=== PATIENT | male | born 1950 | race Caucasian/White ===

== ENCOUNTER 2017-02-05 13:22 | Inpatient (IN) | payer MEDICARE, BC ==
[2017-02-05] MEDS ORDERED: Lactated Ringers 1,000 ML IV SCH (14:15)
[2017-02-05] MEDS ORDERED: cefTRIAXone 1 GM Vial IVPUSH SCH (14:15)
[2017-02-05] MEDS ORDERED: Albuterol/Ipratropium 3.0-0.5 MG/3 ML Neb Soln NEB PRN (14:20)
[2017-02-05] MEDS: Sodium Chloride 0.9% 10 ML Syringe FLUSH PRN ×2 (14:45→15:15)
[2017-02-05] MEDS: methylPREDNISolone Sodium Succinate 125 MG/2 ML SDV IVPUSH SCH ×2 (14:52→22:16)
[2017-02-05] MEDS: cefTRIAXone 1 GM in Sodium Chloride 0.9% 50 ML IV SCH (15:12)
[2017-02-05] MEDS: Azithromycin 500 MG in Sodium Chloride 0.9% 250 ML IV SCH (15:45)
[2017-02-05] MEDS: Albuterol/Ipratropium 3.0-0.5 MG/3 ML Neb Soln NEB SCH ×2 (15:55→21:24)
[2017-02-05] MEDS ORDERED: traMADol 50 MG Tab PO PRN (19:09)
[2017-02-05] MEDS ORDERED: Warfarin 5 MG Tab PO SCH (19:15)
--- NOTE | 2017-02-05 19:16 | PCM.HP ---
H&P History of Present Illness - General Date of Service: 02/05/17 Admit Problem/Dx: Admission Diagnosis/Problem Admission Diagnosis/Problem Pneumonia Source of Information: Patient History Limitations: Reports: No limitations - History of Present Illness Initial Comments - Free Text/Narative: This is a 66-year-old male patient that sent over 2 month history of coughing and pneumonia. There is advice and has seen the international editorial producer. Look-alike he had some pulmonary fibrosis. He had a chest x-ray yesterday and saw his primary provider for 5 days ago. Prescribed Levaquin the last 3 days. This was for pneumonia. He states he has sweats after 4 PM at night and from 10 AM to 4 PM he does fine. He has no appetite and feels short of breath. He's been short of breath for a while. He denies nasal congestion, ear pain, wheezing, headaches, abdominal pain, diarrhea, nausea, vomiting. He states his cough is nonproductive. Lower Back Pain Score (Numeric/FACES): 4 - Related Data Allergies/Adverse Reactions: Allergies Allergy/AdvReac Type Severity Reaction Status Date / Time Influenza Virus Vaccines Allergy Chest Verified 12/03/16 10:47 Tightness Home Medications: Home Meds Aspirin [Halfprin] 81 mg PO DAILY 09/08/16 [History] Enalapril Maleate [Vasotec] 20 mg PO DAILY 09/08/16 [History] Hydrochlorothiazide 25 mg PO DAILY 09/08/16 [History] Multivitamin with Minerals [Multivitamins with Minerals] 1 each PO DAILY [History] Omeprazole 20 mg PO DAILY 09/08/16 [History] Pramipexole [Mirapex] 0.25 mg PO DAILY 09/08/16 [History] Warfarin [Coumadin] 2.5 mg PO MOWEFR 09/08/16 [History] Warfarin [Coumadin] 5 mg PO SUTUTHSA 09/08/16 [History] atorvaSTATin [Lipitor] 20 mg PO DAILY 09/08/16 [History] Metoprolol Succinate [Toprol XL] 150 mg PO DAILY 02/05/17 [History] amLODIPine [Norvasc] 5 mg PO DAILY 02/05/17 [History] traMADol [Ultram] 50 mg PO BID PRN 02/05/17 [History] Past Medical History HEENT History: Reports: Hard of hearing, Impaired vision Cardiovascular History: Reports: Hypertension, IN Respiratory History: Reports: PE, Pneumonia, recurrent Gastrointestinal History: Reports: Bowel obstruction Genitourinary History: Reports: Acute renal failure Neurological History: Reports: None Psychiatric History: Reports: None Hematologic History: Reports: None Immunologic History: Reports: None Oncologic (Cancer) History: Reports: None Dermatologic History: Reports: None - Infectious Disease History Infectious Disease History: Reports: Chicken pox, Measles - Past Surgical History Head Surgeries/Procedures: Reports: None HEENT Surgical History: Reports: LASIK, Other (see below) Other HEENT Surgeries/Procedures: rhinoplasty Cardiovascular Surgical History: Reports: Coronary artery stent GI Surgical History: Reports: Cholecystectomy, Colonoscopy Musculoskeletal Surgical History: Reports: Other (see below) Other Musculoskeletal Surgeries/Procedures:: Right ankle broke and repaired and right knee broke and repaired; bilateral wrists broke and repaired Social & Family History - Family History Family Medical History: Noncontributory - Tobacco Use Smoking Status *Q: Former Smoker Used Tobacco, but Quit: Yes Month Tobacco Last Used: 11/1969 Second Hand Smoke Exposure: No - Caffeine Use Caffeine Use: Reports: Soda - Alcohol Use Date of Last Drink: 01/03/16 - Recreational Drug Use Recreational Drug Use: No H&P Review of Systems - Review of Systems: Review Of Systems: See Below General: Reports: night sweats, decreased appetite HEENT: Reports: no symptoms Pulmonary: Reports: Shortness of Breath, Cough. Denies: Wheezing, Pleuritic Chest Pain, Sputum Cardiovascular: Reports: no symptoms Gastrointestinal: Reports: No symptoms Genitourinary: Reports: no symptoms Musculoskeletal: Reports: no symptoms Skin: Reports: no symptoms Psychiatric: Reports: no symptoms Neurological: Reports: No Symptoms Hematologic/Lymphatic: Reports: no symptoms Immunologic: Reports: no symptoms Exam - Exam Exam: See Below - Vital Signs Vital Signs: Last Vital Signs Temp 98.4 F 02/05/17 18:09 Pulse 82 02/05/17 18:09 Resp 16 02/05/17 18:09 BP 115/71 02/05/17 18:09 Pulse Ox 92 L 02/05/17 18:09 Weight: 271 lb - Exam Quality Assessment: supplemental oxygen General: alert, oriented, cooperative HEENT: PERRLA, Conjunctiva clear, Hearing intact, Mucosa moist & pink, Posterior pharynx clear, Pupils reactive Neck: supple, trachea midline Lungs: Clear to auscultation, Normal respiratory effort, Decreased breath sounds. No: Crackles, Rales, Rhonchi, Rub Cardiovascular: regular rate, regular rhythm. No: normal S1, normal S2, systolic murmur, diastolic murmur Abdomen: normal bowel sounds, soft. No: organomegaly, rigidity, rebound, tenderness Back Exam: normal inspection, full range of motion Extremities: normal inspection. No: edema Skin: warm, dry, intact Neurological: normal speech, normal tone Neuro Extensive - Mental Status: alert, oriented x3, normal mood/affect, normal cognition, memory intact Neuro Extensive - Motor, Sensory, Reflexes: normal gait Psychiatric: alert, normal affect, normal mood - Patient Data Lab Results last 24 hrs: Laboratory Results - last 24 hr 02/05/17 02/05/17 02/05/17 Range/Units 14:45 14:45 14:53 WBC (4.5-12.0) X10-3/uL RBC (4.30-5.75) x10(6)uL Hgb (11.5-15.5) g/dL Hct (30.0-51.3) % MCV (80-96) fL MCH (27.7-33.6) pg MCHC (32.2-35.4) g/dL RDW (11.5-15.5) % Plt Count (125-369) X10(3)uL MPV (7.4-10.4) fL Neut % (Auto) (46-82) % Lymph % (Auto) (13-37) % [place] % (Auto) (4-12) % Eos % (Auto) (1.0-5.0) % Baso % (Auto) (0-2) % Neut # (Auto) (1.6-8.3) # Lymph # (Auto) (0.6-5.0) # [place] # (Auto) (0.0-1.3) # Eos # (Auto) (0.0-0.8) # Baso # (Auto) (0.0-0.2) # Sodium 128 L D (135-145) mmol/L Potassium 3.6 (3.5-5.3) mmol/L Chloride 93 L D (100-110) mmol/L Carbon Dioxide 27 (23-29) mmol/L BUN 59 H D (8-23) mg/dL Creatinine 4.2 H* (0.6-1.3) mg/dL Est Cr Clr Drug Dosing 20.40 mL/min Estimated GFR (MDRD) 14 L (>60) BUN/Creatinine Ratio 14.0 (9-20) Glucose 121 H (80-116) mg/dL Calcium 8.2 L (8.6-10.2) mg/dL Total Bilirubin 0.7 (0.1-1.3) mg/dL AST 107 H D (5-27) IU/L ALT 107 H D (14-26) IU/L Alkaline Phosphatase 41 L (56-112) IU/L Troponin I < 0.01 L (0.02-0.06) NG/ML B-Natriuretic Peptide 94 (0-100) pg/mL Total Protein 7.1 (6.0-8.0) g/dL Albumin 3.4 (3.2-4.6) g/dL Globulin 3.7 g/dL Albumin/Globulin Ratio 0.9 04/04/17 Range/Units 14:53 WBC 5.1 (4.5-12.0) X10-3/uL RBC 4.57 (4.30-5.75) x10(6)uL Hgb 13.4 (11.5-15.5) g/dL Hct 40.4 (30.0-51.3) % MCV 88.5 (80-96) fL MCH 29.3 (27.7-33.6) pg MCHC 33.1 (32.2-35.4) g/dL RDW 14.1 (11.5-15.5) % Plt Count 188 (125-369) X10(3)uL MPV 8.0 (7.4-10.4) fL Neut % (Auto) 76.4 (46-82) % Lymph % (Auto) 7.6 L (13-37) % [place] % (Auto) 14.5 H (4-12) % Eos % (Auto) 1 (1.0-5.0) % Baso % (Auto) 0 (0-2) % Neut # (Auto) 3.9 (1.6-8.3) # Lymph # (Auto) 0.4 L (0.6-5.0) # [place] # (Auto) 0.7 (0.0-1.3) # Eos # (Auto) 0.1 (0.0-0.8) # Baso # (Auto) 0.0 (0.0-0.2) # Sodium (135-145) mmol/L Potassium (3.5-5.3) mmol/L Chloride (100-110) mmol/L Carbon Dioxide (23-29) mmol/L BUN (8-23) mg/dL Creatinine (0.6-1.3) mg/dL Est Cr Clr Drug Dosing mL/min Estimated GFR (MDRD) (>60) BUN/Creatinine Ratio (9-20) Glucose (80-116) mg/dL Calcium (8.6-10.2) mg/dL Total Bilirubin (0.1-1.3) mg/dL AST (5-27) IU/L ALT (14-26) IU/L Alkaline Phosphatase (56-112) IU/L Troponin I (0.02-0.06) NG/ML B-Natriuretic Peptide (0-100) pg/mL Total Protein (6.0-8.0) g/dL Albumin (3.2-4.6) g/dL Globulin g/dL Albumin/Globulin Ratio Result Diagrams: 02/05/17 14:53 02/05/17 14:45 *Q Meaningful Use (ADM) - VTE *Q VTE Criteria *Q: - Stroke *Q Stroke Criteria *Q: - AMI *Q AMI Criteria *Q: - Problem List (1) Acute renal failure SNOMED Code(s): 58342498 ICD Code: N17.9 - ACUTE KIDNEY FAILURE, UNSPECIFIED Status: Acute Current Visit: Yes (2) Pneumonia SNOMED Code(s): 521158570 ICD Code: J18.9 - PNEUMONIA, UNSPECIFIED ORGANISM Status: Acute Current Visit: No Problem List Initiated/Reviewed/Updated: Yes Orders Last 24hrs: Active Orders 24 hr Category Date Time Status Patient Status [ADT] Routine ADT 02/05/17 14:09 Active Height and Weight [RC] DAILY Care 02/05/17 14:09 Active Intake and Output [RC] QSHIFT Care 02/05/17 14:10 Active Oxygen Therapy [RC] PRN Care 02/05/17 14:09 Active RT Aerosol Therapy [RC] ASDIRECTED Care 02/05/17 14:10 Active Up With Assistance [RC] ASDIRECTED Care 02/05/17 14:09 Active VTE/DVT Education [RC] Per Unit Routine Care 02/05/17 14:09 Active Vital Signs [RC] Q4H Care 02/05/17 14:09 Active Regular Diet [DIET] Diet 02/05/17 Breakfast Active CULTURE BLOOD [BC] Urgent Lab 02/05/17 14:45 Received CULTURE BLOOD [BC] Urgent Lab 02/05/17 14:45 Received CULTURE SPUTUM + SMEAR [RM] Stat Lab 02/05/17 14:09 Uncollected INR,PT,PROTHROMBIN TIME [COAG] DAILY Lab 02/05/17 19:15 Ordered INR,PT,PROTHROMBIN TIME [COAG] DAILY Lab 02/06/17 19:15 Ordered INR,PT,PROTHROMBIN TIME [COAG] DAILY Lab 02/07/17 19:15 Ordered INR,PT,PROTHROMBIN TIME [COAG] DAILY Lab 02/08/17 19:15 Ordered INR,PT,PROTHROMBIN TIME [COAG] DAILY Lab 02/09/17 19:15 Ordered Albuterol/Ipratropium [DuoNeb 3.0-0.5 MG/3 ML] Med 02/05/17 14:20 Active 3 ml NEB ASDIRECTED PRN Albuterol/Ipratropium [DuoNeb 3.0-0.5 MG/3 ML] Med 02/05/17 16:00 Active 3 ml NEB QIDRT Azithromycin [Zithromax] 500 mg Med 02/05/17 14:30 Active Sodium Chloride 0.9% [Normal Saline] 250 ml IV Q24H Lactated Ringers [Ringers, Lactated] 1,000 ml Med 02/05/17 14:15 Active IV ASDIRECTED Metoprolol Succinate [Toprol XL] Med 02/06/17 09:00 Ordered 150 mg PO DAILY Omeprazole Med 02/06/17 09:00 Ordered 20 mg PO DAILY Pramipexole [Mirapex] Med 02/06/17 09:00 Ordered 0.25 mg PO DAILY Sodium Chloride 0.9% [Saline Flush] Med 02/05/17 14:55 Active 10 ml FLUSH ASDIRECTED PRN Warfarin [Coumadin] Med 02/06/17 19:09 Ordered 2.5 mg PO MOWEFR Warfarin [Coumadin] Med 02/05/17 19:15 Ordered 5 mg PO SUTUTHSA amLODIPine [Norvasc] Med 02/06/17 09:00 Ordered 5 mg PO DAILY atorvaSTATin [Lipitor] Med 02/06/17 09:00 Ordered 20 mg PO DAILY cefTRIAXone [Rocephin] 1 gm Med 02/05/17 14:00 Active Sodium Chloride 0.9% [Normal Saline] 50 ml IV Q24H methylPREDNISolone Sod Succ [Solu-MEDROL] Med 02/05/17 14:00 Active 125 mg IVPUSH Q8H traMADol [Ultram] Med 02/05/17 19:09 Ordered 50 mg PO BID PRN Blood Culture x2 Reflex Set [OM.PC] Urgent Oth 02/05/17 14:09 Ordered Resuscitation Status Routine Resus Stat 02/05/17 14:09 Ordered EKG 12 Lead [EK] Routine Ther 02/05/17 14:09 Ordered EKG 12 Lead [EK] Stat Ther 02/05/17 14:09 Ordered Medication Orders Albuterol/Ipratropium (Duoneb 3.0-0.5 Mg/3 Ml) 3 ml NEB QIDRT [facility] Last Admin: 02/05/17 15:55 Dose: 3 ml Albuterol/Ipratropium (Duoneb 3.0-0.5 Mg/3 Ml) 3 ml NEB ASDIRECTED PRN PRN Reason: SHORTNESS OF BREATH Amlodipine Besylate (Norvasc) 5 mg PO DAILY JULIANNE Atorvastatin Calcium (Lipitor) 20 mg PO DAILY [facility] Lactated Ringer's (Ringers, Lactated) 1,000 mls @ 125 mls/hr IV ASDIRECTED [facility] Last Admin: 02/05/17 16:45 Dose: 125 mls/hr Azithromycin 500 mg/ Sodium (Chloride) 250 mls @ 250 mls/hr IV Q24H [facility] Last Admin: 02/05/17 15:45 Dose: 250 mls/hr Ceftriaxone Sodium 1 gm/ (Sodium Chloride) 50 mls @ 100 mls/hr IV Q24H [facility] Last Admin: 02/05/17 15:12 Dose: 100 mls/hr Methylprednisolone Sodium Succinate (Solu-Medrol) 125 mg IVPUSH Q8H [facility] Last Admin: 02/05/17 14:52 Dose: 125 mg Metoprolol Succinate (Toprol Xl) 150 mg PO DAILY [facility] Omeprazole (Omeprazole) 20 mg PO DAILY [facility] Pramipexole Dihydrochloride (Mirapex) 0.25 mg PO DAILY [facility] Sodium Chloride (Saline Flush) 10 ml FLUSH ASDIRECTED PRN PRN Reason: Keep Vein Open Last Admin: 02/05/17 15:15 Dose: 10 ml Admin: 02/05/17 14:45 Dose: 10 ml Tramadol HCl (Ultram) 50 mg PO BID PRN PRN Reason: Pain Warfarin Sodium (Coumadin) [facility] Assessment/Plan Comment:: 1. Admit to the hospital. 2. Stop Levaquin and push IV fluids. 3. Rocephin and Zithromax. 4. Hold his HANNA inhibitor as this could cause a dry cough. 5. Blood cultures. 6. Up ad michael. 7. Dual nebs when necessary. 8. Repeat labs in the a.m.
[2017-02-05] MEDS ORDERED: Sodium Chloride 0.9% 1,000 ML IV SCH (20:00)
[2017-02-05] MEDS ORDERED: Pramipexole 0.25 MG Tab PO SCH (21:00)
[2017-02-06] MEDS: Sodium Chloride 0.9% 1,000 ML IV SCH ×3 (00:30→19:28)
[2017-02-06] MEDS: methylPREDNISolone Sodium Succinate 125 MG/2 ML SDV IVPUSH SCH ×3 (05:31→21:57)
[2017-02-06] MEDS: Albuterol/Ipratropium 3.0-0.5 MG/3 ML Neb Soln NEB SCH ×4 (07:13→20:22)
[2017-02-06] MEDS: atorvaSTATin 20 MG Tab PO SCH (10:22)
[2017-02-06] MEDS: amLODIPine 5 MG Tab PO SCH (10:23)
[2017-02-06] MEDS: Metoprolol Succinate 50 MG Tab.ER PO SCH (10:23)
[2017-02-06] MEDS: Omeprazole 20 MG Cap.CR PO SCH (10:23)
--- NOTE | 2017-02-06 10:25 | PCM.PN ---
- General Info Date of Service: 02/06/17 Admission Dx/Problem (Free Text): Patient states she's a little shaky today. He says his appetite is better. He denies shortness of breath he has not been up to walk it. He denies coughing, fevers, chills. He is urinating without any difficulty. - Patient Data Vitals - most recent: Last Vital Signs Temp 207.3 F H 02/06/17 08:00 Pulse 90 02/06/17 08:00 Resp 20 02/06/17 08:00 BP 142/86 H 02/06/17 08:00 Pulse Ox 94 L 02/06/17 08:00 Weight - most recent: 278 lb 10.629 oz I&O - last 24 hours: Intake & Output 02/05/17 02/06/17 02/06/17 22:59 06:59 14:59 Intake Total 1430 1520 240 Output Total 200 Balance 1430 1320 240 Lab Results last 24 hrs: Laboratory Results - last 24 hr 02/05/17 02/05/17 02/05/17 Range/Units 14:45 14:45 14:45 WBC (4.5-12.0) X10-3/uL RBC (4.30-5.75) x10(6)uL Hgb (11.5-15.5) g/dL Hct (30.0-51.3) % MCV (80-96) fL MCH (27.7-33.6) pg MCHC (32.2-35.4) g/dL RDW (11.5-15.5) % Plt Count (125-369) X10(3)uL MPV (7.4-10.4) fL Neut % (Auto) (46-82) % Lymph % (Auto) (13-37) % [place] % (Auto) (4-12) % Eos % (Auto) (1.0-5.0) % Baso % (Auto) (0-2) % Neut # (Auto) (1.6-8.3) # Lymph # (Auto) (0.6-5.0) # [place] # (Auto) (0.0-1.3) # Eos # (Auto) (0.0-0.8) # Baso # (Auto) (0.0-0.2) # Add Manual Diff Neutrophils % (Manual) (46-82) % Band Neutrophils % (0-6) % Lymphocytes % (Manual) (13-37) % Monocytes % (Manual) (4-12) % PT 27.3 H (8.7-11.1) INR 2.65 H (0.89-1.13) D-Dimer, Quantitative (100-400) ng/mL Sodium 128 L D (135-145) mmol/L Potassium 3.6 (3.5-5.3) mmol/L Chloride 93 L D (100-110) mmol/L Carbon Dioxide 27 (23-29) mmol/L BUN 59 H D (8-23) mg/dL Creatinine 4.2 H* (0.6-1.3) mg/dL Est Cr Clr Drug Dosing 20.40 mL/min Estimated GFR (MDRD) 14 L (>60) BUN/Creatinine Ratio 14.0 (9-20) Glucose 121 H (80-116) mg/dL Calcium 8.2 L (8.6-10.2) mg/dL Total Bilirubin 0.7 (0.1-1.3) mg/dL AST 107 H D (5-27) IU/L ALT 107 H D (14-26) IU/L Alkaline Phosphatase 41 L (56-112) IU/L Troponin I < 0.01 L (0.02-0.06) NG/ML B-Natriuretic Peptide (0-100) pg/mL Total Protein 7.1 (6.0-8.0) g/dL Albumin 3.4 (3.2-4.6) g/dL Globulin 3.7 g/dL Albumin/Globulin Ratio 0.9 02/05/17 02/05/17 02/05/17 Range/Units 14:53 14:53 14:53 WBC 5.1 (4.5-12.0) X10-3/uL RBC 4.57 (4.30-5.75) x10(6)uL Hgb 13.4 (11.5-15.5) g/dL Hct 40.4 (30.0-51.3) % MCV 88.5 (80-96) fL MCH 29.3 (27.7-33.6) pg MCHC 33.1 (32.2-35.4) g/dL RDW 14.1 (11.5-15.5) % Plt Count 188 (125-369) X10(3)uL MPV 8.0 (7.4-10.4) fL Neut % (Auto) 76.4 (46-82) % Lymph % (Auto) 7.6 L (13-37) % [place] % (Auto) 14.5 H (4-12) % Eos % (Auto) 1 (1.0-5.0) % Baso % (Auto) 0 (0-2) % Neut # (Auto) 3.9 (1.6-8.3) # Lymph # (Auto) 0.4 L (0.6-5.0) # [place] # (Auto) 0.7 (0.0-1.3) # Eos # (Auto) 0.1 (0.0-0.8) # Baso # (Auto) 0.0 (0.0-0.2) # Add Manual Diff Neutrophils % (Manual) (46-82) % Band Neutrophils % (0-6) % Lymphocytes % (Manual) (13-37) % Monocytes % (Manual) (4-12) % PT (8.7-11.1) INR (0.89-1.13) D-Dimer, Quantitative 4370 H (100-400) ng/mL Sodium (135-145) mmol/L Potassium (3.5-5.3) mmol/L Chloride (100-110) mmol/L Carbon Dioxide (23-29) mmol/L BUN (8-23) mg/dL Creatinine (0.6-1.3) mg/dL Est Cr Clr Drug Dosing mL/min Estimated GFR (MDRD) (>60) BUN/Creatinine Ratio (9-20) Glucose (80-116) mg/dL Calcium (8.6-10.2) mg/dL Total Bilirubin (0.1-1.3) mg/dL AST (5-27) IU/L ALT (14-26) IU/L Alkaline Phosphatase (56-112) IU/L Troponin I (0.02-0.06) NG/ML B-Natriuretic Peptide 94 (0-100) pg/mL Total Protein (6.0-8.0) g/dL Albumin (3.2-4.6) g/dL Globulin g/dL Albumin/Globulin Ratio 02/06/17 02/06/17 Range/Units 07:10 07:10 WBC 3.6 L (4.5-12.0) X10-3/uL RBC 4.66 (4.30-5.75) x10(6)uL Hgb 13.6 (11.5-15.5) g/dL Hct 40.5 (30.0-51.3) % MCV 86.9 (80-96) fL MCH 29.2 (27.7-33.6) pg MCHC 33.6 (32.2-35.4) g/dL RDW 13.7 (11.5-15.5) % Plt Count 193 (125-369) X10(3)uL MPV 8.3 (7.4-10.4) fL Neut % (Auto) (46-82) % Lymph % (Auto) (13-37) % [place] % (Auto) (4-12) % Eos % (Auto) (1.0-5.0) % Baso % (Auto) (0-2) % Neut # (Auto) (1.6-8.3) # Lymph # (Auto) (0.6-5.0) # [place] # (Auto) (0.0-1.3) # Eos # (Auto) (0.0-0.8) # Baso # (Auto) (0.0-0.2) # Add Manual Diff Yes Neutrophils % (Manual) 82 (46-82) % Band Neutrophils % 3 (0-6) % Lymphocytes % (Manual) 13 (13-37) % Monocytes % (Manual) 2 L (4-12) % PT (8.7-11.1) INR (0.89-1.13) D-Dimer, Quantitative (100-400) ng/mL Sodium 128 L (135-145) mmol/L Potassium 3.4 L (3.5-5.3) mmol/L Chloride 96 L (100-110) mmol/L Carbon Dioxide 19 L (23-29) mmol/L BUN 63 H (8-23) mg/dL Creatinine 4.0 H* (0.6-1.3) mg/dL Est Cr Clr Drug Dosing 21.42 mL/min Estimated GFR (MDRD) 15 L (>60) BUN/Creatinine Ratio 15.8 (9-20) Glucose 180 H (80-116) mg/dL Calcium 7.5 L (8.6-10.2) mg/dL Total Bilirubin 0.6 (0.1-1.3) mg/dL AST 83 H D (5-27) IU/L ALT 98 H (14-26) IU/L Alkaline Phosphatase 40 L (56-112) IU/L Troponin I (0.02-0.06) NG/ML B-Natriuretic Peptide (0-100) pg/mL Total Protein 6.8 (6.0-8.0) g/dL Albumin 3.2 (3.2-4.6) g/dL Globulin 3.6 g/dL Albumin/Globulin Ratio 0.9 Med Orders - Current: Current Medications Albuterol/Ipratropium (Duoneb 3.0-0.5 Mg/3 Ml) 3 ml NEB QIDRT [facility] Last Admin: 02/06/17 07:13 Dose: 3 ml Albuterol/Ipratropium (Duoneb 3.0-0.5 Mg/3 Ml) 3 ml NEB ASDIRECTED PRN PRN Reason: SHORTNESS OF BREATH Amlodipine Besylate (Norvasc) 5 mg PO DAILY [facility] Atorvastatin Calcium (Lipitor) 20 mg PO DAILY [facility] Azithromycin 500 mg/ Sodium (Chloride) 250 mls @ 250 mls/hr IV Q24H [facility] Last Admin: 02/05/17 15:45 Dose: 250 mls/hr Ceftriaxone Sodium 1 gm/ (Sodium Chloride) 50 mls @ 100 mls/hr IV Q24H [facility] Last Admin: 02/05/17 15:12 Dose: 100 mls/hr Sodium Chloride (Normal Saline) 1,000 mls @ 125 mls/hr IV ASDIRECTED [facility] Last Admin: 02/06/17 09:40 Dose: 125 mls/hr Methylprednisolone Sodium Succinate (Solu-Medrol) 125 mg IVPUSH Q8H [facility] Last Admin: 02/06/17 05:31 Dose: 125 mg Metoprolol Succinate (Toprol Xl) 150 mg PO DAILY [facility] Omeprazole (Omeprazole) 20 mg PO DAILY [facility] Pramipexole Dihydrochloride (Mirapex) 0.25 mg PO BEDTIME [facility] Last Admin: 02/05/17 21:34 Dose: 0.25 mg Sodium Chloride (Saline Flush) 10 ml FLUSH ASDIRECTED PRN PRN Reason: Keep Vein Open Last Admin: 02/05/17 15:15 Dose: 10 ml Tramadol HCl (Ultram) 50 mg PO BID PRN PRN Reason: Pain Warfarin Sodium (Coumadin) 2.5 mg PO MoWeFr@1600 JULIANNE Warfarin Sodium (Coumadin) 5 mg PO SuTuThSa@1600 JULIANNE Last Admin: 02/05/17 19:44 Dose: 5 mg Discontinued Medications Lactated Ringer's (Ringers, Lactated) 1,000 mls @ 125 mls/hr IV ASDIRECTED [facility] Last Admin: 02/05/17 16:45 Dose: 125 mls/hr Sodium Chloride (Normal Saline) 1,000 mls @ 250 mls/hr IV ASDIRECTED [facility] Stop: 02/06/17 04:01 Last Admin: 02/05/17 21:22 Dose: 250 mls/hr - Exam General: alert, oriented, cooperative Lungs: Clear to auscultation, Normal respiratory effort Cardiovascular: Regular Rate, Regular Rhythm, No Murmurs Abdomen: bowel sounds present, soft, no tenderness Extremities: no edema Psy/Mental Status: alert, normal affect, normal mood - Problem List & Annotations (1) Acute renal failure SNOMED Code(s): 03844828 Code(s): N17.9 - ACUTE KIDNEY FAILURE, UNSPECIFIED Status: Acute Current Visit: Yes (2) Pneumonia SNOMED Code(s): 773707374 Code(s): J18.9 - PNEUMONIA, UNSPECIFIED ORGANISM Status: Acute Current Visit: No (3) Hyponatremia SNOMED Code(s): 54582549 Code(s): E87.1 - HYPO-OSMOLALITY AND HYPONATREMIA Status: Acute Current Visit: Yes - Problem List Review Problem List Initiated/Reviewed/Updated: Yes - My Orders Last 24 Hours: My Active Orders 02/05/17 14:55 Sodium Chloride 0.9% [Saline Flush] 10 ml FLUSH ASDIRECTED PRN 02/05/17 19:09 traMADol [Ultram] 50 mg PO BID PRN 02/05/17 19:15 Warfarin [Coumadin] 5 mg PO SuTuThSa@1600 02/05/17 21:00 Pramipexole [Mirapex] 0.25 mg PO BEDTIME 02/06/17 04:00 Sodium Chloride 0.9% [Normal Saline] 1,000 ml IV ASDIRECTED 02/06/17 09:00 Metoprolol Succinate [Toprol XL] 150 mg PO DAILY Omeprazole 20 mg PO DAILY amLODIPine [Norvasc] 5 mg PO DAILY atorvaSTATin [Lipitor] 20 mg PO DAILY 02/06/17 10:20 Renal Comp [US] Routine 02/06/17 16:00 Warfarin [Coumadin] 2.5 mg PO MoWeFr@1600 02/06/17 19:15 INR,PT,PROTHROMBIN TIME [COAG] DAILY 02/07/17 05:11 BASIC METABOLIC PANEL,BMP [CHEM] AM 02/07/17 19:15 INR,PT,PROTHROMBIN TIME [COAG] DAILY 02/08/17 19:15 INR,PT,PROTHROMBIN TIME [COAG] DAILY 02/09/17 19:15 INR,PT,PROTHROMBIN TIME [COAG] DAILY - Plan Plan:: 1. renal ultrasound today. 2. The IV antibiotics. 3. Up ad michael. Encouraged patient to go to walk and sit in the chair and outlined that all day. 4. Continue IV fluids and normal saline 125 mL an hour. 5. Panel 8 at 4 PM today.
--- NOTE | 2017-02-06 13:53 | US ---
INDICATION: Acute renal failure. RENAL ULTRASOUND COMPLETE: Multiple ultrasonic images were obtained 2016. No comparisons were available. The right kidney measured 13.1 x 5.2 x 6.5 cm. The left kidney measured 13.3 x 5.9 x 5.2 cm. There are some irregularities of the renal cortices compatible with mild renal cortical scarring. No evidence of hydronephrosis was seen. No calculi were identified in either kidney. Parapelvic cyst is noted, likely a simple cyst, measuring 2.7 x 2.4 x 3 cm at the right renal pelvis. Along the upper pole cortex medially of the left kidney, there is a small exophytic cyst which measured 2.39 cm maximally and is almost completely rounded. Again, this is compatible with a benign cystic structure. In the right lobe of the liver, there is also noted a simple cystic structure, measuring 3.69 x 2.73 cm longitudinally in the mid portion of the right lobe of the liver. No other mass lesions or free fluid collections were identified. No solid mass lesions were identified. IMPRESSION: 1. Mild renal cortical scarring. No significant overall renal cortical thinning is identified. 2. Cystic changes in the kidneys, as noted above. Report was called to Dr. Youngblood at 1141 hours, 02/06/2017. [facility]
[2017-02-06] MEDS: cefTRIAXone 1 GM in Sodium Chloride 0.9% 50 ML IV SCH (13:59)
[2017-02-06] MEDS: Azithromycin 500 MG in Sodium Chloride 0.9% 250 ML IV SCH (14:45)
[2017-02-06] MEDS ORDERED: Warfarin 2.5 MG Tab PO SCH (16:00)
[2017-02-06] MEDS ORDERED: Pramipexole 0.25 MG Tab PO SCH (18:54)
[2017-02-06] MEDS ORDERED: Potassium Chloride 20 MEQ Tab.ER PO SCH (21:00)
[2017-02-07] MEDS: Sodium Chloride 0.9% 1,000 ML IV SCH (03:26)
[2017-02-07] MEDS: methylPREDNISolone Sodium Succinate 125 MG/2 ML SDV IVPUSH SCH (05:55)
[2017-02-07] MEDS: Albuterol/Ipratropium 3.0-0.5 MG/3 ML Neb Soln NEB SCH (07:07)
[2017-02-07 08:02] VITALS: BP 130/84
--- NOTE | 2017-02-07 08:44 | PCM.PN ---
- General Info Date of Service: 02/07/17 Admission Dx/Problem (Free Text): Patient today feels much better. His appetite and he denies any night sweats last 2 days. No fevers or chills. Says his breathing is better and less cough. No chest pain or leg swelling. - Patient Data Vitals - most recent: Last Vital Signs Temp 207.3 F H 02/07/17 08:00 Pulse 94 02/07/17 08:00 Resp 20 02/07/17 08:00 BP 130/84 02/07/17 08:00 Pulse Ox 94 L 02/07/17 08:00 Weight - most recent: 278 lb 10.629 oz I&O - last 24 hours: Intake & Output 02/06/17 02/07/17 02/07/17 22:59 06:59 14:59 Intake Total 2416 1448 Output Total 850 1450 Balance 1566 -2 Lab Results last 24 hrs: Laboratory Results - last 24 hr 02/06/17 02/07/17 02/07/17 Range/Units 19:20 06:07 06:07 PT 41.9 H* 41.1 H* (8.7-11.1) INR 4.03 H* 3.96 H (0.89-1.13) Sodium 128 L (135-145) mmol/L Potassium 3.4 L (3.5-5.3) mmol/L Chloride 98 L (100-110) mmol/L Carbon Dioxide 18 L (23-29) mmol/L BUN 67 H (8-23) mg/dL Creatinine 3.4 H* (0.6-1.3) mg/dL Est Cr Clr Drug Dosing 25.20 mL/min Estimated GFR (MDRD) 18 L (>60) BUN/Creatinine Ratio 19.7 (9-20) Glucose 179 H (80-116) mg/dL Calcium 7.1 L (8.6-10.2) mg/dL Stevie Results last 24 hrs: Microbiology 02/05/17 14:45 Aerobic Blood Culture - Preliminary Blood - Venous - Lab Draw NO GROWTH AFTER 1 DAY Anaerobic Blood Culture - Preliminary NO GROWTH AFTER 1 DAY 02/05/17 14:45 Aerobic Blood Culture - Preliminary Blood - Venous NO GROWTH AFTER 1 DAY Anaerobic Blood Culture - Preliminary NO GROWTH AFTER 1 DAY Med Orders - Current: Current Medications Albuterol/Ipratropium (Duoneb 3.0-0.5 Mg/3 Ml) 3 ml NEB QIDRT [facility] Last Admin: 02/07/17 07:07 Dose: 3 ml Albuterol/Ipratropium (Duoneb 3.0-0.5 Mg/3 Ml) 3 ml NEB ASDIRECTED PRN PRN Reason: SHORTNESS OF BREATH Amlodipine Besylate (Norvasc) 5 mg PO DAILY [facility] Last Admin: 02/06/17 10:23 Dose: 5 mg Atorvastatin Calcium (Lipitor) 20 mg PO DAILY [facility] Last Admin: 02/06/17 10:22 Dose: 20 mg Azithromycin 500 mg/ Sodium (Chloride) 250 mls @ 250 mls/hr IV Q24H [facility] Last Admin: 02/06/17 14:45 Dose: 250 mls/hr Ceftriaxone Sodium 1 gm/ (Sodium Chloride) 50 mls @ 100 mls/hr IV Q24H [facility] Last Admin: 02/06/17 13:59 Dose: 100 mls/hr Sodium Chloride (Normal Saline) 1,000 mls @ 125 mls/hr IV ASDIRECTED [facility] Last Admin: 02/07/17 03:26 Dose: 125 mls/hr Methylprednisolone Sodium Succinate (Solu-Medrol) 125 mg IVPUSH Q8H [facility] Last Admin: 02/07/17 05:55 Dose: 125 mg Metoprolol Succinate (Toprol Xl) 150 mg PO DAILY [facility] Last Admin: 02/06/17 10:23 Dose: 150 mg Omeprazole (Omeprazole) 20 mg PO DAILY [facility] Last Admin: 02/06/17 10:23 Dose: 20 mg Pramipexole Dihydrochloride (Mirapex) 0.5 mg PO BEDTIME [facility] Sodium Chloride (Saline Flush) 10 ml FLUSH ASDIRECTED PRN PRN Reason: Keep Vein Open Last Admin: 02/05/17 15:15 Dose: 10 ml Tramadol HCl (Ultram) 50 mg PO BID PRN PRN Reason: Pain Warfarin Sodium (Coumadin) 2.5 mg PO MoWeFr@1600 [facility] Last Admin: 02/06/17 16:14 Dose: 2.5 mg Warfarin Sodium (Coumadin) 5 mg PO SuTuThSa@1600 [facility] Last Admin: 02/05/17 19:44 Dose: 5 mg Discontinued Medications Lactated Ringer's (Ringers, Lactated) 1,000 mls @ 125 mls/hr IV ASDIRECTED [facility] Last Admin: 02/05/17 16:45 Dose: 125 mls/hr Sodium Chloride (Normal Saline) 1,000 mls @ 250 mls/hr IV ASDIRECTED [facility] Stop: 02/06/17 04:01 Last Admin: 02/05/17 21:22 Dose: 250 mls/hr Potassium Chloride (Klor-Con M20) 20 meq PO BID [facility] Pramipexole Dihydrochloride (Mirapex) 0.25 mg PO BEDTIME [facility] Last Admin: 02/05/17 21:34 Dose: 0.25 mg Pramipexole Dihydrochloride (Mirapex) 0.5 mg PO BEDTIME [facility] Last Admin: 02/06/17 20:25 Dose: 0.5 mg - Exam General: alert, oriented, cooperative Neck: supple. No: no JVD Lungs: Clear to auscultation, Normal respiratory effort, Decreased breath sounds Cardiovascular: Regular Rate, Regular Rhythm. No: No Murmurs Extremities: no edema - Problem List & Annotations (1) Acute renal failure SNOMED Code(s): 16552915 Code(s): N17.9 - ACUTE KIDNEY FAILURE, UNSPECIFIED Status: Acute Current Visit: Yes (2) Pneumonia SNOMED Code(s): 454619588 Code(s): J18.9 - PNEUMONIA, UNSPECIFIED ORGANISM Status: Acute Current Visit: No Qualifiers: Pneumonia type: due to unspecified organism Laterality: right (3) Hyponatremia SNOMED Code(s): 85392413 Code(s): E87.1 - HYPO-OSMOLALITY AND HYPONATREMIA Status: Acute Current Visit: Yes - Problem List Review Problem List Initiated/Reviewed/Updated: Yes - My Orders Last 24 Hours: My Active Orders 02/06/17 09:00 Metoprolol Succinate [Toprol XL] 150 mg PO DAILY Omeprazole 20 mg PO DAILY amLODIPine [Norvasc] 5 mg PO DAILY atorvaSTATin [Lipitor] 20 mg PO DAILY 02/06/17 16:00 Warfarin [Coumadin] 2.5 mg PO MoWeFr@1600 02/07/17 21:00 Pramipexole [Mirapex] 0.5 mg PO BEDTIME 02/08/17 19:15 INR,PT,PROTHROMBIN TIME [COAG] DAILY 02/09/17 19:15 INR,PT,PROTHROMBIN TIME [COAG] DAILY - Plan Plan:: 1.discharged to home today. 2. A Z-Indra and Augmentin for antibiotics. 3. Followup with Dr. Wallace early next week with panel 8 and INR.
--- NOTE | 2017-02-07 08:58 | PCM.DCSUM1 ---
Discharge Summary - Hospital Course Free Text/Narrative:: Hospital course-patient was admitted and placed on Rocephin and Zithromax IV for his pneumonia. CT scan was reviewed that showed right pneumonia. His Levaquin was stopped bleeding that with some dehydration that caused his renal failure. His creatinine on admission was 4.2. He had taken his Levaquin a day. The next day went to 3.4. Patient was having night sweats from 4 PM to at first in the morning. After 2 days of antibiotics his night sweats stopped. He felt much better. We gave him copious amounts of normal saline and he gained about 9 pounds and did lots urination. He felt much better. Renal ultrasound was done that shows some very minimal renal scarring. No hydronephrosis. Renal failure most likely due to dehydration and/or Levaquin use. Have him followup in the clinic with an INR and a panel 85-7 days. She will be sent home on Augmentin and Zithromax. Brief History: This is a 66-year-old male patient that sent over 2 month history of coughing and pneumonia. There is advice and has seen the washhouse hand. Look-alike he had some pulmonary fibrosis. He had a chest x- ray yesterday and saw his primary provider for 5 days ago. Prescribed Levaquin the last 3 days. This was for pneumonia. He states he has sweats after 4 PM at night and from 10 AM to 4 PM he does fine. He has no appetite and feels short of breath. He's been short of breath for a while. He denies nasal congestion, ear pain, wheezing, headaches, abdominal pain, diarrhea, nausea, vomiting. He states his cough is nonproductive. - Discharge Data Discharge Date: 02/07/17 Discharge Disposition: Home, Self-Care 01 Condition: Good - Discharge Diagnosis/Problem(s) (1) Acute renal failure SNOMED Code(s): 26459344 ICD Code: N17.9 - ACUTE KIDNEY FAILURE, UNSPECIFIED Status: Acute Current Visit: Yes (2) Pneumonia SNOMED Code(s): 804576033 ICD Code: J18.9 - PNEUMONIA, UNSPECIFIED ORGANISM Status: Acute Current Visit: No Qualifiers: Pneumonia type: due to unspecified organism Laterality: right (3) Hyponatremia SNOMED Code(s): 24245221 ICD Code: E87.1 - HYPO-OSMOLALITY AND HYPONATREMIA Status: Acute Current Visit: Yes - Patient Instructions Driving: May Drive Today Showering/Bathing: May Shower Notify Provider of: Fever, Increased Pain, Nausea and/or Vomiting Other/Special Instructions: 1 Hold Coumadin for today. Resume regular dose in am. 2. Recheck 5-[address] Fernandez with INR and bmp before the appt. - Discharge Plan Prescriptions/Med Rec: Amoxicillin/Clavulanate K [Augmentin 500 MG\125 MG] 1 tab PO Q8H #45 tab Azithromycin [Zithromax] 250 mg PO DAILY #5 tablet predniSONE 10 mg PO DAILY #40 tablet Home Medications: Home Meds Aspirin [Halfprin] 81 mg PO DAILY 09/08/16 [History] Enalapril Maleate [Vasotec] 20 mg PO DAILY 09/08/16 [History] Hydrochlorothiazide 25 mg PO DAILY 09/08/16 [History] Multivitamin with Minerals [Multivitamins with Minerals] 1 each PO DAILY [History] Omeprazole 20 mg PO DAILY 09/08/16 [History] Pramipexole [Mirapex] 0.5 mg PO DAILY 09/08/16 [History] Warfarin [Coumadin] 2.5 mg PO MOWEFR 09/08/16 [History] Warfarin [Coumadin] 5 mg PO SUTUTHSA 09/08/16 [History] atorvaSTATin [Lipitor] 20 mg PO DAILY 09/08/16 [History] Metoprolol Succinate [Toprol XL] 150 mg PO DAILY 02/05/17 [History] amLODIPine [Norvasc] 5 mg PO DAILY 02/05/17 [History] traMADol [Ultram] 50 mg PO BID PRN 02/05/17 [History] Amoxicillin/Clavulanate K [Augmentin 500 MG\125 MG] 1 tab PO Q8H #45 tab [Rx] Azithromycin [Zithromax] 250 mg PO DAILY #5 tablet 02/07/17 [Rx] predniSONE 10 mg PO DAILY #40 tablet 02/07/17 [Rx] Patient Handouts: Shortness of Breath, [id number], Venous Thromboembolism - Patient Data Vitals - Most Recent: Last Vital Signs Temp 207.3 F H 02/07/17 08:00 Pulse 84 02/07/17 08:10 Resp 20 02/07/17 08:00 BP 130/84 02/07/17 08:00 Pulse Ox 95 02/07/17 08:10 Weight - Most Recent: 278 lb 10.629 oz I&O - Last 24 hours: Intake & Output 02/06/17 02/07/17 02/07/17 22:59 06:59 14:59 Intake Total 2416 1448 362 Output Total 850 1450 Balance 1566 -2 362 Lab Results - Last 24 hrs: Laboratory Results - last 24 hr 02/06/17 02/07/17 02/07/17 Range/Units 19:20 06:07 06:07 PT 41.9 H* 41.1 H* (8.7-11.1) INR 4.03 H* 3.96 H (0.89-1.13) Sodium 128 L (135-145) mmol/L Potassium 3.4 L (3.5-5.3) mmol/L Chloride 98 L (100-110) mmol/L Carbon Dioxide 18 L (23-29) mmol/L BUN 67 H (8-23) mg/dL Creatinine 3.4 H* (0.6-1.3) mg/dL Est Cr Clr Drug Dosing 25.20 mL/min Estimated GFR (MDRD) 18 L (>60) BUN/Creatinine Ratio 19.7 (9-20) Glucose 179 H (80-116) mg/dL Calcium 7.1 L (8.6-10.2) mg/dL [facility] Results - Last 24 hrs: Microbiology 02/05/17 14:45 Aerobic Blood Culture - Preliminary Blood - Venous - Lab Draw NO GROWTH AFTER 1 DAY Anaerobic Blood Culture - Preliminary NO GROWTH AFTER 1 DAY 02/05/17 14:45 Aerobic Blood Culture - Preliminary Blood - Venous NO GROWTH AFTER 1 DAY Anaerobic Blood Culture - Preliminary NO GROWTH AFTER 1 DAY Med Orders - Current: Current Medications Albuterol/Ipratropium (Duoneb 3.0-0.5 Mg/3 Ml) 3 ml NEB QIDRT [facility] Last Admin: 02/07/17 07:07 Dose: 3 ml Albuterol/Ipratropium (Duoneb 3.0-0.5 Mg/3 Ml) 3 ml NEB ASDIRECTED PRN PRN Reason: SHORTNESS OF BREATH Amlodipine Besylate (Norvasc) 5 mg PO DAILY [facility] Last Admin: 02/06/17 10:23 Dose: 5 mg Atorvastatin Calcium (Lipitor) 20 mg PO DAILY [facility] Last Admin: 02/06/17 10:22 Dose: 20 mg Azithromycin 500 mg/ Sodium (Chloride) 250 mls @ 250 mls/hr IV Q24H [facility] Last Admin: 02/06/17 14:45 Dose: 250 mls/hr Ceftriaxone Sodium 1 gm/ (Sodium Chloride) 50 mls @ 100 mls/hr IV Q24H [facility] Last Admin: 02/06/17 13:59 Dose: 100 mls/hr Sodium Chloride (Normal Saline) 1,000 mls @ 125 mls/hr IV ASDIRECTED [facility] Last Admin: 02/07/17 03:26 Dose: 125 mls/hr Methylprednisolone Sodium Succinate (Solu-Medrol) 125 mg IVPUSH Q8H [facility] Last Admin: 02/07/17 05:55 Dose: 125 mg Metoprolol Succinate (Toprol Xl) 150 mg PO DAILY [facility] Last Admin: 02/06/17 10:23 Dose: 150 mg Omeprazole (Omeprazole) 20 mg PO DAILY [facility] Last Admin: 02/06/17 10:23 Dose: 20 mg Pramipexole Dihydrochloride (Mirapex) 0.5 mg PO BEDTIME [facility] Sodium Chloride (Saline Flush) 10 ml FLUSH ASDIRECTED PRN PRN Reason: Keep Vein Open Last Admin: 02/05/17 15:15 Dose: 10 ml Tramadol HCl (Ultram) 50 mg PO BID PRN PRN Reason: Pain Warfarin Sodium (Coumadin) 2.5 mg PO MoWeFr@1600 [facility] Last Admin: 02/06/17 16:14 Dose: 2.5 mg Warfarin Sodium (Coumadin) 5 mg PO SuTuThSa@1600 [facility] Last Admin: 02/05/17 19:44 Dose: 5 mg Discontinued Medications Lactated Ringer's (Ringers, Lactated) 1,000 mls @ 125 mls/hr IV ASDIRECTED [facility] Last Admin: 02/05/17 16:45 Dose: 125 mls/hr Sodium Chloride (Normal Saline) 1,000 mls @ 250 mls/hr IV ASDIRECTED [facility] Stop: 02/06/17 04:01 Last Admin: 02/05/17 21:22 Dose: 250 mls/hr Potassium Chloride (Klor-Con M20) 20 meq PO BID [facility] Pramipexole Dihydrochloride (Mirapex) 0.25 mg PO BEDTIME [facility] Last Admin: 02/05/17 21:34 Dose: 0.25 mg Pramipexole Dihydrochloride (Mirapex) 0.5 mg PO BEDTIME [facility] Last Admin: 02/06/17 20:25 Dose: 0.5 mg *Q Meaningful Use (DIS) - VTE *Q VTE Criteria *Q: - Stroke *Q Stroke Criteria *Q: - AMI *Q AMI Criteria *Q:
[2017-02-07] MEDS: Metoprolol Succinate 50 MG Tab.ER PO SCH (10:33)
[2017-02-07] MEDS: atorvaSTATin 20 MG Tab PO SCH (10:33)
[2017-02-07] MEDS: Omeprazole 20 MG Cap.CR PO SCH (10:33)
[2017-02-07] MEDS: amLODIPine 5 MG Tab PO SCH (10:33)
[2017-02-07] MEDS ORDERED: Pramipexole 0.5 MG Tab PO SCH (21:00)
== END 2017-02-07 09:25 | disposition home or self-care (01) | DRG 194 ==
LOC: FB.MS 13:38
PROVIDERS: ADMIT Family Medicine; ATTEND Family Medicine
DX: J18.9 Pneumonia, unspecified organism (principal); N17.9 Acute kidney failure, unspecified; E87.1 Hypo-osmolality and hyponatremia; I10 Essential (primary) hypertension; Z86.711 Personal history of pulmonary embolism; Z79.01 Long term (current) use of anticoagulants; Z87.891 Personal history of nicotine dependence; E86.0 Dehydration; Z87.01 Personal history of pneumonia (recurrent); Z79.82 Long term (current) use of aspirin; Z88.7 Allergy status to serum and vaccine; T37.8X5A Adverse effect of other specified systemic anti-infectives and antiparasitics, initial encounter; Y92.009 Unspecified place in unspecified non-institutional (private) residence as the place of occurrence of the external cause
CPT/HCPCS: 36415; 76770; 80048; 80053; 83880; 84484; 85025; 85379; 85610; 87040; 93005; 94640-76; 94664; A9270-GY; J0456; J0696; J2930; J7040; J7050; J7120; J7620

== ENCOUNTER 2018-06-20 16:55 | Emergency (ER) | payer MEDICARE, BC ==
[2018-06-20] MEDS ORDERED: Lidocaine 2% 20 ML MDV INFILT ONE (16:56)
[2018-06-20 17:30] VITALS: BP 153/84
--- NOTE | 2018-06-20 17:45 | EDM.PDOC ---
ED HPI GENERAL MEDICAL PROBLEM - General Chief Complaint: Laceration Stated Complaint: cut to chin Time Seen by Provider: 06/20/18 17:01 Source of Information: Reports: Patient, Family History Limitations: Reports: Physical Impairment - History of Present Illness INITIAL COMMENTS - FREE TEXT/NARRATIVE: 68 y.o.w.m with multiple medical issues including Pulm emboli, on Coumadin, came to the ed 15 arlene after his leg gave out and he fell with his chin a table. He noticed bleed and a LAC. His rushed him to the ed. Pt applied pressure to his wound due to active venous week from his chin wound. Pt is due for an INR test next week. No N/V/D no SOB -pt is using a cpap machine at night- or any other acute medical issues. BP 154/84 Pulse 76 RR 18 Pulse ox 98% on RA temp 98.2 Onset Date: 06/20/18 Onset Time: 16:40 Duration: Minutes:, Getting Worse Location: Reports: Face Quality: Reports: Ache, Dull, Pressure, Stabbing Severity: Moderate Improves with: Reports: Rest Worsens with: Reports: Movement Context: Reports: Trauma (hit chin on a table, his leg gave out) Associated Symptoms: Reports: Other (multiple other medical issues) - Related Data Allergies Allergy/AdvReac Type Severity Reaction Status Date / Time Influenza Virus Vaccines Allergy Chest Verified 06/20/18 17:23 Tightness morphine Allergy Itching Verified 06/20/18 17:23 metal- surgical Allergy Other Uncoded 06/20/18 17:23 Home Meds: Home Meds Aspirin [Halfprin] 81 mg PO DAILY 09/08/16 [History] Enalapril Maleate [Vasotec] 20 mg PO DAILY 09/08/16 [History] Hydrochlorothiazide 25 mg PO DAILY 09/08/16 [History] Multivitamin with Minerals [Multivitamins with Minerals] 1 each PO DAILY [History] Omeprazole 20 mg PO DAILY 09/08/16 [History] Pramipexole [Mirapex] 0.5 mg PO DAILY 09/08/16 [History] Warfarin [Coumadin] 2.5 mg PO MOWEFR 09/08/16 [History] Warfarin [Coumadin] 5 mg PO SUTUTHSA 09/08/16 [History] atorvaSTATin [Lipitor] 20 mg PO DAILY 09/08/16 [History] Metoprolol Succinate [Toprol XL] 150 mg PO DAILY 02/05/17 [History] amLODIPine [Norvasc] 5 mg PO DAILY 02/05/17 [History] traMADol [Ultram] 50 mg PO BID PRN 02/05/17 [History] Past Medical History HEENT History: Reports: Hard of Hearing, Impaired Vision Cardiovascular History: Reports: Hypertension, [place] Respiratory History: Reports: PE, Pneumonia, Recurrent Gastrointestinal History: Reports: Bowel Obstruction Genitourinary History: Reports: Acute Renal Failure Neurological History: Reports: None Psychiatric History: Reports: None Hematologic History: Reports: None Immunologic History: Reports: None Oncologic (Cancer) History: Reports: None Dermatologic History: Reports: None - Infectious Disease History Infectious Disease History: Reports: Chicken Pox, Measles - Past Surgical History HEENT Surgical History: Reports: LASIK, Other (See Below) Cardiovascular Surgical History: Reports: Coronary Artery Stent Musculoskeletal Surgical History: Reports: Other (See Below) Social & Family History - Family History Family Medical History: Noncontributory - Caffeine Use Caffeine Use: Reports: Soda ED ROS GENERAL - Review of Systems Review Of Systems: See Below Constitutional: Reports: No Symptoms HEENT: Reports: Other (Chin Lac) Respiratory: Reports: No Symptoms Cardiovascular: Reports: No Symptoms Endocrine: Reports: No Symptoms GI/Abdominal: Reports: No Symptoms : Reports: No Symptoms Musculoskeletal: Reports: No Symptoms Skin: Reports: No Symptoms Neurological: Reports: No Symptoms Psychiatric: Reports: No Symptoms Hematologic/Lymphatic: Reports: No Symptoms Immunologic: Reports: No Symptoms ED EXAM, SKIN/RASH Exam: See Below Exam Limited By: Physical Impairment General Appearance: Alert, WD/WN, Mild Distress, Obese Eye Exam: Bilateral Eye: Normal Inspection Ears: Normal External Exam Nose: Normal Inspection, Normal Mucosa, No Blood Throat/Mouth: Normal Inspection, Normal Lips, Normal Gums, Normal Oropharynx, Normal Voice, No Airway Compromise Head: Atraumatic, Normocephalic, Other (Chin Laceration) Neck: Normal Inspection, Supple, Non-Tender, Full Range of Motion Respiratory/Chest: No Respiratory Distress, Lungs Clear, Normal Breath Sounds ( poor insp effort), No Accessory Muscle Use, Chest Non-Tender, Other (is on a CPAP machine at night) Cardiovascular: Normal Peripheral Pulses, Regular Rate, Rhythm, No Edema, No Gallop, No JVD GI/Abdominal: Normal Bowel Sounds, Soft, Non-Tender, No Organomegaly, No Abnormal Bruit, No Mass, Pelvis Stable, Distended (not new) (Male) Exam: Deferred Rectal (Males) Exam: Deferred Back Exam: Normal Inspection, Full Range of Motion Extremities: Normal Inspection, Normal Range of Motion, Non-Tender, No Pedal Edema, Normal Capillary Refill Neurological: Alert, Oriented, CN II-XII Intact, Normal Cognition, Normal Gait Psychiatric: Normal Affect, Normal Mood Skin: Warm, Dry, Wound/Incision (2 cm chin LAC) Location, Skin: Face (chin, venous blee, pt is on coumadine) Associated features: Warmth, Tenderness Lymphatic: No Adenopathy ED SKIN PROCEDURES - Laceration/Wound Repair Middle Jaw Lac/Wound length In cm: 2 Appearance: Linear, Stellate, Clean Distal NVT: Neuro & Vascular Intact, No Tendon Injury Anesthetic Type: Local Local Anesthesia - Lidocaine (Xylocaine): 2% Plain Local Anesthetic Volume: 3cc Skin Prep: Providone-Iodine (Betadine) Saline Irrigation (cc's): 5 Exploration/Debridement/Repair: Wound Explored, In a Bloodless Field, Explored to Base Closed with: Sutures Suture Size: 4-0 # of Sutures: 9 Suture Type: Interrupted Drain Placement: No Sterile Dressing Applied: Nurse Tetanus Status Addressed: Yes (2013) Complications: No Course - Vital Signs Text/Narrative:: 68 y.o.w.m with multiple medical issues including Pulm emboli, on Coumadin, came to the ed 15 arlene after his leg gave out and he fell with his chin a table. He noticed bleed and a LAC. His rushed him to the ed. Pt applied pressure to his wound due to active venous week from his chin wound. Pt is due for an INR test next week. No N/V/D no SOB -pt is using a cpap machine at night- or any other acute medical issues. BP 154/84 Pulse 76 RR 18 Pulse ox 98% on RA temp 98.2 PE: Morbid obese w m with a chin LA Labs: Refused Procedure: Please see note above Impresison: Chin LAC, on Coumadine Tx: Wound care Reexam: Improved Plan: D/C with instructions Last Recorded V/S: Last Vital Signs Temp 36.8 C 06/20/18 17:00 Pulse 75 06/20/18 17:00 Resp 16 06/20/18 17:00 BP 153/84 H 06/20/18 17:00 Pulse Ox 98 06/20/18 17:00 Departure - Departure Time of Disposition: 17:46 Disposition: Home, Self-Care 01 Condition: Good Clinical Impression: Laceration of chin without complication Qualifiers: Encounter type: initial encounter Qualified Code(s): S01.81XA - Laceration without foreign body of other part of head, initial encounter - Discharge Information *PRESCRIPTION DRUG MONITORING PROGRAM REVIEWED*: Yes *COPY OF PRESCRIPTION DRUG MONITORING REPORT IN PATIENT IRVING: Yes Instructions: Laceration Care, Adult Referrals: Alejandro Solano MD [Primary Care Provider] - Forms: ED Department Discharge Additional Instructions: Please apply ICE and pressure to wound area for next 24 hours, wound check in 3 days, Suture removal in 14 days, please come back if your symptoms get worse acutely
== END 2018-06-20 18:06 | disposition home or self-care (01) ==
LOC: FB.ED 16:55
DX: S01.81XA Laceration without foreign body of other part of head, initial encounter (principal); Z88.5 Allergy status to narcotic agent; Z88.7 Allergy status to serum and vaccine; Z79.82 Long term (current) use of aspirin; Z79.899 Other long term (current) drug therapy; I10 Essential (primary) hypertension; W01.10XA Fall on same level from slipping, tripping and stumbling with subsequent striking against unspecified object, initial encounter
CPT/HCPCS: 12001; 12011; 12013; 99282; 99283

== ENCOUNTER 2019-01-02 12:41 | Emergency (ER) | payer MEDICARE, BC ==
[2019-01-02] MEDS ORDERED: Ketorolac 30 MG/ML SDV IVPUSH ONE (14:15)
[2019-01-02] MEDS ORDERED: Midazolam 1 MG/ML 2 ML SDV IVPUSH ONE (14:17)
--- NOTE | 2019-01-02 14:56 | EDM.PDOC ---
ED HPI GENERAL MEDICAL PROBLEM - General Chief Complaint: Back Pain or Injury Stated Complaint: LOW BACK AND RT SIDE PAIN Time Seen by Provider: 01/02/19 13:00 Source of Information: Reports: Patient, Family History Limitations: Reports: No Limitations - History of Present Illness INITIAL COMMENTS - FREE TEXT/NARRATIVE: c/o LBP x 1w PCP Dr Youngblood who is out of town, pt saw Dr Fernandez 4d who ordered an open MRI in [place] this AM for LBP as pt has claustrophobia however pt had too much pain to get into car, he was told to come to ED when he called the office after a 30 min discussion, pt opted against having an MRI in [place] next week and preferred to have it done this afternoon here as there was an opening on the schedule anethesia called to start IV and give IV Versed 0.5 mg and Toradol 15 mg 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 to prevent claustrophobia pt declined IV and meds and wanted to try MRI without either, altho knows that there are options did have herniated discs x 2 8y ago with MRI in [place] when he lived in that area, neurosurgeon did not want to do surgery as the disc was "too close to the nerve", not had back surgery did have ORIF for R ankle fx ~5y ago, however the bone did not heal and the hardware was thought to have caused an allergic reaction and was removed on exam today, pt has R iliac tenderness c/w sacroiliatus which appears to be the cause of the pain rather than a herniated disc pt not able to lie supine for me altho thought he could do so in MRI pt had severe pain down RLE at 3 AM, took a tramadol [address] Fernandez had rx'ed, promptly fell asleep for 3-4h, but then too much pain to get in car to go to [place] says his RLE "gave out" 3x 4d ago says the pain started in his L SI joint 1w ago and then moved to the R SI joint no true numbness has a 4' stick of wood that he leans on has seen Rocael in PT for weakness x 4w, was in [facility] x 5d in Oct 2018 for E coli sepsis, has been weak every since on warfarin cannot take NSAIDs has not been taking APAP, which was discussed pharmacist called at [facility], pt has refills on his tramadol, said that she can get pt a pill cutter so that he can take the tramadol 50 mg 1/2 q6h pt also takes Flexeril 1 tab qhs prn LOW BACK PAIN RADIATING TO THE RT LOWER LEG Pain Score (Numeric/FACES): 4 - Related Data Allergies Allergy/AdvReac Type Severity Reaction Status Date / Time Influenza Virus Vaccines Allergy Chest Verified 01/02/19 13:02 Tightness morphine Allergy Itching Verified 01/02/19 13:02 metal- surgical Allergy Other Uncoded 01/02/19 13:02 Home Meds: Home Meds Aspirin [Halfprin] 81 mg PO DAILY 09/08/16 [History] Enalapril Maleate [Vasotec] 20 mg PO DAILY 09/08/16 [History] Multivitamin with Minerals [Multivitamins with Minerals] 1 each PO DAILY [History] Omeprazole 20 mg PO DAILY 09/08/16 [History] Pramipexole [Mirapex] 0.5 mg PO TID 09/08/16 [History] Warfarin [Coumadin] 2.5 mg PO MOFR 09/08/16 [History] Warfarin [Coumadin] 5 mg PO SUTUWETHSA 09/08/16 [History] atorvaSTATin [Lipitor] 20 mg PO DAILY 09/08/16 [History] Metoprolol Succinate [Toprol XL] 100 mg PO BID 02/05/17 [History] amLODIPine [Norvasc] 5 mg PO DAILY 02/05/17 [History] traMADol [Ultram] 50 mg PO BID PRN 02/05/17 [History] Albuterol [Ventolin HFA] 2 puff INH Q6HR PRN 10/15/18 [History] Furosemide [Lasix] 40 mg PO DAILY 10/15/18 [History] Nitroglycerin 0.4 mg SL DAILY PRN 01/02/19 [History] Past Medical History HEENT History: Reports: Hard of Hearing, Impaired Vision Cardiovascular History: Reports: Afib, Hypertension, [place] Respiratory History: Reports: PE, Pneumonia, Recurrent Gastrointestinal History: Reports: Bowel Obstruction Genitourinary History: Reports: Acute Renal Failure Musculoskeletal History: Reports: Back Pain, Chronic Neurological History: Reports: None Psychiatric History: Reports: None Hematologic History: Reports: None Other Hematologic History: BLOOD INFECTION Immunologic History: Reports: None Oncologic (Cancer) History: Reports: None Dermatologic History: Reports: None - Infectious Disease History Infectious Disease History: Reports: Chicken Pox, Measles - Past Surgical History Head Surgeries/Procedures: Reports: None HEENT Surgical History: Reports: LASIK, Other (See Below) Other HEENT Surgeries/Procedures: WEARS GLASSES, RHINOPLASTY Cardiovascular Surgical History: Reports: Coronary Artery Stent GI Surgical History: Reports: Appendectomy, Cholecystectomy Musculoskeletal Surgical History: Reports: Other (See Below) Other Musculoskeletal Surgeries/Procedures:: ANKLE SURGERY Social & Family History - Family History Family Medical History: Noncontributory - Tobacco Use Smoking Status *Q: Never Smoker - Caffeine Use Caffeine Use: Reports: Soda - Recreational Drug Use Recreational Drug Use: No ED ROS GENERAL - Review of Systems Review Of Systems: See Below Constitutional: Reports: No Symptoms HEENT: Reports: No Symptoms Respiratory: Reports: No Symptoms Cardiovascular: Reports: No Symptoms Endocrine: Reports: No Symptoms GI/Abdominal: Reports: No Symptoms : Reports: No Symptoms Musculoskeletal: Reports: Back Pain Skin: Reports: No Symptoms Neurological: Reports: No Symptoms Psychiatric: Reports: No Symptoms Hematologic/Lymphatic: Reports: No Symptoms Immunologic: Reports: No Symptoms ED EXAM,LOWER BACK PAIN/INJURY - Physical Exam Exam: See Below Exam Limited By: No Limitations General Appearance: Alert, WD/WN, No Apparent Distress Nose: Normal Inspection Throat/Mouth: Normal Inspection Head: Atraumatic, Normocephalic Neck: Normal Inspection, Non-Tender Respiratory/Chest: No Respiratory Distress, Lungs Clear Cardiovascular: Regular Rate, Rhythm Back Exam: Other (sitting on edge of bed leaning on his 4' polished stick, did lie on his R side at my request but unable to roll onto his back, did have some mild spasm at that juncture, SLR not done, has 2+ tender at R SI joint and trace tender at l-spine and not localized, NT at iliac crests, mild tender at L SI joint, DTRS 1+ at patella and AChilles b/l, LT in tact, strength 5/5 at knees , ankles and great toe extension) Course - Vital Signs Last Recorded V/S: Last Vital Signs Temp 36.5 C 01/02/19 12:45 Pulse 77 01/02/19 12:45 Resp 17 01/02/19 12:45 BP 116/59 L 01/02/19 12:45 Pulse Ox 96 01/02/19 12:45 - Orders/Labs/Meds Orders: Active Orders 24 hr Category Date Time Status Lumbar Spine Comp wo Cont [MR] Stat Exams 01/02/19 14:14 Ordered Labs: Laboratory Tests 01/02/19 01/02/19 Range/Units 14:35 14:35 PT 33.2 H (8.7-11.1) INR 3.46 H (0.89-1.13) Sodium 143 (135-145) mmol/L Potassium 3.8 (3.5-5.3) mmol/L Chloride 105 (100-110) mmol/L Carbon Dioxide 30 (21-32) mmol/L BUN 26 H (7-18) mg/dL Creatinine 1.5 H (0.70-1.30) mg/dL Est Cr Clr Drug Dosing 54.04 mL/min Estimated GFR (MDRD) 46 L (>60) BUN/Creatinine Ratio 17.3 (9-20) Glucose 108 (80-116) mg/dL Calcium 8.6 (8.6-10.2) mg/dL Meds: Medications Discontinued Medications Generic Name Dose Route Start Last Admin Trade Name Freq PRN Reason Stop Dose Admin Ketorolac Tromethamine 15 mg 01/02/19 14:15 Toradol IVPUSH 01/02/19 14:16 ONETIME ONE Midazolam HCl 0.5 mg 01/02/19 14:17 01/02/19 15:32 Versed 1 Mg/Ml IVPUSH 01/02/19 14:18 Not Given ONETIME ONE - Re-Assessments/Exams Free Text/Narrative Re-Assessment/Exam: 01/02/19 16:57 MRI of l-spine completed without IV or meds, pt slide in feet worse, head protruded as he was tall still with pain did have long discussion on the use of meds will need f/u for MRI report in 3-4d all questions answered there was a delay in d/c after the MRI d/t a code in the trauma bay with another pt Departure - Departure Time of Disposition: 16:54 Disposition: Home, Self-Care 01 Condition: Good Clinical Impression: Pain of right sacroiliac joint, Low back pain - Discharge Information *PRESCRIPTION DRUG MONITORING PROGRAM REVIEWED*: Not Applicable *COPY OF PRESCRIPTION DRUG MONITORING REPORT IN PATIENT IRVING: Not Applicable Instructions: Sacroiliac Joint Dysfunction Referrals: Kevin Youngblood MD [Primary Care Provider] - Forms: ED Department Discharge Additional Instructions: Continue current meds. Decrease the dose of warfarin as per the recommendation of the warfarin clinic. The usual recommendation is to hold the dose of warfarin this evening and then resume at 2.5 mg every Mon, Wed and Fri and to take the 5 mg on the other 4 days. Recheck your INR next week. For pain and inflammation, take acetaminophen 500 mg 2 tabs 4 times a day for 1 week, longer if needed. Use ice for 10 minutes 4 times a day for 2 days, then change to heat. Sleep on a firm mattress. Use a walker or cane, as needed. See your doctor in 3-4 days for the MRI report and additional recommendations. Return to the ED if you are feeling worse. Call your Physician or Return to Emergency Department if: * Your condition worsens in any way. * You develop fever greater than 100.4. * You have vomitting that does not stop with medications. * You have pain that is not controlled with medications. - My Orders Last 24 Hours: My Active Orders 01/02/19 14:14 Lumbar Spine Comp wo Cont [MR] Stat - Assessment/Plan Last 24 Hours: My Active Orders 01/02/19 14:14 Lumbar Spine Comp wo Cont [MR] Stat
[2019-01-02 17:20] VITALS: BP 114/62
== END 2019-01-02 17:02 | disposition home or self-care (01) ==
LOC: FB.ED 12:41
DX: M53.3 Sacrococcygeal disorders, not elsewhere classified (principal); I48.91 Unspecified atrial fibrillation; I10 Essential (primary) hypertension; I25.2 Old myocardial infarction; Z88.7 Allergy status to serum and vaccine; Z88.8 Allergy status to other drugs, medicaments and biological substances; Z79.899 Other long term (current) drug therapy; Z79.82 Long term (current) use of aspirin; Z79.01 Long term (current) use of anticoagulants
CPT/HCPCS: 36415; 72148; 80048; 85610; 99284; 99284-25

== ENCOUNTER 2019-08-20 10:22 | Inpatient (IN) | payer MEDICARE, BC ==
[2019-08-20] MEDS ORDERED: Albuterol/Ipratropium 3.0-0.5 MG/3 ML Neb Soln NEB ONE (10:27)
[2019-08-20] MEDS ORDERED: Furosemide 40 MG/4 ML VIAL IVPUSH ONE (10:28)
--- NOTE | 2019-08-20 10:37 | EDM.PDOC ---
ED HPI GENERAL MEDICAL PROBLEM - General Chief Complaint: Respiratory Problem Stated Complaint: SOB Time Seen by Provider: 08/20/19 10:31 Source of Information: Reports: Patient, Family History Limitations: Reports: No Limitations - History of Present Illness INITIAL COMMENTS - FREE TEXT/NARRATIVE: Patient presents with SOB since this morning and productive cough x 2 days ( bloody) associated with fevers and chills. Similar symptoms in the past with pneumonia and sepsis. Has a h/o CAD and CHF. Denies chest pain. Onset: Today Associated Symptoms: Reports: Shortness of Breath. Denies: Chest Pain - Related Data Allergies Allergy/AdvReac Type Severity Reaction Status Date / Time Influenza Virus Vaccines Allergy Chest Verified 08/20/19 13:17 Tightness levofloxacin [From Levaquin] Allergy Other Verified 08/20/19 13:15 morphine Allergy Itching Verified 08/20/19 13:17 metal- surgical Allergy Other Uncoded 08/20/19 13:15 Home Meds: Home Meds Aspirin [Halfprin] 81 mg PO DAILY 09/08/16 [History] Multivitamin with Minerals [Multivitamins with Minerals] 1 each PO DAILY [History] Omeprazole 20 mg PO DAILY 09/08/16 [History] Pramipexole [Mirapex] 0.5 mg PO TID 09/08/16 [History] Warfarin [Coumadin] 2.5 mg PO SUTUWETHSA 09/08/16 [History] Warfarin [Coumadin] 5 mg PO MOFR 09/08/16 [History] atorvaSTATin [Lipitor] 20 mg PO DAILY 09/08/16 [History] Metoprolol Succinate [Toprol XL] 100 mg PO BID 02/05/17 [History] amLODIPine [Norvasc] 5 mg PO DAILY 02/05/17 [History] traMADol [Ultram] 50 mg PO BID PRN 02/05/17 [History] Albuterol [Ventolin HFA] 2 puff INH Q6HR PRN 10/15/18 [History] Furosemide [Lasix] 40 mg PO DAILY 10/15/18 [History] Nitroglycerin 0.4 mg SL DAILY PRN 01/02/19 [History] Past Medical History HEENT History: Reports: Hard of Hearing, Impaired Vision Cardiovascular History: Reports: Afib, Heart Failure, Hypertension, [place] Respiratory History: Reports: PE, Pneumonia, Recurrent. Denies: Asthma, COPD Gastrointestinal History: Reports: Bowel Obstruction Genitourinary History: Reports: Acute Renal Failure Musculoskeletal History: Reports: Back Pain, Chronic Neurological History: Reports: None Psychiatric History: Reports: None Hematologic History: Reports: None Other Hematologic History: BLOOD INFECTION Immunologic History: Reports: None Oncologic (Cancer) History: Reports: None Dermatologic History: Reports: None - Infectious Disease History Infectious Disease History: Reports: Chicken Pox, Measles - Past Surgical History Head Surgeries/Procedures: Reports: None HEENT Surgical History: Reports: LASIK, Other (See Below) Other HEENT Surgeries/Procedures: WEARS GLASSES, RHINOPLASTY Cardiovascular Surgical History: Reports: Coronary Artery Stent GI Surgical History: Reports: Appendectomy, Cholecystectomy Musculoskeletal Surgical History: Reports: Other (See Below) Other Musculoskeletal Surgeries/Procedures:: ANKLE SURGERY Social & Family History - Family History Family Medical History: Noncontributory - Tobacco Use Smoking Status *Q: Former Smoker Tobacco Use Within Last Twelve Months: No - Caffeine Use Caffeine Use: Reports: Soda ED ROS GENERAL - Review of Systems Review Of Systems: ROS reveals no pertinent complaints other than HPI. ED EXAM, GENERAL - Physical Exam Exam: See Below Exam Limited By: No Limitations General Appearance: Alert, WD/WN, Mild Distress Nose: Normal Inspection Throat/Mouth: No Airway Compromise Head: Atraumatic, Normocephalic Neck: Full Range of Motion Respiratory/Chest: Respiratory Distress (mild), Rhonchi (bilaterally) Cardiovascular: Regular Rate, Rhythm, No Murmur GI/Abdominal: No Distention Extremities: No Pedal Edema Neurological: Alert, Normal Cognition Psychiatric: Normal Affect, Normal Mood Skin Exam: Warm, Dry, Other (Mottled) EKG INTERPRETATION EKG Date: 08/20/19 Time: 10:49 Rhythm: A-Fib Rate (Beats/Min): 94 [place]: Normal P-Wave: Present QRS: Normal ST-T: Depressed (minimal, lateral leads) QT: Normal Comparison: No Change (10/15/18) Course - Vital Signs Last Recorded V/S: Last Vital Signs Temp 37.3 C 08/20/19 13:10 Pulse 89 08/20/19 13:10 Resp 24 H 08/20/19 13:10 BP 133/71 08/20/19 13:10 Pulse Ox 97 08/20/19 13:10 - Orders/Labs/Meds Orders: Active Orders 24 hr Category Date Time Status BIPAP Adult [RT BiPAP/CPAP] [RC] ASDIRECTED Care 08/20/19 10:37 Inactive EKG Documentation Completion [RC] ASDIRECTED Care 08/20/19 10:24 Active RT Aerosol Therapy [RC] ASDIRECTED Care 08/20/19 10:27 Active Ang Chest [CT] Stat Exams 08/20/19 11:20 Taken CXR [Chest 1V Frontal] [CR] Stat Exams 08/20/19 10:24 Taken CULTURE BLOOD [BC] Urgent Lab 08/20/19 10:40 Received CULTURE BLOOD [BC] Urgent Lab 08/20/19 10:45 Received Sodium Chloride 0.9% [Saline Flush] Med 08/20/19 10:27 Active 10 ml FLUSH ASDIRECTED PRN Blood Culture x2 Reflex Set [OM.PC] Urgent Oth 08/20/19 10:28 Ordered Saline Lock Insert [OM.PC] Routine Oth 08/20/19 10:27 Ordered EKG 12 Lead [EK] Stat Ther 08/20/19 10:24 Ordered Medication Orders Sodium Chloride (Saline Flush) 10 ml FLUSH ASDIRECTED PRN PRN Reason: Keep Vein Open Last Admin: 08/20/19 12:38 Dose: 10 ml Admin: 08/20/19 10:41 Dose: 10 ml Labs: Laboratory Tests 08/20/19 08/20/19 08/20/19 Range/Units 10:40 10:40 10:40 WBC 7.8 (4.5-12.0) X10-3/uL RBC 4.83 (4.30-5.75) x10(6)uL Hgb 14.6 (13.5-17.8) g/dL Hct 44.7 (30.0-51.3) % MCV 92.6 (80-96) fL MCH 30.2 (27.7-33.6) pg MCHC 32.7 (32.2-35.4) g/dL RDW 18.1 H (11.5-15.5) % Plt Count 231 (125-369) X10(3)uL MPV 8.2 (7.4-10.4) fL Neut % (Auto) 76.3 (46-82) % Lymph % (Auto) 10.7 L (13-37) % [place] % (Auto) 9.3 (4-12) % Eos % (Auto) 0 L (1.0-5.0) % Baso % (Auto) 4 H (0-2) % Neut # (Auto) 6.0 (1.6-8.3) # Lymph # (Auto) 0.8 (0.6-5.0) # [place] # (Auto) 0.7 (0.0-1.3) # Eos # (Auto) 0.0 (0.0-0.8) # Baso # (Auto) 0.3 H (0.0-0.2) # PT 18.5 H (8.7-11.1) INR 1.92 H (0.89-1.13) D-Dimer, Quantitative 0.78 H (0.0-0.59) mg/LFEU POC VBG pH (7.31-7.41) POC VBG pCO2 (41-51) mmHG POC VBG HCO3 (23-28) mmol/L POC VBG Total CO2 (24-29) mmol/L POC VBG Base Excess (-2-3) mmol/L Sodium 146 H (135-145) mmol/L Potassium 4.0 (3.5-5.3) mmol/L Chloride 106 (100-110) mmol/L Carbon Dioxide 29 (21-32) mmol/L BUN 21 H (7-18) mg/dL Creatinine 1.4 H (0.70-1.30) mg/dL Est Cr Clr Drug Dosing TNP Estimated GFR (MDRD) 50 L (>60) BUN/Creatinine Ratio 15.0 (9-20) Glucose 123 H (80-116) mg/dL Lactic Acid (0.4-2.2) mmol/L Calcium 8.6 (8.6-10.2) mg/dL Total Bilirubin 0.9 (0.1-1.3) mg/dL AST 22 D (5-25) IU/L ALT 32 D (12-36) U/L Alkaline Phosphatase 78 (56-112) IU/L Troponin I (<0.017-0.056) ng/mL NT-Pro-B Natriuret Pep (<=125) pg/mL Total Protein 7.4 (6.0-8.0) g/dL Albumin 3.8 (3.2-4.6) g/dL Globulin 3.6 g/dL Albumin/Globulin Ratio 1.1 Urine Color (YELLOW) Urine Appearance (CLEAR) Urine pH (5.0-6.5) Ur Specific [place] (1.010-1.025) Urine Protein (NEGATIVE) mg/dL Urine Glucose (UA) (NORMAL) mg/dL Urine Ketones (NEGATIVE) mg/dL Urine Occult Blood (NEGATIVE) Urine Nitrite (NEGATIVE) Urine Bilirubin (NEGATIVE) Urine Urobilinogen (NEGATIVE) mg/dL Ur Leukocyte Esterase (NEGATIVE) Urine RBC (0-5) Urine WBC (0-5) Ur Squamous Epith Cells (NS,R,O) Urine Bacteria (NS) 08/20/19 08/20/19 08/20/19 Range/Units 10:40 10:40 10:52 WBC (4.5-12.0) X10-3/uL RBC (4.30-5.75) x10(6)uL Hgb (13.5-17.8) g/dL Hct (30.0-51.3) % MCV (80-96) fL MCH (27.7-33.6) pg MCHC (32.2-35.4) g/dL RDW (11.5-15.5) % Plt Count (125-369) X10(3)uL MPV (7.4-10.4) fL Neut % (Auto) (46-82) % Lymph % (Auto) (13-37) % [place] % (Auto) (4-12) % Eos % (Auto) (1.0-5.0) % Baso % (Auto) (0-2) % Neut # (Auto) (1.6-8.3) # Lymph # (Auto) (0.6-5.0) # [place] # (Auto) (0.0-1.3) # Eos # (Auto) (0.0-0.8) # Baso # (Auto) (0.0-0.2) # PT (8.7-11.1) INR (0.89-1.13) D-Dimer, Quantitative (0.0-0.59) mg/LFEU POC VBG pH (7.31-7.41) POC VBG pCO2 (41-51) mmHG POC VBG HCO3 (23-28) mmol/L POC VBG Total CO2 (24-29) mmol/L POC VBG Base Excess (-2-3) mmol/L Sodium (135-145) mmol/L Potassium (3.5-5.3) mmol/L Chloride (100-110) mmol/L Carbon Dioxide (21-32) mmol/L BUN (7-18) mg/dL Creatinine (0.70-1.30) mg/dL Est Cr Clr Drug Dosing Estimated GFR (MDRD) (>60) BUN/Creatinine Ratio (9-20) Glucose (80-116) mg/dL Lactic Acid 1.6 (0.4-2.2) mmol/L Calcium (8.6-10.2) mg/dL Total Bilirubin (0.1-1.3) mg/dL AST (5-25) IU/L ALT (12-36) U/L Alkaline Phosphatase (56-112) IU/L Troponin I 0.040 (<0.017-0.056) ng/mL NT-Pro-B Natriuret Pep 1978 H* (<=125) pg/mL Total Protein (6.0-8.0) g/dL Albumin (3.2-4.6) g/dL Globulin g/dL Albumin/Globulin Ratio Urine Color Yellow (YELLOW) Urine Appearance Clear (CLEAR) Urine pH 7.0 H (5.0-6.5) Ur Specific [place] 1.010 (1.010-1.025) Urine Protein 30 H (NEGATIVE) mg/dL Urine Glucose (UA) Normal (NORMAL) mg/dL Urine Ketones Negative (NEGATIVE) mg/dL Urine Occult Blood Negative (NEGATIVE) Urine Nitrite Negative (NEGATIVE) Urine Bilirubin Negative (NEGATIVE) Urine Urobilinogen Normal (NEGATIVE) mg/dL Ur Leukocyte Esterase Negative (NEGATIVE) Urine RBC 0-5 (0-5) Urine WBC 0-5 (0-5) Ur Squamous Epith Cells Occasional (NS,R,O) Urine Bacteria Rare H (NS) 08/20/19 Range/Units 10:52 WBC (4.5-12.0) X10-3/uL RBC (4.30-5.75) x10(6)uL Hgb (13.5-17.8) g/dL Hct (30.0-51.3) % MCV (80-96) fL MCH (27.7-33.6) pg MCHC (32.2-35.4) g/dL RDW (11.5-15.5) % Plt Count (125-369) X10(3)uL MPV (7.4-10.4) fL Neut % (Auto) (46-82) % Lymph % (Auto) (13-37) % [place] % (Auto) (4-12) % Eos % (Auto) (1.0-5.0) % Baso % (Auto) (0-2) % Neut # (Auto) (1.6-8.3) # Lymph # (Auto) (0.6-5.0) # [place] # (Auto) (0.0-1.3) # Eos # (Auto) (0.0-0.8) # Baso # (Auto) (0.0-0.2) # PT (8.7-11.1) INR (0.89-1.13) D-Dimer, Quantitative (0.0-0.59) mg/LFEU POC VBG pH 7.36 (7.31-7.41) POC VBG pCO2 49.1 (41-51) mmHG POC VBG HCO3 27.7 (23-28) mmol/L POC VBG Total CO2 29 (24-29) mmol/L POC VBG Base Excess 2 (-2-3) mmol/L Sodium (135-145) mmol/L Potassium (3.5-5.3) mmol/L Chloride (100-110) mmol/L Carbon Dioxide (21-32) mmol/L BUN (7-18) mg/dL Creatinine (0.70-1.30) mg/dL Est Cr Clr Drug Dosing Estimated GFR (MDRD) (>60) BUN/Creatinine Ratio (9-20) Glucose (80-116) mg/dL Lactic Acid (0.4-2.2) mmol/L Calcium (8.6-10.2) mg/dL Total Bilirubin (0.1-1.3) mg/dL AST (5-25) IU/L ALT (12-36) U/L Alkaline Phosphatase (56-112) IU/L Troponin I (<0.017-0.056) ng/mL NT-Pro-B Natriuret Pep (<=125) pg/mL Total Protein (6.0-8.0) g/dL Albumin (3.2-4.6) g/dL Globulin g/dL Albumin/Globulin Ratio Urine Color (YELLOW) Urine Appearance (CLEAR) Urine pH (5.0-6.5) Ur Specific [place] (1.010-1.025) Urine Protein (NEGATIVE) mg/dL Urine Glucose (UA) (NORMAL) mg/dL Urine Ketones (NEGATIVE) mg/dL Urine Occult Blood (NEGATIVE) Urine Nitrite (NEGATIVE) Urine Bilirubin (NEGATIVE) Urine Urobilinogen (NEGATIVE) mg/dL Ur Leukocyte Esterase (NEGATIVE) Urine RBC (0-5) Urine WBC (0-5) Ur Squamous Epith Cells (NS,R,O) Urine Bacteria (NS) Meds: Medications Generic Name Dose Route Start Last Admin Trade Name Freq PRN Reason Stop Dose Admin Sodium Chloride 10 ml 08/20/19 10:27 08/20/19 12:38 Saline Flush FLUSH 10 ml ASDIRECTED PRN Administration Keep Vein Open Discontinued Medications Generic Name Dose Route Start Last Admin Trade Name Freq PRN Reason Stop Dose Admin Albuterol/Ipratropium 3 ml 08/20/19 10:27 08/20/19 10:27 Duoneb 3.0-0.5 Mg/3 Ml NEB 08/20/19 10:28 3 ml ONETIME ONE Administration Azithromycin 500 mg 08/20/19 12:23 08/20/19 12:28 Zithromax PO 08/20/19 12:24 500 mg ONETIME ONE Administration Ceftriaxone Sodium 2 gm 08/20/19 12:23 08/20/19 12:30 Rocephin IVPUSH 08/20/19 12:24 2 gm ONETIME ONE Administration Furosemide 40 mg 08/20/19 10:28 08/20/19 10:37 Lasix IVPUSH 08/20/19 10:29 40 mg NOW ONE Administration Levofloxacin/Dextrose 750 mg/ 150 mls @ 100 mls/hr 08/20/19 11:59 08/20/19 12 :39 Premix IV 08/20/19 13:28 Not Given ONETIME ONE Iopamidol 100 ml 08/20/19 11:33 Isovue-370 (76%) IV 08/20/19 11:34 ONETIME ONE - Radiology Interpretation Free Text/Narrative:: CXR: No evidence of acute cardiopulmonary disease. CTA Chest: No pulmonary embolism. Bilateral ground-glass opacities concerning for infection. Findings most prominent in the right lower lobe. - Re-Assessments/Exams Free Text/Narrative Re-Assessment/Exam: 08/20/19 11:35 Symptoms improved after Duoneb and Lasix. No respiratory distress. Sa02 93% on 2L 02 NC. 08/20/19 13:05 Dr. Michelle accepts patient for admission to [facility] Departure - Departure Time of Disposition: 13:04 Disposition: Admitted As Inpatient 65 Condition: Fair Clinical Impression: Hypoxemia Pneumonia Qualifiers: Pneumonia type: due to unspecified organism Laterality: bilateral Lung location : lower lobe of lung Qualified Code(s): J18.1 - Lobar pneumonia, unspecified organism - Discharge Information *PRESCRIPTION DRUG MONITORING PROGRAM REVIEWED*: No *COPY OF PRESCRIPTION DRUG MONITORING REPORT IN PATIENT IRVING: Not Applicable - My Orders Last 24 Hours: My Active Orders 08/20/19 10:24 EKG Documentation Completion [RC] ASDIRECTED CXR [Chest 1V Frontal] [CR] Stat EKG 12 Lead [EK] Stat 08/20/19 10:27 RT Aerosol Therapy [RC] ASDIRECTED Sodium Chloride 0.9% [Saline Flush] 10 ml FLUSH ASDIRECTED PRN Saline Lock Insert [OM.PC] Routine 08/20/19 10:28 Blood Culture x2 Reflex Set [OM.PC] Urgent 08/20/19 10:37 BIPAP Adult [RT BiPAP/CPAP] [RC] ASDIRECTED 08/20/19 10:40 CULTURE BLOOD [BC] Urgent 08/20/19 10:45 CULTURE BLOOD [BC] Urgent 08/20/19 11:20 Ang Chest [CT] Stat - Assessment/Plan Last 24 Hours: My Active Orders 08/20/19 10:24 EKG Documentation Completion [RC] ASDIRECTED CXR [Chest 1V Frontal] [CR] Stat EKG 12 Lead [EK] Stat 08/20/19 10:27 RT Aerosol Therapy [RC] ASDIRECTED Sodium Chloride 0.9% [Saline Flush] 10 ml FLUSH ASDIRECTED PRN Saline Lock Insert [OM.PC] Routine 08/20/19 10:28 Blood Culture x2 Reflex Set [OM.PC] Urgent 08/20/19 10:37 BIPAP Adult [RT BiPAP/CPAP] [RC] ASDIRECTED 08/20/19 10:40 CULTURE BLOOD [BC] Urgent 08/20/19 10:45 CULTURE BLOOD [BC] Urgent 08/20/19 11:20 Ang Chest [CT] Stat
[2019-08-20] MEDS: Sodium Chloride 0.9% 10 ML Syringe FLUSH PRN ×2 (10:41→12:38)
[2019-08-20] MEDS ORDERED: Iopamidol 755 Mg/ML 100 ML Bottle IV ONE (11:33)
[2019-08-20] MEDS ORDERED: Levofloxacin/Dextrose 5%-Water 750 MG in Premix Bag 1 BAG IV ONE (11:59)
[2019-08-20] MEDS ORDERED: cefTRIAXone 2 GM Vial IVPUSH ONE (12:23)
[2019-08-20] MEDS ORDERED: Azithromycin 500 MG Tab PO ONE (12:23)
[2019-08-20] MEDS ORDERED: FLU Vacc QS2019-20(6MOS+)/PF 60 MCG/0.5 ML SYRINGE IM ONE (13:39)
[2019-08-20] MEDS ORDERED: Docusate Sodium 100 MG Cap PO PRN (13:39)
[2019-08-20] MEDS ORDERED: Bisacodyl 5 MG Tab PO PRN (13:39)
[2019-08-20] MEDS ORDERED: Ondansetron 4 MG Tab.DIS PO PRN (13:39)
[2019-08-20] MEDS ORDERED: traMADol 50 MG Tab PO PRN (15:01)
[2019-08-20] MEDS ORDERED: Nitroglycerin 0.4 MG Tab.SL SL PRN (15:01)
[2019-08-20] MEDS ORDERED: Albuterol 8 GM Inhaler INH PRN (15:01)
--- NOTE | 2019-08-20 15:21 | PCM.HP.2 ---
H&P History of Present Illness - General Date of Service: 08/20/19 Admit Problem/Dx: Admission Diagnosis/Problem Admission Diagnosis/Problem Pneumonia Source of Information: Patient, Provider (ER) History Limitations: Reports: No Limitations - History of Present Illness Initial Comments - Free Text/Narative: Patient is a 69 yr old male with 2 day history of cough with blood-tinged sputum , shortness of breath started today. History of pneumonia with sepsis which he feels the same this time. History of CAD, DVT on coumadin, back pain. Left Lower Back Pain Score (Numeric/FACES): 4 - Related Data Allergies/Adverse Reactions: Allergies Allergy/AdvReac Type Severity Reaction Status Date / Time Influenza Virus Vaccines Allergy Chest Verified 08/20/19 13:17 Tightness levofloxacin [From Levaquin] Allergy Other Verified 08/20/19 13:15 morphine Allergy Itching Verified 08/20/19 13:17 metal- surgical Allergy Other Uncoded 08/20/19 13:15 Home Medications: Home Meds Aspirin [Halfprin] 81 mg PO DAILY 09/08/16 [History] Multivitamin with Minerals [Multivitamins with Minerals] 1 each PO DAILY [History] Omeprazole 20 mg PO DAILY 09/08/16 [History] Pramipexole [Mirapex] 0.75 mg PO BEDTIME 09/08/16 [History] Warfarin [Coumadin] 2.5 mg PO SUTUWETHSA 09/08/16 [History] Warfarin [Coumadin] 5 mg PO MOFR 09/08/16 [History] atorvaSTATin [Lipitor] 20 mg PO DAILY 09/08/16 [History] amLODIPine [Norvasc] 5 mg PO DAILY 02/05/17 [History] traMADol [Ultram] 50 mg PO BID PRN 02/05/17 [History] Albuterol [Ventolin HFA] 2 puff INH Q6HR PRN 10/15/18 [History] Furosemide [Lasix] 40 mg PO DAILY 10/15/18 [History] Nitroglycerin 0.4 mg SL DAILY PRN 01/02/19 [History] Metoprolol Tartrate 100 mg PO BID 08/20/19 [History] Past Medical History HEENT History: Reports: Hard of Hearing, Impaired Vision Other HEENT History: Wears glasses. Cardiovascular History: Reports: Afib, Heart Failure, Hypertension, UT Other Cardiovascular History: States past hospitalization with sepsis. Respiratory History: Reports: PE, Pneumonia, Recurrent Other Respiratory History: Unable to take Flu Shot due to allergy. Wears CPAP. Gastrointestinal History: Reports: Bowel Obstruction Genitourinary History: Reports: Acute Renal Failure Musculoskeletal History: Reports: Back Pain, Chronic Other Musculoskeletal History: Past elbow and wrist fractures. Experiences frequent falls due to leg weakness. 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 Psychiatric History: Reports: None Hematologic History: Reports: None Other Hematologic History: BLOOD INFECTION Immunologic History: Reports: None Oncologic (Cancer) History: Reports: None Dermatologic History: Reports: None - Infectious Disease History Infectious Disease History: Reports: Chicken Pox, Measles - Past Surgical History Head Surgeries/Procedures: Reports: None HEENT Surgical History: Reports: LASIK, Other (See Below) Other HEENT Surgeries/Procedures: WEARS GLASSES, RHINOPLASTY, "Left ear is 50/50 " Cardiovascular Surgical History: Reports: Cardiac Ablation, Coronary Artery Stent Other Cardiovascular Surgeries/Procedures: Ablation and cardioversion converted but has failed, back in A Fib with no further attempts to convert. GI Surgical History: Reports: Other (See Below) Other GI Surgeries/Procedures: laparoscopic jennifer Musculoskeletal Surgical History: Reports: Other (See Below) Other Musculoskeletal Surgeries/Procedures:: ANKLE SURGERY, casted for bilateral fx wrists at one time, broken left knee cap due to fall. Social & Family History - Family History Family Medical History: Noncontributory - Tobacco Use Smoking Status *Q: Former Smoker Used Tobacco, but Quit: Yes Month/Year Tobacco Last Used: years thierry Second [employer] Smoke Exposure: No - Caffeine Use Caffeine Use: Reports: Soda Other Caffeine Use: likes his "Coke' - Recreational Drug Use Recreational Drug Use: No H&P Review of Systems - Review of Systems: Review Of Systems: See Below General: Reports: Fever, Chills, Weakness HEENT: Reports: No Symptoms Pulmonary: Reports: Shortness of Breath, Wheezing, Cough, Sputum (blood tinged) Cardiovascular: Reports: No Symptoms Gastrointestinal: Reports: No Symptoms Genitourinary: Reports: No Symptoms Musculoskeletal: Reports: Back Pain (chronic) Skin: Reports: No Symptoms Psychiatric: Reports: No Symptoms Neurological: Reports: No Symptoms Hematologic/Lymphatic: Reports: Easy Bleeding, Easy Bruising Exam - Exam Exam: See Below - Vital Signs Vital Signs: Last Vital Signs Temp 98.2 F 08/20/19 13:44 Pulse 88 08/20/19 13:44 Resp 22 H 08/20/19 13:44 BP 138/81 08/20/19 13:44 Pulse Ox 93 L 08/20/19 13:44 Weight: 276 lb 1.6 oz - Exam Quality Assessment: Supplemental Oxygen General: Alert, Oriented, Cooperative. No: Mild Distress HEENT: PERRLA, Hearing Intact, Mucosa Moist & [place], Nares Patent, Normal Nasal Septum, Posterior Pharynx Clear, Conjunctiva Clear, EOMI, EACs Clear, TMs Clear Neck: Supple, Trachea Midline, 2 Lungs: Normal Respiratory Effort, Decreased Breath Sounds, Rhonchi (RLL). No: Wheezing Cardiovascular: Regular Rate, Regular Rhythm GI/Abdominal Exam: Normal Bowel Sounds, Soft, Non-Tender, No Distention (Male) Exam: Deferred Rectal (Males) Exam: Deferred Back Exam: Normal Inspection Extremities: Pedal Edema (trace, stasis dermatitis) Peripheral Pulses: 2+: Radial (L), Radial (R), Posterior Tibial (L), Posterior Tibial (R), Dorsalis Pedis (L), Dorsalis Pedis (R) Skin: Warm, Dry, Intact Psychiatric: Alert, Normal Affect, Normal Mood - Patient Data Lab Results Last 24 hrs: Laboratory Results - last 24 hr 08/20/19 08/20/19 08/20/19 Range/Units 10:40 10:40 10:40 WBC 7.8 (4.5-12.0) X10-3/uL RBC 4.83 (4.30-5.75) x10(6)uL Hgb 14.6 (13.5-17.8) g/dL Hct 44.7 (30.0-51.3) % MCV 92.6 (80-96) fL MCH 30.2 (27.7-33.6) pg MCHC 32.7 (32.2-35.4) g/dL RDW 18.1 H (11.5-15.5) % Plt Count 231 (125-369) X10(3)uL MPV 8.2 (7.4-10.4) fL Neut % (Auto) 76.3 (46-82) % Lymph % (Auto) 10.7 L (13-37) % [place] % (Auto) 9.3 (4-12) % Eos % (Auto) 0 L (1.0-5.0) % Baso % (Auto) 4 H (0-2) % Neut # (Auto) 6.0 (1.6-8.3) # Lymph # (Auto) 0.8 (0.6-5.0) # Marshall # (Auto) 0.7 (0.0-1.3) # Eos # (Auto) 0.0 (0.0-0.8) # Baso # (Auto) 0.3 H (0.0-0.2) # PT 18.5 H (8.7-11.1) INR 1.92 H (0.89-1.13) D-Dimer, Quantitative 0.78 H (0.0-0.59) mg/LFEU POC VBG pH (7.31-7.41) POC VBG pCO2 (41-51) mmHG POC VBG HCO3 (23-28) mmol/L POC VBG Total CO2 (24-29) mmol/L POC VBG Base Excess (-2-3) mmol/L Sodium 146 H (135-145) mmol/L Potassium 4.0 (3.5-5.3) mmol/L Chloride 106 (100-110) mmol/L Carbon Dioxide 29 (21-32) mmol/L BUN 21 H (7-18) mg/dL Creatinine 1.4 H (0.70-1.30) mg/dL Est Cr Clr Drug Dosing TNP Estimated GFR (MDRD) 50 L (>60) BUN/Creatinine Ratio 15.0 (9-20) Glucose 123 H (80-116) mg/dL Lactic Acid (0.4-2.2) mmol/L Calcium 8.6 (8.6-10.2) mg/dL Total Bilirubin 0.9 (0.1-1.3) mg/dL AST 22 D (5-25) IU/L ALT 32 D (12-36) U/L Alkaline Phosphatase 78 (56-112) IU/L Troponin I (<0.017-0.056) ng/mL NT-Pro-B Natriuret Pep (<=125) pg/mL Total Protein 7.4 (6.0-8.0) g/dL Albumin 3.8 (3.2-4.6) g/dL Globulin 3.6 g/dL Albumin/Globulin Ratio 1.1 Urine Color (YELLOW) Urine Appearance (CLEAR) Urine pH (5.0-6.5) Ur Specific [place] (1.010-1.025) Urine Protein (NEGATIVE) mg/dL Urine Glucose (UA) (NORMAL) mg/dL Urine Ketones (NEGATIVE) mg/dL Urine Occult Blood (NEGATIVE) Urine Nitrite (NEGATIVE) Urine Bilirubin (NEGATIVE) Urine Urobilinogen (NEGATIVE) mg/dL Ur Leukocyte Esterase (NEGATIVE) Urine RBC (0-5) Urine WBC (0-5) Ur Squamous Epith Cells (NS,R,O) Urine Bacteria (NS) 08/20/19 08/20/19 08/20/19 Range/Units 10:40 10:40 10:52 WBC (4.5-12.0) X10-3/uL RBC (4.30-5.75) x10(6)uL Hgb (13.5-17.8) g/dL Hct (30.0-51.3) % MCV (80-96) fL MCH (27.7-33.6) pg MCHC (32.2-35.4) g/dL RDW (11.5-15.5) % Plt Count (125-369) X10(3)uL MPV (7.4-10.4) fL Neut % (Auto) (46-82) % Lymph % (Auto) (13-37) % Marshall % (Auto) (4-12) % Eos % (Auto) (1.0-5.0) % Baso % (Auto) (0-2) % Neut # (Auto) (1.6-8.3) # Lymph # (Auto) (0.6-5.0) # Marshall # (Auto) (0.0-1.3) # Eos # (Auto) (0.0-0.8) # Baso # (Auto) (0.0-0.2) # PT (8.7-11.1) INR (0.89-1.13) D-Dimer, Quantitative (0.0-0.59) mg/LFEU POC VBG pH (7.31-7.41) POC VBG pCO2 (41-51) mmHG POC VBG HCO3 (23-28) mmol/L POC VBG Total CO2 (24-29) mmol/L POC VBG Base Excess (-2-3) mmol/L Sodium (135-145) mmol/L Potassium (3.5-5.3) mmol/L Chloride (100-110) mmol/L Carbon Dioxide (21-32) mmol/L BUN (7-18) mg/dL Creatinine (0.70-1.30) mg/dL Est Cr Clr Drug Dosing Estimated GFR (MDRD) (>60) BUN/Creatinine Ratio (9-20) Glucose (80-116) mg/dL Lactic Acid 1.6 (0.4-2.2) mmol/L Calcium (8.6-10.2) mg/dL Total Bilirubin (0.1-1.3) mg/dL AST (5-25) IU/L ALT (12-36) U/L Alkaline Phosphatase (56-112) IU/L Troponin I 0.040 (<0.017-0.056) ng/mL NT-Pro-B Natriuret Pep 1978 H* (<=125) pg/mL Total Protein (6.0-8.0) g/dL Albumin (3.2-4.6) g/dL Globulin g/dL Albumin/Globulin Ratio Urine Color Yellow (YELLOW) Urine Appearance Clear (CLEAR) Urine pH 7.0 H (5.0-6.5) Ur Specific [place] 1.010 (1.010-1.025) Urine Protein 30 H (NEGATIVE) mg/dL Urine Glucose (UA) Normal (NORMAL) mg/dL Urine Ketones Negative (NEGATIVE) mg/dL Urine Occult Blood Negative (NEGATIVE) Urine Nitrite Negative (NEGATIVE) Urine Bilirubin Negative (NEGATIVE) Urine Urobilinogen Normal (NEGATIVE) mg/dL Ur Leukocyte Esterase Negative (NEGATIVE) Urine RBC 0-5 (0-5) Urine WBC 0-5 (0-5) Ur Squamous Epith Cells Occasional (NS,R,O) Urine Bacteria Rare H (NS) 08/20/ Range/Units 10:52 WBC (4.5-12.0) X10-3/uL RBC (4.30-5.75) x10(6)uL Hgb (13.5-17.8) g/dL Hct (30.0-51.3) % MCV (80-96) fL MCH (27.7-33.6) pg MCHC (32.2-35.4) g/dL RDW (11.5-15.5) % Plt Count (125-369) X10(3)uL MPV (7.4-10.4) fL Neut % (Auto) (46-82) % Lymph % (Auto) (13-37) % [place] % (Auto) (4-12) % Eos % (Auto) (1.0-5.0) % Baso % (Auto) (0-2) % Neut # (Auto) (1.6-8.3) # Lymph # (Auto) (0.6-5.0) # Marshall # (Auto) (0.0-1.3) # Eos # (Auto) (0.0-0.8) # Baso # (Auto) (0.0-0.2) # PT (8.7-11.1) INR (0.89-1.13) D-Dimer, Quantitative (0.0-0.59) mg/LFEU POC VBG pH 7.36 (7.31-7.41) POC VBG pCO2 49.1 (41-51) mmHG POC VBG HCO3 27.7 (23-28) mmol/L POC VBG Total CO2 29 (24-29) mmol/L POC VBG Base Excess 2 (-2-3) mmol/L Sodium (135-145) mmol/L Potassium (3.5-5.3) mmol/L Chloride (100-110) mmol/L Carbon Dioxide (21-32) mmol/L BUN (7-18) mg/dL Creatinine (0.70-1.30) mg/dL Est Cr Clr Drug Dosing Estimated GFR (MDRD) (>60) BUN/Creatinine Ratio (9-20) Glucose (80-116) mg/dL Lactic Acid (0.4-2.2) mmol/L Calcium (8.6-10.2) mg/dL Total Bilirubin (0.1-1.3) mg/dL AST (5-25) IU/L ALT (12-36) U/L Alkaline Phosphatase (56-112) IU/L Troponin I (<0.017-0.056) ng/mL NT-Pro-B Natriuret Pep (<=125) pg/mL Total Protein (6.0-8.0) g/dL Albumin (3.2-4.6) g/dL Globulin g/dL Albumin/Globulin Ratio Urine Color (YELLOW) Urine Appearance (CLEAR) Urine pH (5.0-6.5) Ur Specific [place] (1.010-1.025) Urine Protein (NEGATIVE) mg/dL Urine Glucose (UA) (NORMAL) mg/dL Urine Ketones (NEGATIVE) mg/dL Urine Occult Blood (NEGATIVE) Urine Nitrite (NEGATIVE) Urine Bilirubin (NEGATIVE) Urine Urobilinogen (NEGATIVE) mg/dL Ur Leukocyte Esterase (NEGATIVE) Urine RBC (0-5) Urine WBC (0-5) Ur Squamous Epith Cells (NS,R,O) Urine Bacteria (NS) Result Diagrams: 08/20/19 10:40 08/20/19 10:40 Stevie Results Last 24 hrs: Microbiology 08/20/19 10:45 Influenza Type A Antigen Screen - Final Nasopharyngeal Swab NEGATIVE INFLUENZA A VIRUS AG REFERENCE RANGE: NEGATIVE Influenza Type B Antigen Screen - Final NEGATIVE INFLUENZA B VIRUS AG REFERENCE RANGE: NEGATIVE Imaging Impressions Last 24 hrs: CT chest: Ground-glass opacities bilateral, most prominent in right lower lobe. - Problem List (1) History of DVT (deep vein thrombosis) SNOMED Code(s): 831166196 ICD Code: Z86.718 - PERSONAL HISTORY OF OTHER VENOUS THROMBOSIS AND EMBOLISM Status: Acute Current Visit: Yes (2) Pneumonia SNOMED Code(s): 539782358 ICD Code: J18.9 - PNEUMONIA, UNSPECIFIED ORGANISM Status: Acute Current Visit: Yes Qualifiers: Pneumonia type: due to unspecified organism Laterality: bilateral Lung location: lower lobe of lung Qualified Code(s): J18.1 - Lobar pneumonia, unspecified organism (3) Low back pain SNOMED Code(s): 298886356 ICD Code: M54.5 - LOW BACK PAIN Status: Acute Current Visit: No (4) Coronary arteriosclerosis SNOMED Code(s): 10606693 ICD Code: I25.10 - ATHSCL HEART DISEASE OF [place] CORONARY ARTERY W/O ANG PCTRS Status: Acute Current Visit: Yes (5) History of UT (myocardial infarction) SNOMED Code(s): 985765221 ICD Code: I25.2 - OLD MYOCARDIAL INFARCTION Status: Acute Current Visit: Yes (6) History of cardiac arrest SNOMED Code(s): 539294054 ICD Code: Z86.74 - PERSONAL HISTORY OF SUDDEN CARDIAC ARREST Status: Acute Current Visit: Yes Problem List Initiated/Reviewed/Updated: Yes Orders Last 24hrs: Active Orders 24 hr Category Date Time Status Admission Status [Patient Status] [ADT] Routine ADT 08/20/19 13:01 Active BIPAP Adult [RT BiPAP/CPAP] [RC] ASDIRECTED Care 08/20/19 10:37 Inactive Communication, Vaccine [RC] PER UNIT ROUTINE Care 08/20/19 13:41 Active EKG Documentation Completion [RC] ASDIRECTED Care 08/20/19 10:24 Active Oxygen Therapy [RC] PRN Care 08/20/19 13:40 Active Pneumonia Education [RC] DAILY Care 08/20/19 13:37 Active RT Aerosol Therapy [RC] ASDIRECTED Care 08/20/19 10:27 Active RT Incentive Spirometry [RC] Q1HWA Care 08/20/19 13:37 Active Up With Assistance [RC] 06,14,22 Care 08/20/19 13:39 Active VTE/DVT Education [RC] Per Unit Routine Care 08/20/19 13:40 Active Vaccines to be Administered [RC] PER UNIT ROUTINE Care 08/20/19 13:41 Inactive Vital Signs [RC] Q4H Care 08/20/19 13:40 Active Regular Diet [DIET] Diet 08/20/19 Dinner Active Ang Chest [CT] Stat Exams 08/20/19 11:20 Taken CXR [Chest 1V Frontal] [CR] Stat Exams 08/20/19 10:24 Taken BASIC METABOLIC PANEL,BMP [CHEM] Routine Lab 08/21/19 06:00 Ordered CBC WITH AUTO DIFF [HEME] Routine Lab 08/21/19 06:00 Ordered CULTURE BLOOD [BC] Urgent Lab 08/20/19 10:40 Received CULTURE BLOOD [BC] Urgent Lab 08/20/19 10:45 Received Acetaminophen [Tylenol] Med 08/20/19 13:39 Active 650 mg PO Q4H PRN Albuterol [Ventolin HFA] Med 08/20/19 15:01 Ordered 2 puff INH Q6HR PRN Aspirin [Halfprin] Med 08/21/19 09:00 Ordered 81 mg PO DAILY Bisacodyl [Dulcolax] Med 08/20/19 13:39 Active 5 mg PO DAILY PRN Docusate Sodium [Colace] Med 08/20/19 13:39 Active 100 mg PO BID PRN Furosemide [Lasix] Med 08/21/19 09:00 Ordered 40 mg PO DAILY Metoprolol Tartrate [Lopressor] Med 08/20/19 21:00 Ordered 100 mg PO BID Multivitamin with Minerals [Multivitamins with Minerals Med 08/21/19 09:00 Ordered ] 1 each PO DAILY Nitroglycerin [Nitrostat] Med 08/20/19 15:01 Ordered 0.4 mg SL DAILY PRN Omeprazole [Omeprazole] Med 08/21/19 09:00 Ordered 20 mg PO DAILY Ondansetron [Zofran ODT] Med 08/20/19 13:39 Ordered 4 mg PO Q4H PRN Pramipexole [Mirapex] Med 08/20/19 21:00 Ordered 0.75 mg PO BEDTIME Sodium Chloride 0.9% [Saline Flush] Med 08/20/19 10:27 Active 10 ml FLUSH ASDIRECTED PRN Warfarin [Coumadin] Med 08/20/19 15:15 Ordered 2.5 mg PO SUTUWETHSA Warfarin [Coumadin] Med 08/21/19 15:01 Ordered 5 mg PO MOFR amLODIPine [Norvasc] Med 08/21/19 09:00 Ordered 5 mg PO DAILY atorvaSTATin [Lipitor] Med 08/21/19 09:00 Ordered 20 mg PO DAILY traMADol [Ultram] Med 08/20/19 15:01 Ordered 50 mg PO BID PRN Blood Culture x2 Reflex Set [OM.PC] Urgent Oth 08/20/19 10:28 Ordered Saline Lock Insert [OM.PC] Routine Oth 08/20/19 10:27 Ordered Resuscitation Status Routine Resus Stat 08/20/19 13:39 Ordered EKG 12 Lead [EK] Stat Ther 08/20/19 10:24 Ordered Medication Orders Acetaminophen (Tylenol) 650 mg PO Q4H PRN PRN Reason: Pain (Mild 1-3)/fever Albuterol (Ventolin Hfa) gm INH Q6HR PRN PRN Reason: Dyspnea Amlodipine Besylate (Norvasc) 5 mg PO DAILY [facility] Aspirin (Halfprin) 81 mg PO DAILY [facility] Atorvastatin Calcium (Lipitor) 20 mg PO DAILY [facility] Bisacodyl (Dulcolax) 5 mg PO DAILY PRN PRN Reason: Constipation Docusate Sodium (Colace) 100 mg PO BID PRN PRN Reason: Constipation Furosemide (Lasix) 40 mg PO DAILY [facility] Metoprolol Tartrate (Lopressor) 100 mg PO BID [facility] Nitroglycerin (Nitrostat) 0.4 mg SL DAILY PRN PRN Reason: Chest Pain Non-Formulary Medication (Multivitamin With Minerals [Multivitamins With Minerals]) 1 each PO DAILY [facility] Non-Formulary Medication (Omeprazole [Omeprazole]) 20 mg PO DAILY [facility] Ondansetron HCl (Zofran Odt) 4 mg PO Q4H PRN PRN Reason: nausea, able to take PO Pramipexole Dihydrochloride (Mirapex) 0.75 mg PO BEDTIME [facility] Sodium Chloride (Saline Flush) 10 ml FLUSH ASDIRECTED PRN PRN Reason: Keep Vein Open Last Admin: 08/20/19 12:38 Dose: 10 ml Admin: 08/20/19 10:41 Dose: 10 ml Tramadol HCl (Ultram) 50 mg PO BID PRN PRN Reason: Pain Warfarin Sodium (Coumadin) 5 mg PO MOFR JULIANNE Warfarin Sodium (Coumadin) 2.5 mg PO SUTUWETHSA [facility] Assessment/Plan Comment:: 1. Admit for Rocephin 2 G IV q24h, Doxycycline 100 mg po bid(due to allergy to Levofloxacin and Azithromycin interacts with his Metoprolol), oxygen, neb treatments. 2. INR daily, Coumadin per pharmacy. 3. Diet: heart healthy. 4. DVT prophylaxis: on coumadin, TEDs on BLE. 5. DNR/DNI. 6. Anticipate discharge to home. - Mortality Measure Prognosis:: Good
[2019-08-20] MEDS ORDERED: Warfarin Sliding Scale PO SCH (16:00)
[2019-08-20] MEDS ORDERED: Warfarin 2.5 MG Tab PO SCH (16:00)
[2019-08-20] MEDS: Acetaminophen 325 MG Tab PO PRN (16:52)
[2019-08-20] MEDS: Metoprolol Tartrate 100 MG Tab PO SCH (21:06)
[2019-08-20] MEDS: Pramipexole 0.25 MG Tab PO SCH (21:07)
[2019-08-21] MEDS: Acetaminophen 325 MG Tab PO PRN ×2 (05:44→23:20)
[2019-08-21] MEDS: Pantoprazole 40 MG Tab.CR PO SCH (05:45)
[2019-08-21] MEDS: Aspirin 81 MG Tab.EC PO SCH (09:50)
[2019-08-21] MEDS: atorvaSTATin 20 MG Tab PO SCH (09:50)
[2019-08-21] MEDS: amLODIPine 5 MG Tab PO SCH (09:50)
[2019-08-21] MEDS: Furosemide 40 MG Tab PO SCH (09:50)
[2019-08-21] MEDS: Metoprolol Tartrate 100 MG Tab PO SCH ×2 (09:51→20:29)
[2019-08-21] MEDS: Doxycycline 100 MG Tab PO SCH ×2 (09:55→20:30)
--- NOTE | 2019-08-21 11:18 | PN ---
DATE SEEN: 08/21/2019 REASON FOR VISIT: Alejandro Pierre is a 69-year-old male, admitted with pneumonia. CT radiographs revealed a right lower lobe pneumonia. He had a good night. Sats have been good. Medications on board, Rocephin and azithromycin. Cough has been less problematic. LABORATORY STUDIES: On admission, white count 7800, repeat 7500, hemoglobin 14.6 and 12.8. Platelets unremarkable. INR 1.85. Electrolytes satisfactory. GFR 50 and [address] and x-ray noted. OBJECTIVE: VITAL SIGNS: 36.8, 73 is the pulse, 136/84, 22 is the respiration, 95 on 2 L. GENERAL: Appears comfortable. Speech is fluent. Mouth and oropharynx clear. NECK: Benign. Thyroid is small. No JVD. CHEST: Clear in all lung miranda. No adventitious sounds. HEART: No ectopy or murmur. ABDOMEN: Benign. ASSESSMENT: Right lower lobe pneumonia. PLAN: Medications, care and treatment with repeat x-ray, PA and lateral, complementary care and well being. Short-term stay expected. /[id number] ELSIE/MAURI
[2019-08-21] MEDS: cefTRIAXone 2 GM Vial IVPUSH SCH (12:25)
[2019-08-21] MEDS: Sodium Chloride 0.9% 10 ML Syringe FLUSH PRN ×2 (12:33→20:28)
[2019-08-21] MEDS ORDERED: Warfarin 5 MG Tab PO SCH (16:00)
[2019-08-21] MEDS: Pramipexole 0.25 MG Tab PO SCH (20:30)
[2019-08-22] MEDS: Pantoprazole 40 MG Tab.CR PO SCH (05:10)
[2019-08-22] MEDS: Acetaminophen 325 MG Tab PO PRN (08:51)
[2019-08-22] MEDS: Aspirin 81 MG Tab.EC PO SCH (08:53)
[2019-08-22] MEDS: Furosemide 40 MG Tab PO SCH (08:53)
[2019-08-22] MEDS: atorvaSTATin 20 MG Tab PO SCH (08:55)
[2019-08-22] MEDS: amLODIPine 5 MG Tab PO SCH (08:55)
[2019-08-22] MEDS: Metoprolol Tartrate 100 MG Tab PO SCH (08:55)
[2019-08-22 08:56] VITALS: BP 144/92; PULSE 90
[2019-08-22] MEDS: Doxycycline 100 MG Tab PO SCH (08:56)
[2019-08-22] MEDS ORDERED: Levofloxacin 500 MG Tab PO SCH (11:45)
[2019-08-22] MEDS: cefTRIAXone 2 GM Vial IVPUSH SCH (12:40)
[2019-08-22] MEDS: Sodium Chloride 0.9% 10 ML Syringe FLUSH PRN (12:44)
--- NOTE | 2019-08-22 13:19 | DISCH ---
DISCHARGE DATE: 08/22/2019 DIAGNOSES: Left lower lobe pneumonia with hemoptysis. HISTORY OF PRESENT ILLNESS: Alejandro Pierre is a 69-year-old male from [place] who was seen at [facility] by Dr. Schuster who was admitted to the hospital initially by Marialuisa Michelle MD. Presents with a complicated cough, blood-tinged sputum, mild shortness of breath, and history of respiratory issues in the past. CT revealed a left lower lobe pneumonia. Examination was consistent with pneumonia. LABORATORY STUDIES: Microbiology: Nasal swab, negative influenza A and negative influenza B. Blood culture 72 hours, negative. PHYSICAL EXAMINATION: VITAL SIGNS: At time of discharge vital signs are 142/92, 99 is the mean blood pressure, 135/81; 20 is the respirations; and 93% on room air. GENERAL: Appears comfortable. Funduscopic benign. Bright TMs. Clear nasal discharge. Mouth and oropharynx are clear. Poor dentition. Missing teeth. NECK: Benign. Thyroid small. CHEST: Decreased breath sounds in left lower lobe distribution but clear throughout all lung miranda. HEART: Distant heart sounds. Occasional ectopy. ABDOMEN: Rotund. No hepatosplenomegaly. EXTREMITIES: No lower extremity edema. ASSESSMENT: Left lower lobe pneumonia. PLAN: Appears well, saturations are good. Comfort level, discharge home, 7 days of Levaquin 500 mg one daily. Followup appointment with Dr. Youngblood in 4 weeks duration. /[id number] /MAURI
[2019-08-22] MEDS ORDERED: Warfarin 5 MG Tab PO ONE (16:00)
[2019-08-23] MEDS ORDERED: Warfarin 2.5 MG Tab PO SCH (16:00)
== END 2019-08-22 13:20 | disposition home or self-care (01) | DRG 194 ==
LOC: FB.ED 10:22 → FB.MS 13:01
PROVIDERS: ADMIT Family Medicine; ATTEND Family Medicine
DX: J18.1 Lobar pneumonia, unspecified organism (principal); R09.02 Hypoxemia; R06.02 Shortness of breath; J18.9 Pneumonia, unspecified organism; I10 Essential (primary) hypertension; R04.2 Hemoptysis; Z66 Do not resuscitate; Z79.01 Long term (current) use of anticoagulants; H54.7 Unspecified visual loss; I48.91 Unspecified atrial fibrillation; I11.0 Hypertensive heart disease with heart failure; I50.9 Heart failure, unspecified; G89.29 Other chronic pain; M54.5 Low back pain; I25.10 Atherosclerotic heart disease of native coronary artery without angina pectoris; J44.9 Chronic obstructive pulmonary disease, unspecified; I25.2 Old myocardial infarction; Z86.74 Personal history of sudden cardiac arrest; Z88.7 Allergy status to serum and vaccine; Z88.5 Allergy status to narcotic agent; Z88.1 Allergy status to other antibiotic agents; Z91.048 Other nonmedicinal substance allergy status; Z79.82 Long term (current) use of aspirin; Z79.899 Other long term (current) drug therapy; Z87.01 Personal history of pneumonia (recurrent); Z99.81 Dependence on supplemental oxygen; Z95.5 Presence of coronary angioplasty implant and graft; Z90.49 Acquired absence of other specified parts of digestive tract; Z86.718 Personal history of other venous thrombosis and embolism; Z87.891 Personal history of nicotine dependence
CPT/HCPCS: 36415; 71045; 71275; 80053; 81001; 82803; 83605; 83880; 84484; 85025; 85379; 85610; 87040 ×2; 87804 ×2; 93005; 94640; 96374; 96375; 99285; A9270; J0696; J1940; 71046; 80048; 94150; 94760; J7620-GY; Q9967

== ENCOUNTER 2020-02-13 09:06 | Emergency (ER) | payer MEDICARE, BC, OTHER ==
--- NOTE | 2020-02-13 09:41 | EDM.PDOC ---
ED HPI GENERAL MEDICAL PROBLEM - General Chief Complaint: Respiratory Problem Stated Complaint: SOB Time Seen by Provider: 02/13/20 09:38 Source of Information: Reports: Patient History Limitations: Reports: No Limitations - History of Present Illness INITIAL COMMENTS - FREE TEXT/NARRATIVE: Alejandro complains of shortness of breath on exertion,which improved when he goes outside to the air.. This started 2 days ago,associated with wheezing. He has a h/o asthma,and has tried Albuterol nebs with no improvement. He has no chest pain. No cough or fever.No contact with a patient with COVID-19.He castro s ah /o both PE's and Pneumonia. - Related Data Allergies Allergy/AdvReac Type Severity Reaction Status Date / Time Influenza Virus Vaccines Allergy Chest Verified 02/13/20 09:13 Tightness levofloxacin [From Levaquin] Allergy Other Verified 02/13/20 09:13 morphine Allergy Itching Verified 02/13/20 09:13 metal- surgical Allergy Other Uncoded 02/13/20 09:13 Home Meds: Home Meds Aspirin [Halfprin] 81 mg PO DAILY 09/08/16 [History] Multivitamin with Minerals [Multivitamins with Minerals] 1 each PO DAILY [History] Omeprazole 20 mg PO DAILY 09/08/16 [History] Pramipexole [Mirapex] 0.75 mg PO BEDTIME 09/08/16 [History] Warfarin [Coumadin] 2.5 mg PO SUTUTHSA 09/08/16 [History] Warfarin [Coumadin] 5 mg PO MOWEFR 09/08/16 [History] atorvaSTATin [Lipitor] 20 mg PO DAILY 09/08/16 [History] traMADol [Ultram] 50 mg PO BID PRN 02/05/17 [History] Albuterol [Ventolin HFA] 2 puff INH Q6HR PRN 10/15/18 [History] Furosemide [Lasix] 40 mg PO DAILY 10/15/18 [History] Nitroglycerin 0.4 mg SL DAILY PRN 01/02/19 [History] Metoprolol Tartrate 100 mg PO BID 08/20/19 [History] Acetaminophen [Tylenol] 650 mg PO Q4H PRN tablet 08/22/19 [Rx] Enalapril [Vasotec] 20 mg PO DAILY 02/13/20 [History] Past Medical History HEENT History: Reports: Hard of Hearing, Impaired Vision Other HEENT History: Wears glasses. Cardiovascular History: Reports: Afib, Blood Clots/VTE/DVT, Heart Failure, Hypertension, [place], Stents Other Cardiovascular History: States past hospitalization with sepsis. Respiratory History: Reports: PE, Pneumonia, Recurrent, Sleep Apnea Other Respiratory History: Unable to take Flu Shot due to allergy. Wears CPAP. Gastrointestinal History: Reports: None Genitourinary History: Reports: Acute Renal Failure Musculoskeletal History: Reports: Arthritis, Back Pain, Chronic, Fracture Other Musculoskeletal History: Hx bilat wrist fractures, R ankle, L kneecap Experiences frequent falls due to leg weakness. 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 Psychiatric History: Reports: None Endocrine/Metabolic History: Reports: Obesity/BMI 30+, Other (See Below) Other Endocrine/Metabolic History: borderline DM Hematologic History: Reports: None Other Hematologic History: BLOOD INFECTION Immunologic History: Reports: None Oncologic (Cancer) History: Reports: None Dermatologic History: Reports: None - Infectious Disease History Infectious Disease History: Reports: Chicken Pox, Measles - Past Surgical History Head Surgeries/Procedures: Reports: None HEENT Surgical History: Reports: LASIK, Naso-Sinus Surgery, Other (See Below) Other HEENT Surgeries/Procedures: WEARS GLASSES, RHINOPLASTY, "Left ear is 50/50 " Cardiovascular Surgical History: Reports: Cardiac Ablation, Coronary Artery Stent Other Cardiovascular Surgeries/Procedures: Ablation and cardioversion converted but has failed, back in A Fib with no further attempts to convert. GI Surgical History: Reports: Cholecystectomy, Colonoscopy, Other (See Below) Other GI Surgeries/Procedures: laparoscopic jennifer Musculoskeletal Surgical History: Reports: Other (See Below) Other Musculoskeletal Surgeries/Procedures:: R ANKLE SURGERY, Social & Family History - Family History Family Medical History: Noncontributory - Tobacco Use Smoking Status *Q: Former Smoker Years of Tobacco use: 5 Used Tobacco, but Quit: Yes Month/Year Tobacco Last Used: nov - Caffeine Use Caffeine Use: Reports: Soda Other Caffeine Use: likes his "Coke' - Recreational Drug Use Recreational Drug Use: No ED ROS GENERAL - Review of Systems Review Of Systems: Comprehensive ROS is negative, except as noted in HPI. ED EXAM, GENERAL - Physical Exam Exam: See Below Exam Limited By: No Limitations General Appearance: Alert, WD/WN, No Apparent Distress Ears: Normal External Exam Ear Exam: Bilateral Ear: Auricle Normal, Canal Normal, TM normal Nose: Normal Inspection Throat/Mouth: Normal Inspection Head: Atraumatic Neck: Normal Inspection Respiratory/Chest: No Respiratory Distress, Lungs Clear, Decreased Breath Sounds , Wheezing Cardiovascular: Normal Peripheral Pulses GI/Abdominal: Normal Bowel Sounds (Male) Exam: No Hernia EKG INTERPRETATION EKG Date: 02/13/20 Rhythm: A-Fib Course - Vital Signs Last Recorded V/S: Last Vital Signs Temp 97.6 F 02/13/20 09:06 Pulse 88 02/13/20 09:06 Resp 22 H 02/13/20 09:06 BP 178/97 H 02/13/20 09:06 Pulse Ox 97 02/13/20 09:06 - Orders/Labs/Meds Orders: Active Orders 24 hr Category Date Time Status EKG Documentation Completion [RC] ASDIRECTED Care 02/13/20 09:37 Active CXR [Chest 2V] [CR] Stat Exams 02/13/20 09:36 Taken EKG 12 Lead [EK] Routine Ther 02/13/20 09:36 Ordered Labs: Laboratory Tests 02/13/20 02/13/20 02/13/20 Range/Units 09:50 09:50 09:50 WBC 3.4 L (4.5-12.0) X10-3/uL RBC 3.94 L (4.30-5.75) x10(6)uL Hgb 13.5 (13.5-17.8) g/dL Hct 39.6 (30.0-51.3) % MCV 100.6 H (80-96) fL MCH 34.2 H (27.7-33.6) pg MCHC 34.0 (32.2-35.4) g/dL RDW 16.1 H (11.5-15.5) % Plt Count 161 (125-369) X10(3)uL MPV 8.1 (7.4-10.4) fL Neut % (Auto) 59.8 (46-82) % Lymph % (Auto) 19.5 (13-37) % [facility] % (Auto) 19.7 H (4-12) % Eos % (Auto) 0 L (1.0-5.0) % Baso % (Auto) 1 (0-2) % Neut # (Auto) 2.0 (1.6-8.3) # Lymph # (Auto) 0.7 (0.6-5.0) # [facility] # (Auto) 0.7 (0.0-1.3) # Eos # (Auto) 0.0 (0.0-0.8) # Baso # (Auto) 0.0 (0.0-0.2) # Sodium 145 (135-145) mmol/L Potassium 4.2 D (3.5-5.3) mmol/L Chloride 107 (100-110) mmol/L Carbon Dioxide 31 (21-32) mmol/L BUN 18 (7-18) mg/dL Creatinine 1.4 H (0.70-1.30) mg/dL Est Cr Clr Drug Dosing 58.68 mL/min Estimated GFR (MDRD) 50 L (>60) BUN/Creatinine Ratio 12.9 (9-20) Glucose 99 (80-116) mg/dL Calcium 8.5 L (8.6-10.2) mg/dL Total Bilirubin 1.1 (0.1-1.3) mg/dL AST 25 D (5-25) IU/L ALT 36 D (12-36) U/L Alkaline Phosphatase 64 (56-112) IU/L Troponin I 15.5 (4.0-60.3) pg/mL NT-Pro-B Natriuret Pep 2752 H* (<=125) pg/mL Total Protein 7.0 (6.0-8.0) g/dL Albumin 3.6 (3.2-4.6) g/dL Globulin 3.4 g/dL Albumin/Globulin Ratio 1.1 Departure - Departure Time of Disposition: 10:54 Disposition: Still A Patient 30 Condition: Good Clinical Impression: Acute asthma - Discharge Information Forms: ED Department Discharge Sepsis Event Note - Evaluation Sepsis Screening Result: No Definite Risk - Focused Exam Vital Signs: Vital Signs Temp Pulse Resp BP Pulse Ox 02/13/20 09:06 97.6 F 88 22 H 178/97 H 97 Date Exam was Performed: 02/13/20 Time Exam was Performed: 10:54 - Problem List & Annotations (1) COPD (chronic obstructive pulmonary disease) SNOMED Code(s): 27023043 Code(s): J44.9 - CHRONIC OBSTRUCTIVE PULMONARY DISEASE, UNSPECIFIED Status : Acute Current Visit: Yes Qualifiers: Emphysema type: unspecified - Problem List Review Problem List Initiated/Reviewed/Updated: Yes - My Orders Last 24 Hours: My Active Orders 02/13/20 09:36 CXR [Chest 2V] [CR] Stat EKG 12 Lead [EK] Routine 02/13/20 09:37 EKG Documentation Completion [RC] ASDIRECTED - Assessment/Plan Last 24 Hours: My Active Orders 02/13/20 09:36 CXR [Chest 2V] [CR] Stat EKG 12 Lead [EK] Routine 02/13/20 09:37 EKG Documentation Completion [RC] ASDIRECTED Plan: I reviewed labs,trop,EKG and CXR.Non acute.His vital signs are stable.DC home on Zpak and Prednisone.See PEE on Saturday
[2020-02-13 11:49] VITALS: BP 149/80; PULSE 63
--- NOTE | 2020-02-15 09:57 | CR ---
INDICATION: Short of breath. CHEST TWO VIEWS: PA and lateral views of the chest 02/13/20 were compared with 08/21/19 and 08/20/19. The heart remains normal in size transversely, no specific chamber enlargement was identified. The aorta is slightly tortuous with minimal calcification in the arch. Minimal degenerative changes are noted in the mid to lower thoracic spine. Blunting of the posterior sulcus on the right is again noted with a linear density in that area raising question of some linear atelectasis or possibly some minimal patchy pneumonia and pleuritis. This should be correlated clinically. No gross consolidating pneumonia or significant size effusion was identified. However, there is bronchial wall cuffing of [id number] degree at the lung bases, which may represent fibrosis and/or active peribronchial disease, and should be correlated clinically. IMPRESSION: 1. Bronchial wall cuffing at the lung bases - correlate clinically as to the possibility of possible active peribronchial disease versus fibrosis. 2. Difficult to exclude a minimal area of patchy pneumonia and pleuritis at the right lower lobe posteriorly - may be fibrosis. 3. ASD aorta. MTDD
== END 2020-02-13 11:28 | disposition home or self-care (01) ==
LOC: FB.ED 09:06
DX: J45.901 Unspecified asthma with (acute) exacerbation (principal); I48.91 Unspecified atrial fibrillation; I11.0 Hypertensive heart disease with heart failure; I50.9 Heart failure, unspecified; I25.2 Old myocardial infarction; E66.9 Obesity, unspecified; Z68.33 Body mass index [BMI] 33.0-33.9, adult; M19.90 Unspecified osteoarthritis, unspecified site; Z79.82 Long term (current) use of aspirin; Z88.1 Allergy status to other antibiotic agents; Z88.5 Allergy status to narcotic agent; Z91.09 Other allergy status, other than to drugs and biological substances; Z79.01 Long term (current) use of anticoagulants; Z79.899 Other long term (current) drug therapy
CPT/HCPCS: 36415; 71046; 80053; 83880; 84484; 85025; 93005; 99283; 99285-25

== ENCOUNTER 2020-07-27 10:55 | Emergency (ER) | payer MEDICARE, BC ==
[2020-07-27] MEDS ORDERED: Sodium Chloride 0.9% 10 ML Syringe FLUSH PRN (11:10)
[2020-07-27] MEDS ORDERED: Aspirin 81 MG Tab.Chew PO STA (11:11)
[2020-07-27] MEDS: Nitroglycerin 0.4 MG Tab.SL SL PRN ×2 (11:18→11:44)
[2020-07-27 12:30] VITALS: BP 140/81; PULSE 66
--- NOTE | 2020-07-27 12:43 | EDM.PDOC ---
ED HPI GENERAL MEDICAL PROBLEM - General Chief Complaint: Chest Pain Stated Complaint: CHEST DISCOMFORT Time Seen by Provider: 07/27/20 11:15 Source of Information: Reports: Patient History Limitations: Reports: No Limitations - History of Present Illness INITIAL COMMENTS - FREE TEXT/NARRATIVE: Patient presented to the ED because of chest pain for 1 month, intermittent, 5/10, lasting for 5 minute. There is associated dyspnea, denies any nausea or vomiting. He had a h/o AMI with stent placement in 2013. He was seen by his procurement services manager in March 2020 and everything was fine then. 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 - Related Data Allergies Allergy/AdvReac Type Severity Reaction Status Date / Time Influenza Virus Vaccines Allergy Chest Verified 07/27/20 11:49 Tightness levofloxacin [From Levaquin] Allergy Other Verified 07/27/20 11:49 morphine Allergy Itching Verified 07/27/20 11:49 metal- surgical Allergy Other Uncoded 07/27/20 11:49 Home Meds: Home Meds Aspirin [Halfprin] 81 mg PO DAILY 09/08/16 [History] Multivitamin with Minerals [Multivitamins with Minerals] 1 each PO DAILY 09/08/16 [History] Omeprazole 20 mg PO DAILY 09/08/16 [History] Pramipexole [Mirapex] 0.75 mg PO BEDTIME 09/08/16 [History] Warfarin [Coumadin] 2.5 mg PO SUTUTHSA 09/08/16 [History] Warfarin [Coumadin] 5 mg PO MOWEFR 09/08/16 [History] atorvaSTATin [Lipitor] 20 mg PO DAILY 09/08/16 [History] traMADol [Ultram] 50 mg PO BID PRN 02/05/17 [History] Albuterol [Ventolin HFA] 2 puff INH Q6HR PRN 10/15/18 [History] Furosemide [Lasix] 40 mg PO DAILY 10/15/18 [History] Nitroglycerin 0.4 mg SL DAILY PRN 01/02/19 [History] Metoprolol Tartrate 100 mg PO BID 08/20/19 [History] Acetaminophen [Tylenol] 650 mg PO Q4H PRN tablet 08/22/19 [Rx] Enalapril [Vasotec] 20 mg PO DAILY 02/13/20 [History] Past Medical History HEENT History: Reports: Hard of Hearing, Impaired Vision Other HEENT History: Wears glasses. Cardiovascular History: Reports: Afib, Blood Clots/VTE/DVT, Heart Failure, Hyper tension, [place], Stents Other Cardiovascular History: States past hospitalization with sepsis. Respiratory History: Reports: PE, Pneumonia, Recurrent, Sleep Apnea Other Respiratory History: Unable to take Flu Shot due to allergy. Wears CPAP. Gastrointestinal History: Reports: None Genitourinary History: Reports: Acute Renal Failure Musculoskeletal History: Reports: Arthritis, Back Pain, Chronic, Fracture Other Musculoskeletal History: Hx bilat wrist fractures, R ankle, L kneecap Experiences frequent falls due to leg weakness. 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 Psychiatric History: Reports: None Endocrine/Metabolic History: Reports: Obesity/BMI 30+, Other (See Below) Other Endocrine/Metabolic History: borderline DM Hematologic History: Reports: None Other Hematologic History: BLOOD INFECTION Immunologic History: Reports: None Oncologic (Cancer) History: Reports: None Dermatologic History: Reports: None - Infectious Disease History Infectious Disease History: Reports: Chicken Pox, Measles - Past Surgical History Head Surgeries/Procedures: Reports: None HEENT Surgical History: Reports: LASIK, Naso-Sinus Surgery, Other (See Below) Other HEENT Surgeries/Procedures: WEARS GLASSES, RHINOPLASTY, "Left ear is 50/50" Cardiovascular Surgical History: Reports: Cardiac Ablation, Coronary Artery Stent Other Cardiovascular Surgeries/Procedures: Ablation and cardioversion converted but has failed, back in A Fib with no further attempts to convert. GI Surgical History: Reports: Cholecystectomy, Colonoscopy, Other (See Below) Other GI Surgeries/Procedures: laparoscopic jennifer Musculoskeletal Surgical History: Reports: Other (See Below) Other Musculoskeletal Surgeries/Procedures:: R ANKLE SURGERY, Social & Family History - Family History Family Medical History: Noncontributory - Caffeine Use Caffeine Use: Reports: Soda Other Caffeine Use: likes his "Coke' - Recreational Drug Use Recreational Drug Use: No ED ROS GENERAL - Review of Systems Review Of Systems: See Below Constitutional: Reports: No Symptoms HEENT: Reports: No Symptoms Respiratory: Reports: No Symptoms Cardiovascular: Reports: Chest Pain Endocrine: Reports: No Symptoms GI/Abdominal: Reports: No Symptoms : Reports: No Symptoms Musculoskeletal: Reports: No Symptoms Skin: Reports: No Symptoms Neurological: Reports: No Symptoms Psychiatric: Reports: No Symptoms Hematologic/Lymphatic: Reports: No Symptoms ED EXAM, GENERAL - Physical Exam Exam: See Below Exam Limited By: No Limitations General Appearance: Alert, No Apparent Distress Ears: Normal External Exam, Normal Canal, Hearing Grossly Normal Nose: Normal Inspection, Normal Mucosa, No Blood Throat/Mouth: Normal Inspection, Normal Lips, Normal Teeth, Normal Gums Head: Atraumatic, Normocephalic Neck: Normal Inspection, Supple, Non-Tender, Full Range of Motion Respiratory/Chest: No Respiratory Distress, Lungs Clear, Normal Breath Sounds Cardiovascular: Normal Peripheral Pulses, Regular Rate, Rhythm, No Edema, No Gallop, No JVD, No Murmur, No Rub GI/Abdominal: Normal Bowel Sounds, Soft, Non-Tender, No Organomegaly, No Distention, No Abnormal Bruit Back Exam: Normal Inspection, Full Range of Motion Extremities: Normal Inspection, Normal Range of Motion, Non-Tender Neurological: Alert, Oriented, CN II-XII Intact, Normal Cognition, Normal Gait, Normal Reflexes, No Motor/Sensory Deficits Psychiatric: Normal Affect Skin Exam: Warm Course - Vital Signs Text/Narrative:: Labs/EKG/CXR was discussed with patient ASA 324 mg po x1 NTG 0.4 mg SL x3 doses and he was chest pain free since then. Second troponin-neg Case was discussed with Dr Wade who want to seee patient in a week to have a petscan Last Recorded V/S: Last Vital Signs Temp 36.6 C 07/27/20 11:10 Pulse 66 07/27/20 11:10 Resp 15 07/27/20 11:10 BP 125/87 07/27/20 11:44 Pulse Ox 98 07/27/20 11:10 - Orders/Labs/Meds Orders: Active Orders 24 hr Category Date Time Status EKG Documentation Completion [RC] ASDIRECTED Care 07/27/20 11:11 Active Nitroglycerin [Nitrostat] Med 07/27/20 11:11 Active 0.4 mg SL Q5M PRN Sodium Chloride 0.9% [Saline Flush] Med 07/27/20 11:10 Active 10 ml FLUSH ASDIRECTED PRN Saline Lock Insert [OM.PC] Routine Oth 07/27/20 11:10 Ordered EKG 12 Lead [EK] Routine Ther 07/27/20 11:10 Ordered Medication Orders Nitroglycerin (Nitrostat) 0.4 mg SL Q5M PRN PRN Reason: Chest Pain Last Admin: 07/27/20 11:44 Dose: 0.4 mg Documented by: Admin: 07/27/20 11:18 Dose: 0.4 mg Documented by: ISRAEL Sodium Chloride (Saline Flush) 10 ml FLUSH ASDIRECTED PRN PRN Reason: Keep Vein Open Last Admin: 07/27/20 11:44 Dose: 10 ml Documented by: TITUS Labs: Laboratory Tests 07/27/20 07/27/20 07/27/20 Range/Units 11:17 11:17 11:17 WBC 3.0 L (4.5-12.0) X10-3/uL RBC 3.39 L (4.30-5.75) x10(6)uL Hgb 11.5 L (13.5-17.8) g/dL Hct 35.2 (30.0-51.3) % MCV 103.7 H (80-96) fL MCH 33.9 H (27.7-33.6) pg MCHC 32.7 (32.2-35.4) g/dL RDW 16.5 H (11.5-15.5) % Plt Count 138 (125-369) X10(3)uL MPV 8.0 (7.4-10.4) fL Neut % (Auto) 54.7 (46-82) % Lymph % (Auto) 23.5 (13-37) % [place] % (Auto) 21.1 H (4-12) % Eos % (Auto) 0 L (1.0-5.0) % Baso % (Auto) 0 (0-2) % Neut # (Auto) 1.7 (1.6-8.3) # Lymph # (Auto) 0.7 (0.6-5.0) # [place] # (Auto) 0.6 (0.0-1.3) # Eos # (Auto) 0.0 (0.0-0.8) # Baso # (Auto) 0.0 (0.0-0.2) # PT 22.2 H (9.0-11.1) sec INR 2.17 H (1.00-1.24) APTT 32.8 (24.4-33.2) SECONDS D-Dimer, Quantitative (0.0-0.59) mg/LFEU Sodium 144 (135-145) mmol/L Potassium 3.7 (3.5-5.3) mmol/L Chloride 104 (100-110) mmol/L Carbon Dioxide 30 (21-32) mmol/L BUN 26 H (7-18) mg/dL Creatinine 1.2 (0.70-1.30) mg/dL Est Cr Clr Drug Dosing TNP Estimated GFR (MDRD) 60 (>60) BUN/Creatinine Ratio 21.7 H (9-20) Glucose 104 (80-116) mg/dL Calcium 8.8 (8.6-10.2) mg/dL Total Bilirubin 1.6 H (0.1-1.3) mg/dL AST 25 (5-25) IU/L ALT 30 D (12-36) U/L Alkaline Phosphatase 61 (56-112) IU/L Troponin I (4.0-60.3) pg/mL NT-Pro-B Natriuret Pep (<=125) pg/mL Total Protein 7.3 (6.0-8.0) g/dL Albumin 4.0 (3.2-4.6) g/dL Globulin 3.3 g/dL Albumin/Globulin Ratio 1.2 07/27/20 07/27/20 07/27/20 Range/Units 11:17 11:17 13:00 WBC (4.5-12.0) X10-3/uL RBC (4.30-5.75) x10(6)uL Hgb (13.5-17.8) g/dL Hct (30.0-51.3) % MCV (80-96) fL MCH (27.7-33.6) pg MCHC (32.2-35.4) g/dL RDW (11.5-15.5) % Plt Count (125-369) X10(3)uL MPV (7.4-10.4) fL Neut % (Auto) (46-82) % Lymph % (Auto) (13-37) % [place] % (Auto) (4-12) % Eos % (Auto) (1.0-5.0) % Baso % (Auto) (0-2) % Neut # (Auto) (1.6-8.3) # Lymph # (Auto) (0.6-5.0) # [place] # (Auto) (0.0-1.3) # Eos # (Auto) (0.0-0.8) # Baso # (Auto) (0.0-0.2) # PT (9.0-11.1) sec INR (1.00-1.24) APTT (24.4-33.2) SECONDS D-Dimer, Quantitative 0.71 H (0.0-0.59) mg/LFEU Sodium (135-145) mmol/L Potassium (3.5-5.3) mmol/L Chloride (100-110) mmol/L Carbon Dioxide (21-32) mmol/L BUN (7-18) mg/dL Creatinine (0.70-1.30) mg/dL Est Cr Clr Drug Dosing Estimated GFR (MDRD) (>60) BUN/Creatinine Ratio (9-20) Glucose (80-116) mg/dL Calcium (8.6-10.2) mg/dL Total Bilirubin (0.1-1.3) mg/dL AST (5-25) IU/L ALT (12-36) U/L Alkaline Phosphatase (56-112) IU/L Troponin I 14.8 12.0 (4.0-60.3) pg/mL NT-Pro-B Natriuret Pep 2282 H* (<=125) pg/mL Total Protein (6.0-8.0) g/dL Albumin (3.2-4.6) g/dL Globulin g/dL Albumin/Globulin Ratio Meds: Medications Generic Name Dose Route Start Last Admin Trade Name Freq PRN Reason Stop Dose Admin Nitroglycerin 0.4 mg 07/27/20 11:11 07/27/20 11:44 Nitrostat SL 0.4 mg Q5M PRN Administration Chest Pain Sodium Chloride 10 ml 07/27/20 11:10 07/27/20 11:44 Saline Flush FLUSH 10 ml ASDIRECTED PRN Administration Keep Vein Open Discontinued Medications Generic Name Dose Route Start Last Admin Trade Name Freq PRN Reason Stop Dose Admin Aspirin 324 mg 07/27/20 11:11 07/27/20 11:19 Aspirin PO 07/27/20 11:12 243 mg NOW STA Administration Departure - Departure Time of Disposition: 14:00 Disposition: Home, Self-Care 01 Condition: Good Clinical Impression: Chest pain, Elevated brain natriuretic peptide (BNP) level Instructions: Angina, [id number] Referrals: PCP,None [Ordering Only Provider] - Forms: ED Department Discharge Care Plan Goals: Please read discharge instructions on chest pain Use your sublingual nitro when you have chest pain, 3 minutes apart up to [address] Michel or his fellow procurement services manager want to see you in a week so you can have a PETSCAN. Call today to schedule that appointment. Take all your meds as directed Sepsis Event Note (ED) - Evaluation Sepsis Screening Result: No Definite Risk - Focused Exam Vital Signs: Vital Signs Temp Pulse Resp BP BP Pulse Ox 07/27/20 11:44 125/87 07/27/20 11:18 145/80 H 07/27/20 11:10 36.6 C 66 15 140/81 98 - My Orders Last 24 Hours: My Active Orders 07/27/20 11:10 Sodium Chloride 0.9% [Saline Flush] 10 ml FLUSH ASDIRECTED PRN Saline Lock Insert [OM.PC] Routine EKG 12 Lead [EK] Routine 07/27/20 11:11 EKG Documentation Completion [RC] ASDIRECTED Nitroglycerin [Nitrostat] 0.4 mg SL Q5M PRN - Assessment/Plan Last 24 Hours: My Active Orders 07/27/20 11:10 Sodium Chloride 0.9% [Saline Flush] 10 ml FLUSH ASDIRECTED PRN Saline Lock Insert [OM.PC] Routine EKG 12 Lead [EK] Routine 07/27/20 11:11 EKG Documentation Completion [RC] ASDIRECTED Nitroglycerin [Nitrostat] 0.4 mg SL Q5M PRN
--- NOTE | 2020-07-27 14:48 | CR ---
INDICATION: Chest pain. CHEST, ONE VIEW: An AP upright portable view of the chest was obtained 07/27/20 and compared with 02/13/20 and 08/21/19. The heart remains normal in size and shape. Overlying EKG leads are noted. The aorta is somewhat tortuous. Pulmonary markings are similar to the previous examination overall without a definite active infiltrate or effusion identified. Evidence of exogenous obesity is noted. IMPRESSION: No acute process. MTDD
== END 2020-07-27 13:00 | disposition home or self-care (01) ==
LOC: FB.ED 10:55
DX: R07.9 Chest pain, unspecified (principal); R79.89 Other specified abnormal findings of blood chemistry; I11.0 Hypertensive heart disease with heart failure; I50.9 Heart failure, unspecified; I25.2 Old myocardial infarction; I48.91 Unspecified atrial fibrillation; E66.9 Obesity, unspecified; Z88.7 Allergy status to serum and vaccine; Z88.1 Allergy status to other antibiotic agents; Z88.5 Allergy status to narcotic agent; Z91.09 Other allergy status, other than to drugs and biological substances; Z79.82 Long term (current) use of aspirin; Z79.899 Other long term (current) drug therapy; Z95.5 Presence of coronary angioplasty implant and graft; Z90.49 Acquired absence of other specified parts of digestive tract; Z68.33 Body mass index [BMI] 33.0-33.9, adult
CPT/HCPCS: 36415; 71045; 80053; 83880; 84484; 85025; 85379; 85610; 85730; 93005; 99285; A9270

== ENCOUNTER 2020-08-31 08:19 | Day surgery (SDC) | payer MEDICARE, BC ==
[2020-08-31] MEDS ORDERED: fentaNYL 100 MCG/2 ML SDV IV ONE (08:20)
[2020-08-31] MEDS ORDERED: Midazolam 1 MG/ML 2 ML SDV IV ONE (08:20)
[2020-08-31] MEDS ORDERED: Propofol 200 MG/20 ML SDV IV ONE (08:20)
[2020-08-31] MEDS ORDERED: Sodium Chloride 0.9% 10 ML Syringe FLUSH PRN (08:30)
[2020-08-31] MEDS: Lactated Ringers 1,000 ML IV SCH ×2 (09:20→11:42)
--- NOTE | 2020-08-31 11:36 | PCM.OPNOTE ---
- General Post-Op/Procedure Note Date of Surgery/Procedure: 08/31/20 Operative Procedure(s): c scope with biopsy Findings: transverse colon polyp Pre Op Diagnosis: Fe def anemia Post-Op Diagnosis: transverse colon polyp Anesthesia Technique: MAC Primary Surgeon: Riaz Miguel Anesthesia Provider: Alejandro Banegas Pathology: transverse colon polyp Complications: None Condition: Good Free Text/Narrative:: see dictation
[2020-08-31 13:00] VITALS: BP 105/62; PULSE 65
--- NOTE | 2020-09-01 11:30 | OR ---
DATE OF OPERATION: 08/31/2020 SURGEON: Riaz Miguel MD PROCEDURE PERFORMED: Colonoscopy with cold forceps biopsy. PREOPERATIVE DIAGNOSIS: History of iron-deficiency anemia. POSTOPERATIVE DIAGNOSIS: Transverse colon polyp. INDICATIONS FOR PROCEDURE: This is a 70-year-old white male who is referred and insist for a colonoscopy. He has a history of anemia in the past, completely asymptomatic. He was offered and accepted C-scope. DESCRIPTION OF PROCEDURE: After an excellent IV sedation was administered, digital rectal exam was performed. No marked abnormality was noted. Flexible colonoscope was inserted and advanced to the cecum. The prep was adequate. There were some areas of liquid stool that were easily aspirated allowing an excellent exam of the colon. The following findings were noted: Ascending colon, unremarkable. Transverse colon, a small flat polypoid lesion, biopsied and obliterated with cold biopsy forceps. This was not amenable to either loop or hot loop snare biopsy. Descending colon, unremarkable. Sigmoid, unremarkable. Rectum and anus, unremarkable. Results will be sent to the patient via letter. He was taken to recovery in good condition. /[id number] /MAYL
== END 2020-08-31 12:37 | disposition home or self-care (01) ==
LOC: FB.SDS 08:19
PROVIDERS: ATTEND Surgery
DX: D12.3 Benign neoplasm of transverse colon (principal); D50.9 Iron deficiency anemia, unspecified; I25.10 Atherosclerotic heart disease of native coronary artery without angina pectoris; I48.0 Paroxysmal atrial fibrillation; G47.33 Obstructive sleep apnea (adult) (pediatric); I11.0 Hypertensive heart disease with heart failure; G89.29 Other chronic pain; I50.33 Acute on chronic diastolic (congestive) heart failure; E66.9 Obesity, unspecified; Z98.890 Other specified postprocedural states; Z90.49 Acquired absence of other specified parts of digestive tract; Z68.34 Body mass index [BMI] 34.0-34.9, adult; Z79.899 Other long term (current) drug therapy; Z79.01 Long term (current) use of anticoagulants; Z88.8 Allergy status to other drugs, medicaments and biological substances; Z88.5 Allergy status to narcotic agent; Z88.7 Allergy status to serum and vaccine
CPT/HCPCS: 00812; 45380; 88305; J2250; J2704; J3010; J7120

== ENCOUNTER 2020-10-05 07:32 | Day surgery (SDC) | payer MEDICARE, BC ==
[~2020-10-05 07:32] MED LIST: Lactated Ringers 1,000 ML IV SCH; Sodium Chloride 0.9% 10 ML Syringe FLUSH PRN
--- NOTE | 2020-10-05 09:51 | PCM.OPNOTE ---
- General Post-Op/Procedure Note Date of Surgery/Procedure: 10/05/20 Operative Procedure(s): egd with biopsy Findings: gastritis fundic gland hyperplasia esophagitis Pre Op Diagnosis: hx of anemia Post-Op Diagnosis: gastritis. fundic gland hyperplasia. esophagitis Anesthesia Technique: [facility] [place] Primary Surgeon: Riaz Miguel Anesthesia Provider: Alejandro Banegas Pathology: stomach and distal esophagus Complications: None Condition: Good Free Text/Narrative:: see dictation [id number]
[2020-10-05 10:35] VITALS: BP 133/68; PULSE 73
--- NOTE | 2020-10-05 18:31 | OR ---
DATE OF OPERATION: 10/05/2020 SURGEON: Riaz Miguel MD PROCEDURE PERFORMED: Esophagogastroduodenoscopy with cold forceps biopsy. PREOPERATIVE DIAGNOSIS: Personal history of anemia. POSTOPERATIVE DIAGNOSIS: Gastritis, fundic gland hyperplasia, and esophagitis. INDICATIONS FOR PROCEDURE: This is a 70-year-old white male who recently was diagnosed with anemia and required a transfusion. He had a colonoscopy earlier this month, which demonstrated a colon polyp and no other overt causes of bleeding were identified. He was offered and accepted an EGD to see if there was an upper gastrointestinal tract etiology and the cause of his anemia. DESCRIPTION OF PROCEDURE: After an excellent IV sedation was administered, bite block was inserted. Flexible endoscope was passed without difficulty down the patient's esophagus into the stomach. Stomach was insufflated. Scope passed through the pylorus, second portion of duodenum and slowly withdrawn. The following findings were noted: Duodenum was essentially unremarkable. Stomach demonstrated some diffuse gastritis with focal areas of punctate hemorrhage. Circumferential biopsies were taken, and along the body and in the fundus, there was what appeared to be fundic gland hyperplasia. Draw In Hand biopsies were taken of several polyps to confirm the diagnosis. GE junction measured at 40 cm. There was some mild erythema just proximal to this and biopsies were taken. The remainder of the esophageal exam was unremarkable. Stomach was deflated. The scope was removed. Patient tolerated the procedure well, was taken to recovery room in good condition. /[id number] /MODL
== END 2020-10-05 10:34 | disposition home or self-care (01) ==
LOC: FB.SDS 07:32
PROVIDERS: ATTEND Surgery
DX: K31.7 Polyp of stomach and duodenum (principal); K29.50 Unspecified chronic gastritis without bleeding; K31.89 Other diseases of stomach and duodenum; K20.90 Esophagitis, unspecified without bleeding; D50.0 Iron deficiency anemia secondary to blood loss (chronic); I25.10 Atherosclerotic heart disease of native coronary artery without angina pectoris; I11.0 Hypertensive heart disease with heart failure; G47.33 Obstructive sleep apnea (adult) (pediatric); I48.0 Paroxysmal atrial fibrillation; G89.29 Other chronic pain; I50.33 Acute on chronic diastolic (congestive) heart failure; J44.9 Chronic obstructive pulmonary disease, unspecified; E66.9 Obesity, unspecified; Z98.890 Other specified postprocedural states; Z90.49 Acquired absence of other specified parts of digestive tract; Z68.35 Body mass index [BMI] 35.0-35.9, adult; Z79.899 Other long term (current) drug therapy; Z88.5 Allergy status to narcotic agent; Z88.8 Allergy status to other drugs, medicaments and biological substances; Z87.891 Personal history of nicotine dependence
CPT/HCPCS: 00731; 36415; 43239; 85610; 88305; 88313; 88342; 93005; J7120

== ENCOUNTER 2021-03-06 08:56 | Day surgery (SDC) | payer MEDICARE, BC ==
[2021-03-06] MEDS ORDERED: Lidocaine 1% PF 2 ML SDV INJECT ONE (08:57)
[2021-03-06] MEDS ORDERED: Propofol 200 MG/20 ML SDV IV ONE (08:57)
[2021-03-06] MEDS ORDERED: Lactated Ringers 1,000 ML IV ONE (08:57)
[2021-03-06] MEDS ORDERED: Sodium Chloride 0.9% 10 ML Syringe FLUSH PRN (09:00)
[2021-03-06] MEDS ORDERED: Lactated Ringers 1,000 ML IV SCH (09:00)
--- NOTE | 2021-03-06 11:09 | PCM.PN ---
- General Info Date of Service: 03/06/21 - Review of Systems Systems Review Comment:: 70 y/o male with history of transverse colon polyp recently removed which had high grade dysplasia here for follow up colonoscopy. He is medically stable to proceed. His recent H and P is reviewed and no significant changes are noted. I have discussed the proposed colonoscopy with the patient. He understands indications and risks and he agrees to proceed. - Patient Data Vitals - Most Recent: Last Vital Signs Temp 97.4 F 03/06/21 09:15 Pulse 104 H 03/06/21 09:15 Resp 18 03/06/21 09:15 BP 142/72 H 03/06/21 09:15 Pulse Ox 95 03/06/21 09:15 Weight - Most Recent: 260 lb Med Orders - Current: Current Medications Lactated Ringer's (Ringers, Lactated) 1,000 mls @ 125 mls/hr IV ASDIRECTED JULIANNE Last Admin: 03/06/21 09:35 Dose: 125 mls/hr Documented by: Sodium Chloride (Sodium Chloride 0.9% 10 Ml Syringe) 10 ml FLUSH ASDIRECTED PRN PRN Reason: Keep Vein Open Sepsis Event Note - Focused Exam Vital Signs: Vital Signs Temp Pulse Resp BP Pulse Ox 03/06/21 09:15 97.4 F 104 H 18 142/72 H 95 - Problem List Review Problem List Initiated/Reviewed/Updated: Yes - My Orders Last 24 Hours: My Active Orders 03/06/21 Breakfast Nothing Per Oral Diet [DIET] 03/06/21 09:00 Patient Status [ADT] Routine Patient to Empty Bladder [RC] ASDIRECTED Verify Patient Consent Obtain [RC] ASDIRECTED Lactated Ringers [Ringers, Lactated] 1,000 ml IV ASDIRECTED Sodium Chloride 0.9% [Saline Flush] 10 ml FLUSH ASDIRECTED PRN Peripheral IV Insertion Adult [OM.PC] Routine - Assessment Assessment:: History of High Grade Dysplasia in colon polyp - Plan Plan:: Colonoscopy
--- NOTE | 2021-03-06 12:14 | PCM.OPNOTE ---
- General Post-Op/Procedure Note Date of Surgery/Procedure: 03/06/21 Operative Procedure(s): Colonoscopy with Biopsy Findings: Polyps with sessile bases in the cecum and transverse colon Pre Op Diagnosis: History of dysplastic polyp Post-Op Diagnosis: Colon Polyps Anesthesia Technique: MAC Primary Surgeon: Kermit Deal Pathology: Biopsies of colon polyps EBL in mLs: 2 Complications: None Condition: Good
--- NOTE | 2021-03-06 14:06 | OR ---
DATE OF OPERATION: 03/06/2021 SURGEON: Kermit Deal MD PREOPERATIVE DIAGNOSIS: History of dysplastic colon polyp. POSTOPERATIVE DIAGNOSIS: Colon polyps. OPERATION PERFORMED: Colonoscopy with biopsy. INDICATIONS FOR SURGERY: This 70-year-old male has a history of having had a colonoscopy 6 months ago, at which time, his report indicates that a transverse colon polyp was identified and was felt to have been removed. The biopsy results returned showing high-grade dysplasia within that polyp. No mention of any other polyps or abnormalities was noted on the previous colonoscopy report. He was referred for followup colonoscopy for this polyp. FINDINGS: On today's exam, a sessile polyp was noted in the transverse colon. This is sessile in configuration. The polyp is somewhat soft. It is estimated at 1 to 1.5 cm in size. A second polyp is identified during today's exam. This is a 1.5 cm raised polyp in the cecum. It has a somewhat diffuse base, although the polyp itself is semipedunculated. Polyp is irregular in shape and located between the ileocecal valve and the appendiceal orifice. Both of those structures appear normal, but this polyp is located between those 2 structures. The remainder of the colon appears unremarkable. PROCEDURE IN DETAIL: The patient was taken to the operating room. He was given intravenous sedation, and with him in the left lateral decubitus position, digital rectal exam was performed showing no rectal masses. The Olympus colonoscope was inserted into the rectum. Retroflexed examination of the rectal canal was performed. The scope was then carefully advanced under direct visualization through the entire length of the colon until the cecum was reached. Cecal acquisition was confirmed by noting normal internal cecal anatomy including the appendiceal orifice and the ileocecal valve. Located between these 2 structures was a semipedunculated polyp, although it did seem to have a rather broad base. Because of this, it was felt that this may need advanced polypectomy technique in order to safely remove from the cecum and so the polyp is not removed but is sampled with multiple bites using a cold biopsy forceps. The scope was then slowly withdrawn, sequentially re-examining the colonic segments. In the transverse colon, the other above-described polyp is identified. It is unclear whether this is the polyp that had been identified at the time of his recent previous colonoscopy, but this polyp also had a broad base and felt that especially in light of the possibility that it may contain high-grade dysplasia, it will likely need advanced polypectomy technique for complete removal. Therefore, multiple bites of this polyp were taken for a biopsy using cold biopsy forceps. Also, a tattoo is placed in the colonic mucosa near this polyp for future identification. Examination is then completed with no other abnormalities being seen. The scope was removed and the patient was taken from the operating room in satisfactory condition. ESTIMATED BLOOD LOSS: 3 mL. COMPLICATIONS: None. PROGNOSIS: Good. /[id number] MANOLO/MAURI
[2021-03-06 15:44] VITALS: BP 143/85; PULSE 65
== END 2021-03-06 13:15 | disposition home or self-care (01) ==
LOC: FB.SDS 08:56
PROVIDERS: ATTEND Surgery
DX: D12.0 Benign neoplasm of cecum (principal); D12.3 Benign neoplasm of transverse colon; J44.9 Chronic obstructive pulmonary disease, unspecified; Z88.1 Allergy status to other antibiotic agents; Z88.5 Allergy status to narcotic agent; I10 Essential (primary) hypertension; E66.9 Obesity, unspecified; Z79.82 Long term (current) use of aspirin; Z79.899 Other long term (current) drug therapy; Z86.010 Personal history of colon polyps; Z88.7 Allergy status to serum and vaccine; Z68.34 Body mass index [BMI] 34.0-34.9, adult
CPT/HCPCS: 00811; 45380; 45381; 88305; 93005; J2704; J7120

== ENCOUNTER 2021-03-27 15:40 | Observation (INO) | payer MEDICARE, BC ==
--- NOTE | 2021-03-27 15:53 | EDM.PDOC ---
ED HPI GENERAL MEDICAL PROBLEM - General Stated Complaint: SOB Time Seen by Provider: 03/27/21 15:50 Source of Information: Reports: Patient History Limitations: Reports: No Limitations - History of Present Illness INITIAL COMMENTS - FREE TEXT/NARRATIVE: 70-year-old male who reports that he always has some shortness of breath with activity that is related to his congestive heart failure and also to his myelodysplastic syndrome but over the past 3-4 days he has been more short of breath with any activity in that he can't even walk for even short distances without any murmur short of breath and he feels more stubbly and discoordinated with walking. He also reports that he has lower back pain which is chronic and he would rates that pain as a 4/10. It is worse with movement and it usually is relieved when he takes tramadol. He was actually seen in the clinic by Dr. Fernandez and sent to the emergency department for further evaluation. According to the he has been looking much more pale over the past week as well. He has had no chest pain. There is been no nausea or vomiting. He has had no blood in his stool. No dark stools. He reports that he has been eating and drinking normally. He also reports that he feels very fatigued and sleeps quite a bit more than he normally would. He states that he had symptoms very similar to this before with a low hemoglobin and he required transfusion at that time. He was sent over here by his primary provider because of that concern. No fevers or chills. No dysuria or hematuria. He does feel very short of breath but he really has had no cough or sore throat. He does have chronic nasal congestion but he states that this is present 24/7 all the time. There are no other associated signs or symptoms. There are no other modifying factors. Onset: Other (Worse over the past 3-4 days.) Duration: Getting Worse Location: Reports: Back (Chronic back pain unchanged.), Other (No chest pain.) Quality: Reports: Ache Severity: Moderate Improves with: Reports: Medication (Tramadol) Worsens with: Reports: Other (Activity), Movement Context: Reports: Other (As above) Associated Symptoms: Reports: No Other Symptoms (Except as above) Treatments COMMERCIAL STRIPPER: Reports: Other (see below) (Nothing.) - Related Data Allergies Allergy/AdvReac Type Severity Reaction Status Date / Time Influenza Virus Vaccines Allergy Anaphylactic Verified 03/06/21 09:41 Shock levofloxacin [From Levaquin] Allergy Anaphylactic Verified 03/06/21 09:41 Shock morphine AdvReac Other Verified 03/06/21 09:41 metal- surgical Allergy Other Uncoded 03/06/21 09:41 Home Meds: Home Meds Aspirin [Halfprin] 81 mg PO DAILY 09/08/16 [History] Multivitamin with Minerals [Multivitamins with Minerals] 1 each PO DAILY 09/08/16 [History] Pramipexole [Mirapex] 0.75 mg PO BEDTIME 09/08/16 [History] Warfarin [Coumadin] 2.5 mg PO ASDIRECTED 09/08/16 [History] atorvaSTATin [Lipitor] 40 mg PO DAILY 09/08/16 [History] traMADol [Ultram] 50 mg PO Q6HR PRN 02/05/17 [History] Albuterol [Ventolin HFA] 2 puff INH Q6HR PRN 10/15/18 [History] Furosemide [Lasix] 40 mg PO DAILY 10/15/18 [History] Nitroglycerin 0.4 mg SL DAILY PRN 01/02/19 [History] Metoprolol Tartrate 150 mg PO BID 08/20/19 [History] Enalapril [Vasotec] 20 mg PO DAILY 02/13/20 [History] Isosorbide Mononitrate [Imdur] 30 mg PO DAILY 08/30/20 [History] Famotidine 20 mg PO BID 10/04/20 [History] Ferrous Sulfate 325 mg PO DAILY 10/04/20 [History] Sucralfate [Carafate] 1 gm PO WITHMEALSANDBED 03/02/21 [History] Past Medical History HEENT History: Reports: Hard of Hearing, Impaired Vision Other HEENT History: Wears glasses. Cardiovascular History: Reports: Afib, Blood Clots/VTE/DVT, CAD, Heart Failure, High Cholesterol, Hypertension, IN, Stents Other Cardiovascular History: PAROXYSMAL ATRIAL FIBRILLATION Respiratory History: Reports: PE, Pneumonia, Recurrent, Sleep Apnea Other Respiratory History: Unable to take Flu Shot due to allergy. Wears CPAP. HX OF PULMONARY EMBOLISM Gastrointestinal History: Reports: Colon Polyp, Hiatal Hernia Genitourinary History: Reports: Acute Renal Failure Musculoskeletal History: Reports: Arthritis, Back Pain, Chronic, Fracture Other Musculoskeletal History: Hx bilat wrist fractures, R ankle, L kneecap Experiences frequent falls due to leg weakness. 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 PLMD. RESTLESS LEGS SYNDROME. Endocrine/Metabolic History: Reports: Obesity/BMI 30+, Other (See Below) Other Endocrine/Metabolic History: borderline DM Hematologic History: Reports: None Other Hematologic History: BLOOD INFECTION Immunologic History: Reports: None Oncologic (Cancer) History: Reports: None Dermatologic History: Reports: None - Infectious Disease History Infectious Disease History: Reports: Chicken Pox, Measles - Past Surgical History Head Surgeries/Procedures: Reports: None HEENT Surgical History: Reports: LASIK, Naso-Sinus Surgery, Other (See Below) Other HEENT Surgeries/Procedures: RHINOPLASTY, BILATERAL EYE SURGERY Cardiovascular Surgical History: Reports: Cardiac Ablation, Coronary Artery Stent Other Cardiovascular Surgeries/Procedures: CARDIAC CATHETERIZATION, CORONARY ANGIOPLASTY GI Surgical History: Reports: Cholecystectomy, Colonoscopy, Other (See Below) Other GI Surgeries/Procedures: laparoscopic jennifer Musculoskeletal Surgical History: Reports: Other (See Below) Other Musculoskeletal Surgeries/Procedures:: R ANKLE SURGERY. Social & Family History - Tobacco Use Tobacco Use Status *Q: Former Tobacco User - Caffeine Use Caffeine Use: Reports: Soda Other Caffeine Use: likes his "Coke' - Alcohol Use Alcohol Use History: No - Living Situation & Occupation Living situation: Reports: Occupation: Retired ED ROS GENERAL - Review of Systems Review Of Systems: See Below Constitutional: Reports: Malaise, Fatigue HEENT: Reports: Other (Chronic nasal congestion.) Respiratory: Reports: Shortness of Breath Cardiovascular: Reports: Dyspnea on Exertion Endocrine: Reports: Fatigue GI/Abdominal: Reports: No Symptoms : Reports: No Symptoms Musculoskeletal: Reports: No Symptoms Skin: Reports: No Symptoms Neurological: Reports: No Symptoms Psychiatric: Reports: No Symptoms Hematologic/Lymphatic: Reports: Anemia Immunologic: Reports: No Symptoms ED EXAM, GENERAL - Physical Exam Exam: See Below Exam Limited By: No Limitations General Appearance: Alert, Mild Distress, Obese Eye Exam: Bilateral Eye: EOMI, Normal Inspection (Sclera are anicteric) Ears: Normal External Exam, Hearing Grossly Normal Ear Exam: Bilateral Ear: Auricle Normal Nose: Normal Inspection, Normal Mucosa, No Blood Throat/Mouth: Normal Inspection, Normal Lips, Normal Oropharynx, Normal Voice, No Airway Compromise Head: Atraumatic, Normocephalic Neck: Normal Inspection, Supple, Non-Tender, Full Range of Motion Respiratory/Chest: No Respiratory Distress, Lungs Clear, Normal Breath Sounds, No Accessory Muscle Use, Chest Non-Tender Cardiovascular: Normal Peripheral Pulses, Regular Rate, Rhythm, No Murmur Peripheral Pulses: 2+: Radial (L), Radial (R) GI/Abdominal: Normal Bowel Sounds, Soft, Non-Tender, No Mass Back Exam: Normal Inspection Extremities: Normal Inspection, Normal Range of Motion, Non-Tender, No Pedal Edema, Normal Capillary Refill Psychiatric: Normal Affect Skin Exam: Warm, Dry, Intact, No Rash, Pallor #1 Interpretation EKG Date: 03/27/21 Time: 16:24 Rhythm: A-Fib Rate (Beats/Min): 72 Sandoval: LAD-Left Sandoval Deviation (Slight left axis) P-Wave: Absent QRS: Normal ST-T: Normal QT: Prolonged (Prolonged QTc.) Comparison: No Change (No change from an EKG that was performed on 03/06/2021.) Course - Vital Signs Last Recorded V/S: Last Vital Signs Temp 36.5 C 03/27/21 15:40 Pulse 72 03/27/21 15:40 Resp 20 03/27/21 15:40 BP 130/65 03/27/21 15:40 Pulse Ox 98 03/27/21 15:40 - Orders/Labs/Meds Orders: Active Orders 24 hr Category Date Time Status Admission Status [Patient Status] [ADT] Routine ADT 03/27/21 17:48 Active Cardiac Monitoring [RC] .As Directed Care 03/27/21 17:48 Active EKG Documentation Completion [RC] ASDIRECTED Care 03/27/21 16:04 Active Height and Weight [RC] DAILY Care 03/27/21 17:55 Active Intake and Output [RC] QSHIFT Care 03/27/21 17:58 Active Oxygen Therapy [RC] PRN Care 03/27/21 17:56 Active Up With Assistance [RC] ASDIRECTED Care 03/27/21 17:55 Active VTE/DVT Education [RC] Per Unit Routine Care 03/27/21 17:56 Active Vital Signs [RC] Q4H Care 03/27/21 17:56 Active 2 Gram Sodium Diet [DIET] Diet 03/27/21 Dinner Ordered BASIC METABOLIC PANEL,BMP [CHEM] Timed Lab 03/28/21 06:00 Ordered CBC WITH AUTO DIFF [HEME] Timed Lab 03/28/21 06:00 Ordered PATIENT RETYPE [BBK] Stat Lab 03/27/21 16:15 Results PERIPH BLOOD SMEAR PATHOLOGIST [HEME] Stat Lab 03/27/21 17:48 Ordered RED BLOOD CELLS LP [BBK] Stat Lab 03/27/21 16:15 Results TYPE AND SCREEN [BBK] Stat Lab 03/27/21 16:15 Results Acetaminophen [TylenoL] Med 03/27/21 17:55 Ordered 650 mg PO Q4H PRN Furosemide [Lasix] Med 03/27/21 23:00 Once 40 mg IVPUSH ONETIME ONE Ondansetron [Zofran] Med 03/27/21 17:55 Ordered 4 mg IV Q6H PRN Pramipexole [Mirapex] Med 03/27/21 21:00 Ordered 0.75 mg PO BEDTIME Sodium Chloride 0.9% [Normal Saline] 250 ml Med 03/27/21 18:15 Ordered IV ASDIRECTED Sodium Chloride 0.9% [Saline Flush] Med 03/27/21 16:03 Active 10 ml FLUSH ASDIRECTED PRN Warfarin [Coumadin] Med 03/27/21 22:30 Once 5 mg PO ONETIME ONE traMADol [Ultram] Med 03/27/21 18:06 Ordered 50 mg PO Q6H PRN Peripheral IV Insertion Adult [OM.PC] Routine Oth 03/27/21 16:03 Ordered Transfuse Red Blood Cells [COMM] Routine Oth 03/27/21 18:02 Ordered Resuscitation Status Routine Resus Stat 03/27/21 17:55 Ordered EKG 12 Lead [EK] Routine Ther 03/27/21 16:03 Ordered Medication Orders Acetaminophen (Acetaminophen 325 Mg Tab) 650 mg PO Q4H PRN PRN Reason: Pain (Mild 1-3)/fever Furosemide (Furosemide 40 Mg/4 Ml Vial) 40 mg IVPUSH ONETIME ONE Stop: 03/27/21 23:01 Sodium Chloride (Normal Saline) 250 mls @ 50 mls/hr IV ASDIRECTED JULIANNE Ondansetron HCl (Ondansetron 4 Mg/2 Ml Sdv) 4 mg IV Q6H PRN PRN Reason: Nausea/Vomiting Pramipexole Dihydrochloride (Pramipexole 0.25 Mg Tab) 0.75 mg PO BEDTIME JULIANNE Sodium Chloride (Sodium Chloride 0.9% 10 Ml Syringe) 10 ml FLUSH ASDIRECTED PRN PRN Reason: Keep Vein Open Tramadol HCl (Tramadol 50 Mg Tab) 50 mg PO Q6H PRN PRN Reason: Moderate pain Warfarin Sodium (Warfarin 5 Mg Tab) 5 mg PO ONETIME ONE Stop: 03/27/21 22:31 Labs: Laboratory Tests 03/27/21 03/27/21 03/27/21 Range/Units 16:10 16:15 16:15 WBC 2.2 L (3.2-10.1) x10-3/uL RBC 2.54 L (3.90-5.90) x10(6)uL Hgb 8.1 L (12.9-17.7) g/dL Hct 26.2 L (38.3-50.1) % MCV 103.4 H (80.8-98.7) fL MCH 32.1 (27.0-33.3) pg MCHC 31.0 (28.7-35.3) g/dL RDW 20.3 H (12.4-15.0) % Plt Count 75 L (117-477) x10(3)uL MPV 10.5 (6.7-11.0) fL Neut % (Auto) 54.7 (40.3-71.8) % Lymph % (Auto) 26.6 (15.8-45.3) % Castro % (Auto) 17.4 H (5.5-15.2) % Eos % (Auto) 0.8 (0.1-6.8) % Baso % (Auto) 0.5 (0.3-3.8) % Neut # (Auto) 1.2 L (1.7-6.9) x10-3/uL Lymph # (Auto) 0.6 (0.5-4.5) x10-3/uL Castro # (Auto) 0.4 (0.0-1.2) x10-3/uL Eos # (Auto) 0.0 (0.0-0.6) x10-3/uL Baso # (Auto) 0.0 (0.0-0.3) x10-3/uL Sodium 144 (135-145) mmol/L Potassium 3.6 (3.5-5.3) mmol/L Chloride 106 (100-110) mmol/L Carbon Dioxide 28 (21-32) mmol/L BUN 30 H (7-18) mg/dL Creatinine 1.4 H (0.70-1.30) mg/dL Est Cr Clr Drug Dosing 57.84 mL/min Estimated GFR (MDRD) 50 L (>60) BUN/Creatinine Ratio 21.4 H (9-20) Glucose 134 H (80-116) mg/dL Calcium 7.4 L (8.6-10.2) mg/dL Magnesium 1.7 L (1.8-2.5) mg/dL Total Bilirubin 2.3 H (0.1-1.3) mg/dL AST 28 H D (5-25) IU/L ALT 28 (12-36) U/L Alkaline Phosphatase 68 (56-112) IU/L Troponin I (4.0-60.3) pg/mL NT-Pro-B Natriuret Pep (<=125) pg/mL Total Protein 6.5 (6.0-8.0) g/dL Albumin 3.2 (3.2-4.6) g/dL Globulin 3.3 g/dL Albumin/Globulin Ratio 1.0 Urine Color Yellow (YELLOW) Urine Appearance Clear (CLEAR) Urine pH 7.0 H (5.0-6.5) Ur Specific [place] 1.010 (1.010-1.025) Urine Protein Negative (NEGATIVE) mg/dL Urine Glucose (UA) Normal (NORMAL) mg/dL Urine Ketones Negative (NEGATIVE) mg/dL Urine Occult Blood Negative (NEGATIVE) Urine Nitrite Negative (NEGATIVE) Urine Bilirubin Negative (NEGATIVE) Urine Urobilinogen Normal (NEGATIVE) mg/dL Ur Leukocyte Esterase Negative (NEGATIVE) Urine RBC Not seen (0-5) Urine WBC 0-5 (0-5) Ur Squamous Epith Cells Few H (NS,R,O) Urine Bacteria Few H (NS) Blood Type Gel Antibody Screen Crossmatch 03/27/21 03/27/21 Range/Units 16:15 16:15 WBC (3.2-10.1) x10-3/uL RBC (3.90-5.90) x10(6)uL Hgb (12.9-17.7) g/dL Hct (38.3-50.1) % MCV (80.8-98.7) fL MCH (27.0-33.3) pg MCHC (28.7-35.3) g/dL RDW (12.4-15.0) % Plt Count (117-477) x10(3)uL MPV (6.7-11.0) fL Neut % (Auto) (40.3-71.8) % Lymph % (Auto) (15.8-45.3) % Castro % (Auto) (5.5-15.2) % Eos % (Auto) (0.1-6.8) % Baso % (Auto) (0.3-3.8) % Neut # (Auto) (1.7-6.9) x10-3/uL Lymph # (Auto) (0.5-4.5) x10-3/uL Castro # (Auto) (0.0-1.2) x10-3/uL Eos # (Auto) (0.0-0.6) x10-3/uL Baso # (Auto) (0.0-0.3) x10-3/uL Sodium (135-145) mmol/L Potassium (3.5-5.3) mmol/L Chloride (100-110) mmol/L Carbon Dioxide (21-32) mmol/L BUN (7-18) mg/dL Creatinine (0.70-1.30) mg/dL Est Cr Clr Drug Dosing mL/min Estimated GFR (MDRD) (>60) BUN/Creatinine Ratio (9-20) Glucose (80-116) mg/dL Calcium (8.6-10.2) mg/dL Magnesium (1.8-2.5) mg/dL Total Bilirubin (0.1-1.3) mg/dL AST (5-25) IU/L ALT (12-36) U/L Alkaline Phosphatase (56-112) IU/L Troponin I 17.6 (4.0-60.3) pg/mL NT-Pro-B Natriuret Pep 3391 H* (<=125) pg/mL Total Protein (6.0-8.0) g/dL Albumin (3.2-4.6) g/dL Globulin g/dL Albumin/Globulin Ratio Urine Color (YELLOW) Urine Appearance (CLEAR) Urine pH (5.0-6.5) Ur Specific [place] (1.010-1.025) Urine Protein (NEGATIVE) mg/dL Urine Glucose (UA) (NORMAL) mg/dL Urine Ketones (NEGATIVE) mg/dL Urine Occult Blood (NEGATIVE) Urine Nitrite (NEGATIVE) Urine Bilirubin (NEGATIVE) Urine Urobilinogen (NEGATIVE) mg/dL Ur Leukocyte Esterase (NEGATIVE) Urine RBC (0-5) Urine WBC (0-5) Ur Squamous Epith Cells (NS,R,O) Urine Bacteria (NS) Blood Type B POSITIVE Gel Antibody Screen Negative Crossmatch See Detail Meds: Medications Generic Name Dose Route Start Last Admin Trade Name Freq PRN Reason Stop Dose Admin Acetaminophen 650 mg 03/27/21 17:55 Acetaminophen 325 Mg Tab PO Q4H PRN Pain (Mild 1-3)/fever Furosemide 40 mg 03/27/21 23:00 Furosemide 40 Mg/4 Ml Vial IVPUSH 03/27/21 23:01 ONETIME ONE Sodium Chloride 250 mls @ 50 mls/hr 03/27/21 18:15 Normal Saline IV ASDIRECTED JULIANNE Ondansetron HCl 4 mg 03/27/21 17:55 Ondansetron 4 Mg/2 Ml Sdv IV Q6H PRN Nausea/Vomiting Pramipexole Dihydrochloride 0.75 mg 03/27/21 21:00 Pramipexole 0.25 Mg Tab PO BEDTIME JULIANNE Sodium Chloride 10 ml 03/27/21 16:03 Sodium Chloride 0.9% 10 Ml Syringe FLUSH ASDIRECTED PRN Keep Vein Open Tramadol HCl 50 mg 03/27/21 18:06 Tramadol 50 Mg Tab PO Q6H PRN Moderate pain Warfarin Sodium 5 mg 03/27/21 22:30 Warfarin 5 Mg Tab PO 03/27/21 22:31 ONETIME ONE - Radiology Interpretation Free Text/Narrative:: Portable chest x-ray shows no acute abnormality. - Re-Assessments/Exams Free Text/Narrative Re-Assessment/Exam: 03/27/21 17:00: Patient remains awake and alert. He is chest pain-free. His O2 saturations are 98 to 100% on room air. His pulse rate is in the 70s. His blood pressures in the 130s systolic. He still gets quite short of breath with any activity. He is mentating normally. His white blood count still count was 2.2K. His hemoglobin was 8.1. His platelet count was 75K. His serum electrolyte profile is essentially unchanged from previous. He is quite symptomatic with his anemia and will need admission for transfusion of packed red blood cells. In addition, secondary to his CHF, he will need IV Lasix. He will need close monitoring during this. I have discussed this with the patient and his and they would be in agreement with admission to the hospital for transfusion. I will discuss this with Dr. Morales and I will plan on admitting the patient if he is agreeable to this as well. 03/27/21 17:30: I discussed the patient's case with Dr. Morales and the potential plan and he would be in agreement with this. He did ask that I send a peripheral smear to lab. The plan will be to transfuse the patient 1 unit of packed red blood cells and give him Lasix following this and then we will reassess his hemoglobin and his status in the morning. If the patient is still symptomatic he may need additional unit transfused tomorrow morning as well. In addition, the peripheral smear will be reviewed and this is to ensure that there is no blast crisis or some other problem going on here. 03/27/21 17:45: I rediscussed this with the patient and his and they are in agreement with this. I also discussed CODE STATUS with the patient and he tells me that he is a FULL CODE. I will place admission orders and care the patient will be to Dr. Morales at 0700 hrs. on 03/28/2021. Departure - Departure Time of Disposition: 17:48 Disposition: Refer to Observation Condition: Fair Clinical Impression: Symptomatic anemia, Respiratory distress CHF (congestive heart failure) Qualifiers: Heart failure type: unspecified Heart failure chronicity: acute on chronic Qualified Code(s): I50.9 - Heart failure, unspecified - Discharge Information Referrals: Kevin Youngblood MD [Primary Care Provider] - Sepsis Event Note (ED) - Focused Exam Vital Signs: Vital Signs Temp Pulse Resp BP Pulse Ox 03/27/21 15:40 36.5 C 72 20 130/65 98 - My Orders Last 24 Hours: My Active Orders 03/27/21 16:03 Sodium Chloride 0.9% [Saline Flush] 10 ml FLUSH ASDIRECTED PRN Peripheral IV Insertion Adult [OM.PC] Routine EKG 12 Lead [EK] Routine 03/27/21 16:04 EKG Documentation Completion [RC] ASDIRECTED 03/27/21 Dinner 2 Gram Sodium Diet [DIET] PATIENT RETYPE [BBK] Stat RED BLOOD CELLS LP [BBK] Stat TYPE AND SCREEN [BBK] Stat 03/27/21 17:48 Admission Status [Patient Status] [ADT] Routine Cardiac Monitoring [RC] .As Directed PERIPH BLOOD SMEAR PATHOLOGIST [HEME] Stat 03/27/21 17:55 Height and Weight [RC] DAILY Up With Assistance [RC] ASDIRECTED Acetaminophen [TylenoL] 650 mg PO Q4H PRN Ondansetron [Zofran] 4 mg IV Q6H PRN Resuscitation Status Routine 03/27/21 17:56 Oxygen Therapy [RC] PRN VTE/DVT Education [RC] Per Unit Routine Vital Signs [RC] Q4H 03/27/21 17:58 Intake and Output [RC] QSHIFT 03/27/21 18:02 Transfuse Red Blood Cells [COMM] Routine 03/27/21 18:06 traMADol [Ultram] 50 mg PO Q6H PRN 03/27/21 18:15 Sodium Chloride 0.9% [Normal Saline] 250 ml IV ASDIRECTED 03/27/21 21:00 Pramipexole [Mirapex] 0.75 mg PO BEDTIME 03/27/21 22:30 Warfarin [Coumadin] 5 mg PO ONETIME ONE 03/27/21 23:00 Furosemide [Lasix] 40 mg IVPUSH ONETIME ONE 03/28/21 06:00 BASIC METABOLIC PANEL,BMP [CHEM] Timed CBC WITH AUTO DIFF [HEME] Timed - Assessment/Plan Last 24 Hours: My Active Orders 03/27/21 16:03 Sodium Chloride 0.9% [Saline Flush] 10 ml FLUSH ASDIRECTED PRN Peripheral IV Insertion Adult [OM.PC] Routine EKG 12 Lead [EK] Routine 03/27/21 16:04 EKG Documentation Completion [RC] ASDIRECTED 03/27/21 Dinner 2 Gram Sodium Diet [DIET] PATIENT RETYPE [BBK] Stat RED BLOOD CELLS LP [BBK] Stat TYPE AND SCREEN [BBK] Stat 03/27/21 17:48 Admission Status [Patient Status] [ADT] Routine Cardiac Monitoring [RC] .As Directed PERIPH BLOOD SMEAR PATHOLOGIST [HEME] Stat 03/27/21 17:55 Height and Weight [RC] DAILY Up With Assistance [RC] ASDIRECTED Acetaminophen [TylenoL] 650 mg PO Q4H PRN Ondansetron [Zofran] 4 mg IV Q6H PRN Resuscitation Status Routine 03/27/21 17:56 Oxygen Therapy [RC] PRN VTE/DVT Education [RC] Per Unit Routine Vital Signs [RC] Q4H 03/27/21 17:58 Intake and Output [RC] QSHIFT 03/27/21 18:02 Transfuse Red Blood Cells [COMM] Routine 03/27/21 18:06 traMADol [Ultram] 50 mg PO Q6H PRN 03/27/21 18:15 Sodium Chloride 0.9% [Normal Saline] 250 ml IV ASDIRECTED 03/27/21 21:00 Pramipexole [Mirapex] 0.75 mg PO BEDTIME 03/27/21 22:30 Warfarin [Coumadin] 5 mg PO ONETIME ONE 03/27/21 23:00 Furosemide [Lasix] 40 mg IVPUSH ONETIME ONE 03/28/21 06:00 BASIC METABOLIC PANEL,BMP [CHEM] Timed CBC WITH AUTO DIFF [HEME] Timed
[2021-03-27] MEDS ORDERED: Sodium Chloride 0.9% 10 ML Syringe FLUSH PRN (16:03)
[2021-03-27] MEDS ORDERED: Acetaminophen 325 MG Tab PO PRN (17:55)
[2021-03-27] MEDS ORDERED: Ondansetron 4 MG/2 ML SDV IV PRN (17:55)
--- NOTE | 2021-03-27 18:01 | CR ---
INDICATION: Shortness of breath. CHEST ONE VIEW: Portable AP upright view of the chest 03/27/21 was compared with 07/27/20 and 02/13/20. The right hemidiaphragm is again noted and my be anatomic. The heart did not appear grossly enlarged. The aorta is calcified minimally in the arch with mild tortuosity. Pulmonary markings are similar to the previous examinations without a definite active infiltrate or effusion, however, markings are somewhat heavy in the mid to lower lung field on the right and at the left lung base, making it difficult to exclude minimal patchy bronchopneumonia. Full inspiration PA and lateral views of the chest may be helpful for further evaluation when clinically possible. MTDD
[2021-03-27] MEDS ORDERED: traMADol 50 MG Tab PO PRN (18:06)
[2021-03-27] MEDS ORDERED: Sodium Chloride 0.9% 250 ML IV SCH (18:15)
[2021-03-27] MEDS ORDERED: Warfarin 5 MG Tab PO ONE (20:30)
[2021-03-27] MEDS ORDERED: Warfarin 2.5 MG Tab PO ONE (20:30)
[2021-03-27] MEDS ORDERED: Pramipexole 0.25 MG Tab PO SCH (21:00)
[2021-03-27] MEDS ORDERED: Pramipexole 0.25 MG Tab PO ONE (21:00)
[2021-03-27] MEDS ORDERED: Furosemide 40 MG/4 ML VIAL IVPUSH ONE (23:00)
[2021-03-28] MEDS ORDERED: Warfarin Sliding Scale PO SCH (09:00)
[2021-03-28] MEDS ORDERED: traMADol 50 MG Tab PO PRN (09:16)
[2021-03-28] MEDS ORDERED: Nitroglycerin 0.4 MG Tab.SL SL PRN (09:16)
[2021-03-28] MEDS ORDERED: Sucralfate 1 GM Tab *PTOM PO PRN (09:16)
[2021-03-28] MEDS ORDERED: Albuterol 8 GM Inhaler INH PRN (09:16)
--- NOTE | 2021-03-28 09:24 | PCM.HP.2 ---
H&P History of Present Illness - General Date of Service: 03/28/21 Admit Problem/Dx: Admission Diagnosis/Problem Admission Diagnosis/Problem Severe anemia Source of Information: Patient, Old Records, Provider History Limitations: Reports: No Limitations - History of Present Illness Initial Comments - Free Text/Narative: 70-year-old gentleman with a past medical history significant for recently diagnosed myelodysplastic disease approximately 6 weeks ago, ASHD/CAD with histo ry of myocardial infarction and PTCI, atrial fibrillation, pulmonary embolism, lung disease treated by loop machine operator, and recent colonoscopy that needs to be repeated to remove a polyp. He came to his primary care physician yesterday because he felt significantly weak and short of breath. He also reported increase in his chronic lower back pain. His stated that she thinks that he looks significantly pale compared to previous. He has had no change in his diet and no dark or bloody stools. Duration in the emergency room showed anemia consistent with myelodysplastic disorder. He was treated with 1 unit of packed red blood cells and admitted for observation. Onset of Symptoms: Reports: Gradual - Related Data Allergies/Adverse Reactions: Allergies Allergy/AdvReac Type Severity Reaction Status Date / Time Influenza Virus Vaccines Allergy Anaphylactic Verified 03/06/21 09:41 Shock levofloxacin [From Levaquin] Allergy Anaphylactic Verified 03/06/21 09:41 Shock morphine AdvReac Other Verified 03/06/21 09:41 metal- surgical Allergy Other Uncoded 03/06/21 09:41 Home Medications: Home Meds Aspirin [Halfprin] 81 mg PO DAILY 09/08/16 [History] Multivitamin with Minerals [Multivitamins with Minerals] 1 each PO DAILY 09/08/16 [History] Pramipexole [Mirapex] 0.75 mg PO BEDTIME 09/08/16 [History] atorvaSTATin [Lipitor] 40 mg PO DAILY 09/08/16 [History] traMADol [Ultram] 50 mg PO Q6H PRN 02/05/17 [History] Albuterol [Ventolin HFA] 2 puff INH Q6H PRN 10/15/18 [History] Furosemide [Lasix] 40 mg PO DAILY 10/15/18 [History] Nitroglycerin 0.4 mg SL Q5M PRN 01/02/19 [History] Enalapril [Vasotec] 20 mg PO DAILY 02/13/20 [History] Isosorbide Mononitrate [Imdur] 30 mg PO DAILY 08/30/20 [History] Famotidine 20 mg PO DAILY 10/04/20 [History] Ferrous Sulfate 325 mg PO DAILY 10/04/20 [History] Sucralfate [Carafate] 1 gm PO WITHMEALSANDBED PRN 03/02/21 [History] Warfarin [Coumadin] 5 mg PO DAILY 03/28/21 [History] Past Medical History HEENT History: Reports: Hard of Hearing, Impaired Vision Other HEENT History: Wears glasses. Cardiovascular History: Reports: Afib, Blood Clots/VTE/DVT, CAD, Heart Failure, High Cholesterol, Hypertension, MA, Stents Other Cardiovascular History: PAROXYSMAL ATRIAL FIBRILLATION Respiratory History: Reports: PE, Pneumonia, Recurrent, Sleep Apnea Other Respiratory History: Unable to take Flu Shot due to allergy. Wears CPAP. HX OF PULMONARY EMBOLISM Gastrointestinal History: Reports: Colon Polyp, Hiatal Hernia Genitourinary History: Reports: Acute Renal Failure Musculoskeletal History: Reports: Arthritis, Back Pain, Chronic, Fracture Other Musculoskeletal History: Hx bilat wrist fractures, R ankle, L kneecap Experiences frequent falls due to leg weakness. 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 PLMD. RESTLESS LEGS SYNDROME. Psychiatric History: Reports: None Endocrine/Metabolic History: Reports: Obesity/BMI 30+, Other (See Below) Other Endocrine/Metabolic History: borderline DM Hematologic History: Reports: None Other Hematologic History: BLOOD INFECTION Immunologic History: Reports: None Oncologic (Cancer) History: Reports: None, Other (See Below) Other Oncologic History: MDS Dermatologic History: Reports: None - Infectious Disease History Infectious Disease History: Reports: Chicken Pox, Measles - Past Surgical History Head Surgeries/Procedures: Reports: None HEENT Surgical History: Reports: LASIK, Naso-Sinus Surgery, Other (See Below) Other HEENT Surgeries/Procedures: RHINOPLASTY, BILATERAL EYE SURGERY Cardiovascular Surgical History: Reports: Cardiac Ablation, Coronary Artery Stent Other Cardiovascular Surgeries/Procedures: CARDIAC CATHETERIZATION, CORONARY ANGIOPLASTY GI Surgical History: Reports: Cholecystectomy, Colonoscopy, Other (See Below) Other GI Surgeries/Procedures: laparoscopic jennifer Musculoskeletal Surgical History: Reports: Other (See Below) Other Musculoskeletal Surgeries/Procedures:: R ANKLE SURGERY. Other Oncologic Surgeries/Procedures: pre cancerious polyps Social & Family History - Family History Family Medical History: No Pertinent Family History - Tobacco Use Tobacco Use Status *Q: Former Tobacco User Used Tobacco, but Quit: Yes Month/Year Tobacco Last Used: 1979 - Caffeine Use Caffeine Use: Reports: Soda Other Caffeine Use: likes his "Coke' - Recreational Drug Use Recreational Drug Use: No - Living Situation & Occupation Living situation: Reports: Occupation: Retired H&P Review of Systems - Review of Systems: Review Of Systems: See Below General: Reports: Malaise, Weakness HEENT: Reports: Post Nasal Drip Pulmonary: Reports: Shortness of Breath, Wheezing Cardiovascular: Reports: No Symptoms Gastrointestinal: Reports: No Symptoms Genitourinary: Reports: No Symptoms Musculoskeletal: Reports: Back Pain Skin: Reports: No Symptoms Psychiatric: Reports: No Symptoms Neurological: Reports: No Symptoms Hematologic/Lymphatic: Reports: Anemia, Other (Myelodysplastic disease) Immunologic: Reports: No Symptoms Exam - Exam Exam: See Below - Vital Signs Vital Signs: Last Vital Signs Temp 36.5 C 03/28/21 04:15 Pulse 74 03/28/21 04:15 Resp 18 03/28/21 04:15 BP 145/80 H 03/28/21 04:15 Pulse Ox 99 03/28/21 04:15 Weight: 118.524 kg - Exam Quality Assessment: Supplemental Oxygen, DVT Prophylaxis, Skin Breakdown General: Alert, Oriented, Cooperative HEENT: EOMI Lungs: Decreased Breath Sounds, Crackles, Rales, Other (Decreased lung sounds bilateral lower lobes and right middle lobe with increased crackles and rales in the right lower and middle lobes) Cardiovascular: Regular Rate, Irregular Rhythm GI/Abdominal Exam: Normal Bowel Sounds, Non-Tender Extremities: Pedal Edema Peripheral Pulses: 2+: Radial (L), Radial (R) Skin: Warm, Dry Neurological: Cranial Nerves Intact Neuro Extensive - Mental Status: Alert, Oriented x3, Normal Mood/Affect Psychiatric: Alert, Normal Affect, Anxious - Patient Data Lab Results Last 24 hrs: Laboratory Results - last 24 hr 03/27/21 03/27/21 03/27/21 Range/Units 16:10 16:15 16:15 WBC 2.2 L (3.2-10.1) x10-3/uL Corrected WBC (4.5-12.0) X10(3) RBC 2.54 L (3.90-5.90) x10(6)uL Hgb 8.1 L (12.9-17.7) g/dL Hct 26.2 L (38.3-50.1) % MCV 103.4 H (80.8-98.7) fL MCH 32.1 (27.0-33.3) pg MCHC 31.0 (28.7-35.3) g/dL RDW 20.3 H (12.4-15.0) % Plt Count 75 L (117-477) x10(3)uL MPV 10.5 (6.7-11.0) fL Neut % (Auto) 54.7 (40.3-71.8) % Lymph % (Auto) 26.6 (15.8-45.3) % [place] % (Auto) 17.4 H (5.5-15.2) % Eos % (Auto) 0.8 (0.1-6.8) % Baso % (Auto) 0.5 (0.3-3.8) % Neut # (Auto) 1.2 L (1.7-6.9) x10-3/uL Lymph # (Auto) 0.6 (0.5-4.5) x10-3/uL [place] # (Auto) 0.4 (0.0-1.2) x10-3/uL Eos # (Auto) 0.0 (0.0-0.6) x10-3/uL Baso # (Auto) 0.0 (0.0-0.3) x10-3/uL Add Manual Diff Neutrophils % (Manual) (46-82) % Lymphocytes % (Manual) (13-37) % Monocytes % (Manual) (4-12) % Nucleated RBCs (0-0) /100WBC Polychromasia Poikilocytosis Anisocytosis Microcytosis Macrocytosis Tear Drop Cells Ovalocytes Acanthocytes (Spur) PT (9.0-11.1) sec INR (1.00-1.24) Sodium 144 (135-145) mmol/L Potassium 3.6 (3.5-5.3) mmol/L Chloride 106 (100-110) mmol/L Carbon Dioxide 28 (21-32) mmol/L BUN 30 H (7-18) mg/dL Creatinine 1.4 H (0.70-1.30) mg/dL Est Cr Clr Drug Dosing 57.84 mL/min Estimated GFR (MDRD) 50 L (>60) BUN/Creatinine Ratio 21.4 H (9-20) Glucose 134 H (80-116) mg/dL Calcium 7.4 L (8.6-10.2) mg/dL Magnesium 1.7 L (1.8-2.5) mg/dL Total Bilirubin 2.3 H (0.1-1.3) mg/dL AST 28 H D (5-25) IU/L ALT 28 (12-36) U/L Alkaline Phosphatase 68 (56-112) IU/L Troponin I (4.0-60.3) pg/mL NT-Pro-B Natriuret Pep (<=125) pg/mL Total Protein 6.5 (6.0-8.0) g/dL Albumin 3.2 (3.2-4.6) g/dL Globulin 3.3 g/dL Albumin/Globulin Ratio 1.0 Urine Color Yellow (YELLOW) Urine Appearance Clear (CLEAR) Urine pH 7.0 H (5.0-6.5) Ur Specific [place] 1.010 (1.010-1.025) Urine Protein Negative (NEGATIVE) mg/dL Urine Glucose (UA) Normal (NORMAL) mg/dL Urine Ketones Negative (NEGATIVE) mg/dL Urine Occult Blood Negative (NEGATIVE) Urine Nitrite Negative (NEGATIVE) Urine Bilirubin Negative (NEGATIVE) Urine Urobilinogen Normal (NEGATIVE) mg/dL Ur Leukocyte Esterase Negative (NEGATIVE) Urine RBC Not seen (0-5) Urine WBC 0-5 (0-5) Ur Squamous Epith Cells Few H (NS,R,O) Urine Bacteria Few H (NS) SARS-CoV-2 RNA (BRIAN) (NEGATIVE) Blood Type Gel Antibody Screen Crossmatch 03/27/21 03/27/21 03/27/21 Range/Units 16:15 16:15 18:30 WBC (3.2-10.1) x10-3/uL Corrected WBC (4.5-12.0) X10(3) RBC (3.90-5.90) x10(6)uL Hgb (12.9-17.7) g/dL Hct (38.3-50.1) % MCV (80.8-98.7) fL MCH (27.0-33.3) pg MCHC (28.7-35.3) g/dL RDW (12.4-15.0) % Plt Count (117-477) x10(3)uL MPV (6.7-11.0) fL Neut % (Auto) (40.3-71.8) % Lymph % (Auto) (15.8-45.3) % [place] % (Auto) (5.5-15.2) % Eos % (Auto) (0.1-6.8) % Baso % (Auto) (0.3-3.8) % Neut # (Auto) (1.7-6.9) x10-3/uL Lymph # (Auto) (0.5-4.5) x10-3/uL [place] # (Auto) (0.0-1.2) x10-3/uL Eos # (Auto) (0.0-0.6) x10-3/uL Baso # (Auto) (0.0-0.3) x10-3/uL Add Manual Diff Neutrophils % (Manual) (46-82) % Lymphocytes % (Manual) (13-37) % Monocytes % (Manual) (4-12) % Nucleated RBCs (0-0) /100WBC Polychromasia Poikilocytosis Anisocytosis Microcytosis Macrocytosis Tear Drop Cells Ovalocytes Acanthocytes (Spur) PT (9.0-11.1) sec INR (1.00-1.24) Sodium (135-145) mmol/L Potassium (3.5-5.3) mmol/L Chloride (100-110) mmol/L Carbon Dioxide (21-32) mmol/L BUN (7-18) mg/dL Creatinine (0.70-1.30) mg/dL Est Cr Clr Drug Dosing mL/min Estimated GFR (MDRD) (>60) BUN/Creatinine Ratio (9-20) Glucose (80-116) mg/dL Calcium (8.6-10.2) mg/dL Magnesium (1.8-2.5) mg/dL Total Bilirubin (0.1-1.3) mg/dL AST (5-25) IU/L ALT (12-36) U/L Alkaline Phosphatase (56-112) IU/L Troponin I 17.6 (4.0-60.3) pg/mL NT-Pro-B Natriuret Pep 3391 H* (<=125) pg/mL Total Protein (6.0-8.0) g/dL Albumin (3.2-4.6) g/dL Globulin g/dL Albumin/Globulin Ratio Urine Color (YELLOW) Urine Appearance (CLEAR) Urine pH (5.0-6.5) Ur Specific [place] (1.010-1.025) Urine Protein (NEGATIVE) mg/dL Urine Glucose (UA) (NORMAL) mg/dL Urine Ketones (NEGATIVE) mg/dL Urine Occult Blood (NEGATIVE) Urine Nitrite (NEGATIVE) Urine Bilirubin (NEGATIVE) Urine Urobilinogen (NEGATIVE) mg/dL Ur Leukocyte Esterase (NEGATIVE) Urine RBC (0-5) Urine WBC (0-5) Ur Squamous Epith Cells (NS,R,O) Urine Bacteria (NS) SARS-CoV-2 RNA (BRIAN) Negative (NEGATIVE) Blood Type B POSITIVE Gel Antibody Screen Negative Crossmatch See Detail 03/27/21 03/28/21 03/28/21 Range/Units 20:00 06:15 06:15 WBC 2.8 L (3.2-10.1) x10-3/uL Corrected WBC 2.8 L (4.5-12.0) X10(3) RBC 2.88 L (3.90-5.90) x10(6)uL Hgb 9.4 L (12.9-17.7) g/dL Hct 28.9 L (38.3-50.1) % MCV 100.3 H (80.8-98.7) fL MCH 32.7 (27.0-33.3) pg MCHC 32.6 (28.7-35.3) g/dL RDW 20.2 H (12.4-15.0) % Plt Count 76 L (117-477) x10(3)uL MPV 10.7 (6.7-11.0) fL Neut % (Auto) (40.3-71.8) % Lymph % (Auto) (15.8-45.3) % [place] % (Auto) (5.5-15.2) % Eos % (Auto) (0.1-6.8) % Baso % (Auto) (0.3-3.8) % Neut # (Auto) (1.7-6.9) x10-3/uL Lymph # (Auto) (0.5-4.5) x10-3/uL [place] # (Auto) (0.0-1.2) x10-3/uL Eos # (Auto) (0.0-0.6) x10-3/uL Baso # (Auto) (0.0-0.3) x10-3/uL Add Manual Diff Yes Neutrophils % (Manual) 46 (46-82) % Lymphocytes % (Manual) 40 H (13-37) % Monocytes % (Manual) 14 H (4-12) % Nucleated RBCs 40 H (0-0) /100WBC Polychromasia Few Poikilocytosis Moderate H Anisocytosis Moderate H Microcytosis Few Macrocytosis Few Tear Drop Cells Few Ovalocytes Moderate H Acanthocytes (Spur) Few PT 23.2 H (9.0-11.1) sec INR 2.27 H (1.00-1.24) Sodium 144 (135-145) mmol/L Potassium 3.4 L (3.5-5.3) mmol/L Chloride 105 (100-110) mmol/L Carbon Dioxide 27 (21-32) mmol/L BUN 29 H (7-18) mg/dL Creatinine 1.2 (0.70-1.30) mg/dL Est Cr Clr Drug Dosing 67.48 mL/min Estimated GFR (MDRD) 60 (>60) BUN/Creatinine Ratio 24.2 H (9-20) Glucose 95 (80-116) mg/dL Calcium 7.5 L (8.6-10.2) mg/dL Magnesium (1.8-2.5) mg/dL Total Bilirubin (0.1-1.3) mg/dL AST (5-25) IU/L ALT (12-36) U/L Alkaline Phosphatase (56-112) IU/L Troponin I (4.0-60.3) pg/mL NT-Pro-B Natriuret Pep (<=125) pg/mL Total Protein (6.0-8.0) g/dL Albumin (3.2-4.6) g/dL Globulin g/dL Albumin/Globulin Ratio Urine Color (YELLOW) Urine Appearance (CLEAR) Urine pH (5.0-6.5) Ur Specific [place] (1.010-1.025) Urine Protein (NEGATIVE) mg/dL Urine Glucose (UA) (NORMAL) mg/dL Urine Ketones (NEGATIVE) mg/dL Urine Occult Blood (NEGATIVE) Urine Nitrite (NEGATIVE) Urine Bilirubin (NEGATIVE) Urine Urobilinogen (NEGATIVE) mg/dL Ur Leukocyte Esterase (NEGATIVE) Urine RBC (0-5) Urine WBC (0-5) Ur Squamous Epith Cells (NS,R,O) Urine Bacteria (NS) SARS-CoV-2 RNA (BRIAN) (NEGATIVE) Blood Type Gel Antibody Screen Crossmatch Result Diagrams: 03/28/21 06:15 03/28/21 06:15 Sepsis Event Note - Evaluation Sepsis Screening Result: No Definite Risk - Focused Exam Vital Signs: Vital Signs Temp Temp Pulse Resp BP BP Pulse Ox 03/28/21 04:15 36.5 C 74 18 145/80 H 99 03/28/21 00:10 36.9 C 72 20 132/75 03/27/21 23:15 36.9 C 73 20 137/66 - Problem List (1) Myelodysplastic disease, not classified SNOMED Code(s): 937533448 ICD Code: C94.6 - MYELODYSPLASTIC DISEASE, NOT CLASSIFIED Status: Acute Current Visit: Yes (2) Pancytopenia SNOMED Code(s): 758861004 ICD Code: D61.818 - OTHER PANCYTOPENIA Status: Acute Current Visit: Yes (3) Colon polyp SNOMED Code(s): 60173389 ICD Code: K63.5 - POLYP OF COLON Status: Acute Current Visit: Yes (4) Acute exacerbation of congestive heart failure SNOMED Code(s): 490488132, 67442630779709 ICD Code: I50.9 - HEART FAILURE, UNSPECIFIED Status: Acute Current Visit: Yes (5) Palliative care encounter SNOMED Code(s): 233660343, 100004997 ICD Code: Z51.5 - ENCOUNTER FOR PALLIATIVE CARE Status: Acute Current Visit: Yes (6) Symptomatic anemia SNOMED Code(s): 198612663 ICD Code: D64.9 - ANEMIA, UNSPECIFIED Status: Acute Current Visit: Yes (7) Elevated brain natriuretic peptide (BNP) level SNOMED Code(s): 138208115, 259798159 ICD Code: R79.89 - OTHER SPECIFIED ABNORMAL FINDINGS OF BLOOD CHEMISTRY Status: Acute Current Visit: No (8) History of DVT (deep vein thrombosis) SNOMED Code(s): 224370789 ICD Code: Z86.718 - PERSONAL HISTORY OF OTHER VENOUS THROMBOSIS AND EMBOLISM Status: Chronic Current Visit: No (9) History of MA (myocardial infarction) SNOMED Code(s): 626944628 ICD Code: I25.2 - OLD MYOCARDIAL INFARCTION Status: Chronic Current Visit: No (10) History of cardiac arrest SNOMED Code(s): 055995233 ICD Code: Z86.74 - PERSONAL HISTORY OF SUDDEN CARDIAC ARREST Status: Chronic Current Visit: No (11) Low back pain SNOMED Code(s): 774167394 ICD Code: M54.5 - LOW BACK PAIN Status: Chronic Current Visit: No (12) Obesity SNOMED Code(s): 603979531, 669420490 ICD Code: E66.9 - OBESITY, UNSPECIFIED Status: Chronic Current Visit: Yes (13) Atrial fibrillation SNOMED Code(s): 27089738 ICD Code: I48.91 - UNSPECIFIED ATRIAL FIBRILLATION Status: Chronic Current Visit: Yes Problem List Initiated/Reviewed/Updated: Yes Orders Last 24hrs: Active Orders 24 hr Category Date Time Status Admission Status [Patient Status] [ADT] Routine ADT 03/27/21 17:48 Active Cardiac Monitoring [RC] 00,08,16 Care 03/27/21 17:48 Active Intake and Output [RC] 06,14,22 Care 03/27/21 17:58 Active Oxygen Therapy [RC] .PRN Care 03/27/21 17:56 Active RT Post Treatment Assessment [RC] Click to Edit Care 03/28/21 09:18 Active Up With Assistance [RC] .PRN Care 03/27/21 17:55 Active Vital Signs [RC] 00,04,08,12,16,20 Care 03/27/21 17:56 Active 2 Gram Sodium Diet [DIET] Diet 03/27/21 Dinner Ordered CXR [Chest 2V] [CR] Routine Exams 03/28/21 07:38 Taken INR,PT,PROTHROMBIN TIME [COAG] Routine Lab 03/28/21 09:18 Ordered PATIENT RETYPE [BBK] Stat Lab 03/27/21 16:15 Results PERIPH BLOOD SMEAR PATHOLOGIST [HEME] Stat Lab 03/27/21 16:15 Received RED BLOOD CELLS LP [BBK] Stat Lab 03/27/21 16:15 Results TYPE AND SCREEN [BBK] Stat Lab 03/27/21 16:15 Results Acetaminophen [TylenoL] Med 03/27/21 17:55 Active 650 mg PO Q4H PRN Albuterol [Ventolin HFA] Med 03/28/21 09:16 Ordered DOSE gm INH Q6H PRN Aspirin [Halfprin] Med 03/28/21 09:30 Ordered 81 mg PO DAILY Famotidine [Pepcid] Med 03/28/21 09:30 Ordered 20 mg PO DAILY Ferrous Sulfate Med 03/28/21 09:30 Ordered 325 mg PO DAILY Fluticasone Propionate [Flonase] Med 03/28/21 09:30 Ordered 2 gm NASBOTH DAILY Furosemide [Lasix] Med 03/28/21 09:30 Ordered 40 mg PO DAILY Isosorbide Mononitrate [Imdur] Med 03/28/21 09:30 Ordered 30 mg PO DAILY Multivitamin with Minerals [Multivitamins with Minerals Med 03/28/21 09:30 Ordered ] 1 each PO DAILY Nitroglycerin [Nitrostat] Med 03/28/21 09:16 Ordered 0.4 mg SL Q5M PRN Ondansetron [Zofran] Med 03/27/21 17:55 Active 4 mg IV Q6H PRN Pramipexole [Mirapex] Med 03/27/21 21:00 Pending 0.75 mg PO BEDTIME Pramipexole [Mirapex] Med 03/28/21 21:00 Ordered 0.75 mg PO BEDTIME Sodium Chloride 0.9% [Normal Saline] 250 ml Med 03/27/21 18:15 Active IV ASDIRECTED Sodium Chloride 0.9% [Saline Flush] Med 03/27/21 16:03 Active 10 ml FLUSH ASDIRECTED PRN Sucralfate [Carafate] Med 03/28/21 09:16 Ordered 1 gm PO WITHMEALSANDBED PRN Warfarin Sliding Scale [Coumadin Sliding Scale] Med 03/28/21 09:00 Pending 1 each PO ASDIRECTED Warfarin [Coumadin] Med 03/28/21 09:30 Ordered 5 mg PO DAILY atorvaSTATin [Lipitor] Med 03/29/21 09:00 Ordered 40 mg PO DAILY traMADol [Ultram] Med 03/27/21 18:06 Active 50 mg PO Q6H PRN traMADol [Ultram] Med 03/28/21 09:16 Ordered 50 mg PO Q6H PRN Peripheral IV Insertion Adult [OM.PC] Routine Oth 03/27/21 16:03 Ordered Transfuse Red Blood Cells [COMM] Routine Oth 03/27/21 18:02 Ordered Resuscitation Status Routine Resus Stat 03/27/21 17:55 Ordered EKG 12 Lead [EK] Routine Ther 03/27/21 16:03 Ordered Medication Orders Acetaminophen (Acetaminophen 325 Mg Tab) 650 mg PO Q4H PRN PRN Reason: Pain (Mild 1-3)/fever Albuterol (Albuterol 8 Gm Inhaler) gm INH Q6H PRN PRN Reason: Dyspnea Aspirin (Aspirin 81 Mg Tab.Ec) 81 mg PO DAILY PENDING SALE TO [facility] Atorvastatin Calcium (Atorvastatin 20 Mg Tab) 40 mg PO DAILY PENDING SALE TO [facility] Famotidine (Famotidine 20 Mg Tab) 20 mg PO DAILY PENDING SALE TO [facility] Ferrous Sulfate (Ferrous Sulfate 325 Mg Tab) 325 mg PO DAILY PENDING SALE TO [facility] Fluticasone Propionate (Fluticasone Propionate Nasal [place] 16 Gm Bottle) 2 gm NASBOTH DAILY PENDING SALE TO [facility] Furosemide (Furosemide 20 Mg Tab) 40 mg PO DAILY PENDING SALE TO [facility] Sodium Chloride (Normal Saline) 250 mls @ 50 mls/hr IV ASDIRECTED JULIANNE Last Admin: 03/27/21 20:15 Dose: 50 mls/hr Documented by: BRENLOR Isosorbide Mononitrate (Isosorbide Mononitrate 30 Mg Tab.Er) 30 mg PO DAILY PENDING SALE TO [facility] Nitroglycerin (Nitroglycerin 0.4 Mg Tab.Sl) 0.4 mg SL Q5M PRN PRN Reason: Chest Pain Non-Formulary Medication (Multivitamin With Minerals [Multivitamins With Minerals]) 1 each PO DAILY PENDING SALE TO [facility] Ondansetron HCl (Ondansetron 4 Mg/2 Ml Sdv) 4 mg IV Q6H PRN PRN Reason: Nausea/Vomiting Pramipexole Dihydrochloride (Pramipexole 0.25 Mg Tab) 0.75 mg PO BEDTIME PENDING SALE TO [facility] Pramipexole Dihydrochloride (Pramipexole 0.25 Mg Tab) 0.75 mg PO BEDTIME PENDING SALE TO [facility] Sodium Chloride (Sodium Chloride 0.9% 10 Ml Syringe) 10 ml FLUSH ASDIRECTED PRN PRN Reason: Keep Vein Open Sucralfate (Sucralfate 1 Gm Tab) 1 gm PO WITHMEALSANDBED PRN PRN Reason: Heartburn Tramadol HCl (Tramadol 50 Mg Tab) 50 mg PO Q6H PRN PRN Reason: Moderate pain Tramadol HCl (Tramadol 50 Mg Tab) 50 mg PO Q6H PRN PRN Reason: PAIN Warfarin Sodium (Warfarin Sliding Scale) 1 each PO ASDIRECTED PENDING SALE TO [facility] Warfarin Sodium (Warfarin 5 Mg Tab) 5 mg PO DAILY PENDING SALE TO [facility] Assessment/Plan Comment:: 1. Patient admitted for observation secondary to symptomatic anemia secondary to recent diagnosis of myelodysplastic disorder suspected pneumonia 2. Patient was given 1 unit of packed red blood cells at admission, continue to trend CBCs. Consultation with oncology suggested no treatment for myelodysplastic disease at this time 3. Restart home medications for chronic conditions as indicated 4. DVT prophylaxis: Coumadin, home medication, pharmacy to dose 5. GI prophylaxis: Home medication, omeprazole
[2021-03-28] MEDS ORDERED: Aspirin 81 MG Tab.EC PO SCH (09:30)
[2021-03-28] MEDS ORDERED: FERROUS GLUCONATE 324 MG PO SCH (09:30)
[2021-03-28] MEDS ORDERED: Isosorbide Mononitrate 30 MG Tab.ER *PTOM PO SCH (09:30)
[2021-03-28] MEDS ORDERED: OMEPRAZOLE 20MG *PTOM PO SCH (09:30)
[2021-03-28] MEDS ORDERED: Fluticasone Propionate Nasal Spray 16 GM Bottle NASBOTH SCH (09:30)
[2021-03-28] MEDS ORDERED: Metoprolol Tartrate 100 MG Tab *PTOM PO SCH (10:00)
--- NOTE | 2021-03-28 10:43 | CR ---
INDICATION: Short of breath for almost two years. History of pneumonia. Has never had COVID-19. CHEST, TWO VIEWS: Two PA views and a lateral view of the chest were obtained 03/28/21 and compared with 03/27/21 and 07/27/20. There is evidence of exogenous obesity. A definite active infiltrate or effusion was not identified. A mild degree of left ventricular enlargement may be present, however, the transverse diameter of the heart appeared to be normal. No gross cardiomegaly therefore. The aorta is calcified minimally in the arch and mildly tortuous. Overlying EKG leads are noted. Bridging hyperostotic changes are mild in the mid thoracic to lower thoracic spine. IMPRESSION: 1. No acute process. 2. 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 3. Exogenous obesity. 4. Mild to moderate degenerative changes mid to lower thoracic spine. MTDD
[2021-03-28 13:00] VITALS: BP 138/72; PULSE 66
[2021-03-28] MEDS ORDERED: Warfarin 5 MG Tab *PTOM PO SCH (16:00)
[2021-03-28] MEDS ORDERED: Pramipexole 0.25 MG Tab PO SCH (21:00)
[2021-03-28] MEDS ORDERED: PRAMIPEXOLE 0.25 MG PO SCH (21:00)
[2021-03-29] MEDS ORDERED: Furosemide 40 MG Tab *PTOM PO SCH (09:00)
[2021-03-29] MEDS ORDERED: atorvaSTATin 40 MG Tab *PTOM PO SCH (09:00)
--- NOTE | 2021-03-29 09:01 | PCM.DCSUM1 ---
Discharge Summary - Hospital Course Free Text/Narrative:: 70-year-old gentleman with recent diagnosis of myelodysplastic disease came to the emergency department after being seen in his primary care physician's office due to significant weakness. He was found to have anemia and was treated with transfusion of 1 unit of packed red blood cells. Patient's presentation and weakness was significantly improved after transfusion. Chest x-ray was equivocal for pneumonia but physical exam and presentation suggested community- acquired pneumonia. Patient elected to be discharged to home with oral antibiotics, Augmentin and azithromycin. Patient was discharged to home with oral antibiotics and encouraged to follow-up with his primary care physician and oncology. HPI Initial Comments: 70-year-old gentleman with a past medical history significant for recently diagnosed myelodysplastic disease approximately 6 weeks ago, ASHD/CAD with history of myocardial infarction and PTCI, atrial fibrillation, pulmonary embolism, lung disease treated by territory sales professional, and recent colonoscopy that ne eds to be repeated to remove a polyp. He came to his primary care physician yesterday because he felt significantly weak and short of breath. He also reported increase in his chronic lower back pain. His stated that she thinks that he looks significantly pale compared to previous. He has had no change in his diet and no dark or bloody stools. Duration in the emergency room showed anemia consistent with myelodysplastic disorder. He was treated with 1 unit of packed red blood cells and admitted for observation. Diagnosis: Stroke: No - Discharge Data Discharge Date: 03/28/21 Discharge Disposition: Home, Self-Care 01 Condition: Fair - Referral to Home Health Primary Care Physician: Kevin Youngblood MD - Discharge Diagnosis/Problem(s) (1) Myelodysplastic disease, not classified SNOMED Code(s): 221624740 ICD Code: C94.6 - MYELODYSPLASTIC DISEASE, NOT CLASSIFIED Status: Acute (2) Pancytopenia SNOMED Code(s): 401698337 ICD Code: D61.818 - OTHER PANCYTOPENIA Status: Acute (3) Colon polyp SNOMED Code(s): 84616006 ICD Code: K63.5 - POLYP OF COLON Status: Acute (4) Acute exacerbation of congestive heart failure SNOMED Code(s): 231713058, 49580857188004 ICD Code: I50.9 - HEART FAILURE, UNSPECIFIED Status: Acute (5) Palliative care encounter SNOMED Code(s): 631578719, 048162414 ICD Code: Z51.5 - ENCOUNTER FOR PALLIATIVE CARE Status: Acute (6) Symptomatic anemia SNOMED Code(s): 037615350 ICD Code: D64.9 - ANEMIA, UNSPECIFIED Status: Acute (7) Elevated brain natriuretic peptide (BNP) level SNOMED Code(s): 902332832, 014367145 ICD Code: R79.89 - OTHER SPECIFIED ABNORMAL FINDINGS OF BLOOD CHEMISTRY Status: Acute (8) History of DVT (deep vein thrombosis) SNOMED Code(s): 530461319 ICD Code: Z86.718 - PERSONAL HISTORY OF OTHER VENOUS THROMBOSIS AND EMBOLISM Status: Chronic (9) History of NV (myocardial infarction) SNOMED Code(s): 612694199 ICD Code: I25.2 - OLD MYOCARDIAL INFARCTION Status: Chronic (10) History of cardiac arrest SNOMED Code(s): 939959884 ICD Code: Z86.74 - PERSONAL HISTORY OF SUDDEN CARDIAC ARREST Status: Chronic (11) Low back pain SNOMED Code(s): 529619760 ICD Code: M54.5 - LOW BACK PAIN Status: Chronic (12) Obesity SNOMED Code(s): 424398564, 732641159 ICD Code: E66.9 - OBESITY, UNSPECIFIED Status: Chronic (13) Atrial fibrillation SNOMED Code(s): 75287409 ICD Code: I48.91 - UNSPECIFIED ATRIAL FIBRILLATION Status: Chronic (14) Community acquired pneumonia SNOMED Code(s): 648645587 ICD Code: J18.9 - PNEUMONIA, UNSPECIFIED ORGANISM Status: Acute - Patient Instructions Diet: Heart Healthy Diet Activity: As Tolerated Showering/Bathing: May Shower - Discharge Plan *PRESCRIPTION DRUG MONITORING PROGRAM REVIEWED*: Not Applicable *COPY OF PRESCRIPTION DRUG MONITORING REPORT IN PATIENT IRVING: Not Applicable Prescriptions/Med Rec: Amoxicillin/Potassium Clav [Augmentin 875-125 Tablet] 1 each PO BID #6 tablet Azithromycin 500 mg PO DAILY #3 tablet Home Medications: Home Meds Aspirin [Halfprin] 81 mg PO DAILY 09/08/16 [History] Multivitamin with Minerals [Multivitamins with Minerals] 1 each PO DAILY 09/08/16 [History] Pramipexole [Mirapex] 0.75 mg PO BEDTIME 09/08/16 [History] atorvaSTATin [Lipitor] 40 mg PO DAILY 09/08/16 [History] traMADol [Ultram] 50 mg PO Q6H PRN 02/05/17 [History] Albuterol [Ventolin HFA] 2 puff INH Q6H PRN 10/15/18 [History] Furosemide [Lasix] 40 mg PO DAILY 10/15/18 [History] Nitroglycerin 0.4 mg SL Q5M PRN 01/02/19 [History] Enalapril [Vasotec] 20 mg PO DAILY 02/13/20 [History] Isosorbide Mononitrate [Imdur] 30 mg PO DAILY 08/30/20 [History] Ferrous Sulfate 325 mg PO DAILY 10/04/20 [History] Sucralfate [Carafate] 1 gm PO WITHMEALSANDBED PRN 03/02/21 [History] Amoxicillin/Potassium Clav [Augmentin 875-125 Tablet] 1 each PO BID #6 tablet 03/28/21 [Rx] Azithromycin 500 mg PO DAILY #3 tablet 03/28/21 [Rx] Metoprolol Tartrate 100 mg PO BID 03/28/21 [History] Omeprazole 20 mg PO DAILY 03/28/21 [History] Warfarin [Coumadin] 5 mg PO DAILY 03/28/21 [History] Patient Handouts: Preventing Iron Deficiency Anemia, Adult, Heart Failure, Diagnosis, [id number] Forms: ED Department Discharge Referrals: Kevin Youngblood MD [Primary Care Provider] - - Discharge Summary/Plan Comment DC Time >30 min.: No - General Info Date of Service: 03/28/21 Admission Dx/Problem (Free Text: Admission Diagnosis/Problem Admission Diagnosis/Problem Severe anemia Functional Status: Reports: Pain Controlled, Tolerating Diet, Ambulating, Urinating - Review of Systems General: Reports: Weakness, Fatigue HEENT: Reports: No Symptoms Pulmonary: Reports: Cough Cardiovascular: Reports: No Symptoms Gastrointestinal: Reports: No Symptoms Genitourinary: Reports: No Symptoms Musculoskeletal: Reports: Back Pain Skin: Reports: No Symptoms Neurological: Reports: No Symptoms Psychiatric: Reports: No Symptoms - Patient Data Vitals - Most Recent: Last Vital Signs Temp 36.5 C 03/28/21 04:15 Pulse 66 03/28/21 12:00 Resp 20 03/28/21 12:00 BP 138/72 03/28/21 12:00 Pulse Ox 97 03/28/21 12:00 Weight - Most Recent: 118.524 kg Lab Results - Last 24 hrs: Laboratory Results - last 24 hr 03/27/21 03/28/21 03/28/21 Range/Units 16:15 06:15 10:20 Corrected WBC 2.8 L (4.5-12.0) X10(3) Neutrophils % (Manual) 46 (46-82) % Lymphocytes % (Manual) 40 H (13-37) % Monocytes % (Manual) 14 H (4-12) % Nucleated RBCs 40 H (0-0) /100WBC Polychromasia Few Poikilocytosis Moderate H Anisocytosis Moderate H Microcytosis Few Macrocytosis Few Tear Drop Cells Few Ovalocytes Moderate H Acanthocytes (Spur) Few Smear Path Review See note PT 20.6 H (9.0-11.1) sec INR 2.00 H (1.00-1.24) [facility] Results - Last 24 hrs: Microbiology 03/28/21 11:00 Stool Occult Blood ([facility]) - Final Stool / Feces Med Orders - Current: Current Medications Discontinued Medications Acetaminophen (Acetaminophen 325 Mg Tab) 650 mg PO Q4H PRN PRN Reason: Pain (Mild 1-3)/fever Albuterol (Albuterol 8 Gm Inhaler) 0 gm INH Q6H PRN PRN Reason: Dyspnea Aspirin (Aspirin 81 Mg Tab.Ec) 81 mg PO DAILY [facility] Last Admin: 03/28/21 10:55 Dose: 81 mg Documented by: Atorvastatin Calcium (Atorvastatin 40 Mg Tab *Ptom) 40 mg PO DAILY [facility] Fluticasone Propionate (Fluticasone Propionate Nasal [place] 16 Gm Bottle) 2 gm NASBOTH DAILY [facility] Furosemide (Furosemide 40 Mg/4 Ml Vial) 40 mg IVPUSH ONETIME ONE Stop: 03/27/21 23:01 Last Admin: 03/27/21 23:20 Dose: 40 mg Documented by: Furosemide (Furosemide 40 Mg Tab *Ptom) 40 mg PO DAILY [facility] Sodium Chloride (Normal Saline) 250 mls @ 50 mls/hr IV ASDIRECTED JULIANNE Last Admin: 03/27/21 20:15 Dose: 50 mls/hr Documented by: Isosorbide Mononitrate (Isosorbide Mononitrate 30 Mg Tab.Er *Ptom) 30 mg PO DAILY [facility] Last Admin: 03/28/21 10:54 Dose: 30 mg Documented by: Metoprolol Tartrate (Metoprolol Tartrate 100 Mg Tab *Ptom) 100 mg PO BID [facility] Last Admin: 03/28/21 10:56 Dose: 100 mg Documented by: Nitroglycerin (Nitroglycerin 0.4 Mg Tab.Sl) 0.4 mg SL Q5M PRN PRN Reason: Chest Pain Omeprazole 20mg * (Ptom) 0 each PO DAILY [facility] Last Admin: 03/28/21 10:55 Dose: 1 each Documented by: Ferrous Gluconate (324mg *Ptom) 0 each PO DAILY [facility] Last Admin: 03/28/21 10:55 Dose: 1 each Documented by: Non-Formulary Medication (Multivitamin With Minerals [Multivitamins With Minerals]) 1 each PO DAILY [facility] Ondansetron HCl (Ondansetron 4 Mg/2 Ml Sdv) 4 mg IV Q6H PRN PRN Reason: Nausea/Vomiting Pramipexole Dihydrochloride (Pramipexole 0.25 Mg Tab *Ptom) 0.75 mg PO BEDTIME [facility] Pramipexole Dihydrochloride (Pramipexole 0.25 Mg Tab) 0.75 mg PO BEDTIME [facility] Pramipexole Dihydrochloride (Pramipexole 0.25 Mg Tab) 0.75 mg PO ONETIME ONE Stop: 03/27/21 21:01 Last Admin: 03/27/21 21:28 Dose: 0.75 mg Documented by: Sodium Chloride (Sodium Chloride 0.9% 10 Ml Syringe) 10 ml FLUSH ASDIRECTED PRN PRN Reason: Keep Vein Open Sucralfate (Sucralfate 1 Gm Tab *Ptom) 1 gm PO WITHMEALSANDBED PRN PRN Reason: Heartburn Tramadol HCl (Tramadol 50 Mg Tab) 50 mg PO Q6H PRN PRN Reason: Moderate pain Tramadol HCl (Tramadol 50 Mg Tab) 50 mg PO Q6H PRN PRN Reason: PAIN Warfarin Sodium (Warfarin 5 Mg Tab) 5 mg PO ONETIME ONE Stop: 03/27/21 20:31 Last Admin: 03/27/21 21:31 Dose: Not Given Documented by: Warfarin Sodium (Warfarin 2.5 Mg Tab) 2.5 mg PO ONETIME ONE Stop: 03/27/21 20:31 Last Admin: 03/27/21 21:28 Dose: 2.5 mg Documented by: Warfarin Sodium (Warfarin Sliding Scale) 1 each PO ASDIRECTED [facility] Warfarin Sodium (Warfarin 5 Mg Tab *Ptom) 5 mg PO DAILY@1600 [facility] Comments:: Patient was sitting on the side of the bed, awake, alert, oriented, interactive, pleasant. He was easily able to stand and stand throughout the examination and interview. He requested to be discharged to home - Exam Quality Assessment: Reports: Supplemental Oxygen, DVT Prophylaxis, Skin Breakdown General: Reports: Alert, Oriented, Cooperative, No Acute Distress HEENT: Reports: EOMI Lungs: Reports: Decreased Breath Sounds, Crackles, Rales, Other (Chronically decreased right lower lobe lung sounds now with crackles and rails specifically in the right lower and middle lobes, mild left lower lobe crackles) GI/Abdominal Exam: Normal Bowel Sounds, Soft, Non-Tender Extremities: Pedal Edema, Other (Bilateral lower extremity trace edema) Skin: Reports: Warm, Dry Neurological: Reports: No New Focal Deficit Psy/Mental Status: Reports: Alert, Normal Affect, Normal Mood
== END 2021-03-28 15:25 | disposition home or self-care (01) ==
LOC: FB.ED 15:40 → UNDOADMOB 18:20 → FB.MS 18:20
PROVIDERS: ADMIT Emergency Medicine; ATTEND Student in an Organized Health Care Education/Training Program
DX: D53.9 Nutritional anemia, unspecified (principal); C94.6 Myelodysplastic disease, not elsewhere classified; I25.2 Old myocardial infarction; D69.6 Thrombocytopenia, unspecified; I25.10 Atherosclerotic heart disease of native coronary artery without angina pectoris; I11.0 Hypertensive heart disease with heart failure; I50.9 Heart failure, unspecified; E78.00 Pure hypercholesterolemia, unspecified; D61.818 Other pancytopenia; Z86.718 Personal history of other venous thrombosis and embolism; Z86.74 Personal history of sudden cardiac arrest; E66.9 Obesity, unspecified; I48.91 Unspecified atrial fibrillation; Z20.822 Contact with and (suspected) exposure to COVID-19; Z88.7 Allergy status to serum and vaccine; Z88.5 Allergy status to narcotic agent; Z88.8 Allergy status to other drugs, medicaments and biological substances; Z79.82 Long term (current) use of aspirin; Z79.899 Other long term (current) drug therapy; Z90.49 Acquired absence of other specified parts of digestive tract; Z98.890 Other specified postprocedural states; Z87.891 Personal history of nicotine dependence
CPT/HCPCS: 36415; 36430; 71045; 71046; 80048; 80053; 81001; 82272; 83735; 83880; 84484; 85025; 85610; 86850; 86900; 86901; 86920; 86922; 88104; 93005; 96374; 99285-25; A9270-GY; G0378; J1940; J7050; P9016; U0002

== ENCOUNTER 2021-04-14 19:30 | Inpatient (IN) | payer MEDICARE, BC ==
[2021-04-14] MEDS ORDERED: Albuterol/Ipratropium 3.0-0.5 MG/3 ML Neb Soln NEB ONE (19:40)
--- NOTE | 2021-04-14 19:47 | EDM.PDOC ---
ED HPI GENERAL MEDICAL PROBLEM - General Time Seen by Provider: 04/14/21 19:42 Source of Information: Reports: Patient, Family History Limitations: Reports: No Limitations - History of Present Illness INITIAL COMMENTS - FREE TEXT/NARRATIVE: pt comes from w c/o cough and SOB started about 2 hrs ago and greadually getting worse, report chills, but no fever, denies chest pain , other resp sx, or any leg swelling or pain, denies any other associated sx. report Hx of CAD, pneumonias, PE and Afib, is on comadin. pt denies any other associated sx or concerns, he is sating 70% on ra on arrival, speaking in short sentences , rest of vitals are stable. - Related Data Allergies Allergy/AdvReac Type Severity Reaction Status Date / Time Influenza Virus Vaccines Allergy Anaphylactic Verified 03/06/21 09:41 Shock levofloxacin [From Levaquin] Allergy Anaphylactic Verified 03/06/21 09:41 Shock morphine AdvReac Other Verified 03/06/21 09:41 metal- surgical Allergy Other Uncoded 03/06/21 09:41 Home Meds: Home Meds Aspirin [Halfprin] 81 mg PO DAILY 09/08/16 [History] Multivitamin with Minerals [Multivitamins with Minerals] 1 each PO DAILY 09/08/16 [History] Pramipexole [Mirapex] 0.75 mg PO BEDTIME 09/08/16 [History] atorvaSTATin [Lipitor] 40 mg PO DAILY 09/08/16 [History] traMADol [Ultram] 50 mg PO Q6H PRN 02/05/17 [History] Albuterol [Ventolin HFA] 2 puff INH Q6H PRN 10/15/18 [History] Furosemide [Lasix] 40 mg PO DAILY 10/15/18 [History] Nitroglycerin 0.4 mg SL Q5M PRN 01/02/19 [History] Enalapril [Vasotec] 20 mg PO DAILY 02/13/20 [History] Isosorbide Mononitrate [Imdur] 30 mg PO DAILY 08/30/20 [History] Ferrous Sulfate 325 mg PO DAILY 10/04/20 [History] Sucralfate [Carafate] 1 gm PO WITHMEALSANDBED PRN 03/02/21 [History] Amoxicillin/Potassium Clav [Augmentin 875-125 Tablet] 1 each PO BID #6 tablet 03/28/21 [Rx] Azithromycin 500 mg PO DAILY #3 tablet 03/28/21 [Rx] Metoprolol Tartrate 100 mg PO BID 03/28/21 [History] Omeprazole 20 mg PO DAILY 03/28/21 [History] Warfarin [Coumadin] 5 mg PO DAILY 03/28/21 [History] Past Medical History HEENT History: Reports: Hard of Hearing, Impaired Vision Other HEENT History: Wears glasses. Cardiovascular History: Reports: Afib, Blood Clots/VTE/DVT, CAD, Heart Failure, High Cholesterol, Hypertension, IN, Stents Other Cardiovascular History: PAROXYSMAL ATRIAL FIBRILLATION Respiratory History: Reports: PE, Pneumonia, Recurrent, Sleep Apnea Other Respiratory History: Unable to take Flu Shot due to allergy. Wears CPAP. HX OF PULMONARY EMBOLISM Gastrointestinal History: Reports: Colon Polyp, Hiatal Hernia Genitourinary History: Reports: Acute Renal Failure Musculoskeletal History: Reports: Arthritis, Back Pain, Chronic, Fracture Other Musculoskeletal History: Hx bilat wrist fractures, R ankle, L kneecap Experiences frequent falls due to leg weakness. 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 PLMD. RESTLESS LEGS SYNDROME. Psychiatric History: Reports: None Endocrine/Metabolic History: Reports: Obesity/BMI 30+, Other (See Below) Other Endocrine/Metabolic History: borderline DM Hematologic History: Reports: None Other Hematologic History: BLOOD INFECTION Immunologic History: Reports: None Oncologic (Cancer) History: Reports: None Other Oncologic History: MDS Dermatologic History: Reports: None - Infectious Disease History Infectious Disease History: Reports: Chicken Pox, Measles - Past Surgical History Head Surgeries/Procedures: Reports: None HEENT Surgical History: Reports: LASIK, Naso-Sinus Surgery, Other (See Below) Other HEENT Surgeries/Procedures: RHINOPLASTY, BILATERAL EYE SURGERY Cardiovascular Surgical History: Reports: Cardiac Ablation, Coronary Artery Stent Other Cardiovascular Surgeries/Procedures: CARDIAC CATHETERIZATION, CORONARY ANGIOPLASTY GI Surgical History: Reports: Cholecystectomy, Colonoscopy, Other (See Below) Other GI Surgeries/Procedures: laparoscopic jennifer Musculoskeletal Surgical History: Reports: Other (See Below) Other Musculoskeletal Surgeries/Procedures:: R ANKLE SURGERY. Other Oncologic Surgeries/Procedures: pre cancerious polyps Social & Family History - Family History Family Medical History: No Pertinent Family History - Caffeine Use Caffeine Use: Reports: Soda Other Caffeine Use: likes his "Coke' - Living Situation & Occupation Living situation: Reports: Occupation: Retired ED ROS GENERAL - Review of Systems Review Of Systems: Comprehensive ROS is negative, except as noted in HPI. Constitutional: Reports: No Symptoms HEENT: Reports: No Symptoms Respiratory: Reports: Shortness of Breath, Cough. Denies: Wheezing, Pleuritic Chest Pain Cardiovascular: Reports: No Symptoms GI/Abdominal: Reports: No Symptoms : Reports: No Symptoms Musculoskeletal: Reports: No Symptoms Skin: Reports: No Symptoms Neurological: Reports: No Symptoms Psychiatric: Reports: No Symptoms ED EXAM, GENERAL - Physical Exam Exam: See Below Exam Limited By: No Limitations General Appearance: Alert, Moderate Distress, Severe Distress Eye Exam: Bilateral Eye: Normal Inspection Ears: Normal External Exam Throat/Mouth: Normal Inspection Head: Atraumatic, Normocephalic Neck: Normal Inspection, Supple, Non-Tender Respiratory/Chest: Respiratory Distress, Decreased Breath Sounds, Crackles Cardiovascular: Normal Peripheral Pulses, No Edema, No Gallop, No JVD, No Murmur, Irregularly Irregular. No: Diastolic Murmur GI/Abdominal: Normal Bowel Sounds, Soft, Non-Tender Extremities: Normal Inspection. No: Pedal Edema Neurological: Alert, Oriented, CN II-XII Intact Skin Exam: Warm Course - Vital Signs Text/Narrative:: labs and imaging results were explained to pt. pt feels comfortable after duo nebs, lasix, satting now at mid 90s on nasal canula and RR is down to low 30s and high 20s mostley, pt is resting comfortable and feel he is back to usual chronic state for breathing . pt has pneumonia and mild CHF , he stopped his lasix 2 days and was given 80 and will continue with usual dose of 40s. pt is stable to be admitted here for pneumonia , will be started on rocephin and zithro, blood cx were taken. - Orders/Labs/Meds Orders: Active Orders 24 hr Category Date Time Status Patient Status [ADT] Routine ADT 04/14/21 21:49 Ordered EKG Documentation Completion [RC] ASDIRECTED Care 04/14/21 19:49 Active Oxygen Therapy [RC] PRN Care 04/14/21 21:49 Ordered RT Aerosol Therapy [RC] ASDIRECTED Care 04/14/21 21:55 Ordered Up With Assistance [RC] ASDIRECTED Care 04/14/21 21:49 Ordered VTE/DVT Education [RC] Per Unit Routine Care 04/14/21 21:49 Ordered Vital Signs [RC] Q4H Care 04/14/21 21:49 Ordered Ang Chest [CT] Stat Exams 04/14/21 Taken Chest 1V Frontal [CR] Stat Exams 04/14/21 19:48 Taken CORONAVIRUS (COVID19) [facility] Stat Lab 04/14/21 19:49 Ordered Albuterol/Ipratropium [DuoNeb 3.0-0.5 MG/3 ML] Med 04/15/21 07:00 Ordered 3 ml NEB QIDRT Azithromycin [Zithromax] 500 mg Med 04/14/21 22:00 Ordered Sodium Chloride 0.9% [Normal Saline (AdvBag)] 250 ml IV Q24H Codeine/guaiFENesin [Robitussin AC] Med 04/14/21 21:54 Ordered 5 ml PO Q6H PRN Furosemide [Lasix] Med 04/15/21 09:00 Ordered 40 mg IVPUSH DAILY Ondansetron [Zofran ODT] Med 04/14/21 21:49 Ordered 4 mg PO Q4H PRN Sodium Chloride 0.9% [Saline Flush] Med 04/14/21 21:49 Ordered 10 ml FLUSH ASDIRECTED PRN cefTRIAXone [Rocephin] 1 gm Med 04/14/21 22:00 Ordered Sodium Chloride 0.9% [Normal Saline] 50 ml IV Q24H Saline Lock Insert [OM.PC] Routine Oth 04/14/21 21:49 Ordered Resuscitation Status Routine Resus Stat 04/14/21 21:49 Ordered EKG 12 Lead [EK] Routine Ther 04/14/21 19:48 Ordered Medication Orders Albuterol/Ipratropium (Albuterol/Ipratropium 3.0-0.5 Mg/3 Ml Neb Soln) 3 ml NEB QIDRT JULIANNE Furosemide (Furosemide 40 Mg/4 Ml Vial) 40 mg IVPUSH DAILY JULIANNE Guaifenesin/Codeine Phosphate (Codeine/Guaifenesin 10-100 Mg/5 Ml Syrup 5 Ml Cup) 5 ml PO Q6H PRN PRN Reason: Cough Azithromycin 500 mg/ Sodium (Chloride) 250 mls @ 250 mls/hr IV Q24H JULIANNE Ceftriaxone Sodium 1 gm/ (Sodium Chloride) 50 mls @ 200 mls/hr IV Q24H JULIANNE Ondansetron HCl (Ondansetron 4 Mg Tab.Dis) 4 mg PO Q4H PRN PRN Reason: nausea, able to take PO Sodium Chloride (Sodium Chloride 0.9% 10 Ml Syringe) 10 ml FLUSH ASDIRECTED PRN PRN Reason: Keep Vein Open Labs: Laboratory Tests 04/14/21 04/14/21 04/14/21 Range/Units 19:40 19:40 19:40 WBC 4.1 (3.2-10.1) x10-3/uL RBC 3.28 L (3.90-5.90) x10(6)uL Hgb 10.2 L (12.9-17.7) g/dL Hct 33.8 L (38.3-50.1) % MCV 103.1 H (80.8-98.7) fL MCH 31.2 (27.0-33.3) pg MCHC 30.3 (28.7-35.3) g/dL RDW 21.2 H (12.4-15.0) % Plt Count 98 L (117-477) x10(3)uL MPV 10.4 (6.7-11.0) fL Neut % (Auto) 43.9 (40.3-71.8) % Lymph % (Auto) 29.9 (15.8-45.3) % [place] % (Auto) 23.4 H (5.5-15.2) % Eos % (Auto) 0.3 (0.1-6.8) % Baso % (Auto) 2.5 (0.3-3.8) % Neut # (Auto) 1.8 (1.7-6.9) x10-3/uL Lymph # (Auto) 1.2 (0.5-4.5) x10-3/uL [place] # (Auto) 1.0 (0.0-1.2) x10-3/uL Eos # (Auto) 0.0 (0.0-0.6) x10-3/uL Baso # (Auto) 0.1 (0.0-0.3) x10-3/uL PT (9.0-11.1) sec INR (1.00-1.24) D-Dimer, Quantitative (0.0-0.59) mg/LFEU Sodium 145 (135-145) mmol/L Potassium 4.2 (3.5-5.3) mmol/L Chloride 106 (100-110) mmol/L Carbon Dioxide 26 (21-32) mmol/L BUN 23 H (7-18) mg/dL Creatinine 1.5 H (0.70-1.30) mg/dL Est Cr Clr Drug Dosing TNP Estimated GFR (MDRD) 46 L (>60) BUN/Creatinine Ratio 15.3 (9-20) Glucose 114 (80-116) mg/dL Calcium 7.9 L (8.6-10.2) mg/dL Total Bilirubin 3.0 H (0.1-1.3) mg/dL AST 27 H (5-25) IU/L ALT 30 (12-36) U/L Alkaline Phosphatase 72 (56-112) IU/L Troponin I 21.9 (4.0-60.3) pg/mL NT-Pro-B Natriuret Pep (<=125) pg/mL Total Protein 7.3 (6.0-8.0) g/dL Albumin 3.7 (3.2-4.6) g/dL Globulin 3.6 g/dL Albumin/Globulin Ratio 1.0 Urine Color (YELLOW) Urine Appearance (CLEAR) Urine pH (5.0-6.5) Ur Specific Wilson (1.010-1.025) Urine Protein (NEGATIVE) mg/dL Urine Glucose (UA) (NORMAL) mg/dL Urine Ketones (NEGATIVE) mg/dL Urine Occult Blood (NEGATIVE) Urine Nitrite (NEGATIVE) Urine Bilirubin (NEGATIVE) Urine Urobilinogen (NEGATIVE) mg/dL Ur Leukocyte Esterase (NEGATIVE) Urine RBC (0-5) Urine WBC (0-5) Ur Squamous Epith Cells (NS,R,O) Urine Bacteria (NS) 04/14/21 04/14/21 04/14/21 Range/Units 19:40 19:40 21:21 WBC (3.2-10.1) x10-3/uL RBC (3.90-5.90) x10(6)uL Hgb (12.9-17.7) g/dL Hct (38.3-50.1) % MCV (80.8-98.7) fL MCH (27.0-33.3) pg MCHC (28.7-35.3) g/dL RDW (12.4-15.0) % Plt Count (117-477) x10(3)uL MPV (6.7-11.0) fL Neut % (Auto) (40.3-71.8) % Lymph % (Auto) (15.8-45.3) % [place] % (Auto) (5.5-15.2) % Eos % (Auto) (0.1-6.8) % Baso % (Auto) (0.3-3.8) % Neut # (Auto) (1.7-6.9) x10-3/uL Lymph # (Auto) (0.5-4.5) x10-3/uL [place] # (Auto) (0.0-1.2) x10-3/uL Eos # (Auto) (0.0-0.6) x10-3/uL Baso # (Auto) (0.0-0.3) x10-3/uL PT 15.1 H (9.0-11.1) sec INR 1.43 H (1.00-1.24) D-Dimer, Quantitative 0.86 H (0.0-0.59) mg/LFEU Sodium (135-145) mmol/L Potassium (3.5-5.3) mmol/L Chloride (100-110) mmol/L Carbon Dioxide (21-32) mmol/L BUN (7-18) mg/dL Creatinine (0.70-1.30) mg/dL Est Cr Clr Drug Dosing Estimated GFR (MDRD) (>60) BUN/Creatinine Ratio (9-20) Glucose (80-116) mg/dL Calcium (8.6-10.2) mg/dL Total Bilirubin (0.1-1.3) mg/dL AST (5-25) IU/L ALT (12-36) U/L Alkaline Phosphatase (56-112) IU/L Troponin I (4.0-60.3) pg/mL NT-Pro-B Natriuret Pep 5429 H* (<=125) pg/mL Total Protein (6.0-8.0) g/dL Albumin (3.2-4.6) g/dL Globulin g/dL Albumin/Globulin Ratio Urine Color Yellow (YELLOW) Urine Appearance Clear (CLEAR) Urine pH 6.0 (5.0-6.5) Ur Specific Wilson 1.005 L (1.010-1.025) Urine Protein Negative (NEGATIVE) mg/dL Urine Glucose (UA) Normal (NORMAL) mg/dL Urine Ketones Negative (NEGATIVE) mg/dL Urine Occult Blood Negative (NEGATIVE) Urine Nitrite Negative (NEGATIVE) Urine Bilirubin Negative (NEGATIVE) Urine Urobilinogen Normal (NEGATIVE) mg/dL Ur Leukocyte Esterase Negative (NEGATIVE) Urine RBC 0-5 (0-5) Urine WBC 0-5 (0-5) Ur Squamous Epith Cells Rare (NS,R,O) Urine Bacteria Few H (NS) Meds: Medications Generic Name Dose Route Start Last Admin Trade Name Freq PRN Reason Stop Dose Admin Albuterol/Ipratropium 3 ml 04/15/21 07:00 Albuterol/Ipratropium 3.0-0.5 Mg/3 Ml Neb Soln NEB QIDRT JULIANNE Furosemide 40 mg 04/15/21 09:00 Furosemide 40 Mg/4 Ml Vial IVPUSH DAILY JULIANNE Guaifenesin/Codeine Phosphate 5 ml 04/14/21 21:54 Codeine/Guaifenesin 10-100 Mg/5 Ml Syrup 5 Ml Cup PO Q6H PRN Cough Azithromycin 500 mg/ Sodium 250 mls @ 250 mls/hr 04/14/21 22:00 Chloride IV Q24H JULIANNE Ceftriaxone Sodium 1 gm/ 50 mls @ 200 mls/hr 04/14/21 22:00 Sodium Chloride IV Q24H JULIANNE Ondansetron HCl 4 mg 04/14/21 21:49 Ondansetron 4 Mg Tab.Dis PO Q4H PRN nausea, able to take PO Sodium Chloride 10 ml 04/14/21 21:49 Sodium Chloride 0.9% 10 Ml Syringe FLUSH ASDIRECTED PRN Keep Vein Open Discontinued Medications Generic Name Dose Route Start Last Admin Trade Name Freq PRN Reason Stop Dose Admin Furosemide 80 mg 04/14/21 20:37 04/14/21 20:45 Furosemide 40 Mg/4 Ml Vial IVPUSH 04/14/21 20:38 80 mg NOW ONE Administration Iopamidol 100 ml 04/14/21 20:21 04/14/21 20:35 Iopamidol 755 Mg/Ml 100 Ml Bottle IV 04/14/21 20:22 90 ml . DIRECTED ONE Administration Lorazepam 1 mg 04/14/21 19:59 04/14/21 20:13 Lorazepam 2 Mg/Ml Sdv IVPUSH 04/14/21 20:00 1 mg ONETIME ONE Administration Departure - Departure Time of Disposition: 22:02 Disposition: Admitted As Inpatient 65 Clinical Impression: Pneumonia Qualifiers: Pneumonia type: due to unspecified organism Laterality: bilateral Lung location: lower lobe of lung Qualified Code(s): J18.1 - Lobar pneumonia, unspecified organism - Discharge Information Referrals: Kevin Youngblood MD [Primary Care Provider] - - My Orders Last 24 Hours: My Active Orders 04/14/21 Ang Chest [CT] Stat 04/14/21 19:48 Chest 1V Frontal [CR] Stat EKG 12 Lead [EK] Routine 04/14/21 19:49 EKG Documentation Completion [RC] ASDIRECTED CORONAVIRUS (COVID19) [facility] Stat 04/14/21 21:49 Patient Status [ADT] Routine Oxygen Therapy [RC] PRN Up With Assistance [RC] ASDIRECTED VTE/DVT Education [RC] Per Unit Routine Vital Signs [RC] Q4H Ondansetron [Zofran ODT] 4 mg PO Q4H PRN Sodium Chloride 0.9% [Saline Flush] 10 ml FLUSH ASDIRECTED PRN Saline Lock Insert [OM.PC] Routine Resuscitation Status Routine 04/14/21 21:54 Codeine/guaiFENesin [Robitussin AC] 5 ml PO Q6H PRN 04/14/21 21:55 RT Aerosol Therapy [RC] ASDIRECTED 04/14/21 22:00 Azithromycin [Zithromax] 500 mg Sodium Chloride 0.9% [Normal Saline (AdvBag)] 250 ml IV Q24H cefTRIAXone [Rocephin] 1 gm Sodium Chloride 0.9% [Normal Saline] 50 ml IV Q24H 04/15/21 07:00 Albuterol/Ipratropium [DuoNeb 3.0-0.5 MG/3 ML] 3 ml NEB QIDRT 04/15/21 09:00 Furosemide [Lasix] 40 mg IVPUSH DAILY - Assessment/Plan Last 24 Hours: My Active Orders 04/14/21 Ang Chest [CT] Stat 04/14/21 19:48 Chest 1V Frontal [CR] Stat EKG 12 Lead [EK] Routine 04/14/21 19:49 EKG Documentation Completion [RC] ASDIRECTED CORONAVIRUS (COVID19) [facility] Stat 04/14/21 21:49 Patient Status [ADT] Routine Oxygen Therapy [RC] PRN Up With Assistance [RC] ASDIRECTED VTE/DVT Education [RC] Per Unit Routine Vital Signs [RC] Q4H Ondansetron [Zofran ODT] 4 mg PO Q4H PRN Sodium Chloride 0.9% [Saline Flush] 10 ml FLUSH ASDIRECTED PRN Saline Lock Insert [OM.PC] Routine Resuscitation Status Routine 04/14/21 21:54 Codeine/guaiFENesin [Robitussin AC] 5 ml PO Q6H PRN 04/14/21 21:55 RT Aerosol Therapy [RC] ASDIRECTED 04/14/21 22:00 Azithromycin [Zithromax] 500 mg Sodium Chloride 0.9% [Normal Saline (AdvBag)] 250 ml IV Q24H cefTRIAXone [Rocephin] 1 gm Sodium Chloride 0.9% [Normal Saline] 50 ml IV Q24H 04/15/21 07:00 Albuterol/Ipratropium [DuoNeb 3.0-0.5 MG/3 ML] 3 ml NEB QIDRT 04/15/21 09:00 Furosemide [Lasix] 40 mg IVPUSH DAILY
[2021-04-14] MEDS ORDERED: LORazepam 2 MG/ML SDV IVPUSH ONE (19:59)
[2021-04-14] MEDS ORDERED: Iopamidol 755 Mg/ML 100 ML Bottle IV ONE (20:21)
[2021-04-14] MEDS ORDERED: Furosemide 40 MG/4 ML VIAL IVPUSH ONE (20:37)
[2021-04-14] MEDS ORDERED: Ondansetron 4 MG Tab.DIS PO PRN (21:49)
[2021-04-14] MEDS ORDERED: Codeine/guaiFENesin 10-100 MG/5 ML Syrup 5 ML Cup PO PRN (21:54)
[2021-04-14] MEDS ORDERED: Sucralfate 1 GM Tab PO PRN (22:03)
[2021-04-14] MEDS ORDERED: Nitroglycerin 0.4 MG Tab.SL SL PRN (22:03)
[2021-04-14] MEDS ORDERED: Albuterol 8 GM Inhaler INH PRN (22:03)
[2021-04-14] MEDS: cefTRIAXone 1 GM in Sodium Chloride 0.9% 50 ML IV SCH (22:44)
[2021-04-14] MEDS: Azithromycin 500 MG in Sodium Chloride 0.9% 250 ML IV SCH (23:34)
[2021-04-14] MEDS: Sodium Chloride 0.9% 10 ML Syringe FLUSH PRN (23:41)
[2021-04-14] MEDS ORDERED: Pramipexole 0.25 MG Tab PO SCH (23:45)
[2021-04-14] MEDS ORDERED: traMADol 50 MG Tab PO PRN (23:59)
[2021-04-15] MEDS ORDERED: LORazepam 2 MG/ML SDV IVPUSH PRN (00:03)
[2021-04-15] MEDS ORDERED: Metoprolol Tartrate 100 MG Tab PO ONE (00:07)
[2021-04-15] MEDS ORDERED: Pramipexole 0.25 MG Tab ONE (00:24)
[2021-04-15] MEDS ORDERED: traMADol 50 MG Tab ONE (00:25)
[2021-04-15] MEDS ORDERED: Metoprolol Tartrate 100 MG Tab ONE (00:27)
[2021-04-15] MEDS: Pramipexole 0.25 MG Tab PO SCH ×2 (00:37→22:47)
[2021-04-15] MEDS: traMADol 50 MG Tab PO PRN ×2 (00:38→22:53)
[2021-04-15] MEDS: Pantoprazole 40 MG Tab.CR PO SCH (06:55)
[2021-04-15] MEDS: Albuterol/Ipratropium 3.0-0.5 MG/3 ML Neb Soln NEB SCH ×4 (06:55→20:48)
[2021-04-15] MEDS ORDERED: Pantoprazole 40 MG Tab.CR PO SCH (07:30)
[2021-04-15] MEDS ORDERED: Furosemide 40 MG/4 ML VIAL IVPUSH SCH (09:00)
[2021-04-15] MEDS ORDERED: Warfarin 5 MG Tab PO SCH (09:00)
[2021-04-15] MEDS ORDERED: Pramipexole 0.25 MG Tab PO SCH ×2 (09:00→21:00)
[2021-04-15] MEDS ORDERED: Aspirin 81 MG Tab.EC PO SCH (09:00)
[2021-04-15] MEDS ORDERED: Enoxaparin 40 MG/0.4 ML Syringe SUBCUT SCH (09:15)
[2021-04-15] MEDS ORDERED: Furosemide 40 MG/4 ML VIAL ONE (09:28)
[2021-04-15] MEDS: Sodium Chloride 0.9% 10 ML Syringe FLUSH PRN (09:29)
[2021-04-15] MEDS: Isosorbide Mononitrate 30 MG Tab.ER PO SCH (10:07)
[2021-04-15] MEDS: atorvaSTATin 20 MG Tab PO SCH (10:08)
[2021-04-15] MEDS: Metoprolol Tartrate 100 MG Tab PO SCH ×2 (10:08→20:47)
[2021-04-15] MEDS: Aspirin 81 MG Tab.Chew PO SCH (10:24)
--- NOTE | 2021-04-15 11:34 | HP ---
ADMISSION DATE: 04/14/2021 History is from the patient and his [facility] record. The patient is deemed to be a good historian. CHIEF COMPLAINT: Pneumonia. HISTORY OF PRESENT ILLNESS: Mr. Pierre is a 70-year-old man from [place], [place] with a history of coronary artery disease status post angioplasty and stents, myelodysplastic syndrome, chronic atrial fibrillation, hypertension, and restless legs syndrome. According to the patient, he has this particular susceptibilities pneumonia. Two days ago, he began to have a slight dry cough. This progressed rapidly to shortness of breath, increasing cough, and last night he developed chills with rigors. He came into the emergency room where he was found to have a right- sided pneumonia and was admitted on IV antibiotics. The patient denies any acute chest pains. He does report shortness of breath and continued dry cough without sputum production. He has not had a high fever. Alejandro also has a history of multiple colon polyps, and on a colonoscopy done March 04 was found to have 2 large sessile polyps of the transverse colon. He was scheduled to have these removed via colonoscopy coming up on 04/18/2021. He also recently had 1 unit blood transfusion because his hemoglobin had dropped into the 8 range along with symptoms. He says the transfusion helped his symptoms. PAST MEDICAL HISTORY: Colon polypectomy. He is also status post AK in 2013 with stents twice in 2013. He has had chronic atrial fibrillation and a failed cardioversion. He is status post cholecystectomy, rhinoplasty, LASIK surgery. He has myelodysplastic syndrome with anemia and thrombocytopenia with pancytopenia. He has had chronic essential hypertension, hyperlipidemia, restless legs syndrome, and he is chronically anticoagulated for his atrial fibrillation. He has chronic back pain with a history of lumbar disk herniations. He has had ORIF of a right ankle fracture with subsequent hardware removal. MEDICATIONS: 1. Mirapex 0.75 mg at bedtime. 2. Omeprazole 20 mg daily. 3. Tramadol 50 mg b.i.d. 4. Furosemide 40 mg daily. 5. Enalapril 20 mg daily. 6. Carafate 1 g q.i.d. 7. Iron sulfate 325 mg daily. 8. Famotidine 20 mg b.i.d. 9. Atorvastatin 40 mg daily. 10.Metoprolol 100 mg 1-1/2 tabs b.i.d. 11.Isosorbide mononitrate 30 mg daily. 12.Nitroglycerin p.r.n. 13.Warfarin per anticoagulation clinic. 14.Albuterol HFA 2 puffs every 4 hours p.r.n. 15.Multiple vitamin 1 daily. 16.Docusate daily. 17.Aspirin 81 mg daily. 18.Falguni-C once daily. ALLERGIES: Flu vaccine caused fever. Levaquin, he reports as renal failure. He had reaction to metal implanted in his right ankle and in a dental plate. Morphine also listed as allergy causing itching. HABITS: Nonsmoker for 40 years. Alcohol rare. Caffeine, 1 serving of Coke per day. FAMILY HISTORY: The patient's father at age 62 of an AK. He had Crohn disease. Mother at age 97, she had colon cancer in her 60s. One sister has dementia, one has hypertension. SOCIAL HISTORY: The patient has been for 20 years to his second , who accompanies him today. He has 2 daughters from a previous marriage and 1 grandchild. 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 He grew up in the [facility]. REVIEW OF SYSTEMS: GENERAL: No seizure, syncope, or recent significant weight change. SKIN: Negative for rash. HEENT: No recent changes in hearing or vision, although his states his hearing has declined. No sore throat or URI. No purulent sputum. No chest pain or palpitations. No abdominal pain, GERD, nausea, tenderness. No diarrhea, constipation, hematochezia, or melena. No hematuria or UTI symptoms. No joint inflammation, swelling, or skin rash. PHYSICAL EXAMINATION: GENERAL: He is alert, comfortable, and a good historian. VITAL SIGNS: Blood pressure 124/78; pulse 97, irregular, atrial fibrillation pattern; temp 98; O2 saturation 94% on 2 L of oxygen. SKIN: Anicteric, warm, dry without rash. HEENT: Show clear TMs. Pupils equal and reactive. Oropharynx is clear. NECK: Supple. Thyroid is normal. LUNGS: Clear in the left base. He has dense rales of the right mid to lower lung field. HEART: Irregular in atrial fib, rate controlled. No murmur heard. ABDOMEN: Normal bowel sounds. Soft and nontender. No masses, no organomegaly. EXTREMITIES: Show excellent pedal pulses. No edema. NEUROLOGIC: Mental status intact. Motor exam appears symmetric. LABORATORY DATA: Admission white count 4,100, hemoglobin 10.2, MCV 103, INR 1.36. Electrolytes normal. BUN 23, creatinine 1.5, calcium 7.9. Bilirubin 3.0, AST 27. BNP 5429. Urinalysis clear. COVID negative. ASSESSMENT: A 70-year-old man with: 1. Right middle lobe pneumonia. 2. History of colon polyps with upcoming colonoscopy and atypical polypectomy scheduled in 3 days. 3. Coronary artery disease with history of myocardial infarction, angioplasty, and stents. 4. Chronic atrial fibrillation, on anticoagulation. 5. Myelodysplastic syndrome with pancytopenia and recent single unit blood transfusion. 6. Chronic essential hypertension. 7. Restless legs syndrome. 8. Chronic low back pain. 9. Remote history of pulmonary embolism post myocardial infarction in 2013. PLAN: 1. Mr. Pierre is started on azithromycin and Rocephin. We will anticipate a good response to this community-acquired pneumonia from these antibiotics. We will also add incentive spirometry at bedside. 2. I have discussed DVT and PE prophylaxis. With his upcoming colonoscopy scheduled, we will keep him off the Coumadin. He states that he has reacted to Lovenox in the past, and in the past before surgeries, his warfarin has been stopped and he has just been placed on aspirin. We will plan to do this at this time as well. 3. We will continue to provide palliative care measures for Mr. Pierre's underlying low back pain and other medical problems. Anticipate a 48- to 72-hour acute hospital stay followed by discharge to home after that. /[id number] ESTRADA/MAURI
[2021-04-15] MEDS: cefTRIAXone 1 GM in Sodium Chloride 0.9% 50 ML IV SCH (22:05)
[2021-04-15] MEDS: Azithromycin 500 MG in Sodium Chloride 0.9% 250 ML IV SCH (22:31)
[2021-04-16] MEDS: Albuterol/Ipratropium 3.0-0.5 MG/3 ML Neb Soln NEB SCH ×4 (06:32→21:06)
[2021-04-16] MEDS: Pantoprazole 40 MG Tab.CR PO SCH (06:32)
[2021-04-16] MEDS: Aspirin 81 MG Tab.Chew PO SCH (08:37)
[2021-04-16] MEDS: atorvaSTATin 20 MG Tab PO SCH (08:38)
[2021-04-16] MEDS: Isosorbide Mononitrate 30 MG Tab.ER PO SCH (08:38)
[2021-04-16] MEDS: Furosemide 40 MG Tab PO SCH (08:38)
[2021-04-16] MEDS: Metoprolol Tartrate 100 MG Tab PO SCH ×2 (08:38→21:08)
[2021-04-16] MEDS ORDERED: Azithromycin 250 MG Tab PO SCH (09:30)
--- NOTE | 2021-04-16 13:01 | PN ---
DATE SEEN: 04/16/2021 HISTORY: Alejandro is a 70-year-old man admitted with pneumonia, who has a history of MDS requiring one transfusion, chronic low back pain from lumbar disk disease, hypertension and ASHD with history of CA and angioplasty and stent placement with underlying atrial fibrillation. Alejandro was admitted yesterday with acute right-sided pneumonia. He has been on Rocephin and azithromycin as well as incentive spirometry treatment. This morning, he feels better. He says he is breathing easier. He has no significant cough. No sputum production. No chest pain but is dyspneic with activity. PHYSICAL EXAMINATION: GENERAL: He is alert, comfortable and a good historian. VITAL SIGNS: Blood pressure 108/72, pulse 81 and regular, respirations normal, temperature 98. Weight 255 pounds, 6 ounces. This is up 5 pounds from admission. SKIN: Clear without rash. MOUTH: Dry. LUNGS: Have slight rhonchi with decreased breath sounds at the right base. Previous rales appear to have diminished. HEART: Irregular, in atrial fib pattern, rate controlled. ABDOMEN: Soft. EXTREMITIES: Show no significant edema at the ankles. LABORATORY DATA: White count 2600, hemoglobin 8.6, 48 segs, 2 bands, and 24 nucleated red cells. ASSESSMENT: 1. Right-sided pneumonia. 2. Atherosclerotic heart disease with history of myocardial infarction, angioplasty, stents, atrial fibrillation, congestive heart failure, and anticoagulation. 3. Myelodysplastic syndrome with pancytopenia. 4. History of colon polyps, scheduled for colonoscopy and polypectomy 2 days from now. PLAN: We will continue his IV antibiotics and his respiratory treatments with incentive spirometry. We will plan for discharge tomorrow. He will need followup with Dr. Clark for his MDS as well. /[id number] RO/MODL
[2021-04-16] MEDS ORDERED: Azithromycin 500 MG Tab PO SCH (15:00)
[2021-04-16] MEDS: Pramipexole 0.25 MG Tab PO SCH (21:06)
[2021-04-16] MEDS ORDERED: cefTRIAXone 1 GM Vial IVPUSH SCH (22:00)
[2021-04-16] MEDS: cefTRIAXone 1 GM in Sodium Chloride 0.9% 50 ML IV SCH ×2 (22:48→23:00)
[2021-04-17] MEDS: Albuterol/Ipratropium 3.0-0.5 MG/3 ML Neb Soln NEB SCH ×4 (06:38→21:29)
[2021-04-17] MEDS: Pantoprazole 40 MG Tab.CR PO SCH (06:38)
[2021-04-17] MEDS: cefTRIAXone 1 GM in Sodium Chloride 0.9% 50 ML IV SCH (08:02)
[2021-04-17] MEDS: Aspirin 81 MG Tab.Chew PO SCH (08:55)
[2021-04-17] MEDS: Potassium Chloride 20 MEQ Tab.ER PO SCH ×2 (08:55→21:31)
[2021-04-17] MEDS: Isosorbide Mononitrate 30 MG Tab.ER PO SCH (08:55)
[2021-04-17] MEDS: Furosemide 40 MG Tab PO SCH (08:56)
[2021-04-17] MEDS: atorvaSTATin 40 MG Tab PO SCH (08:56)
[2021-04-17] MEDS: Metoprolol Tartrate 100 MG Tab PO SCH ×2 (08:57→21:33)
[2021-04-17] MEDS ORDERED: Cefdinir 300 MG Cap PO SCH (09:00)
[2021-04-17] MEDS: Piperacillin/Tazobactam 4.5 GM in Sodium Chloride 0.9% 100 ML IV SCH ×3 (09:05→21:38)
[2021-04-17] MEDS ORDERED: Gentamicin 40 MG/ML 2 ML Vial IV SCH (09:15)
[2021-04-17] MEDS ORDERED: Gentamicin 160 MG in Sodium Chloride 0.9% 100 ML IV SCH (09:30)
--- NOTE | 2021-04-17 10:20 | CR ---
INDICATION: Follow-up pneumonia. CHEST TWO VIEWS: PA and lateral views of the chest were obtained 04/17/21 and compared with 04/14/21 and 03/28/21. The previous examination of 04/14/21 was incorrectly dated for date of exam as 04/17/21. A corrected report should be sent out. The heart remains normal in size and shape. The aorta is minimally tortuous with calcification in the arch. Bony structures appear to be grossly intact as previously. The fairly consolidated infiltrate at the right lung base has markedly decreased in density compatible with resolving pneumonia in that area which appears to be in the middle lobe to a large extent. No other change or new acute process was identified. IMPRESSION: Resolving pneumonia and pleuritis at the right lung base. MTDD
[2021-04-17] MEDS: Gentamicin 160 MG in Sodium Chloride 0.9% 100 ML IV SCH ×2 (10:27→17:32)
--- NOTE | 2021-04-17 11:33 | CR ---
INDICATION: Cough. CHEST ONE VIEW: AP portable upright view of the chest 04/14/21 was compared with 03/28/21 and 03/27/21 and now reveals partially consolidating infiltration at the right lung base presumably in the right lower lobe with pneumonia. A degree of pleuritis may be present however no gross pleural effusion was seen and no other acute process was suggested. The heart did not appear enlarged. The aorta is calcified in the arch area. Overlying EKG leads are noted. IMPRESSION: 1. Partially consolidating pneumonia at the right lung base - lower lung field. 2. ASD. MTDD
[2021-04-17] MEDS: Pramipexole 0.25 MG Tab PO SCH (21:34)
[2021-04-17] MEDS: Sodium Chloride 0.9% 10 ML Syringe FLUSH PRN (21:40)
[2021-04-18] MEDS: Gentamicin 160 MG in Sodium Chloride 0.9% 100 ML IV SCH ×2 (02:06→10:32)
[2021-04-18] MEDS: Sodium Chloride 0.9% 10 ML Syringe FLUSH PRN ×3 (02:50→21:40)
[2021-04-18] MEDS: Piperacillin/Tazobactam 4.5 GM in Sodium Chloride 0.9% 100 ML IV SCH ×4 (02:51→20:44)
[2021-04-18] MEDS: Albuterol/Ipratropium 3.0-0.5 MG/3 ML Neb Soln NEB SCH ×4 (06:27→20:40)
[2021-04-18] MEDS: Pantoprazole 40 MG Tab.CR PO SCH (06:32)
--- NOTE | 2021-04-18 06:43 | PN ---
DATE SEEN: 04/17/2021 HISTORY: Alejandro is a 70-year-old man with myelodysplastic syndrome and recent discovery of sessile atypical colon polyps. He was scheduled for colonoscopy and polypectomy for tomorrow on 04/18/2021. However, he was admitted on 04/14/2021 with right lower lobe pneumonia. Alejandro' white count on admission was 4100 with 43 segs, 29 lymphs, and 23 monos. He was started on IV antibiotics, and this morning his white count was down to 1700 with 54% segs, 2 bands, 28 lymphs, 14 monos, 45 nucleated red cells, and 2 myelocytes. Alejandro has remained afebrile. He feels better. He is coughing minimally, and it is nonproductive. He is up walking, getting stronger. PHYSICAL EXAMINATION: GENERAL: He is alert and comfortable. HEENT: Clear. LUNGS: Have significant improvement in his respiratory sounds without the dense rales as before. He has an occasional rhonchus. No wheezing. HEART: Regular, without murmur or gallop. ABDOMEN: Soft and nontender. EXTREMITIES: Show no edema. DATA: Chest x-ray shows significant improvement in his pneumonia. ASSESSMENT: 1. Pneumonia, resolving. 2. Pancytopenia secondary to myelodysplastic syndrome. 3. Colon polyps. PLAN: His colonoscopy is canceled for now, and we will hope they will reschedule within 2 weeks. We will continue his IV antibiotics with broad-spectrum coverage until he has 1500 functional granulocytes. Plan discharge to home after that. /[id number] RO/MODL
[2021-04-18] MEDS: Furosemide 40 MG Tab PO SCH (08:18)
[2021-04-18] MEDS: Potassium Chloride 20 MEQ Tab.ER PO SCH ×2 (08:18→20:43)
[2021-04-18] MEDS: Aspirin 81 MG Tab.Chew PO SCH (08:19)
[2021-04-18] MEDS: atorvaSTATin 40 MG Tab PO SCH (08:20)
[2021-04-18] MEDS: Isosorbide Mononitrate 30 MG Tab.ER PO SCH (08:20)
[2021-04-18] MEDS: Metoprolol Tartrate 100 MG Tab PO SCH ×2 (08:21→20:43)
[2021-04-18] MEDS ORDERED: Warfarin 5 MG Tab PO SCH (16:00)
[2021-04-18] MEDS: Pramipexole 0.25 MG Tab PO SCH (20:44)
[2021-04-19] MEDS: Piperacillin/Tazobactam 4.5 GM in Sodium Chloride 0.9% 100 ML IV SCH (01:59)
[2021-04-19] MEDS: Sodium Chloride 0.9% 10 ML Syringe FLUSH PRN (02:00)
[2021-04-19] MEDS: Albuterol/Ipratropium 3.0-0.5 MG/3 ML Neb Soln NEB SCH (06:27)
[2021-04-19] MEDS: Pantoprazole 40 MG Tab.CR PO SCH (06:31)
--- NOTE | 2021-04-19 07:10 | PN ---
DATE SEEN: 04/18/2021 HISTORY: Alejandro is a 70-year-old man with a history of myelodysplastic syndrome with the need for 1 blood transfusion in the past. He was admitted through the emergency room for pneumonia. On admission, his white blood count was 4,100 with 43 segs, 29 lymphocytes, 23 monos. His white count dropped to 2.6 and then yesterday down to 1.7 with 54 segs, 2 bands, 28 lymphocytes, and 14 monos. He has been on broad-spectrum antibiotic. He has remained afebrile. His breathing has improved. He has minimal cough and his chest x-ray showed improvement as well. LABORATORY DATA: This morning, white count up slightly to 1900, hemoglobin 8.4, 53 segs, 30 lymphocytes, 15 monos, 2 myelocytes, and 24 nucleated red cells. Renal function is stable. PHYSICAL EXAMINATION: GENERAL: He is comfortable. VITAL SIGNS: Temp 98.1, blood pressure 147/74, pulse 90 and regular, respirations normal, O2 saturation 93% on room air. HEENT: Shows mouth to be dry. LUNGS: Clear, but for very faint rales at the right lateral lower lung field. HEART: Slightly irregular in atrial fib pattern. ABDOMEN: Soft. EXTREMITIES: Show no edema. ASSESSMENT: 1. Right lower lobe pneumonia with granulocytopenia secondary to myelodysplastic syndrome. 2. Chronic atrial fibrillation, on previous anticoagulation. 3. Restless legs syndrome. 4. Hypertension. 5. History of chronic low back pain with lumbar disk herniation. PLAN: We will continue his broad-spectrum antibiotics until tomorrow. I anticipate his functioning granulocytes will continue to improve and he will be stable for discharge. He will have his routine followup with Dr. Clark regarding the MDS, and his previously scheduled colonoscopy for sessile polypectomy is being rescheduled. We will resume his warfarin at his home dose. /[id number] 1513 RO/MODL
[2021-04-19] MEDS: Aspirin 81 MG Tab.Chew PO SCH (08:01)
[2021-04-19] MEDS: atorvaSTATin 40 MG Tab PO SCH (08:01)
[2021-04-19] MEDS: Isosorbide Mononitrate 30 MG Tab.ER PO SCH (08:02)
[2021-04-19] MEDS: Potassium Chloride 20 MEQ Tab.ER PO SCH (08:02)
[2021-04-19 08:03] VITALS: BP 145/83
[2021-04-19] MEDS: Furosemide 40 MG Tab PO SCH (08:03)
[2021-04-19 08:04] VITALS: PULSE 86
[2021-04-19] MEDS: Metoprolol Tartrate 100 MG Tab PO SCH (08:04)
[2021-04-19] MEDS ORDERED: Amoxicillin/Clavulanate K 875-125 MG Tab PO SCH (08:15)
--- NOTE | 2021-04-19 18:14 | DISCH ---
DISCHARGE DATE: 04/19/2021 PRIMARY FINAL DIAGNOSIS: Right lower lobe pneumonia. OTHER DIAGNOSES: 1. Myelodysplastic syndrome with pancytopenia, sessile atypical colon polyps with removal pending. History of recurrent deep venous thromboses with chronic atrial fibrillation, on anticoagulation. 2. Coronary artery disease with history of myocardial infarction and stents in 2013. 3. Chronic low back pain. 4. Hypertension. 5. Hyperlipidemia. 6. Restless legs syndrome. OPERATIONS: None. COMPLICATIONS: The patient developed significant granulocytopenia due to consumption from his pneumonia. He was treated with broad-spectrum antibiotic and his granulocytes slowly came up to around 1500. SUMMARY: Mr. Pierre is a 70-year-old man who was admitted from the emergency room with right lower lobe pneumonia. He had been noticing shortness of breath. He was treated with IV antibiotics and his admission white count was 4,100, this slowly declined to a jeffery of 1,700 with 54% segs and 2 bands. He was switched to piperacillin and gentamicin. His white count slowly rebounded such that it was 2,400 with 51% segs, 2 bands on the day of discharge. He is sent home in good condition to continue Augmentin 875 mg b.i.d. He will resume his warfarin that was being held because of his potential colonoscopy that had to be rescheduled. He is awaiting rescheduling of his colonoscopy and polypectomy. He is placed back on Coumadin at this time and will need to stop again prior to his colonoscopy. MEDICATIONS ON DISCHARGE: 1. Warfarin 5 mg daily. 2. Tramadol 50 mg at bedtime. 3. Multiple vitamin 1 daily. 4. Furosemide 40 mg daily. 5. Iron sulfate 325 mg daily. 6. Aspirin 81 mg daily. 7. Sucralfate 1 g q.i.d. 8. Mirapex 0.75 mg at bedtime. 9. Potassium 20 mEq b.i.d. 10.Omeprazole 20 mg daily. 11.Nitroglycerin p.r.n. 12.Metoprolol 100 mg b.i.d. 13.Isosorbide 30 mg daily. 14.Enalapril 20 mg daily. 15.Atorvastatin 40 mg daily. 16.Augmentin 875 mg b.i.d. x1 week. 17.Albuterol MDI p.r.n. He is asked to see his regular doctor in 1 week and have previously scheduled followup as planned. /[id number] KRISTA
== END 2021-04-19 09:42 | disposition home or self-care (01) | DRG 194 ==
LOC: FB.ED 19:30 → FB.MS 21:57
PROVIDERS: ADMIT Family Medicine; ATTEND Family Medicine
DX: J18.1 Lobar pneumonia, unspecified organism (principal); J18.9 Pneumonia, unspecified organism; D61.818 Other pancytopenia; I48.20 Chronic atrial fibrillation, unspecified; H54.7 Unspecified visual loss; H91.90 Unspecified hearing loss, unspecified ear; I11.0 Hypertensive heart disease with heart failure; I50.9 Heart failure, unspecified; E78.00 Pure hypercholesterolemia, unspecified; I48.0 Paroxysmal atrial fibrillation; D46.9 Myelodysplastic syndrome, unspecified; D12.6 Benign neoplasm of colon, unspecified; Z87.01 Personal history of pneumonia (recurrent); Z86.010 Personal history of colon polyps; G47.30 Sleep apnea, unspecified; K44.9 Diaphragmatic hernia without obstruction or gangrene; M19.90 Unspecified osteoarthritis, unspecified site; I25.10 Atherosclerotic heart disease of native coronary artery without angina pectoris; M54.9 Dorsalgia, unspecified; G89.29 Other chronic pain; Z88.6 Allergy status to analgesic agent; M54.5 Low back pain; I10 Essential (primary) hypertension; Z91.048 Other nonmedicinal substance allergy status; E78.5 Hyperlipidemia, unspecified; G25.81 Restless legs syndrome; D70.9 Neutropenia, unspecified; Z90.49 Acquired absence of other specified parts of digestive tract; Z98.890 Other specified postprocedural states; Z79.82 Long term (current) use of aspirin; Z79.899 Other long term (current) drug therapy; Z88.7 Allergy status to serum and vaccine; Z86.718 Personal history of other venous thrombosis and embolism; Z79.01 Long term (current) use of anticoagulants; I25.2 Old myocardial infarction; Z95.5 Presence of coronary angioplasty implant and graft; Z88.8 Allergy status to other drugs, medicaments and biological substances; Z86.711 Personal history of pulmonary embolism; Z88.1 Allergy status to other antibiotic agents; Z88.5 Allergy status to narcotic agent; Z20.822 Contact with and (suspected) exposure to COVID-19
CPT/HCPCS: 36415; 71045; 71275; 80053; 81001; 83880; 84484; 85025; 85379; 85610; 93005; 94640; 96374; 96375; 99285; J1940; J2060; Q9967; 71046; 80069; 80170; 94760; 99284; A9270-GY; J0456; J0696; J1580; J2543; J7050; J7620-GY; U0002

== ENCOUNTER 2021-07-11 13:31 | Emergency (ER) | payer MEDICARE, BC ==
--- NOTE | 2021-07-11 16:46 | EDM.PDOC ---
ED HPI GENERAL MEDICAL PROBLEM - General Chief Complaint: General Stated Complaint: SOB Time Seen by Provider: 07/11/21 13:40 Source of Information: Reports: Patient History Limitations: Reports: No Limitations - History of Present Illness INITIAL COMMENTS - FREE TEXT/NARRATIVE: Patient presented to the ED because of increasing dyspnea for 1 week. There is no chest pain, edema, fever, chills, cough or cold. He has a history of MDS and is on a regular BT when his HB is less than 8. Generalized Pain Score (Numeric/FACES): 4 - Related Data Allergies Allergy/AdvReac Type Severity Reaction Status Date / Time Influenza Virus Vaccines Allergy Anaphylactic Verified 07/11/21 16:24 Shock levofloxacin [From Levaquin] Allergy Anaphylactic Verified 07/11/21 16:24 Shock morphine AdvReac Other Verified 07/11/21 16:24 metal- surgical Allergy Other Uncoded 07/11/21 16:24 Home Meds: Home Meds Pramipexole [Mirapex] 0.75 mg PO BEDTIME 09/08/16 [History] traMADol [Ultram] 50 mg PO BID PRN 02/05/17 [History] Nitroglycerin 0.4 mg SL Q5M PRN 01/02/19 [History] Enalapril [Vasotec] 20 mg PO DAILY 02/13/20 [History] Isosorbide Mononitrate [Imdur] 30 mg PO DAILY 08/30/20 [History] Ferrous Sulfate 325 mg PO DAILY 10/04/20 [History] Sucralfate [Carafate] 1 gm PO WITHMEALSANDBED 03/02/21 [History] Metoprolol Tartrate 150 mg PO BID 03/28/21 [History] Omeprazole 20 mg PO DAILY 03/28/21 [History] Potassium Chloride [Klor-Con M20] 20 meq PO BID tab.er 04/19/21 [Rx] Albuterol Sulfate [Albuterol Sulfate Hfa] 2 puff INH Q6H PRN 07/11/21 [History] Aspirin [Halfprin] 81 mg PO DAILY 07/11/21 [History] Docusate Sodium [Colace] 100 mg PO MOTH 07/11/21 [History] Famotidine 20 mg PO BID 07/11/21 [History] Furosemide [Lasix] 40 mg PO DAILY 07/11/21 [History] Multivitamin 1 each PO DAILY 07/11/21 [History] Warfarin [Coumadin] 2.5 mg PO MOFR 07/11/21 [History] atorvaSTATin [Lipitor] 40 mg PO DAILY 07/11/21 [History] Past Medical History HEENT History: Reports: Hard of Hearing, Impaired Vision Other HEENT History: Wears glasses. Cardiovascular History: Reports: Afib, Blood Clots/VTE/DVT, CAD, Heart Failure, High Cholesterol, Hypertension, NC, Stents Other Cardiovascular History: PAROXYSMAL ATRIAL FIBRILLATION Respiratory History: Reports: PE, Pneumonia, Recurrent, Sleep Apnea Other Respiratory History: Unable to take Flu Shot due to allergy. Wears CPAP. HX OF PULMONARY EMBOLISM Gastrointestinal History: Reports: Colon Polyp, Hiatal Hernia Genitourinary History: Reports: Acute Renal Failure Musculoskeletal History: Reports: Arthritis, Back Pain, Chronic, Fracture Other Musculoskeletal History: Hx bilat wrist fractures, R ankle, L kneecap Experiences frequent falls due to leg weakness. 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 PLMD. RESTLESS LEGS SYNDROME. Psychiatric History: Reports: None Endocrine/Metabolic History: Reports: Obesity/BMI 30+, Other (See Below) Other Endocrine/Metabolic History: borderline DM Hematologic History: Reports: None Other Hematologic History: BLOOD INFECTION Immunologic History: Reports: None Oncologic (Cancer) History: Reports: None Other Oncologic History: MDS Dermatologic History: Reports: None - Infectious Disease History Infectious Disease History: Reports: Chicken Pox, Measles - Past Surgical History Head Surgeries/Procedures: Reports: None HEENT Surgical History: Reports: LASIK, Naso-Sinus Surgery, Other (See Below) Other HEENT Surgeries/Procedures: RHINOPLASTY, BILATERAL EYE SURGERY Cardiovascular Surgical History: Reports: Cardiac Ablation, Coronary Artery Stent Other Cardiovascular Surgeries/Procedures: CARDIAC CATHETERIZATION, CORONARY ANGIOPLASTY GI Surgical History: Reports: Cholecystectomy, Colonoscopy, Other (See Below) Other GI Surgeries/Procedures: laparoscopic jennifer Musculoskeletal Surgical History: Reports: Other (See Below) Other Musculoskeletal Surgeries/Procedures:: R ANKLE SURGERY. Other Oncologic Surgeries/Procedures: pre cancerious polyps Social & Family History - Family History Family Medical History: No Pertinent Family History - Caffeine Use Caffeine Use: Reports: Soda Other Caffeine Use: Coke - Living Situation & Occupation Living situation: Reports: Occupation: Retired ED ROS GENERAL - Review of Systems Review Of Systems: See Below Constitutional: Reports: Fatigue HEENT: Reports: No Symptoms Respiratory: Reports: Shortness of Breath Cardiovascular: Reports: No Symptoms Endocrine: Reports: No Symptoms GI/Abdominal: Reports: No Symptoms : Reports: No Symptoms Musculoskeletal: Reports: No Symptoms Skin: Reports: No Symptoms Neurological: Reports: No Symptoms Psychiatric: Reports: No Symptoms ED EXAM, GENERAL - Physical Exam Exam: See Below Exam Limited By: No Limitations General Appearance: Alert, No Apparent Distress Eye Exam: Bilateral Eye: Proptosis Ears: Normal External Exam, Normal Canal Nose: Normal Inspection, Normal Mucosa, No Blood Throat/Mouth: Normal Inspection, Normal Lips, Normal Teeth Head: Atraumatic, Normocephalic Neck: Normal Inspection, Supple, Non-Tender, Full Range of Motion Respiratory/Chest: No Respiratory Distress, Lungs Clear, Normal Breath Sounds, No Accessory Muscle Use, Chest Non-Tender Cardiovascular: Normal Peripheral Pulses, Regular Rate, Rhythm, No Edema, No Gallop, No JVD, No Murmur GI/Abdominal: Normal Bowel Sounds, Soft, Non-Tender Back Exam: Normal Inspection, Full Range of Motion Course - Vital Signs Text/Narrative:: Lab result was reviewed and discussed with patient and his spouse Case was discussed with Dr Solano and wants patient to have 2 U PRBC with lasix 20 mg IV before and after transfusion Last Recorded V/S: Last Vital Signs Temp 35.8 C L 07/11/21 13:35 Pulse 70 07/11/21 14:10 Resp 22 H 07/11/21 14:10 BP 112/71 07/11/21 14:10 Pulse Ox 96 07/11/21 14:10 - Orders/Labs/Meds Labs: Laboratory Tests 07/11/21 07/11/21 07/11/21 Range/Units 14:01 14:01 14:01 WBC 12.9 H (3.2-10.1) x10-3/uL Corrected WBC 10.0 (4.5-12.0) X10(3) RBC 2.44 L (3.90-5.90) x10(6)uL Hgb 7.8 L (12.9-17.7) g/dL Hct 24.6 L (38.3-50.1) % MCV 100.8 H (80.8-98.7) fL MCH 31.8 (27.0-33.3) pg MCHC 31.5 (28.7-35.3) g/dL RDW 20.8 H (12.4-15.0) % Plt Count 58 L (117-477) x10(3)uL MPV 9.7 (6.7-11.0) fL Add Manual Diff Yes Neutrophils % (Manual) 67 (46-82) % Lymphocytes % (Manual) 18 (13-37) % Monocytes % (Manual) 9 (4-12) % Metamyelocytes % 3 H (0-0) % Myelocytes % 3 H (0-0) % Nucleated RBCs 25 H (0-0) /100WBC Polychromasia Few Poikilocytosis Moderate H Anisocytosis Moderate H Macrocytosis Moderate H Ovalocytes Moderate H Acanthocytes (Spur) Moderate H Sodium 145 (135-145) mmol/L Potassium 4.1 (3.5-5.3) mmol/L Chloride 110 (100-110) mmol/L Carbon Dioxide 28 (21-32) mmol/L BUN 28 H D (7-18) mg/dL Creatinine 1.5 H (0.70-1.30) mg/dL Est Cr Clr Drug Dosing TNP Estimated GFR (MDRD) 46 L (>60) BUN/Creatinine Ratio 18.7 (9-20) Glucose 148 H (80-116) mg/dL Calcium 8.3 L (8.6-10.2) mg/dL Total Bilirubin 2.4 H (0.1-1.3) mg/dL AST 15 D (5-25) IU/L ALT 27 (12-36) U/L Alkaline Phosphatase 61 (56-112) IU/L NT-Pro-B Natriuret Pep 3658 H* (<=125) pg/mL Total Protein 6.3 (6.0-8.0) g/dL Albumin 3.3 (3.2-4.6) g/dL Globulin 3.0 g/dL Albumin/Globulin Ratio 1.1 Urine Color (YELLOW) Urine Appearance (CLEAR) Urine pH (5.0-6.5) Ur Specific [place] (1.010-1.025) Urine Protein (NEGATIVE) mg/dL Urine Glucose (UA) (NORMAL) mg/dL Urine Ketones (NEGATIVE) mg/dL Urine Occult Blood (NEGATIVE) Urine Nitrite (NEGATIVE) Urine Bilirubin (NEGATIVE) Urine Urobilinogen (NEGATIVE) mg/dL Ur Leukocyte Esterase (NEGATIVE) Urine RBC (0-5) Urine WBC (0-5) Ur Squamous Epith Cells (NS,R,O) Urine Bacteria (NS) 07/11/21 Range/Units 15:00 WBC (3.2-10.1) x10-3/uL Corrected WBC (4.5-12.0) X10(3) RBC (3.90-5.90) x10(6)uL Hgb (12.9-17.7) g/dL Hct (38.3-50.1) % MCV (80.8-98.7) fL MCH (27.0-33.3) pg MCHC (28.7-35.3) g/dL RDW (12.4-15.0) % Plt Count (117-477) x10(3)uL MPV (6.7-11.0) fL Add Manual Diff Neutrophils % (Manual) (46-82) % Lymphocytes % (Manual) (13-37) % Monocytes % (Manual) (4-12) % Metamyelocytes % (0-0) % Myelocytes % (0-0) % Nucleated RBCs (0-0) /100WBC Polychromasia Poikilocytosis Anisocytosis Macrocytosis Ovalocytes Acanthocytes (Spur) Sodium (135-145) mmol/L Potassium (3.5-5.3) mmol/L Chloride (100-110) mmol/L Carbon Dioxide (21-32) mmol/L BUN (7-18) mg/dL Creatinine (0.70-1.30) mg/dL Est Cr Clr Drug Dosing Estimated GFR (MDRD) (>60) BUN/Creatinine Ratio (9-20) Glucose (80-116) mg/dL Calcium (8.6-10.2) mg/dL Total Bilirubin (0.1-1.3) mg/dL AST (5-25) IU/L ALT (12-36) U/L Alkaline Phosphatase (56-112) IU/L NT-Pro-B Natriuret Pep (<=125) pg/mL Total Protein (6.0-8.0) g/dL Albumin (3.2-4.6) g/dL Globulin g/dL Albumin/Globulin Ratio Urine Color Yellow (YELLOW) Urine Appearance Clear (CLEAR) Urine pH 6.0 (5.0-6.5) Ur Specific [place] 1.010 (1.010-1.025) Urine Protein Negative (NEGATIVE) mg/dL Urine Glucose (UA) Normal (NORMAL) mg/dL Urine Ketones Negative (NEGATIVE) mg/dL Urine Occult Blood Negative (NEGATIVE) Urine Nitrite Negative (NEGATIVE) Urine Bilirubin Negative (NEGATIVE) Urine Urobilinogen Normal (NEGATIVE) mg/dL Ur Leukocyte Esterase Negative (NEGATIVE) Urine RBC 0-5 (0-5) Urine WBC 0-5 (0-5) Ur Squamous Epith Cells Few H (NS,R,O) Urine Bacteria Few H (NS) Departure - Departure Time of Disposition: 15:45 Disposition: DC/Tfer to Other 70 Condition: Good Clinical Impression: MDS (myelodysplastic syndrome), Anemia - Discharge Information Referrals: Kevin Youngblood MD [Primary Care Provider] - Forms: ED Department Discharge Sepsis Event Note (ED) - Focused Exam Vital Signs: Vital Signs Temp Pulse Resp BP Pulse Ox 07/11/21 14:10 70 22 H 112/71 96 07/11/21 13:35 35.8 C L 77 24 H 94/57 L 96
[2021-07-11 17:23] VITALS: BP 112/71; PULSE 70
== END 2021-07-11 15:30 | disposition other institution (70) ==
LOC: FB.ED 13:31
DX: D46.9 Myelodysplastic syndrome, unspecified (principal); I13.0 Hypertensive heart and chronic kidney disease with heart failure and stage 1 through stage 4 chronic kidney disease, or unspecified chronic kidney disease; I50.9 Heart failure, unspecified; N17.9 Acute kidney failure, unspecified; E78.00 Pure hypercholesterolemia, unspecified; E66.9 Obesity, unspecified; Z88.7 Allergy status to serum and vaccine; Z88.1 Allergy status to other antibiotic agents; Z88.5 Allergy status to narcotic agent; Z91.048 Other nonmedicinal substance allergy status; Z79.82 Long term (current) use of aspirin; Z68.34 Body mass index [BMI] 34.0-34.9, adult; Z79.899 Other long term (current) drug therapy
CPT/HCPCS: 36415; 36430; 80053; 81001; 83880; 85025; 86850; 86900; 86901; 86920; 86922; 96374; 96376; 99284; J1940; J7050; P9016

== ENCOUNTER 2021-08-12 09:26 | Emergency (ER) | payer MEDICARE, BC ==
[2021-08-12] MEDS ORDERED: Acetaminophen/HYDROcodone 325-5 MG Tab PO ONE ×2 (09:38→10:48)
--- NOTE | 2021-08-12 09:45 | EDM.PDOC ---
ED HPI GENERAL MEDICAL PROBLEM - General Chief Complaint: Lower Extremity Injury/Pain Stated Complaint: HIP PAIN Time Seen by Provider: 08/12/21 09:35 Source of Information: Reports: Patient, Old Records, RN History Limitations: Reports: No Limitations - History of Present Illness INITIAL COMMENTS - FREE TEXT/NARRATIVE: 71 yo male here with R hip pain that radiates toward the knee. He denies any recent injury. He has had some mild pain in this area chronically managed with tramadol, but since yesterday AM his pain is not controlled. He did not reach out to his own doctor yesterday. Has a pHx of disc herniation in his back also. Onset: Gradual Onset Date: 08/11/21 Onset Time: 08:00 Duration: Day(s): (1+) Location: Reports: Radiates to (knee), Other (R hip) Quality: Reports: Ache, Other (at times pulsating) Severity: Moderate Improves with: Reports: Rest (does not go completely away with rest.) Worsens with: Reports: Movement Context: Reports: Other (See HPI) Associated Symptoms: Reports: No Other Symptoms Treatments SPRAY MIXER: Reports: Other (see below) (none) Right Upper Leg Pain Score (Numeric/FACES): 8 - Related Data Allergies Allergy/AdvReac Type Severity Reaction Status Date / Time Influenza Virus Vaccines Allergy Anaphylactic Verified 08/09/21 13:36 Shock levofloxacin [From Levaquin] Allergy Anaphylactic Verified 08/09/21 13:36 Shock morphine AdvReac Other Verified 08/09/21 13:36 metal- surgical Allergy Other Uncoded 08/09/21 13:36 Home Meds: Home Meds Pramipexole [Mirapex] 0.75 mg PO BEDTIME 09/08/16 [History] traMADol [Ultram] 50 mg PO BID PRN 02/05/17 [History] Nitroglycerin 0.4 mg SL Q5M PRN 01/02/19 [History] Enalapril [Vasotec] 20 mg PO DAILY 02/13/20 [History] Isosorbide Mononitrate [Imdur] 30 mg PO DAILY 08/30/20 [History] Ferrous Sulfate 325 mg PO DAILY 10/04/20 [History] Sucralfate [Carafate] 1 gm PO WITHMEALSANDBED PRN 03/02/21 [History] Metoprolol Tartrate 150 mg PO BID 03/28/21 [History] Omeprazole 20 mg PO DAILY PRN 03/28/21 [History] Potassium Chloride [Klor-Con M20] 20 meq PO BID tab.er 04/19/21 [Rx] Albuterol Sulfate [Albuterol Sulfate Hfa] 2 puff INH Q6H PRN 07/11/21 [History] Docusate Sodium [Colace] 100 mg PO MOTH 07/11/21 [History] Famotidine 20 mg PO BID PRN 07/11/21 [History] Furosemide [Lasix] 40 mg PO DAILY 07/11/21 [History] Multivitamin 1 each PO DAILY 07/11/21 [History] Warfarin [Coumadin] 2.5 mg PO MO 07/11/21 [History] atorvaSTATin [Lipitor] 40 mg PO DAILY 07/11/21 [History] Warfarin [Coumadin] 5 mg PO SUTUWETHFRSA 08/09/21 [History] Past Medical History HEENT History: Reports: Hard of Hearing, Impaired Vision Other HEENT History: Wears glasses. Cardiovascular History: Reports: Afib, Blood Clots/VTE/DVT, CAD, Heart Failure, High Cholesterol, Hypertension, CO, Stents Other Cardiovascular History: PAROXYSMAL ATRIAL FIBRILLATION Respiratory History: Reports: PE, Pneumonia, Recurrent, Sleep Apnea Other Respiratory History: Unable to take Flu Shot due to allergy. Wears CPAP. HX OF PULMONARY EMBOLISM Gastrointestinal History: Reports: Colon Polyp, Hiatal Hernia Genitourinary History: Reports: Acute Renal Failure Musculoskeletal History: Reports: Arthritis, Back Pain, Chronic, Fracture Other Musculoskeletal History: Hx bilat wrist fractures, R ankle, L kneecap Experiences frequent falls due to leg weakness. 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 PLMD. RESTLESS LEGS SYNDROME. Psychiatric History: Reports: None Endocrine/Metabolic History: Reports: Obesity/BMI 30+, Other (See Below) Other Endocrine/Metabolic History: borderline DM Hematologic History: Reports: None Other Hematologic History: BLOOD INFECTION Immunologic History: Reports: None Oncologic (Cancer) History: Reports: None Other Oncologic History: MDS Dermatologic History: Reports: None - Infectious Disease History Infectious Disease History: Reports: Chicken Pox, Measles - Past Surgical History Head Surgeries/Procedures: Reports: None HEENT Surgical History: Reports: LASIK, Naso-Sinus Surgery, Other (See Below) Other HEENT Surgeries/Procedures: RHINOPLASTY, BILATERAL EYE SURGERY Cardiovascular Surgical History: Reports: Cardiac Ablation, Coronary Artery Stent Other Cardiovascular Surgeries/Procedures: CARDIAC CATHETERIZATION, CORONARY ANGIOPLASTY GI Surgical History: Reports: Cholecystectomy, Colonoscopy, Other (See Below) Other GI Surgeries/Procedures: laparoscopic jennifer Musculoskeletal Surgical History: Reports: Other (See Below) Other Musculoskeletal Surgeries/Procedures:: R ANKLE SURGERY. Other Oncologic Surgeries/Procedures: pre cancerious polyps Social & Family History - Family History Family Medical History: No Pertinent Family History - Caffeine Use Caffeine Use: Reports: Soda Other Caffeine Use: Coke - Living Situation & Occupation Living situation: Reports: Occupation: Retired Review of Systems - Review of Systems Review Of Systems: See Below Constitutional: Reports: No Symptoms Musculoskeletal: Reports: Joint Pain (R groin/hip), Other (R knee). Denies: Joint Swelling Skin: Reports: No Symptoms Neurological: Reports: No Symptoms ED EXAM, GENERAL - Physical Exam Exam: See Below Exam Limited By: No Limitations General Appearance: Alert, WD/WN, No Apparent Distress, Obese Back Exam: Normal Inspection Extremities: Normal Inspection, Normal Range of Motion, Pedal Edema (trace to both LE's). No: Non-Tender (is tender everywhere that I touch on that extremity. ROM at hip is decreased, but not severely. ) Neurological: Alert, Oriented, CN II-XII Intact, Normal Cognition, No Motor/Sensory Deficits Psychiatric: Normal Affect, Normal Mood Skin Exam: Warm, Dry, Intact, Normal Color Course - Vital Signs Last Recorded V/S: Last Vital Signs Temp 37.0 C 08/12/21 09:26 Pulse 85 08/12/21 09:26 Resp 20 08/12/21 09:26 BP 116/66 08/12/21 09:26 Pulse Ox 94 L 08/12/21 09:26 - Orders/Labs/Meds Orders: Active Orders 24 hr Category Date Time Status Hip Min 2V or 3V Rt [CR] Stat Exams 08/12/21 09:39 Ordered Meds: Medications Discontinued Medications Generic Name Dose Route Start Last Admin Trade Name Freq PRN Reason Stop Dose Admin Hydrocodone Bitart/Acetaminophen 1 tab 08/12/21 09:38 08/12/21 09:57 Acetaminophen/Hydrocodone 325-5 Mg Tab PO 08/12/21 09:39 1 tab ONETIME ONE Administration Hydrocodone Bitart/Acetaminophen 1 tab 08/12/21 10:48 08/12/21 11:06 Acetaminophen/Hydrocodone 325-5 Mg Tab PO 08/12/21 10:49 1 tab ONETIME ONE Administration - Radiology Interpretation Free Text/Narrative:: R hip X-ray-mild degen changes - Re-Assessments/Exams Free Text/Narrative Re-Assessment/Exam: 08/12/21 10:50 Partial relief with [place] 5/325 Free Text/Narrative Re-Assessment/Exam: 08/12/21 11:32 Sleeping after his 2nd [place] Departure - Departure Time of Disposition: 11:35 Disposition: Home, Self-Care 01 Condition: Fair Clinical Impression: Radicular pain of right lower extremity - Discharge Information *PRESCRIPTION DRUG MONITORING PROGRAM REVIEWED*: No *COPY OF PRESCRIPTION DRUG MONITORING REPORT IN PATIENT IRVING: No Instructions: Radicular Pain, Pain Medicine Instructions, [id number] Referrals: Kevin Youngblood MD [Primary Care Provider] - Forms: ED Department Discharge Additional Instructions: Use the hydrocodone/APAP as directed for pain relief. See your provider early next week for a recheck and possibly further testing. No driving when taking the pain pills. Sepsis Event Note (ED) - Focused Exam Vital Signs: Vital Signs Temp Pulse Resp BP Pulse Ox 08/12/21 09:26 37.0 C 85 20 116/66 94 L - My Orders Last 24 Hours: My Active Orders 08/12/21 09:39 Hip Min 2V or 3V Rt [CR] Stat - Assessment/Plan Last 24 Hours: My Active Orders 08/12/21 09:39 Hip Min 2V or 3V Rt [CR] Stat
[2021-08-12 09:48] VITALS: BP 116/66; PULSE 85
--- NOTE | 2021-08-14 10:45 | CR ---
INDICATION: Right hip pain. No injury. RIGHT HIP: Frontal and lateral views of the right hip were obtained 08/12/21 - no comparisons. There is narrowing of the joint space of moderate degree superiorly with moderate hypertrophic degenerative changes compatible with moderate osteoarthritis of the right hip joint. Minimal degenerative changes are also noted at the sacroiliac joint on the right. An acute bone or joint abnormality was not identified. IMPRESSION: Moderate arthritis right hip joint with joint space loss superiorly. MTDD
== END 2021-08-12 12:16 | disposition home or self-care (01) ==
LOC: FB.ED 09:26
DX: M54.10 Radiculopathy, site unspecified (principal); E78.00 Pure hypercholesterolemia, unspecified; I11.0 Hypertensive heart disease with heart failure; I50.9 Heart failure, unspecified; I48.91 Unspecified atrial fibrillation; E66.9 Obesity, unspecified; Z88.7 Allergy status to serum and vaccine; Z88.5 Allergy status to narcotic agent; Z88.1 Allergy status to other antibiotic agents; Z88.0 Allergy status to penicillin; Z79.01 Long term (current) use of anticoagulants; Z79.899 Other long term (current) drug therapy; Z68.33 Body mass index [BMI] 33.0-33.9, adult
CPT/HCPCS: 73502; 99283; A9270

== ENCOUNTER 2021-08-14 11:01 | Inpatient (IN) | payer MEDICARE, BC ==
[2021-08-14] MEDS ORDERED: Acetaminophen/HYDROcodone 325-5 MG Tab PO PRN ×2 (12:03→16:23)
[2021-08-14] MEDS ORDERED: Warfarin Sliding Scale PO SCH (12:45)
[2021-08-14] MEDS ORDERED: Enoxaparin 40 MG/0.4 ML Syringe SUBCUT SCH (14:00)
--- NOTE | 2021-08-14 15:48 | CR ---
INDICATION: Short of breath. CHEST, TWO VIEWS: PA and lateral views of the chest were obtained 08/14/21 and compared with 04/17/21. The upper lung field pulmonary vasculature appears somewhat more prominent than on the previous study, raising the question of pulmonary vascular congestion. The heart, however, did not appear significantly enlarged, raising question other than cardiac cause or possibly acute myocardial event, producing CHF. A definite active infiltrate or effusion was not identified. However, markings are heavy, emphasized by poor inspiration at the lung bases, making it impossible to exclude patchy bronchopneumonia at either lung base. There are some mild degenerative changes in the mid thoracic spine. IMPRESSION: 1. No definite acute process, but difficult to exclude patchy bronchopneumonia at the lung bases. 2. Pulmonary vascular congestion is present, which could be on the basis of an acute myocardial event or noncardiac cause and should be correlated clinically. Fluid overload, renal failure, etc. would be considerations. 3. Mild DJD thoracic spine. 4. 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 MTDD
--- NOTE | 2021-08-14 15:55 | CR ---
INDICATION: Groin pain - predominantly right hip. Shooting pain to groin. PELVIS: Single frontal view of the pelvis was obtained 08/14/21 and compared with 11/10/20 CT abdomen, which includes the pelvis. Osteoarthritis is noted at the hip joints, mild to moderate on the left and moderate to moderately severe on the right with narrowing of the hip joint space superiorly of moderate to moderately severe degree. A definite acute bony or joint abnormality was not identified. IMPRESSION: Osteoarthritis, most notable at the right hip joint. MTDD
[2021-08-14] MEDS ORDERED: Warfarin 2.5 MG Tab *PTOM PO ONE (16:00)
--- NOTE | 2021-08-14 16:01 | CR ---
INDICATION: Back and groin pain. LUMBOSACRAL SPINE: Four images of the lumbosacral spine were obtained in frontal and lateral projections and compared with previous CT scan from 11/10/20. A mild dextroconvex rotoscoliosis of the lumbar spine is noted, appearing slightly more prominent than on the previous CT scan. Hypertrophic degenerative changes are noted, mostly at L4-5 and L5-S1 with disc disease suggested at L4-5 and L5-S1 with grade I anterolisthesis at L4-5. There may be slight loss of disc space compared with the previous examination, especially at L4-5. Disc disease may also be present at L2-3, which appears slightly more narrowed than on the previous study with hypertrophic spurring, also present, off the vertebral bodies anteriorly and laterally on the right at that level. Sacroiliac joints appear to be intact. Calcifications are noted in the area of the aorta. No aneurysm was detected on the previous CT scan - calcifications seen at this time are more prominent than on the previous study, however, and findings should be correlate clinically in that regard. IMPRESSION: Degenerative changes and disc disease, primarily L4-5 through L5- S1, but also at L2-3 - some progressive loss of disc space is suggested compared with 11/10/20. MTDD
[2021-08-14] MEDS ORDERED: Iopamidol 755 MG/ML 150 ML Bottle IV ONE (16:13)
[2021-08-14] MEDS ORDERED: Albuterol 8 GM Inhaler INH PRN (16:23)
[2021-08-14] MEDS ORDERED: traMADol 50 MG Tab PO PRN (16:23)
[2021-08-14] MEDS ORDERED: Nitroglycerin 0.4 MG Tab.SL SL PRN (16:23)
[2021-08-14] MEDS ORDERED: Docusate Sodium 100 MG Cap PO PRN (16:23)
[2021-08-14] MEDS ORDERED: Warfarin 2.5 MG Tab PO SCH (16:30)
[2021-08-14] MEDS ORDERED: Sodium Chloride 0.9% 1,000 ML IV SCH (16:30)
[2021-08-14] MEDS: cefTRIAXone 1 GM Vial IVPUSH SCH (16:59)
[2021-08-14] MEDS ORDERED: Warfarin 5 MG Tab *PTOM PO ONE (17:30)
--- NOTE | 2021-08-14 17:45 | CT ---
INDICATION: Question infection or fracture. CT PELVIS WITH CONTRAST: Spiral 3.75 mm axial sections were obtained through the pelvis with 135 mL [id number] at 2 mL/second with sagittal and coronal reconstructions 08/14/[address] abdomen and pelvis from 11/10/20. TOTAL EXAM DLP: 1430.33 mGy/cm. Osteoarthritis is noted at the hip joints bilaterally, but is significantly more severe on the right with more severe narrowing of the right hip joint space and with a greater amount of hypertrophic change and subchondral cystic change. Degenerative changes and disc disease are also again noted at L5-S1, L3-4 and L4-5. A definite acute fracture or dislocation was not identified. No definite metastatic disease process was seen. No findings to strongly suggest an abscess formation was noted. Prostate is enlarged, measuring 52 x 53 x 47 mm in craniocaudad, transverse and AP diameters with some calcification in the prostate. It impresses upon the floor of the bladder and has a slightly nodular appearance - correlate clinically. The urinary bladder is otherwise unremarkable. Inguinal hernia on the right is slightly more prominent than on the previous examination, but includes only fat. There appears to be a clip in the area of the appendix, suggesting appendectomy. The pattern of gas and feces is nonspecific without evidence of free air or bowel obstruction. Kidneys partly visualized showed evidence of cystic changes, which appeared to be simple cysts. Atherosclerotic changes are noted with arterial calcifications. The sacroiliac joints appear to be fairly intact. IMPRESSION: 1. No evidence of abscess, fracture or dislocation. 2. Osteoarthritis right hip joint, greater than left hip joint. 3. Degenerative changes and disc disease L3 through S1. 4. Multicystic changes in the kidneys. 5. Prostatic enlargement. 6. No evidence of abscess formation. 7. Appendix not definitely visualized. 8. ASD. Report was given in person to Dr. Youngblood soon after it was completed. [facility]
--- NOTE | 2021-08-14 18:48 | PCM.HP.2 ---
H&P History of Present Illness - General Date of Service: 08/14/21 Admit Problem/Dx: Admission Diagnosis/Problem Admission Diagnosis/Problem Weakness Source of Information: Patient, Family History Limitations: Reports: No Limitations - History of Present Illness Initial Comments - Free Text/Narative: This is a 71-year-old male patient came in to see Dr. Fernandez today for pain down his right groin into the thigh and hip. Sometimes into the knee. Says he can barely lift his leg. He's had a couple falls because of the pain and has bruising on his back. He has history of dysplastic syndrome. He is chronically anemic and is currently short of breath. He denies fevers, chills but is in a lot of pain. He's had a history of PE, CHF, MRIs in the past. He denies chest pain at this time. No coughing. - Related Data Allergies/Adverse Reactions: Allergies Allergy/AdvReac Type Severity Reaction Status Date / Time Influenza Virus Vaccines Allergy Anaphylactic Verified 08/14/21 12:27 Shock levofloxacin [From Levaquin] Allergy Anaphylactic Verified 08/14/21 12:27 Shock morphine AdvReac Other Verified 08/14/21 12:27 metal- surgical Allergy Other Uncoded 08/14/21 12:27 Home Medications: Home Meds Pramipexole [Mirapex] 0.75 mg PO BEDTIME 09/08/16 [History] traMADol [Ultram] 50 mg PO BID PRN 02/05/17 [History] Nitroglycerin 0.4 mg SL Q5M PRN 01/02/19 [History] Enalapril [Vasotec] 20 mg PO DAILY 02/13/20 [History] Isosorbide Mononitrate [Imdur] 30 mg PO DAILY 08/30/20 [History] Metoprolol Tartrate 100 mg PO BID 03/28/21 [History] Potassium Chloride [Klor-Con M20] 20 meq PO BID tab.er 04/19/21 [Rx] Albuterol Sulfate [Albuterol Sulfate Hfa] 2 puff INH Q6H PRN 07/11/21 [History] Docusate Sodium [Colace] 100 mg PO DAILY PRN 07/11/21 [History] Famotidine 20 mg PO BID PRN 07/11/21 [History] Furosemide [Lasix] 40 mg PO DAILY 07/11/21 [History] Multivitamin 1 each PO DAILY 07/11/21 [History] Warfarin [Coumadin] 2.5 mg PO MO 07/11/21 [History] atorvaSTATin [Lipitor] 40 mg PO DAILY 07/11/21 [History] Warfarin [Coumadin] 5 mg PO SUTUWETHFRSA 08/09/21 [History] Acetaminophen/HYDROcodone [HYDROcodone-Acetaminophen 5-325 MG *] 1 - 2 tab PO Q6H PRN #14 each 08/12/21 [Rx] Aspirin [Halfprin] 81 mg PO DAILY 08/14/21 [History] Past Medical History HEENT History: Reports: Hard of Hearing, Impaired Vision Other HEENT History: Wears glasses. Cardiovascular History: Reports: Afib, Blood Clots/VTE/DVT, CAD, Heart Failure, High Cholesterol, Hypertension, IA, Stents Other Cardiovascular History: PAROXYSMAL ATRIAL FIBRILLATION Respiratory History: Reports: PE, Pneumonia, Recurrent, Sleep Apnea, SOB Other Respiratory History: Unable to take Flu Shot due to allergy. Wears CPAP. HX OF PULMONARY EMBOLISM Gastrointestinal History: Reports: Colon Polyp, Hiatal Hernia Genitourinary History: Reports: Acute Renal Failure Musculoskeletal History: Reports: Arthritis, Back Pain, Chronic, Fracture Other Musculoskeletal History: Hx bilat wrist fractures, R ankle, L kneecap Experiences frequent falls due to leg weakness. 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 PLMD. RESTLESS LEGS SYNDROME. Psychiatric History: Reports: None Endocrine/Metabolic History: Reports: Obesity/BMI 30+, Other (See Below) Other Endocrine/Metabolic History: borderline DM Hematologic History: Reports: None Other Hematologic History: BLOOD INFECTION Immunologic History: Reports: None Oncologic (Cancer) History: Reports: None Other Oncologic History: MDS Dermatologic History: Reports: None - Infectious Disease History Infectious Disease History: Reports: Chicken Pox, Measles - Past Surgical History Head Surgeries/Procedures: Reports: None HEENT Surgical History: Reports: LASIK, Naso-Sinus Surgery, Other (See Below) Other HEENT Surgeries/Procedures: RHINOPLASTY, BILATERAL EYE SURGERY Cardiovascular Surgical History: Reports: Cardiac Ablation, Coronary Artery Stent Other Cardiovascular Surgeries/Procedures: CARDIAC CATHETERIZATION, CORONARY ANGIOPLASTY GI Surgical History: Reports: Cholecystectomy, Colonoscopy, Other (See Below) Other GI Surgeries/Procedures: laparoscopic jennifer Musculoskeletal Surgical History: Reports: Other (See Below) Other Musculoskeletal Surgeries/Procedures:: R ANKLE SURGERY. Other Oncologic Surgeries/Procedures: pre cancerious polyps Social & Family History - Family History Family Medical History: No Pertinent Family History - Tobacco Use Tobacco Use Status *Q: Never Tobacco User - Caffeine Use Caffeine Use: Reports: Soda Other Caffeine Use: Coke - Recreational Drug Use Recreational Drug Use: No - Living Situation & Occupation Living situation: Reports: Occupation: Retired H&P Review of Systems - Review of Systems: Review Of Systems: See Below General: Reports: No Symptoms HEENT: Reports: No Symptoms Pulmonary: Reports: Shortness of Breath. Denies: Wheezing, Cough, Sputum Cardiovascular: Reports: No Symptoms Gastrointestinal: Reports: No Symptoms Genitourinary: Reports: No Symptoms Musculoskeletal: Reports: Joint Pain, Muscle Pain Skin: Reports: No Symptoms Psychiatric: Reports: No Symptoms Neurological: Reports: No Symptoms Hematologic/Lymphatic: Reports: Anemia, Easy Bleeding Immunologic: Reports: No Symptoms Exam - Exam Exam: See Below - Vital Signs Vital Signs: Last Vital Signs Temp 100.2 F 08/14/21 16:18 Pulse 120 H 08/14/21 16:18 Resp 25 H 08/14/21 16:18 BP 109/56 L 08/14/21 16:18 Pulse Ox 95 08/14/21 16:18 Weight: 263 lb - Exam General: Alert, Oriented, Cooperative, Mild Distress HEENT: Hearing Intact, Posterior Pharynx Clear, TMs Clear Neck: Supple, Trachea Midline Lungs: Clear to Auscultation, Crackles Cardiovascular: Regular Rate, Regular Rhythm, Normal S1, Normal S2. No: Systolic Murmur GI/Abdominal Exam: Normal Bowel Sounds, Soft, No Distention Extremities: No Pedal Edema, Other (Back his bili minimal pain on palpation. Right hip no pain on palpation his decrease internal and external rotations hip and little bit of pain with internal rotation. He has a little pain behind the knee. Normal range of motion of the knee no swelling of the leg.) Neurological: Normal Speech, Normal Tone. No: Normal Gait Neuro Extensive - Mental Status: Alert, Oriented x3, Normal Cognition Psychiatric: Alert, Normal Affect, Normal Mood - Patient Data Lab Results Last 24 hrs: Laboratory Results - last 24 hr 08/14/21 08/14/21 08/14/21 Range/Units 11:45 12:20 12:20 WBC 51.2 H* (3.2-10.1) x10-3/uL Corrected WBC 41.0 H* (4.5-12.0) X10(3) RBC 2.75 L (3.90-5.90) x10(6)uL Hgb 8.2 L (12.9-17.7) g/dL Hct 27.6 L (38.3-50.1) % MCV 100.5 H (80.8-98.7) fL MCH 29.7 (27.0-33.3) pg MCHC 29.6 (28.7-35.3) g/dL RDW 23.7 H (12.4-15.0) % Plt Count 55 L (117-477) x10(3)uL MPV 8.8 (6.7-11.0) fL Add Manual Diff Yes Neutrophils % (Manual) 81 (46-82) % Lymphocytes % (Manual) 5 L (13-37) % Monocytes % (Manual) 8 (4-12) % Eosinophils % (Manual) 1 (0-5) % Metamyelocytes % 2 H (0-0) % Myelocytes % 3 H (0-0) % Nucleated RBCs 23 H (0-0) /100WBC Polychromasia Few Poikilocytosis Moderate H Anisocytosis Moderate H Macrocytosis Moderate H Tear Drop Cells Few Ovalocytes Moderate H Acanthocytes (Spur) Few PT (9.0-11.1) sec INR (1.00-1.24) D-Dimer, Quantitative (0.0-0.59) mg/LFEU Sodium 142 (135-145) mmol/L Potassium 5.0 (3.5-5.3) mmol/L Chloride 107 (100-110) mmol/L Carbon Dioxide 23 (21-32) mmol/L BUN 38 H D (7-18) mg/dL Creatinine 1.5 H (0.70-1.30) mg/dL Est Cr Clr Drug Dosing TNP Estimated GFR (MDRD) 46 L (>60) BUN/Creatinine Ratio 25.3 H (9-20) Glucose 117 H (80-116) mg/dL Lactic Acid (0.4-2.0) mmol/L Calcium 8.5 L (8.6-10.2) mg/dL Total Bilirubin 1.8 H (0.1-1.3) mg/dL AST 48 H D (5-25) IU/L ALT 29 (12-36) U/L Alkaline Phosphatase 68 (56-112) IU/L Troponin I (4.0-60.3) pg/mL NT-Pro-B Natriuret Pep (<=125) pg/mL Total Protein 7.0 (6.0-8.0) g/dL Albumin 3.6 (3.2-4.6) g/dL Globulin 3.4 g/dL Albumin/Globulin Ratio 1.1 Urine Color (YELLOW) Urine Appearance (CLEAR) Urine pH (5.0-6.5) Ur Specific [place] (1.010-1.025) Urine Protein (NEGATIVE) mg/dL Urine Glucose (UA) (NORMAL) mg/dL Urine Ketones (NEGATIVE) mg/dL Urine Occult Blood (NEGATIVE) Urine Nitrite (NEGATIVE) Urine Bilirubin (NEGATIVE) Urine Urobilinogen (NEGATIVE) mg/dL Ur Leukocyte Esterase (NEGATIVE) Urine RBC (0-5) Urine WBC (0-5) Ur Squamous Epith Cells (NS,R,O) Urine Bacteria (NS) SARS-CoV-2 RNA (BRIAN) Negative (NEGATIVE) 08/14/21 08/14/21 08/14/21 Range/Units 12:20 12:20 12:20 WBC (3.2-10.1) x10-3/uL Corrected WBC (4.5-12.0) X10(3) RBC (3.90-5.90) x10(6)uL Hgb (12.9-17.7) g/dL Hct (38.3-50.1) % MCV (80.8-98.7) fL MCH (27.0-33.3) pg MCHC (28.7-35.3) g/dL RDW (12.4-15.0) % Plt Count (117-477) x10(3)uL MPV (6.7-11.0) fL Add Manual Diff Neutrophils % (Manual) (46-82) % Lymphocytes % (Manual) (13-37) % Monocytes % (Manual) (4-12) % Eosinophils % (Manual) (0-5) % Metamyelocytes % (0-0) % Myelocytes % (0-0) % Nucleated RBCs (0-0) /100WBC Polychromasia Poikilocytosis Anisocytosis Macrocytosis Tear Drop Cells Ovalocytes Acanthocytes (Spur) PT 24.1 H (9.0-11.1) sec INR 2.36 H (1.00-1.24) D-Dimer, Quantitative 2.35 H (0.0-0.59) mg/LFEU Sodium (135-145) mmol/L Potassium (3.5-5.3) mmol/L Chloride (100-110) mmol/L Carbon Dioxide (21-32) mmol/L BUN (7-18) mg/dL Creatinine (0.70-1.30) mg/dL Est Cr Clr Drug Dosing Estimated GFR (MDRD) (>60) BUN/Creatinine Ratio (9-20) Glucose (80-116) mg/dL Lactic Acid (0.4-2.0) mmol/L Calcium (8.6-10.2) mg/dL Total Bilirubin (0.1-1.3) mg/dL AST (5-25) IU/L ALT (12-36) U/L Alkaline Phosphatase (56-112) IU/L Troponin I 11.1 (4.0-60.3) pg/mL NT-Pro-B Natriuret Pep 4225 H* (<=125) pg/mL Total Protein (6.0-8.0) g/dL Albumin (3.2-4.6) g/dL Globulin g/dL Albumin/Globulin Ratio Urine Color (YELLOW) Urine Appearance (CLEAR) Urine pH (5.0-6.5) Ur Specific [place] (1.010-1.025) Urine Protein (NEGATIVE) mg/dL Urine Glucose (UA) (NORMAL) mg/dL Urine Ketones (NEGATIVE) mg/dL Urine Occult Blood (NEGATIVE) Urine Nitrite (NEGATIVE) Urine Bilirubin (NEGATIVE) Urine Urobilinogen (NEGATIVE) mg/dL Ur Leukocyte Esterase (NEGATIVE) Urine RBC (0-5) Urine WBC (0-5) Ur Squamous Epith Cells (NS,R,O) Urine Bacteria (NS) SARS-CoV-2 RNA (BRIAN) (NEGATIVE) 08/14/21 08/14/21 Range/Units 12:20 15:07 WBC (3.2-10.1) x10-3/uL Corrected WBC (4.5-12.0) X10(3) RBC (3.90-5.90) x10(6)uL Hgb (12.9-17.7) g/dL Hct (38.3-50.1) % MCV (80.8-98.7) fL MCH (27.0-33.3) pg MCHC (28.7-35.3) g/dL RDW (12.4-15.0) % Plt Count (117-477) x10(3)uL MPV (6.7-11.0) fL Add Manual Diff Neutrophils % (Manual) (46-82) % Lymphocytes % (Manual) (13-37) % Monocytes % (Manual) (4-12) % Eosinophils % (Manual) (0-5) % Metamyelocytes % (0-0) % Myelocytes % (0-0) % Nucleated RBCs (0-0) /100WBC Polychromasia Poikilocytosis Anisocytosis Macrocytosis Tear Drop Cells Ovalocytes Acanthocytes (Spur) PT (9.0-11.1) sec INR (1.00-1.24) D-Dimer, Quantitative (0.0-0.59) mg/LFEU Sodium (135-145) mmol/L Potassium (3.5-5.3) mmol/L Chloride (100-110) mmol/L Carbon Dioxide (21-32) mmol/L BUN (7-18) mg/dL Creatinine (0.70-1.30) mg/dL Est Cr Clr Drug Dosing Estimated GFR (MDRD) (>60) BUN/Creatinine Ratio (9-20) Glucose (80-116) mg/dL Lactic Acid 1.8 (0.4-2.0) mmol/L Calcium (8.6-10.2) mg/dL Total Bilirubin (0.1-1.3) mg/dL AST (5-25) IU/L ALT (12-36) U/L Alkaline Phosphatase (56-112) IU/L Troponin I (4.0-60.3) pg/mL NT-Pro-B Natriuret Pep (<=125) pg/mL Total Protein (6.0-8.0) g/dL Albumin (3.2-4.6) g/dL Globulin g/dL Albumin/Globulin Ratio Urine Color Yellow (YELLOW) Urine Appearance Clear (CLEAR) Urine pH 5.0 (5.0-6.5) Ur Specific [place] 1.025 (1.010-1.025) Urine Protein Negative (NEGATIVE) mg/dL Urine Glucose (UA) Normal (NORMAL) mg/dL Urine Ketones Negative (NEGATIVE) mg/dL Urine Occult Blood Moderate H (NEGATIVE) Urine Nitrite Negative (NEGATIVE) Urine Bilirubin Negative (NEGATIVE) Urine Urobilinogen Normal (NEGATIVE) mg/dL Ur Leukocyte Esterase Negative (NEGATIVE) Urine RBC 0-5 (0-5) Urine WBC 0-5 (0-5) Ur Squamous Epith Cells Occasional (NS,R,O) Urine Bacteria Few H (NS) SARS-CoV-2 RNA (BRIAN) (NEGATIVE) Result Diagrams: 08/14/21 12:20 08/14/21 12:20 Sepsis Event Note - Evaluation Sepsis Screening Result: Sepsis Risk - Focused Exam Vital Signs: Vital Signs Temp Pulse Resp BP Pulse Ox Pulse Ox 08/14/21 16:18 100.2 F 120 H 25 H 109/56 L 95 08/14/21 12:04 90 L 08/14/21 11:25 97.6 F 90 20 134/62 92 L - Problem List (1) Pain, joint, hip, right SNOMED Code(s): 91143014 ICD Code: M25.551 - PAIN IN RIGHT HIP Status: Acute Current Visit: Yes (2) Knee pain, right SNOMED Code(s): 2782906675 ICD Code: M25.561 - PAIN IN RIGHT KNEE Status: Acute Current Visit: Yes (3) Palliative care status SNOMED Code(s): 339843455 ICD Code: Z51.5 - ENCOUNTER FOR PALLIATIVE CARE Status: Acute Current Visit: Yes (4) Leukocytosis SNOMED Code(s): 057181507, 123997686 ICD Code: D72.829 - ELEVATED WHITE BLOOD CELL COUNT, UNSPECIFIED Status: Acute Current Visit: Yes (5) Acute exacerbation of congestive heart failure SNOMED Code(s): 158087020, 58936084945774 ICD Code: I50.9 - HEART FAILURE, UNSPECIFIED Status: Acute Current Visit: No (6) MDS (myelodysplastic syndrome) SNOMED Code(s): 430325792 ICD Code: D46.9 - MYELODYSPLASTIC SYNDROME, UNSPECIFIED Status: Acute Current Visit: No (7) Atrial fibrillation SNOMED Code(s): 82447212 ICD Code: I48.91 - UNSPECIFIED ATRIAL FIBRILLATION Status: Chronic Current Visit: No (8) History of DVT (deep vein thrombosis) SNOMED Code(s): 095506463 ICD Code: Z86.718 - PERSONAL HISTORY OF OTHER VENOUS THROMBOSIS AND EMBOLISM Status: Chronic Current Visit: No (9) History of cardiac arrest SNOMED Code(s): 500010160 ICD Code: Z86.74 - PERSONAL HISTORY OF SUDDEN CARDIAC ARREST Status: Chronic Current Visit: No (10) Low back pain SNOMED Code(s): 232556496 ICD Code: M54.5 - LOW BACK PAIN * DO NOT USE * Status: Chronic Current Visit: No (11) Obesity SNOMED Code(s): 542106568, 460421607 ICD Code: E66.9 - OBESITY, UNSPECIFIED Status: Chronic Current Visit: No Problem List Initiated/Reviewed/Updated: Yes Orders Last 24hrs: Active Orders 24 hr Category Date Time Status Admission Status [Patient Status] [ADT] Routine ADT 08/14/21 11:25 Active Patient Status [ADT] Routine ADT 08/14/21 12:04 Active May Shower [RC] ASDIRECTED Care 08/14/21 12:03 Active Oxygen Therapy [RC] PRN Care 08/14/21 12:04 Active RT Post Treatment Assessment [RC] Click to Edit Care 08/14/21 16:24 Active Up With Assistance [RC] ASDIRECTED Care 08/14/21 12:03 Active VTE/DVT Education [RC] Per Unit Routine Care 08/14/21 12:04 Active Vital Signs [RC] Q4H Care 08/14/21 12:04 Active OT Evaluation and Treatment [CONS] Routine Cons 08/14/21 12:03 Active PT Evaluation and Treatment [CONS] Routine Cons 08/14/21 12:03 Active Regular Diet [DIET] Diet 08/14/21 Lunch Active C Reactive Protein [C-REACTIVE PROTEIN] [CHEM] Routine Lab 08/14/21 18:14 Ordered CULTURE BLOOD [BC] Routine Lab 08/14/21 14:05 Received CULTURE BLOOD [BC] Routine Lab 08/14/21 14:15 Received Acetaminophen/HYDROcodone [[place] 325-5 MG] Med 08/14/21 16:23 Active 1 tab PO Q6H PRN Albuterol [Ventolin HFA] Med 08/14/21 16:23 Active 0 gm INH Q6H PRN Aspirin [Halfprin] Med 08/15/21 09:00 Active 81 mg PO DAILY Docusate Sodium [Colace] Med 08/14/21 16:23 Active 100 mg PO DAILY PRN Enalapril [Vasotec] Med 08/15/21 09:00 Active 20 mg PO DAILY Furosemide [Lasix] Med 08/15/21 09:00 Active 40 mg PO DAILY Isosorbide Mononitrate [Imdur] Med 08/15/21 09:00 Active 30 mg PO DAILY Metoprolol Tartrate [Lopressor] Med 08/14/21 21:00 Active 100 mg PO BID Multivitamin [Multivitamin] Med 08/15/21 09:00 Active 1 each PO DAILY Nitroglycerin [Nitrostat] Med 08/14/21 16:23 Active 0.4 mg SL Q5M PRN Potassium Chloride [Klor-Con M20] Med 08/14/21 21:00 Active 20 meq PO BID Pramipexole [Mirapex] Med 08/14/21 21:00 Active 0.75 mg PO BEDTIME Sodium Chloride 0.9% [Normal Saline] 1,000 ml Med 08/14/21 16:30 Active IV ASDIRECTED Sodium Chloride 0.9% [Saline Flush] Med 08/14/21 12:03 Active 10 ml FLUSH ASDIRECTED PRN Warfarin Sliding Scale [Coumadin Sliding Scale] Med 08/14/21 12:45 Pending 1 each PO ASDIRECTED Warfarin [Coumadin] Med 08/15/21 16:00 Active 5 mg PO [id number]@1600 atorvaSTATin [Lipitor] Med 08/15/21 09:00 Active 40 mg PO DAILY cefTRIAXone [Rocephin] Med 08/14/21 16:00 Active 1 gm IVPUSH Q24H traMADol [Ultram] Med 08/14/21 16:23 Active 50 mg PO BID PRN Peripheral IV Insertion Adult [OM.PC] Routine Oth 08/14/21 12:03 Ordered Saline Lock Insert [OM.PC] Routine Oth 08/14/21 12:03 Ordered Sequential Compression Device [OM.PC] Per Unit Routine Oth 08/14/21 12:08 Ordered Resuscitation Status Routine Resus Stat 08/14/21 12:03 Ordered EKG 12 Lead [EK] Routine Ther 08/14/21 12:10 Ordered Medication Orders Hydrocodone Bitart/Acetaminophen (Acetaminophen/Hydrocodone 325-5 Mg Tab) 1 tab PO Q6H PRN PRN Reason: Pain Albuterol (Albuterol 8 Gm Inhaler) 0 gm INH Q6H PRN PRN Reason: Shortness of Breath Aspirin (Aspirin 81 Mg Tab.Ec *Ptom) 81 mg PO DAILY [facility] Atorvastatin Calcium (Atorvastatin 40 Mg Tab *Ptom) 40 mg PO DAILY [facility] Ceftriaxone Sodium (Ceftriaxone 1 Gm Vial) 1 gm IVPUSH Q24H JULIANNE Last Admin: 08/14/21 16:59 Dose: 1 gm Documented by: TITUS Docusate Sodium (Docusate Sodium 100 Mg Cap) 100 mg PO DAILY PRN PRN Reason: Constipation Furosemide (Furosemide 40 Mg Tab *Ptom) 40 mg PO DAILY [facility] Sodium Chloride (Normal Saline) 1,000 mls @ 150 mls/hr IV ASDIRECTED [facility] Isosorbide Mononitrate (Isosorbide Mononitrate 30 Mg Tab.Er *Ptom) 30 mg PO DAILY [facility] Metoprolol Tartrate (Metoprolol Tartrate 100 Mg Tab *Ptom) 100 mg PO BID [facility] Nitroglycerin (Nitroglycerin 0.4 Mg Tab.Sl) 0.4 mg SL Q5M PRN PRN Reason: Chest Pain (Enalapril [Vasotec] (20 Mg Tablet)*Ptom) 20 mg PO DAILY JULIANNE (Multivitamin [ Multivitamin] 1 Each Tablet) *Ptom 1 each PO DAILY [facility] Potassium Chloride (Potassium Chloride 20 Meq Tab.Er *Ptom) 20 meq PO BID JULIANNE Pramipexole Dihydrochloride (Pramipexole 0.25 Mg Tab *Ptom) 0.75 mg PO BEDTIME JULIANNE Sodium Chloride (Sodium Chloride 0.9% 10 Ml Syringe) 10 ml FLUSH ASDIRECTED PRN PRN Reason: Keep Vein Open Tramadol HCl (Tramadol 50 Mg Tab) 50 mg PO BID PRN PRN Reason: PAIN Warfarin Sodium (Warfarin Sliding Scale) 1 each PO ASDIRECTED JULIANNE Warfarin Sodium (Warfarin 5 Mg Tab *Ptom) 5 mg PO [place]@1600 [facility] Assessment/Plan Comment:: 1. admit to patient. 2. Continue his Coumadin and check INR daily and pharmacy to 3. Did a CT scan of the pelvis/right hip x-ray/pelvic x-ray/low back and just shows arthritis of the right hip-discussed with radiology 4. Recheck his labs in a.m. Lactic acid is normal. I gave him 1 g of Rocephin just as prophylaxis telemetry find it was going on 5. Place a catheter get some Lasix for CHF 6. Regular diet 7. Oxygen nasal cannula keep his O2 sats greater than 90% 8. Talk to oncology in they felt he should get a flow cytometry as well as elevated white count. 10. Right leg pain hard to say what's going on. Unlikely it would be a clot although if he is has ongoing cancer it could be. Will follow along and no ultrasound available at this time. He is anticoagulated adequately. 11. Patient's a full code. - Mortality Measure Prognosis:: Good
[2021-08-14] MEDS ORDERED: Furosemide 40 MG/4 ML VIAL IVPUSH ONE (18:53)
[2021-08-14] MEDS ORDERED: Enoxaparin 120 MG/0.8 ML Syringe SUBCUT SCH (19:15)
[2021-08-14] MEDS ORDERED: Warfarin 2.5 MG Tab PO ONE (19:56)
[2021-08-14] MEDS: Potassium Chloride 20 MEQ Tab.ER PO SCH (20:56)
[2021-08-14] MEDS: Pramipexole 0.25 MG Tab PO SCH (20:57)
[2021-08-14] MEDS: Metoprolol Tartrate 100 MG Tab PO SCH (21:33)
[2021-08-15] MEDS: Isosorbide Mononitrate 30 MG Tab.ER PO SCH (08:38)
[2021-08-15] MEDS: Potassium Chloride 20 MEQ Tab.ER PO SCH ×2 (08:39→21:22)
[2021-08-15] MEDS: atorvaSTATin 40 MG Tab PO SCH (08:39)
[2021-08-15] MEDS: Metoprolol Tartrate 100 MG Tab PO SCH ×2 (08:40→21:23)
[2021-08-15] MEDS ORDERED: ENALAPRIL 20 MG PO SCH (09:00)
[2021-08-15] MEDS ORDERED: Aspirin 81 MG Tab.EC *PTOM PO SCH (09:00)
[2021-08-15] MEDS ORDERED: Furosemide 40 MG Tab *PTOM PO SCH (09:00)
[2021-08-15] MEDS ORDERED: MULTIVITAMIN PO SCH (09:00)
--- NOTE | 2021-08-15 09:48 | PCM.PN ---
- General Info Date of Service: 08/15/21 Admission Dx/Problem (Free Text): Patient states last night his leg did not hurt but now it does again. Still in the right medial side. He has chronic back pain has not thought change. He has some sweats yesterday and today said after he took the hydrocodone. He thinks is because of the pill. His breathing is better after the Lasix. No chest pain, coughing, fevers or chills. - Patient Data Vitals - Most Recent: Last Vital Signs Temp 97.9 F 08/15/21 08:00 Pulse 115 H 08/15/21 08:40 Resp 18 08/15/21 08:00 BP 145/71 H 08/15/21 08:40 Pulse Ox 94 L 08/15/21 08:00 Weight - Most Recent: 263 lb I&O - Last 24 Hours: Intake & Output 08/14/21 08/15/21 08/15/21 22:59 06:59 14:59 Output Total 2049 1450 Balance -2049 -145 Lab Results Last 24 Hours: Laboratory Results - last 24 hr 08/14/21 08/14/21 08/14/21 Range/Units 11:45 12:20 12:20 WBC 51.2 H* (3.2-10.1) x10-3/uL Corrected WBC 41.0 H* (4.5-12.0) X10(3) RBC 2.75 L (3.90-5.90) x10(6)uL Hgb 8.2 L (12.9-17.7) g/dL Hct 27.6 L (38.3-50.1) % MCV 100.5 H (80.8-98.7) fL MCH 29.7 (27.0-33.3) pg MCHC 29.6 (28.7-35.3) g/dL RDW 23.7 H (12.4-15.0) % Plt Count 55 L (117-477) x10(3)uL MPV 8.8 (6.7-11.0) fL Add Manual Diff Yes Neutrophils % (Manual) 81 (46-82) % Band Neutrophils % (0-6) % Lymphocytes % (Manual) 5 L (13-37) % Monocytes % (Manual) 8 (4-12) % Eosinophils % (Manual) 1 (0-5) % Metamyelocytes % 2 H (0-0) % Myelocytes % 3 H (0-0) % Promyelocytes % (0-0) % Blast Cells % (0-0) % Nucleated RBCs 23 H (0-0) /100WBC Polychromasia Few Poikilocytosis Moderate H Anisocytosis Moderate H Macrocytosis Moderate H Tear Drop Cells Few Ovalocytes Moderate H Acanthocytes (Spur) Few PT (9.0-11.1) sec INR (1.00-1.24) D-Dimer, Quantitative (0.0-0.59) mg/LFEU Sodium 142 (135-145) mmol/L Potassium 5.0 (3.5-5.3) mmol/L Chloride 107 (100-110) mmol/L Carbon Dioxide 23 (21-32) mmol/L BUN 38 H D (7-18) mg/dL Creatinine 1.5 H (0.70-1.30) mg/dL Est Cr Clr Drug Dosing TNP Estimated GFR (MDRD) 46 L (>60) BUN/Creatinine Ratio 25.3 H (9-20) Glucose 117 H (80-116) mg/dL Lactic Acid (0.4-2.0) mmol/L Calcium 8.5 L (8.6-10.2) mg/dL Total Bilirubin 1.8 H (0.1-1.3) mg/dL AST 48 H D (5-25) IU/L ALT 29 (12-36) U/L Alkaline Phosphatase 68 (56-112) IU/L Troponin I (4.0-60.3) pg/mL C-Reactive Protein (0.5-0.9) mg/dL NT-Pro-B Natriuret Pep (<=125) pg/mL Total Protein 7.0 (6.0-8.0) g/dL Albumin 3.6 (3.2-4.6) g/dL Globulin 3.4 g/dL Albumin/Globulin Ratio 1.1 Urine Color (YELLOW) Urine Appearance (CLEAR) Urine pH (5.0-6.5) Ur Specific [place] (1.010-1.025) Urine Protein (NEGATIVE) mg/dL Urine Glucose (UA) (NORMAL) mg/dL Urine Ketones (NEGATIVE) mg/dL Urine Occult Blood (NEGATIVE) Urine Nitrite (NEGATIVE) Urine Bilirubin (NEGATIVE) Urine Urobilinogen (NEGATIVE) mg/dL Ur Leukocyte Esterase (NEGATIVE) Urine RBC (0-5) Urine WBC (0-5) Ur Squamous Epith Cells (NS,R,O) Urine Bacteria (NS) SARS-CoV-2 RNA (BRIAN) Negative (NEGATIVE) 08/14/21 08/14/21 08/14/21 Range/Units 12:20 12:20 12:20 WBC (3.2-10.1) x10-3/uL Corrected WBC (4.5-12.0) X10(3) RBC (3.90-5.90) x10(6)uL Hgb (12.9-17.7) g/dL Hct (38.3-50.1) % MCV (80.8-98.7) fL MCH (27.0-33.3) pg MCHC (28.7-35.3) g/dL RDW (12.4-15.0) % Plt Count (117-477) x10(3)uL MPV (6.7-11.0) fL Add Manual Diff Neutrophils % (Manual) (46-82) % Band Neutrophils % (0-6) % Lymphocytes % (Manual) (13-37) % Monocytes % (Manual) (4-12) % Eosinophils % (Manual) (0-5) % Metamyelocytes % (0-0) % Myelocytes % (0-0) % Promyelocytes % (0-0) % Blast Cells % (0-0) % Nucleated RBCs (0-0) /100WBC Polychromasia Poikilocytosis Anisocytosis Macrocytosis Tear Drop Cells Ovalocytes Acanthocytes (Spur) PT 24.1 H (9.0-11.1) sec INR 2.36 H (1.00-1.24) D-Dimer, Quantitative 2.35 H (0.0-0.59) mg/LFEU Sodium (135-145) mmol/L Potassium (3.5-5.3) mmol/L Chloride (100-110) mmol/L Carbon Dioxide (21-32) mmol/L BUN (7-18) mg/dL Creatinine (0.70-1.30) mg/dL Est Cr Clr Drug Dosing Estimated GFR (MDRD) (>60) BUN/Creatinine Ratio (9-20) Glucose (80-116) mg/dL Lactic Acid (0.4-2.0) mmol/L Calcium (8.6-10.2) mg/dL Total Bilirubin (0.1-1.3) mg/dL AST (5-25) IU/L ALT (12-36) U/L Alkaline Phosphatase (56-112) IU/L Troponin I 11.1 (4.0-60.3) pg/mL C-Reactive Protein (0.5-0.9) mg/dL NT-Pro-B Natriuret Pep 4225 H* (<=125) pg/mL Total Protein (6.0-8.0) g/dL Albumin (3.2-4.6) g/dL Globulin g/dL Albumin/Globulin Ratio Urine Color (YELLOW) Urine Appearance (CLEAR) Urine pH (5.0-6.5) Ur Specific [place] (1.010-1.025) Urine Protein (NEGATIVE) mg/dL Urine Glucose (UA) (NORMAL) mg/dL Urine Ketones (NEGATIVE) mg/dL Urine Occult Blood (NEGATIVE) Urine Nitrite (NEGATIVE) Urine Bilirubin (NEGATIVE) Urine Urobilinogen (NEGATIVE) mg/dL Ur Leukocyte Esterase (NEGATIVE) Urine RBC (0-5) Urine WBC (0-5) Ur Squamous Epith Cells (NS,R,O) Urine Bacteria (NS) SARS-CoV-2 RNA (BRIAN) (NEGATIVE) 08/14/21 08/14/21 08/14/21 Range/Units 12:20 12:20 15:07 WBC (3.2-10.1) x10-3/uL Corrected WBC (4.5-12.0) X10(3) RBC (3.90-5.90) x10(6)uL Hgb (12.9-17.7) g/dL Hct (38.3-50.1) % MCV (80.8-98.7) fL MCH (27.0-33.3) pg MCHC (28.7-35.3) g/dL RDW (12.4-15.0) % Plt Count (117-477) x10(3)uL MPV (6.7-11.0) fL Add Manual Diff Neutrophils % (Manual) (46-82) % Band Neutrophils % (0-6) % Lymphocytes % (Manual) (13-37) % Monocytes % (Manual) (4-12) % Eosinophils % (Manual) (0-5) % Metamyelocytes % (0-0) % Myelocytes % (0-0) % Promyelocytes % (0-0) % Blast Cells % (0-0) % Nucleated RBCs (0-0) /100WBC Polychromasia Poikilocytosis Anisocytosis Macrocytosis Tear Drop Cells Ovalocytes Acanthocytes (Spur) PT (9.0-11.1) sec INR (1.00-1.24) D-Dimer, Quantitative (0.0-0.59) mg/LFEU Sodium (135-145) mmol/L Potassium (3.5-5.3) mmol/L Chloride (100-110) mmol/L Carbon Dioxide (21-32) mmol/L BUN (7-18) mg/dL Creatinine (0.70-1.30) mg/dL Est Cr Clr Drug Dosing Estimated GFR (MDRD) (>60) BUN/Creatinine Ratio (9-20) Glucose (80-116) mg/dL Lactic Acid 1.8 (0.4-2.0) mmol/L Calcium (8.6-10.2) mg/dL Total Bilirubin (0.1-1.3) mg/dL AST (5-25) IU/L ALT (12-36) U/L Alkaline Phosphatase (56-112) IU/L Troponin I (4.0-60.3) pg/mL C-Reactive Protein 1.4 H (0.5-0.9) mg/dL NT-Pro-B Natriuret Pep (<=125) pg/mL Total Protein (6.0-8.0) g/dL Albumin (3.2-4.6) g/dL Globulin g/dL Albumin/Globulin Ratio Urine Color Yellow (YELLOW) Urine Appearance Clear (CLEAR) Urine pH 5.0 (5.0-6.5) Ur Specific [place] 1.025 (1.010-1.025) Urine Protein Negative (NEGATIVE) mg/dL Urine Glucose (UA) Normal (NORMAL) mg/dL Urine Ketones Negative (NEGATIVE) mg/dL Urine Occult Blood Moderate H (NEGATIVE) Urine Nitrite Negative (NEGATIVE) Urine Bilirubin Negative (NEGATIVE) Urine Urobilinogen Normal (NEGATIVE) mg/dL Ur Leukocyte Esterase Negative (NEGATIVE) Urine RBC 0-5 (0-5) Urine WBC 0-5 (0-5) Ur Squamous Epith Cells Occasional (NS,R,O) Urine Bacteria Few H (NS) SARS-CoV-2 RNA (BRIAN) (NEGATIVE) 08/15/21 08/15/21 08/15/21 Range/Units 06:30 06:30 06:30 WBC 50.8 H* (3.2-10.1) x10-3/uL Corrected WBC 39.0 H* (4.5-12.0) X10(3) RBC 2.54 L (3.90-5.90) x10(6)uL Hgb 7.5 L (12.9-17.7) g/dL Hct 25.0 L (38.3-50.1) % MCV 98.4 (80.8-98.7) fL MCH 29.7 (27.0-33.3) pg MCHC 30.2 (28.7-35.3) g/dL RDW 23.4 H (12.4-15.0) % Plt Count 53 L (117-477) x10(3)uL MPV 8.9 (6.7-11.0) fL Add Manual Diff Yes Neutrophils % (Manual) 47 (46-82) % Band Neutrophils % 1 (0-6) % Lymphocytes % (Manual) 17 (13-37) % Monocytes % (Manual) 9 (4-12) % Eosinophils % (Manual) 1 (0-5) % Metamyelocytes % 5 H (0-0) % Myelocytes % 13 H (0-0) % Promyelocytes % 1 H (0-0) % Blast Cells % 6 H (0-0) % Nucleated RBCs 28 H (0-0) /100WBC Polychromasia Few Poikilocytosis Moderate H Anisocytosis Moderate H Macrocytosis Moderate H Tear Drop Cells Few Ovalocytes Moderate H Acanthocytes (Spur) Few PT (9.0-11.1) sec INR (1.00-1.24) D-Dimer, Quantitative (0.0-0.59) mg/LFEU Sodium 141 (135-145) mmol/L Potassium 4.2 (3.5-5.3) mmol/L Chloride 104 (100-110) mmol/L Carbon Dioxide 24 (21-32) mmol/L BUN 30 H (7-18) mg/dL Creatinine 1.6 H (0.70-1.30) mg/dL Est Cr Clr Drug Dosing 48.52 Estimated GFR (MDRD) 43 L (>60) BUN/Creatinine Ratio 18.8 (9-20) Glucose 122 H (80-116) mg/dL Lactic Acid (0.4-2.0) mmol/L Calcium 8.4 L (8.6-10.2) mg/dL Total Bilirubin 2.1 H (0.1-1.3) mg/dL AST 50 H (5-25) IU/L ALT 26 D (12-36) U/L Alkaline Phosphatase 58 (56-112) IU/L Troponin I 15.9 (4.0-60.3) pg/mL C-Reactive Protein (0.5-0.9) mg/dL NT-Pro-B Natriuret Pep (<=125) pg/mL Total Protein 6.5 (6.0-8.0) g/dL Albumin 3.2 (3.2-4.6) g/dL Globulin 3.3 g/dL Albumin/Globulin Ratio 1.0 Urine Color (YELLOW) Urine Appearance (CLEAR) Urine pH (5.0-6.5) Ur Specific [place] (1.010-1.025) Urine Protein (NEGATIVE) mg/dL Urine Glucose (UA) (NORMAL) mg/dL Urine Ketones (NEGATIVE) mg/dL Urine Occult Blood (NEGATIVE) Urine Nitrite (NEGATIVE) Urine Bilirubin (NEGATIVE) Urine Urobilinogen (NEGATIVE) mg/dL Ur Leukocyte Esterase (NEGATIVE) Urine RBC (0-5) Urine WBC (0-5) Ur Squamous Epith Cells (NS,R,O) Urine Bacteria (NS) SARS-CoV-2 RNA (BRIAN) (NEGATIVE) 08/15/21 Range/Units 06:30 WBC (3.2-10.1) x10-3/uL Corrected WBC (4.5-12.0) X10(3) RBC (3.90-5.90) x10(6)uL Hgb (12.9-17.7) g/dL Hct (38.3-50.1) % MCV (80.8-98.7) fL MCH (27.0-33.3) pg MCHC (28.7-35.3) g/dL RDW (12.4-15.0) % Plt Count (117-477) x10(3)uL MPV (6.7-11.0) fL Add Manual Diff Neutrophils % (Manual) (46-82) % Band Neutrophils % (0-6) % Lymphocytes % (Manual) (13-37) % Monocytes % (Manual) (4-12) % Eosinophils % (Manual) (0-5) % Metamyelocytes % (0-0) % Myelocytes % (0-0) % Promyelocytes % (0-0) % Blast Cells % (0-0) % Nucleated RBCs (0-0) /100WBC Polychromasia Poikilocytosis Anisocytosis Macrocytosis Tear Drop Cells Ovalocytes Acanthocytes (Spur) PT 27.2 H (9.0-11.1) sec INR 2.69 H (1.00-1.24) D-Dimer, Quantitative (0.0-0.59) mg/LFEU Sodium (135-145) mmol/L Potassium (3.5-5.3) mmol/L Chloride (100-110) mmol/L Carbon Dioxide (21-32) mmol/L BUN (7-18) mg/dL Creatinine (0.70-1.30) mg/dL Est Cr Clr Drug Dosing Estimated GFR (MDRD) (>60) BUN/Creatinine Ratio (9-20) Glucose (80-116) mg/dL Lactic Acid (0.4-2.0) mmol/L Calcium (8.6-10.2) mg/dL Total Bilirubin (0.1-1.3) mg/dL AST (5-25) IU/L ALT (12-36) U/L Alkaline Phosphatase (56-112) IU/L Troponin I (4.0-60.3) pg/mL C-Reactive Protein (0.5-0.9) mg/dL NT-Pro-B Natriuret Pep (<=125) pg/mL Total Protein (6.0-8.0) g/dL Albumin (3.2-4.6) g/dL Globulin g/dL Albumin/Globulin Ratio Urine Color (YELLOW) Urine Appearance (CLEAR) Urine pH (5.0-6.5) Ur Specific [place] (1.010-1.025) Urine Protein (NEGATIVE) mg/dL Urine Glucose (UA) (NORMAL) mg/dL Urine Ketones (NEGATIVE) mg/dL Urine Occult Blood (NEGATIVE) Urine Nitrite (NEGATIVE) Urine Bilirubin (NEGATIVE) Urine Urobilinogen (NEGATIVE) mg/dL Ur Leukocyte Esterase (NEGATIVE) Urine RBC (0-5) Urine WBC (0-5) Ur Squamous Epith Cells (NS,R,O) Urine Bacteria (NS) SARS-CoV-2 RNA (BRIAN) (NEGATIVE) Med Orders - Current: Current Medications Hydrocodone Bitart/Acetaminophen (Acetaminophen/Hydrocodone 325-5 Mg Tab) 1 tab PO Q6H PRN PRN Reason: Pain Last Admin: 08/15/21 05:41 Dose: 1 tab Documented by: Albuterol (Albuterol 8 Gm Inhaler) 0 gm INH Q6H PRN PRN Reason: Shortness of Breath Aspirin (Aspirin 81 Mg Tab.Ec *Ptom) 81 mg PO DAILY [facility] Last Admin: 08/15/21 08:38 Dose: 81 mg Documented by: Atorvastatin Calcium (Atorvastatin 40 Mg Tab *Ptom) 40 mg PO DAILY [facility] Last Admin: 08/15/21 08:39 Dose: 40 mg Documented by: Ceftriaxone Sodium (Ceftriaxone 1 Gm Vial) 1 gm IVPUSH Q24H [facility] Last Admin: 08/14/21 16:59 Dose: 1 gm Documented by: Docusate Sodium (Docusate Sodium 100 Mg Cap) 100 mg PO DAILY PRN PRN Reason: Constipation Furosemide (Furosemide 40 Mg Tab *Ptom) 40 mg PO DAILY [facility] Last Admin: 08/15/21 08:39 Dose: 40 mg Documented by: Furosemide (Furosemide 40 Mg Tab) 40 mg PO BID [facility] Sodium Chloride (Normal Saline) 1,000 mls @ 150 mls/hr IV ASDIRECTED [facility] Isosorbide Mononitrate (Isosorbide Mononitrate 30 Mg Tab.Er *Ptom) 30 mg PO DAILY [facility] Last Admin: 08/15/21 08:38 Dose: 30 mg Documented by: Metoprolol Tartrate (Metoprolol Tartrate 100 Mg Tab *Ptom) 100 mg PO BID [facility] Last Admin: 08/15/21 08:40 Dose: 100 mg Documented by: Nitroglycerin (Nitroglycerin 0.4 Mg Tab.Sl) 0.4 mg SL Q5M PRN PRN Reason: Chest Pain (Enalapril [Vasotec] (20 Mg Tablet)*Ptom) 20 mg PO DAILY [facility] Last Admin: 08/15/21 08:38 Dose: 20 mg Documented by: (Multivitamin [ Multivitamin] 1 Each Tablet) *Ptom 1 each PO DAILY [facility] Last Admin: 08/15/21 08:40 Dose: 1 each Documented by: Potassium Chloride (Potassium Chloride 20 Meq Tab.Er *Ptom) 20 meq PO BID [facility] Last Admin: 08/15/21 08:39 Dose: 20 meq Documented by: Pramipexole Dihydrochloride (Pramipexole 0.25 Mg Tab *Ptom) 0.75 mg PO BEDTIME [facility] Last Admin: 08/14/21 20:57 Dose: 0.75 mg Documented by: Sodium Chloride (Sodium Chloride 0.9% 10 Ml Syringe) 10 ml FLUSH ASDIRECTED PRN PRN Reason: Keep Vein Open Tramadol HCl (Tramadol 50 Mg Tab) 50 mg PO BID PRN PRN Reason: PAIN Discontinued Medications Hydrocodone Bitart/Acetaminophen (Acetaminophen/Hydrocodone 325-5 Mg Tab) 1 tab PO Q4H PRN PRN Reason: Pain (moderate 4-6) Last Admin: 08/14/21 12:25 Dose: 1 tab Documented by: Enoxaparin Sodium (Enoxaparin 120 Mg/0.8 Ml Syringe) 120 mg SUBCUT Q12H [facility] Last Admin: 08/14/21 21:25 Dose: Not Given Documented by: Furosemide (Furosemide 40 Mg/4 Ml Vial) 60 mg IVPUSH NOW ONE Stop: 08/14/21 18:54 Last Admin: 08/14/21 19:13 Dose: 60 mg Documented by: Iopamidol (Iopamidol 755 Mg/Ml 150 Ml Bottle) 135 ml IV ONETIME ONE Stop: 08/14/21 16:14 Last Admin: 08/14/21 20:12 Dose: 135 ml Documented by: Warfarin Sodium (Warfarin Sliding Scale) 1 each PO ASDIRECTED JULIANNE Warfarin Sodium (Warfarin 2.5 Mg Tab *Ptom) 2.5 mg PO ONETIME ONE Stop: 08/14/21 16:01 Last Admin: 08/14/21 19:15 Dose: Not Given Documented by: Warfarin Sodium (Warfarin 5 Mg Tab *Ptom) 5 mg PO [place]@1600 JULIANNE Warfarin Sodium (Warfarin 5 Mg Tab *Ptom) 2.5 mg PO ONETIME ONE Stop: 08/14/21 17:31 Last Admin: 08/14/21 19:15 Dose: Not Given Documented by: Warfarin Sodium (Warfarin 2.5 Mg Tab) 2.5 mg PO ONETIME ONE Stop: 08/14/21 19:57 Last Admin: 08/14/21 20:56 Dose: 2.5 mg Documented by: - Exam Urinary Catheter Total Time: 0Days 3Hours General: Alert, Oriented, Cooperative Neck: Supple Lungs: Clear to Auscultation, Normal Respiratory Effort, Crackles Cardiovascular: Regular Rate, Regular Rhythm, Tachycardia Extremities: Other (Patient has a little pain in the popliteal fossa right. When I rotate his hip sometimes it hurts sometimes it does not. No pain in the pelvis. No pain on the back on palpation.) Skin: Ecchymosis (Low back) - Patient Data Lab Results Last 24 hrs: Laboratory Results - last 24 hr 08/14/21 08/14/21 08/14/21 Range/Units 11:45 12:20 12:20 WBC 51.2 H* (3.2-10.1) x10-3/uL Corrected WBC 41.0 H* (4.5-12.0) X10(3) RBC 2.75 L (3.90-5.90) x10(6)uL Hgb 8.2 L (12.9-17.7) g/dL Hct 27.6 L (38.3-50.1) % MCV 100.5 H (80.8-98.7) fL MCH 29.7 (27.0-33.3) pg MCHC 29.6 (28.7-35.3) g/dL RDW 23.7 H (12.4-15.0) % Plt Count 55 L (117-477) x10(3)uL MPV 8.8 (6.7-11.0) fL Add Manual Diff Yes Neutrophils % (Manual) 81 (46-82) % Band Neutrophils % (0-6) % Lymphocytes % (Manual) 5 L (13-37) % Monocytes % (Manual) 8 (4-12) % Eosinophils % (Manual) 1 (0-5) % Metamyelocytes % 2 H (0-0) % Myelocytes % 3 H (0-0) % Promyelocytes % (0-0) % Blast Cells % (0-0) % Nucleated RBCs 23 H (0-0) /100WBC Polychromasia Few Poikilocytosis Moderate H Anisocytosis Moderate H Macrocytosis Moderate H Tear Drop Cells Few Ovalocytes Moderate H Acanthocytes (Spur) Few PT (9.0-11.1) sec INR (1.00-1.24) D-Dimer, Quantitative (0.0-0.59) mg/LFEU Sodium 142 (135-145) mmol/L Potassium 5.0 (3.5-5.3) mmol/L Chloride 107 (100-110) mmol/L Carbon Dioxide 23 (21-32) mmol/L BUN 38 H D (7-18) mg/dL Creatinine 1.5 H (0.70-1.30) mg/dL Est Cr Clr Drug Dosing TNP Estimated GFR (MDRD) 46 L (>60) BUN/Creatinine Ratio 25.3 H (9-20) Glucose 117 H (80-116) mg/dL Lactic Acid (0.4-2.0) mmol/L Calcium 8.5 L (8.6-10.2) mg/dL Total Bilirubin 1.8 H (0.1-1.3) mg/dL AST 48 H D (5-25) IU/L ALT 29 (12-36) U/L Alkaline Phosphatase 68 (56-112) IU/L Troponin I (4.0-60.3) pg/mL C-Reactive Protein (0.5-0.9) mg/dL NT-Pro-B Natriuret Pep (<=125) pg/mL Total Protein 7.0 (6.0-8.0) g/dL Albumin 3.6 (3.2-4.6) g/dL Globulin 3.4 g/dL Albumin/Globulin Ratio 1.1 Urine Color (YELLOW) Urine Appearance (CLEAR) Urine pH (5.0-6.5) Ur Specific [place] (1.010-1.025) Urine Protein (NEGATIVE) mg/dL Urine Glucose (UA) (NORMAL) mg/dL Urine Ketones (NEGATIVE) mg/dL Urine Occult Blood (NEGATIVE) Urine Nitrite (NEGATIVE) Urine Bilirubin (NEGATIVE) Urine Urobilinogen (NEGATIVE) mg/dL Ur Leukocyte Esterase (NEGATIVE) Urine RBC (0-5) Urine WBC (0-5) Ur Squamous Epith Cells (NS,R,O) Urine Bacteria (NS) SARS-CoV-2 RNA (BRIAN) Negative (NEGATIVE) 08/14/21 08/14/21 08/14/21 Range/Units 12:20 12:20 12:20 WBC (3.2-10.1) x10-3/uL Corrected WBC (4.5-12.0) X10(3) RBC (3.90-5.90) x10(6)uL Hgb (12.9-17.7) g/dL Hct (38.3-50.1) % MCV (80.8-98.7) fL MCH (27.0-33.3) pg MCHC (28.7-35.3) g/dL RDW (12.4-15.0) % Plt Count (117-477) x10(3)uL MPV (6.7-11.0) fL Add Manual Diff Neutrophils % (Manual) (46-82) % Band Neutrophils % (0-6) % Lymphocytes % (Manual) (13-37) % Monocytes % (Manual) (4-12) % Eosinophils % (Manual) (0-5) % Metamyelocytes % (0-0) % Myelocytes % (0-0) % Promyelocytes % (0-0) % Blast Cells % (0-0) % Nucleated RBCs (0-0) /100WBC Polychromasia Poikilocytosis Anisocytosis Macrocytosis Tear Drop Cells Ovalocytes Acanthocytes (Spur) PT 24.1 H (9.0-11.1) sec INR 2.36 H (1.00-1.24) D-Dimer, Quantitative 2.35 H (0.0-0.59) mg/LFEU Sodium (135-145) mmol/L Potassium (3.5-5.3) mmol/L Chloride (100-110) mmol/L Carbon Dioxide (21-32) mmol/L BUN (7-18) mg/dL Creatinine (0.70-1.30) mg/dL Est Cr Clr Drug Dosing Estimated GFR (MDRD) (>60) BUN/Creatinine Ratio (9-20) Glucose (80-116) mg/dL Lactic Acid (0.4-2.0) mmol/L Calcium (8.6-10.2) mg/dL Total Bilirubin (0.1-1.3) mg/dL AST (5-25) IU/L ALT (12-36) U/L Alkaline Phosphatase (56-112) IU/L Troponin I 11.1 (4.0-60.3) pg/mL C-Reactive Protein (0.5-0.9) mg/dL NT-Pro-B Natriuret Pep 4225 H* (<=125) pg/mL Total Protein (6.0-8.0) g/dL Albumin (3.2-4.6) g/dL Globulin g/dL Albumin/Globulin Ratio Urine Color (YELLOW) Urine Appearance (CLEAR) Urine pH (5.0-6.5) Ur Specific [place] (1.010-1.025) Urine Protein (NEGATIVE) mg/dL Urine Glucose (UA) (NORMAL) mg/dL Urine Ketones (NEGATIVE) mg/dL Urine Occult Blood (NEGATIVE) Urine Nitrite (NEGATIVE) Urine Bilirubin (NEGATIVE) Urine Urobilinogen (NEGATIVE) mg/dL Ur Leukocyte Esterase (NEGATIVE) Urine RBC (0-5) Urine WBC (0-5) Ur Squamous Epith Cells (NS,R,O) Urine Bacteria (NS) SARS-CoV-2 RNA (BRIAN) (NEGATIVE) 08/14/21 08/14/21 08/14/21 Range/Units 12:20 12:20 15:07 WBC (3.2-10.1) x10-3/uL Corrected WBC (4.5-12.0) X10(3) RBC (3.90-5.90) x10(6)uL Hgb (12.9-17.7) g/dL Hct (38.3-50.1) % MCV (80.8-98.7) fL MCH (27.0-33.3) pg MCHC (28.7-35.3) g/dL RDW (12.4-15.0) % Plt Count (117-477) x10(3)uL MPV (6.7-11.0) fL Add Manual Diff Neutrophils % (Manual) (46-82) % Band Neutrophils % (0-6) % Lymphocytes % (Manual) (13-37) % Monocytes % (Manual) (4-12) % Eosinophils % (Manual) (0-5) % Metamyelocytes % (0-0) % Myelocytes % (0-0) % Promyelocytes % (0-0) % Blast Cells % (0-0) % Nucleated RBCs (0-0) /100WBC Polychromasia Poikilocytosis Anisocytosis Macrocytosis Tear Drop Cells Ovalocytes Acanthocytes (Spur) PT (9.0-11.1) sec INR (1.00-1.24) D-Dimer, Quantitative (0.0-0.59) mg/LFEU Sodium (135-145) mmol/L Potassium (3.5-5.3) mmol/L Chloride (100-110) mmol/L Carbon Dioxide (21-32) mmol/L BUN (7-18) mg/dL Creatinine (0.70-1.30) mg/dL Est Cr Clr Drug Dosing Estimated GFR (MDRD) (>60) BUN/Creatinine Ratio (9-20) Glucose (80-116) mg/dL Lactic Acid 1.8 (0.4-2.0) mmol/L Calcium (8.6-10.2) mg/dL Total Bilirubin (0.1-1.3) mg/dL AST (5-25) IU/L ALT (12-36) U/L Alkaline Phosphatase (56-112) IU/L Troponin I (4.0-60.3) pg/mL C-Reactive Protein 1.4 H (0.5-0.9) mg/dL NT-Pro-B Natriuret Pep (<=125) pg/mL Total Protein (6.0-8.0) g/dL Albumin (3.2-4.6) g/dL Globulin g/dL Albumin/Globulin Ratio Urine Color Yellow (YELLOW) Urine Appearance Clear (CLEAR) Urine pH 5.0 (5.0-6.5) Ur Specific [place] 1.025 (1.010-1.025) Urine Protein Negative (NEGATIVE) mg/dL Urine Glucose (UA) Normal (NORMAL) mg/dL Urine Ketones Negative (NEGATIVE) mg/dL Urine Occult Blood Moderate H (NEGATIVE) Urine Nitrite Negative (NEGATIVE) Urine Bilirubin Negative (NEGATIVE) Urine Urobilinogen Normal (NEGATIVE) mg/dL Ur Leukocyte Esterase Negative (NEGATIVE) Urine RBC 0-5 (0-5) Urine WBC 0-5 (0-5) Ur Squamous Epith Cells Occasional (NS,R,O) Urine Bacteria Few H (NS) SARS-CoV-2 RNA (BRIAN) (NEGATIVE) 08/15/21 08/15/21 08/15/21 Range/Units 06:30 06:30 06:30 WBC 50.8 H* (3.2-10.1) x10-3/uL Corrected WBC 39.0 H* (4.5-12.0) X10(3) RBC 2.54 L (3.90-5.90) x10(6)uL Hgb 7.5 L (12.9-17.7) g/dL Hct 25.0 L (38.3-50.1) % MCV 98.4 (80.8-98.7) fL MCH 29.7 (27.0-33.3) pg MCHC 30.2 (28.7-35.3) g/dL RDW 23.4 H (12.4-15.0) % Plt Count 53 L (117-477) x10(3)uL MPV 8.9 (6.7-11.0) fL Add Manual Diff Yes Neutrophils % (Manual) 47 (46-82) % Band Neutrophils % 1 (0-6) % Lymphocytes % (Manual) 17 (13-37) % Monocytes % (Manual) 9 (4-12) % Eosinophils % (Manual) 1 (0-5) % Metamyelocytes % 5 H (0-0) % Myelocytes % 13 H (0-0) % Promyelocytes % 1 H (0-0) % Blast Cells % 6 H (0-0) % Nucleated RBCs 28 H (0-0) /100WBC Polychromasia Few Poikilocytosis Moderate H Anisocytosis Moderate H Macrocytosis Moderate H Tear Drop Cells Few Ovalocytes Moderate H Acanthocytes (Spur) Few PT (9.0-11.1) sec INR (1.00-1.24) D-Dimer, Quantitative (0.0-0.59) mg/LFEU Sodium 141 (135-145) mmol/L Potassium 4.2 (3.5-5.3) mmol/L Chloride 104 (100-110) mmol/L Carbon Dioxide 24 (21-32) mmol/L BUN 30 H (7-18) mg/dL Creatinine 1.6 H (0.70-1.30) mg/dL Est Cr Clr Drug Dosing 48.52 Estimated GFR (MDRD) 43 L (>60) BUN/Creatinine Ratio 18.8 (9-20) Glucose 122 H (80-116) mg/dL Lactic Acid (0.4-2.0) mmol/L Calcium 8.4 L (8.6-10.2) mg/dL Total Bilirubin 2.1 H (0.1-1.3) mg/dL AST 50 H (5-25) IU/L ALT 26 D (12-36) U/L Alkaline Phosphatase 58 (56-112) IU/L Troponin I 15.9 (4.0-60.3) pg/mL C-Reactive Protein (0.5-0.9) mg/dL NT-Pro-B Natriuret Pep (<=125) pg/mL Total Protein 6.5 (6.0-8.0) g/dL Albumin 3.2 (3.2-4.6) g/dL Globulin 3.3 g/dL Albumin/Globulin Ratio 1.0 Urine Color (YELLOW) Urine Appearance (CLEAR) Urine pH (5.0-6.5) Ur Specific [place] (1.010-1.025) Urine Protein (NEGATIVE) mg/dL Urine Glucose (UA) (NORMAL) mg/dL Urine Ketones (NEGATIVE) mg/dL Urine Occult Blood (NEGATIVE) Urine Nitrite (NEGATIVE) Urine Bilirubin (NEGATIVE) Urine Urobilinogen (NEGATIVE) mg/dL Ur Leukocyte Esterase (NEGATIVE) Urine RBC (0-5) Urine WBC (0-5) Ur Squamous Epith Cells (NS,R,O) Urine Bacteria (NS) SARS-CoV-2 RNA (BRIAN) (NEGATIVE) 08/15/21 Range/Units 06:30 WBC (3.2-10.1) x10-3/uL Corrected WBC (4.5-12.0) X10(3) RBC (3.90-5.90) x10(6)uL Hgb (12.9-17.7) g/dL Hct (38.3-50.1) % MCV (80.8-98.7) fL MCH (27.0-33.3) pg MCHC (28.7-35.3) g/dL RDW (12.4-15.0) % Plt Count (117-477) x10(3)uL MPV (6.7-11.0) fL Add Manual Diff Neutrophils % (Manual) (46-82) % Band Neutrophils % (0-6) % Lymphocytes % (Manual) (13-37) % Monocytes % (Manual) (4-12) % Eosinophils % (Manual) (0-5) % Metamyelocytes % (0-0) % Myelocytes % (0-0) % Promyelocytes % (0-0) % Blast Cells % (0-0) % Nucleated RBCs (0-0) /100WBC Polychromasia Poikilocytosis Anisocytosis Macrocytosis Tear Drop Cells Ovalocytes Acanthocytes (Spur) PT 27.2 H (9.0-11.1) sec INR 2.69 H (1.00-1.24) D-Dimer, Quantitative (0.0-0.59) mg/LFEU Sodium (135-145) mmol/L Potassium (3.5-5.3) mmol/L Chloride (100-110) mmol/L Carbon Dioxide (21-32) mmol/L BUN (7-18) mg/dL Creatinine (0.70-1.30) mg/dL Est Cr Clr Drug Dosing Estimated GFR (MDRD) (>60) BUN/Creatinine Ratio (9-20) Glucose (80-116) mg/dL Lactic Acid (0.4-2.0) mmol/L Calcium (8.6-10.2) mg/dL Total Bilirubin (0.1-1.3) mg/dL AST (5-25) IU/L ALT (12-36) U/L Alkaline Phosphatase (56-112) IU/L Troponin I (4.0-60.3) pg/mL C-Reactive Protein (0.5-0.9) mg/dL NT-Pro-B Natriuret Pep (<=125) pg/mL Total Protein (6.0-8.0) g/dL Albumin (3.2-4.6) g/dL Globulin g/dL Albumin/Globulin Ratio Urine Color (YELLOW) Urine Appearance (CLEAR) Urine pH (5.0-6.5) Ur Specific [place] (1.010-1.025) Urine Protein (NEGATIVE) mg/dL Urine Glucose (UA) (NORMAL) mg/dL Urine Ketones (NEGATIVE) mg/dL Urine Occult Blood (NEGATIVE) Urine Nitrite (NEGATIVE) Urine Bilirubin (NEGATIVE) Urine Urobilinogen (NEGATIVE) mg/dL Ur Leukocyte Esterase (NEGATIVE) Urine RBC (0-5) Urine WBC (0-5) Ur Squamous Epith Cells (NS,R,O) Urine Bacteria (NS) SARS-CoV-2 RNA (BRIAN) (NEGATIVE) Result Diagrams: 08/15/21 06:30 08/15/21 06:30 Sepsis Event Note - Evaluation Sepsis Screening Result: Sepsis Risk - Focused Exam Vital Signs: Vital Signs Temp Pulse Pulse Resp BP BP Pulse Ox 08/15/21 08:40 115 H 145/71 H 08/15/21 08:38 145/71 H 08/15/21 08:00 97.9 F 115 H 18 145/71 H 94 L 08/15/21 03:21 98.9 F 98 20 139/66 94 L - Problem List & Annotations (1) Pain, joint, hip, right SNOMED Code(s): 18265834 Code(s): M25.551 - PAIN IN RIGHT HIP Status: Acute Current Visit: Yes (2) Knee pain, right SNOMED Code(s): 4951582545 Code(s): M25.561 - PAIN IN RIGHT KNEE Status: Acute Current Visit: Yes (3) Palliative care status SNOMED Code(s): 237867200 Code(s): Z51.5 - ENCOUNTER FOR PALLIATIVE CARE Status: Acute Current Visit: Yes (4) Leukocytosis SNOMED Code(s): 443045359, 184824073 Code(s): D72.829 - ELEVATED WHITE BLOOD CELL COUNT, UNSPECIFIED Status: A cute Current Visit: Yes (5) Acute exacerbation of congestive heart failure SNOMED Code(s): 652213736, 12578977308548 Code(s): I50.9 - HEART FAILURE, UNSPECIFIED Status: Acute Current Visit: No (6) MDS (myelodysplastic syndrome) SNOMED Code(s): 757351654 Code(s): D46.9 - MYELODYSPLASTIC SYNDROME, UNSPECIFIED Status: Acute Current Visit: No (7) Atrial fibrillation SNOMED Code(s): 24462187 Code(s): I48.91 - UNSPECIFIED ATRIAL FIBRILLATION Status: Chronic Current Visit: No (8) History of DVT (deep vein thrombosis) SNOMED Code(s): 843953329 Code(s): Z86.718 - PERSONAL HISTORY OF OTHER VENOUS THROMBOSIS AND EMBOLISM Status: Chronic Current Visit: No (9) History of cardiac arrest SNOMED Code(s): 745878264 Code(s): Z86.74 - PERSONAL HISTORY OF SUDDEN CARDIAC ARREST Status: Chronic Current Visit: No (10) Low back pain SNOMED Code(s): 328557512 Code(s): M54.5 - LOW BACK PAIN * DO NOT USE * Status: Chronic Current Visit: No (11) Obesity SNOMED Code(s): 259290371, 678053279 Code(s): E66.9 - OBESITY, UNSPECIFIED Status: Chronic Current Visit: No - Problem List Review Problem List Initiated/Reviewed/Updated: Yes - My Orders Last 24 Hours: My Active Orders 08/14/21 Lunch Regular Diet [DIET] 08/14/21 11:25 Admission Status [Patient Status] [ADT] Routine 08/14/21 12:03 May Shower [RC] ASDIRECTED Up With Assistance [RC] ASDIRECTED OT Evaluation and Treatment [CONS] Routine PT Evaluation and Treatment [CONS] Routine Sodium Chloride 0.9% [Saline Flush] 10 ml FLUSH ASDIRECTED PRN Peripheral IV Insertion Adult [OM.PC] Routine Saline Lock Insert [OM.PC] Routine Resuscitation Status Routine 08/14/21 12:04 Patient Status [ADT] Routine Oxygen Therapy [RC] PRN VTE/DVT Education [RC] Per Unit Routine Vital Signs [RC] Q4H 08/14/21 12:08 Sequential Compression Device [OM.PC] Per Unit Routine 08/14/21 12:10 EKG 12 Lead [EK] Routine 08/14/21 14:05 CULTURE BLOOD [BC] Routine 08/14/21 14:15 CULTURE BLOOD [BC] Routine 08/14/21 16:00 cefTRIAXone [Rocephin] 1 gm IVPUSH Q24H 08/14/21 16:23 Acetaminophen/HYDROcodone [[place] 325-5 MG] 1 tab PO Q6H PRN Albuterol [Ventolin HFA] 0 gm INH Q6H PRN Docusate Sodium [Colace] 100 mg PO DAILY PRN Nitroglycerin [Nitrostat] 0.4 mg SL Q5M PRN traMADol [Ultram] 50 mg PO BID PRN 08/14/21 16:24 RT Post Treatment Assessment [RC] Click to Edit 08/14/21 16:30 Sodium Chloride 0.9% [Normal Saline] 1,000 ml IV ASDIRECTED 08/14/21 18:54 Urinary Catheter Assessment [RC] QSHIFT 08/14/21 19:00 Insert [place] Catheter [Insert Urinary Catheter] [OM.PC] Q24H 08/14/21 21:00 Metoprolol Tartrate [Lopressor] 100 mg PO BID Potassium Chloride [Klor-Con M20] 20 meq PO BID Pramipexole [Mirapex] 0.75 mg PO BEDTIME 08/15/21 06:00 PERIPH BLOOD SMEAR PATHOLOGIST [HEME] Routine 08/15/21 06:30 COMP PANEL: LEUKEMIA/LYMPHOMA Routine 08/15/21 09:00 Aspirin [Halfprin] 81 mg PO DAILY Enalapril [Vasotec] 20 mg PO DAILY Furosemide [Lasix] 40 mg PO DAILY Isosorbide Mononitrate [Imdur] 30 mg PO DAILY Multivitamin [Multivitamin] 1 each PO DAILY atorvaSTATin [Lipitor] 40 mg PO DAILY 08/15/21 09:41 Lumbar Spine Comp wo Cont [MR] Routine 08/15/21 09:43 Consult to Occupational Therapy [OT Evaluation and Treatment] [CONS] Routine Consult to Physical Therapy [PT Evaluation and Treatment] [CONS] Routine VL Duplex Lwr Ext Veins Ltd Rt [US] Routine 08/15/21 09:45 Furosemide [Lasix] 40 mg PO BID 08/16/21 06:00 INR,PT,PROTHROMBIN TIME [COAG] DAILY 08/17/21 06:00 INR,PT,PROTHROMBIN TIME [COAG] DAILY 08/18/21 06:00 INR,PT,PROTHROMBIN TIME [COAG] DAILY 08/19/21 06:00 INR,PT,PROTHROMBIN TIME [COAG] DAILY 08/20/21 06:00 INR,PT,PROTHROMBIN TIME [COAG] DAILY - Plan Plan:: 1. Discussed case with oncology. No blast cells seen by lab. Today I will send his blood for peripheral smear. 2. Flow cytometry for lymphoma/leukemia was sent yesterday. This was called to the lab. 3. PT/OT for the right leg pain. 4. Lasix 40 mg twice daily for the CHF 5. MRI of the low back to see if a disc is causing his right leg weakness. This could be a new medication he just started. 6. Continue Rocephin until I make sure he does not have an infection going on.
[2021-08-15] MEDS ORDERED: Warfarin Sliding Scale PO SCH (10:00)
[2021-08-15] MEDS: Furosemide 40 MG Tab PO SCH (13:22)
[2021-08-15] MEDS: cefTRIAXone 1 GM Vial IVPUSH SCH (15:21)
[2021-08-15] MEDS ORDERED: Warfarin 5 MG Tab *PTOM PO ONE (16:00)
[2021-08-15] MEDS ORDERED: Warfarin 5 MG Tab *PTOM PO SCH (16:00)
[2021-08-15] MEDS ORDERED: Sodium Chloride 0.9% 250 ML IV SCH (18:45)
--- NOTE | 2021-08-15 19:27 | CT ---
CT HEAD WITHOUT CONTRAST INDICATION: Weakness. TECHNIQUE: Spiral 3.75 mm axial sections were obtained through the brain without contrast with axial, sagittal and coronal reconstructions 08/15/21, old study from 2018 showed no acute intracranial abnormality. Total exam DLP was 1322.3 mGy/cm. FINDINGS: There is shift of midline structures to the right of approximately 12 mm due to a large left frontoparietal occipital subdural hematoma which is mostly subacute in appearance but with what may represent fresh blood/rebleed or residual from previous bleed present also. There appears to be subarachnoid hemorrhage also posteriorly extending inferiorly to the posterior fossa. The left lateral ventricle is markedly impressed upon by the edematous white matter. No other possibly acute process was identified. Calcifications are noted in the vertebral and internal carotid arteries. No cranial fracture site was identified. Paranasal sinuses and mastoid air cells appear to be well aerated. The orbits appear to be intact. IMPRESSION: 1. Large left frontoparietal to the occipital area subdural hematoma with high and low density areas compatible with subacute change and possibly rebleed. Subarachnoid entry is also noted. Shift of midline structures to the right is also noted approximately 12 mm. Impression is severe upon the left lateral ventricle. 2. Cerebrovascular disease. Report was called to Dr. Youngblood at 1840 hours 08/15/21. [facility]
[2021-08-15] MEDS ORDERED: Ibuprofen 800 MG Tab PO SCH (21:00)
[2021-08-15] MEDS: Pramipexole 0.25 MG Tab PO SCH (21:22)
--- NOTE | 2021-08-16 08:22 | PCM.SN.2 ---
- Free Text/Narrative Note: This was a conversation I had on 08/15/2021 at 7 PM. Patient was slow speech is stated. Slower than normal. He thought it was from hydrocodone. There is none on the chart sweats CT this head. Showed a large subacute subdural on the left side. I called neurosurgery they reviewed the x-ray. They felt it was probably a month ago. His arm strength is pretty good leg strength is decreased but they felt as long as he have a lot of arm strength problems or facial droop which she does not have they would observe. They recommend to repeat the CT this next morning. They also recommended stopping his aspirin. But continue his Coumadin because of his history of A. fib and pulmonary embolisms but try for an INR about 2.0. So we will repeat the CT in the a.m. Time Documentation - Time Based Documentation Total Time Spent on the Date of the Encounter (Minutes): 190
[2021-08-16] MEDS ORDERED: LORazepam 1 MG Tab PO ONE (08:30)
[2021-08-16] MEDS: traMADol 50 MG Tab PO PRN ×2 (08:33→21:50)
[2021-08-16] MEDS: Multivitamin Tab PO SCH ×2 (08:36→08:41)
[2021-08-16] MEDS: atorvaSTATin 40 MG Tab PO SCH (08:36)
[2021-08-16] MEDS: Furosemide 40 MG Tab PO SCH ×2 (08:37→14:46)
[2021-08-16] MEDS: Isosorbide Mononitrate 30 MG Tab.ER PO SCH (08:37)
[2021-08-16] MEDS: Metoprolol Tartrate 100 MG Tab PO SCH ×2 (08:37→20:33)
[2021-08-16] MEDS: Potassium Chloride 20 MEQ Tab.ER PO SCH ×2 (08:38→20:33)
--- NOTE | 2021-08-16 08:59 | PCM.PN ---
- General Info Date of Service: 08/16/21 Admission Dx/Problem (Free Text): Last night and the stated he is speaking slower and taking longer to tell a story than normal. She is worried about a stroke. Arm strength he states is normal. He had a CT showed subdural hematoma. Neurology was called to see previous note. Today patient feels good he has no shortness of breath, fevers, chills. No leg pain but some weakness on the right side. - Patient Data Vitals - Most Recent: Last Vital Signs Temp 99.7 F 08/16/21 07:45 Pulse 93 08/16/21 08:37 Resp 32 H 08/16/21 07:45 BP 121/70 08/16/21 08:37 Pulse Ox 94 L 08/16/21 07:45 Weight - Most Recent: 263 lb I&O - Last 24 Hours: Intake & Output 08/15/21 08/16/21 08/16/21 22:59 06:59 14:59 Intake Total 233 Output Total 700 250 Balance -467 -250 Lab Results Last 24 Hours: Laboratory Results - last 24 hr 08/16/21 08/16/21 08/16/21 Range/Units 06:25 06:25 06:25 WBC 49.0 H* (3.2-10.1) x10-3/uL Corrected WBC 38.0 H* (4.5-12.0) X10(3) RBC 2.42 L (3.90-5.90) x10(6)uL Hgb 7.1 L (12.9-17.7) g/dL Hct 23.8 L (38.3-50.1) % MCV 98.4 (80.8-98.7) fL MCH 29.4 (27.0-33.3) pg MCHC 29.9 (28.7-35.3) g/dL RDW 22.3 H (12.4-15.0) % Plt Count 52 L (117-477) x10(3)uL MPV 9.8 (6.7-11.0) fL Add Manual Diff Yes Neutrophils % (Manual) 39 L (46-82) % Band Neutrophils % 3 (0-6) % Lymphocytes % (Manual) 16 (13-37) % Monocytes % (Manual) 10 (4-12) % Metamyelocytes % 5 H (0-0) % Myelocytes % 10 H (0-0) % Promyelocytes % 9 H (0-0) % Blast Cells % 8 H (0-0) % Nucleated RBCs 27 H (0-0) /100WBC Polychromasia Few Poikilocytosis Moderate H Anisocytosis Moderate H Macrocytosis Moderate H Tear Drop Cells Few Ovalocytes Moderate H Acanthocytes (Spur) Few PT 17.9 H (9.0-11.1) sec INR 1.72 H (1.00-1.24) Sodium 135 (135-145) mmol/L Potassium 4.1 (3.5-5.3) mmol/L Chloride 104 (100-110) mmol/L Carbon Dioxide 25 (21-32) mmol/L BUN 36 H (7-18) mg/dL Creatinine 1.6 H (0.70-1.30) mg/dL Est Cr Clr Drug Dosing 48.52 mL/min Estimated GFR (MDRD) 43 L (>60) BUN/Creatinine Ratio 22.5 H (9-20) Glucose 113 (80-116) mg/dL Calcium 8.1 L (8.6-10.2) mg/dL Total Bilirubin 2.3 H (0.1-1.3) mg/dL AST 47 H (5-25) IU/L ALT 27 (12-36) U/L Alkaline Phosphatase 56 (56-112) IU/L Total Protein 6.4 (6.0-8.0) g/dL Albumin 3.1 L (3.2-4.6) g/dL Globulin 3.3 g/dL Albumin/Globulin Ratio 0.9 Stevie Results Last 24 Hours: Microbiology 08/14/21 14:15 Aerobic Blood Culture - Preliminary Blood NO GROWTH AFTER 1 DAY Anaerobic Blood Culture - Preliminary NO GROWTH AFTER 1 DAY 08/14/21 14:05 Aerobic Blood Culture - Preliminary Blood NO GROWTH AFTER 1 DAY Anaerobic Blood Culture - Preliminary NO GROWTH AFTER 1 DAY Med Orders - Current: Current Medications Albuterol (Albuterol 8 Gm Inhaler) 0 gm INH Q6H PRN PRN Reason: Shortness of Breath Atorvastatin Calcium (Atorvastatin 40 Mg Tab) 40 mg PO DAILY JULIANNE Last Admin: 08/16/21 08:36 Dose: 40 mg Documented by: Ceftriaxone Sodium (Ceftriaxone 1 Gm Vial) 1 gm IVPUSH Q24H [facility] Last Admin: 08/15/21 15:21 Dose: 1 gm Documented by: Docusate Sodium (Docusate Sodium 100 Mg Cap) 100 mg PO DAILY PRN PRN Reason: Constipation Enalapril Maleate (Enalapril 10 Mg Tab) 20 mg PO DAILY [facility] Last Admin: 08/16/21 08:37 Dose: 20 mg Documented by: Furosemide (Furosemide 40 Mg Tab) 40 mg PO BIDDIURETIC [facility] Last Admin: 08/16/21 08:37 Dose: 40 mg Documented by: Sodium Chloride (Normal Saline) 1,000 mls @ 150 mls/hr IV ASDIRECTED [facility] Sodium Chloride (Normal Saline) 250 mls @ 100 mls/hr IV ASDIRECTED [facility] Isosorbide Mononitrate (Isosorbide Mononitrate 30 Mg Tab.Er) 30 mg PO DAILY [facility] Last Admin: 08/16/21 08:37 Dose: 30 mg Documented by: Metoprolol Tartrate (Metoprolol Tartrate 100 Mg Tab) 100 mg PO BID [facility] Last Admin: 08/16/21 08:37 Dose: 100 mg Documented by: Multivitamins/Minerals/Vitamin C (Multivitamin Tab) 1 tab PO DAILY [facility] Last Admin: 08/16/21 08:41 Dose: Not Given Documented by: Nitroglycerin (Nitroglycerin 0.4 Mg Tab.Sl) 0.4 mg SL Q5M PRN PRN Reason: Chest Pain Potassium Chloride (Potassium Chloride 20 Meq Tab.Er) 20 meq PO BID [facility] Last Admin: 08/16/21 08:38 Dose: 20 meq Documented by: Pramipexole Dihydrochloride (Pramipexole 0.25 Mg Tab) 0.75 mg PO BEDTIME [facility] Last Admin: 08/15/21 21:22 Dose: 0.75 mg Documented by: Sodium Chloride (Sodium Chloride 0.9% 10 Ml Syringe) 10 ml FLUSH ASDIRECTED PRN PRN Reason: Keep Vein Open Tramadol HCl (Tramadol 50 Mg Tab) 50 mg PO Q6H PRN PRN Reason: Pain Last Admin: 08/16/21 08:33 Dose: 50 mg Documented by: Warfarin Sodium (Warfarin Sliding Scale) 1 each PO ASDIRECTED [facility] Warfarin Sodium (Warfarin 5 Mg Tab) 5 mg PO ONETIME ONE Stop: 08/16/21 16:01 Discontinued Medications Hydrocodone Bitart/Acetaminophen (Acetaminophen/Hydrocodone 325-5 Mg Tab) 1 tab PO Q4H PRN PRN Reason: Pain (moderate 4-6) Last Admin: 08/14/21 12:25 Dose: 1 tab Documented by: Hydrocodone Bitart/Acetaminophen (Acetaminophen/Hydrocodone 325-5 Mg Tab) 1 tab PO Q6H PRN PRN Reason: Pain Last Admin: 08/15/21 05:41 Dose: 1 tab Documented by: Aspirin (Aspirin 81 Mg Tab.Ec *Ptom) 81 mg PO DAILY [facility] Last Admin: 08/15/21 08:38 Dose: 81 mg Documented by: Enoxaparin Sodium (Enoxaparin 120 Mg/0.8 Ml Syringe) 120 mg SUBCUT Q12H [facility] Last Admin: 08/14/21 21:25 Dose: Not Given Documented by: Furosemide (Furosemide 40 Mg Tab *Ptom) 40 mg PO DAILY [facility] Last Admin: 08/15/21 08:39 Dose: 40 mg Documented by: Furosemide (Furosemide 40 Mg/4 Ml Vial) 60 mg IVPUSH NOW ONE Stop: 08/14/21 18:54 Last Admin: 08/14/21 19:13 Dose: 60 mg Documented by: Ibuprofen (Ibuprofen 800 Mg Tab) 800 mg PO TID [facility] Iopamidol (Iopamidol 755 Mg/Ml 150 Ml Bottle) 135 ml IV ONETIME ONE Stop: 08/14/21 16:14 Last Admin: 08/14/21 20:12 Dose: 135 ml Documented by: Lorazepam (Lorazepam 1 Mg Tab) 1 mg PO ONETIME ONE Stop: 08/16/21 08:31 Last Admin: 08/16/21 08:35 Dose: 1 mg Documented by: (Enalapril [Vasotec] (20 Mg Tablet)*Ptom) 20 mg PO DAILY [facility] Last Admin: 08/15/21 08:38 Dose: 20 mg Documented by: (Multivitamin [ Multivitamin] 1 Each Tablet) *Ptom 1 each PO DAILY [facility] Last Admin: 08/15/21 08:40 Dose: 1 each Documented by: Tramadol HCl (Tramadol 50 Mg Tab) 50 mg PO BID PRN PRN Reason: PAIN Last Admin: 08/15/21 12:39 Dose: 50 mg Documented by: Warfarin Sodium (Warfarin Sliding Scale) 1 each PO ASDIRECTED [facility] Warfarin Sodium (Warfarin 2.5 Mg Tab *Ptom) 2.5 mg PO ONETIME ONE Stop: 08/14/21 16:01 Last Admin: 08/14/21 19:15 Dose: Not Given Documented by: Warfarin Sodium (Warfarin 5 Mg Tab *Ptom) 5 mg PO [id number] [facility] Warfarin Sodium (Warfarin 5 Mg Tab *Ptom) 2.5 mg PO ONETIME ONE Stop: 08/14/21 17:31 Last Admin: 08/14/21 19:15 Dose: Not Given Documented by: Warfarin Sodium (Warfarin 2.5 Mg Tab) 2.5 mg PO ONETIME ONE Stop: 08/14/21 19:57 Last Admin: 08/14/21 20:56 Dose: 2.5 mg Documented by: Warfarin Sodium (Warfarin 5 Mg Tab *Ptom) 2.5 mg PO ONETIME ONE Stop: 08/15/21 16:01 Last Admin: 08/15/21 15:20 Dose: 2.5 mg Documented by: - Exam Urinary Catheter Total Time: 1Days 5Hours General: Alert, Oriented, Cooperative Neck: Supple Lungs: Clear to Auscultation, Normal Respiratory Effort Cardiovascular: Regular Rate, Irregular Rhythm Neurological: Other (He has weakness in the right leg. Possibly little weakness with tricep strength. No facial droop.) - Patient Data Lab Results Last 24 hrs: Laboratory Results - last 24 hr 08/16/21 08/16/21 08/16/21 Range/Units 06:25 06:25 06:25 WBC 49.0 H* (3.2-10.1) x10-3/uL Corrected WBC 38.0 H* (4.5-12.0) X10(3) RBC 2.42 L (3.90-5.90) x10(6)uL Hgb 7.1 L (12.9-17.7) g/dL Hct 23.8 L (38.3-50.1) % MCV 98.4 (80.8-98.7) fL MCH 29.4 (27.0-33.3) pg MCHC 29.9 (28.7-35.3) g/dL RDW 22.3 H (12.4-15.0) % Plt Count 52 L (117-477) x10(3)uL MPV 9.8 (6.7-11.0) fL Add Manual Diff Yes Neutrophils % (Manual) 39 L (46-82) % Band Neutrophils % 3 (0-6) % Lymphocytes % (Manual) 16 (13-37) % Monocytes % (Manual) 10 (4-12) % Metamyelocytes % 5 H (0-0) % Myelocytes % 10 H (0-0) % Promyelocytes % 9 H (0-0) % Blast Cells % 8 H (0-0) % Nucleated RBCs 27 H (0-0) /100WBC Polychromasia Few Poikilocytosis Moderate H Anisocytosis Moderate H Macrocytosis Moderate H Tear Drop Cells Few Ovalocytes Moderate H Acanthocytes (Spur) Few PT 17.9 H (9.0-11.1) sec INR 1.72 H (1.00-1.24) Sodium 135 (135-145) mmol/L Potassium 4.1 (3.5-5.3) mmol/L Chloride 104 (100-110) mmol/L Carbon Dioxide 25 (21-32) mmol/L BUN 36 H (7-18) mg/dL Creatinine 1.6 H (0.70-1.30) mg/dL Est Cr Clr Drug Dosing 48.52 mL/min Estimated GFR (MDRD) 43 L (>60) BUN/Creatinine Ratio 22.5 H (9-20) Glucose 113 (80-116) mg/dL Calcium 8.1 L (8.6-10.2) mg/dL Total Bilirubin 2.3 H (0.1-1.3) mg/dL AST 47 H (5-25) IU/L ALT 27 (12-36) U/L Alkaline Phosphatase 56 (56-112) IU/L Total Protein 6.4 (6.0-8.0) g/dL Albumin 3.1 L (3.2-4.6) g/dL Globulin 3.3 g/dL Albumin/Globulin Ratio 0.9 Result Diagrams: 08/16/21 06:25 08/16/21 06:25 Stevie Results Last 24 hrs: Microbiology 08/14/21 14:15 Aerobic Blood Culture - Preliminary Blood NO GROWTH AFTER 1 DAY Anaerobic Blood Culture - Preliminary NO GROWTH AFTER 1 DAY 08/14/21 14:05 Aerobic Blood Culture - Preliminary Blood NO GROWTH AFTER 1 DAY Anaerobic Blood Culture - Preliminary NO GROWTH AFTER 1 DAY Sepsis Event Note - Evaluation Sepsis Screening Result: No Definite Risk - Focused Exam Vital Signs: Vital Signs Temp Temp Pulse Pulse Pulse Resp BP 08/16/21 08:37 93 121/70 08/16/21 07:45 99.7 F 93 32 H 08/16/21 04:00 98.7 F 88 20 08/16/21 00:00 98.5 F 85 20 08/15/21 21:52 100.4 F 105 H 20 08/15/21 21:23 94 117/63 08/15/21 20:58 100.0 F 94 20 BP Pulse Ox 08/16/21 08:37 08/16/21 07:45 121/70 94 L 08/16/21 04:00 113/61 95 08/16/21 00:00 111/63 93 L 08/15/21 21:52 119/63 96 08/15/21 21:23 08/15/21 20:58 117/63 - Problem List & Annotations (1) Pain, joint, hip, right SNOMED Code(s): 99253029 Code(s): M25.551 - PAIN IN RIGHT HIP Status: Acute Current Visit: Yes (2) Knee pain, right SNOMED Code(s): 9318243730 Code(s): M25.561 - PAIN IN RIGHT KNEE Status: Acute Current Visit: Yes (3) Palliative care status SNOMED Code(s): 777060931 Code(s): Z51.5 - ENCOUNTER FOR PALLIATIVE CARE Status: Acute Current Visit: Yes (4) Leukocytosis SNOMED Code(s): 799872556, 116164374 Code(s): D72.829 - ELEVATED WHITE BLOOD CELL COUNT, UNSPECIFIED Status: Acute Current Visit: Yes (5) Acute exacerbation of congestive heart failure SNOMED Code(s): 886819917, 59477222567937 Code(s): I50.9 - HEART FAILURE, UNSPECIFIED Status: Acute Current Visit: No (6) MDS (myelodysplastic syndrome) SNOMED Code(s): 650307751 Code(s): D46.9 - MYELODYSPLASTIC SYNDROME, UNSPECIFIED Status: Acute Current Visit: No (7) Atrial fibrillation SNOMED Code(s): 91906904 Code(s): I48.91 - UNSPECIFIED ATRIAL FIBRILLATION Status: Chronic Current Visit: No (8) History of DVT (deep vein thrombosis) SNOMED Code(s): 635614851 Code(s): Z86.718 - PERSONAL HISTORY OF OTHER VENOUS THROMBOSIS AND EMBOLISM Status: Chronic Current Visit: No (9) History of cardiac arrest SNOMED Code(s): 360507263 Code(s): Z86.74 - PERSONAL HISTORY OF SUDDEN CARDIAC ARREST Status: Chronic Current Visit: No (10) Low back pain SNOMED Code(s): 236947958 Code(s): M54.5 - LOW BACK PAIN * DO NOT USE * Status: Chronic Current Visit: No (11) Obesity SNOMED Code(s): 873685811, 529766059 Code(s): E66.9 - OBESITY, UNSPECIFIED Status: Chronic Current Visit: No (12) Subdural hematoma SNOMED Code(s): 128031147 Code(s): S06.5X9A - TRAUM SUBDR HEM W LOC OF UNSP DURATION, INIT Status: Acute Current Visit: Yes - Problem List Review Problem List Initiated/Reviewed/Updated: Yes - My Orders Last 24 Hours: My Active Orders 08/15/21 09:00 Isosorbide Mononitrate [Imdur] 30 mg PO DAILY atorvaSTATin [Lipitor] 40 mg PO DAILY 08/15/21 09:43 Consult to Occupational Therapy [OT Evaluation and Treatment] [CONS] Routine Consult to Physical Therapy [PT Evaluation and Treatment] [CONS] Routine 08/15/21 09:56 Remove [place] Catheter [Urinary Catheter Removal] [RC] PER UNIT ROUTINE 08/15/21 10:00 Warfarin Sliding Scale [Coumadin Sliding Scale] 1 each PO ASDIRECTED 08/15/21 14:00 Furosemide [Lasix] 40 mg PO BIDDIURETIC 08/15/21 17:45 Admission Status [Patient Status] [ADT] Routine 08/15/21 18:37 Transfuse Fresh Frozen Plasma [COMM] Routine 08/15/21 18:38 traMADol [Ultram] 50 mg PO Q6H PRN 08/15/21 18:45 Sodium Chloride 0.9% [Normal Saline] 250 ml IV ASDIRECTED 08/16/21 08:54 Head wo Cont [CT] Routine 08/16/21 09:00 Enalapril [Vasotec] 20 mg PO DAILY Multivitamins [Tab-A-Vikash] 1 tab PO DAILY 08/16/21 09:41 Lumbar Spine Comp wo Cont [MR] Routine 08/16/21 09:43 VL Duplex Lwr Ext Veins Ltd Rt [US] Routine 08/16/21 16:00 Warfarin [Coumadin] 5 mg PO ONETIME ONE 08/17/21 06:00 INR,PT,PROTHROMBIN TIME [COAG] DAILY 08/18/21 06:00 INR,PT,PROTHROMBIN TIME [COAG] DAILY 08/19/21 06:00 INR,PT,PROTHROMBIN TIME [COAG] DAILY 08/20/21 06:00 INR,PT,PROTHROMBIN TIME [COAG] DAILY - Plan Plan:: 1. Waiting for his peripheral smear this is going to be done this morning. Flow cytometry should be done a day or 2. 2. Neurosurgery recommended repeating the CT head today. 3. Doppler right leg 4. Try to repeat the MRI of the low back. He had trouble with spasm yesterday give him 1 mg Ativan p.o. for 45 minutes before the procedure. 5. Before I do any more imaging could not wait for the peripheral smear. His white count is very high suspect blast cells. 6. Leave the catheter in [place] for today and may consider discharging later depending on what we find.
--- NOTE | 2021-08-16 09:10 | PCM.EKG ---
#1 Interpretation EKG Date: 08/14/21 EKG Interpretation Comments: Atrial fibrillation
[2021-08-16] MEDS ORDERED: LORazepam 2 MG/ML SDV IVPUSH STA (09:24)
[2021-08-16] MEDS: Sodium Chloride 0.9% 10 ML Syringe FLUSH PRN ×5 (09:40→22:19)
--- NOTE | 2021-08-16 10:42 | CT ---
CT HEAD WITHOUT CONTRAST INDICATION: Followup subdural hematoma. TECHNIQUE: Spiral 3.75 mm axial sections were obtained through the brain without contrast with axial, sagittal and coronal reconstructions 08/16/21 and compared with the prior day's examination of 08/15/21. Total exam DLP was 1373.47 mGy/cm. FINDINGS: The left-sided subacute subdural hematoma extending across the hemisphere on the left and producing left shift is unchanged from the previous examination - stable with stable shift to the right. A new acute process is not identified. Subarachnoid hemorrhage is stable. IMPRESSION: Stable CT brain - left-sided subdural hematoma is unchanged in appearance. Report was called to Dr. Youngblood at 1026 hours 08/16/21. [facility]
[2021-08-16] MEDS: Sodium Chloride 0.9% 250 ML IV SCH ×2 (11:31→15:00)
[2021-08-16] MEDS ORDERED: Warfarin 5 MG Tab PO ONE (16:00)
[2021-08-16] MEDS: cefTRIAXone 1 GM Vial IVPUSH SCH (18:25)
[2021-08-16] MEDS ORDERED: Furosemide 20 MG/2 ML VIAL IVPUSH ONE ×2 (20:10→22:03)
[2021-08-16] MEDS: Pramipexole 0.25 MG Tab PO SCH (20:32)
--- NOTE | 2021-08-16 21:53 | PCM.SN.2 ---
- Free Text/Narrative Note: I was asked to see Alejandro because of respiratory distress. 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 Today he got 2 units of PRBCs. Tonight they noticed that he is in respiratory d istress,diaphoretic with a blood pressure 102 systolic and respiratory rate to the 30s. He was also hypoxic. On exam he appeared to be in mild respiratory distress, and on 2 L of nasal rales oxygenation. Lungs had some diminished breath sounds bilaterally. I ordered a total 40 mg IV Lasix and will continue O2 supplementation,and reassess after a CXR. Time Documentation
[2021-08-17] MEDS: traMADol 50 MG Tab PO PRN ×3 (08:10→21:26)
[2021-08-17] MEDS: Metoprolol Tartrate 100 MG Tab PO SCH ×2 (08:11→20:01)
[2021-08-17] MEDS: Potassium Chloride 20 MEQ Tab.ER PO SCH ×2 (08:12→20:01)
[2021-08-17] MEDS: atorvaSTATin 40 MG Tab PO SCH (08:12)
[2021-08-17] MEDS: Furosemide 40 MG Tab PO SCH ×2 (08:12→15:11)
[2021-08-17] MEDS: Isosorbide Mononitrate 30 MG Tab.ER PO SCH (08:12)
[2021-08-17] MEDS: Multivitamin Tab PO SCH (08:13)
--- NOTE | 2021-08-17 08:49 | PCM.PN ---
- General Info Date of Service: 08/17/21 Admission Dx/Problem (Free Text): Patient has no concerns today. Last night he has some respiratory distress after the 2 units of red blood cells. Was given IV Lasix and evaluated by the ER doc and improved. His states he is using his left hand eat more than he used to usually does. Is mostly right-handed. He has no chest pain or shortness of breath today. - Patient Data Vitals - Most Recent: Last Vital Signs Temp 97.3 F 08/17/21 07:25 Pulse 78 08/17/21 08:11 Resp 22 H 08/17/21 07:25 BP 116/59 L 08/17/21 08:12 Pulse Ox 95 08/17/21 07:25 Weight - Most Recent: 263 lb I&O - Last 24 Hours: Intake & Output 08/16/21 08/17/21 08/17/21 22:59 06:59 14:59 Intake Total 324 Output Total 1000 850 Balance -676 -850 Lab Results Last 24 Hours: Laboratory Results - last 24 hr 08/15/21 08/16/21 08/17/21 Range/Units 06:00 09:15 06:10 WBC (3.2-10.1) x10-3/uL Corrected WBC (4.5-12.0) X10(3) RBC (3.90-5.90) x10(6)uL Hgb (12.9-17.7) g/dL Hct (38.3-50.1) % MCV (80.8-98.7) fL MCH (27.0-33.3) pg MCHC (28.7-35.3) g/dL RDW (12.4-15.0) % Plt Count (117-477) x10(3)uL MPV (6.7-11.0) fL Add Manual Diff Neutrophils % (Manual) (46-82) % Band Neutrophils % (0-6) % Lymphocytes % (Manual) (13-37) % Monocytes % (Manual) (4-12) % Metamyelocytes % (0-0) % Myelocytes % (0-0) % Promyelocytes % (0-0) % Blast Cells % (0-0) % Nucleated RBCs (0-0) /100WBC Polychromasia Poikilocytosis Anisocytosis Macrocytosis Target Cells Ovalocytes Acanthocytes (Spur) Smear Path Review See note PT 15.4 H (9.0-11.1) sec INR 1.47 H (1.00-1.24) Sodium (135-145) mmol/L Potassium (3.5-5.3) mmol/L Chloride (100-110) mmol/L Carbon Dioxide (21-32) mmol/L BUN (7-18) mg/dL Creatinine (0.70-1.30) mg/dL Est Cr Clr Drug Dosing mL/min Estimated GFR (MDRD) (>60) BUN/Creatinine Ratio (9-20) Glucose (80-116) mg/dL Calcium (8.6-10.2) mg/dL Total Bilirubin (0.1-1.3) mg/dL AST (5-25) IU/L ALT (12-36) U/L Alkaline Phosphatase (56-112) IU/L Total Protein (6.0-8.0) g/dL Albumin (3.2-4.6) g/dL Globulin g/dL Albumin/Globulin Ratio Blood Type B POSITIVE Gel Antibody Screen Negative Crossmatch See Detail 08/17/21 08/17/21 Range/Units 06:10 06:10 WBC 45.9 H* (3.2-10.1) x10-3/uL Corrected WBC 35.0 H* (4.5-12.0) X10(3) RBC 2.96 L (3.90-5.90) x10(6)uL Hgb 8.6 L (12.9-17.7) g/dL Hct 27.5 L (38.3-50.1) % MCV 93.0 (80.8-98.7) fL MCH 29.0 (27.0-33.3) pg MCHC 31.2 (28.7-35.3) g/dL RDW 23.6 H (12.4-15.0) % Plt Count 40 L (117-477) x10(3)uL MPV 7.9 (6.7-11.0) fL Add Manual Diff Yes Neutrophils % (Manual) 31 L (46-82) % Band Neutrophils % 2 (0-6) % Lymphocytes % (Manual) 20 (13-37) % Monocytes % (Manual) 14 H (4-12) % Metamyelocytes % 4 H (0-0) % Myelocytes % 15 H (0-0) % Promyelocytes % 10 H (0-0) % Blast Cells % 4 H (0-0) % Nucleated RBCs 28 H (0-0) /100WBC Polychromasia Few Poikilocytosis Moderate H Anisocytosis Moderate H Macrocytosis Moderate H Target Cells Few Ovalocytes Moderate H Acanthocytes (Spur) Few Smear Path Review PT (9.0-11.1) sec INR (1.00-1.24) Sodium 141 (135-145) mmol/L Potassium 3.7 (3.5-5.3) mmol/L Chloride 104 (100-110) mmol/L Carbon Dioxide 27 (21-32) mmol/L BUN 34 H (7-18) mg/dL Creatinine 1.6 H (0.70-1.30) mg/dL Est Cr Clr Drug Dosing 48.52 mL/min Estimated GFR (MDRD) 43 L (>60) BUN/Creatinine Ratio 21.3 H (9-20) Glucose 109 (80-116) mg/dL Calcium 7.8 L (8.6-10.2) mg/dL Total Bilirubin 2.0 H (0.1-1.3) mg/dL AST 44 H (5-25) IU/L ALT 28 (12-36) U/L Alkaline Phosphatase 57 (56-112) IU/L Total Protein 6.5 (6.0-8.0) g/dL Albumin 3.1 L (3.2-4.6) g/dL Globulin 3.4 g/dL Albumin/Globulin Ratio 0.9 Blood Type Gel Antibody Screen Crossmatch Stevie Results Last 24 Hours: Microbiology 08/14/21 14:15 Aerobic Blood Culture - Preliminary Blood NO GROWTH AFTER 2 DAYS Anaerobic Blood Culture - Preliminary NO GROWTH AFTER 2 DAYS 08/14/21 14:05 Aerobic Blood Culture - Preliminary Blood NO GROWTH AFTER 2 DAYS Anaerobic Blood Culture - Preliminary NO GROWTH AFTER 2 DAYS Med Orders - Current: Current Medications Albuterol (Albuterol 8 Gm Inhaler) 0 gm INH Q6H PRN PRN Reason: Shortness of Breath Atorvastatin Calcium (Atorvastatin 40 Mg Tab) 40 mg PO DAILY JULIANNE Last Admin: 08/17/21 08:12 Dose: 40 mg Documented by: Docusate Sodium (Docusate Sodium 100 Mg Cap) 100 mg PO DAILY PRN PRN Reason: Constipation Enalapril Maleate (Enalapril 10 Mg Tab) 20 mg PO DAILY REPLACED BY [facility] Last Admin: 08/17/21 08:12 Dose: 20 mg Documented by: Furosemide (Furosemide 40 Mg Tab) 40 mg PO BIDDIURETIC REPLACED BY [facility] Last Admin: 08/17/21 08:12 Dose: 40 mg Documented by: Sodium Chloride (Normal Saline) 1,000 mls @ 150 mls/hr IV ASDIRECTED REPLACED BY [facility] Isosorbide Mononitrate (Isosorbide Mononitrate 30 Mg Tab.Er) 30 mg PO DAILY REPLACED BY [facility] Last Admin: 08/17/21 08:12 Dose: 30 mg Documented by: Metoprolol Tartrate (Metoprolol Tartrate 100 Mg Tab) 100 mg PO BID REPLACED BY [facility] Last Admin: 08/17/21 08:11 Dose: 100 mg Documented by: Nitroglycerin (Nitroglycerin 0.4 Mg Tab.Sl) 0.4 mg SL Q5M PRN PRN Reason: Chest Pain Potassium Chloride (Potassium Chloride 20 Meq Tab.Er) 20 meq PO BID REPLACED BY [facility] Last Admin: 08/17/21 08:12 Dose: 20 meq Documented by: Pramipexole Dihydrochloride (Pramipexole 0.25 Mg Tab) 0.75 mg PO BEDTIME REPLACED BY [facility] Last Admin: 08/16/21 20:32 Dose: 0.75 mg Documented by: Sodium Chloride (Sodium Chloride 0.9% 10 Ml Syringe) 10 ml FLUSH ASDIRECTED PRN PRN Reason: Keep Vein Open Last Admin: 08/16/21 22:19 Dose: 10 ml Documented by: Tramadol HCl (Tramadol 50 Mg Tab) 50 mg PO Q6H PRN PRN Reason: Pain Last Admin: 08/17/21 08:10 Dose: 50 mg Documented by: Warfarin Sodium (Warfarin Sliding Scale) 1 each PO ASDIRECTED REPLACED BY [facility] Warfarin Sodium (Warfarin 5 Mg Tab) 5 mg PO ONETIME ONE Stop: 08/17/21 16:01 Discontinued Medications Hydrocodone Bitart/Acetaminophen (Acetaminophen/Hydrocodone 325-5 Mg Tab) 1 tab PO Q4H PRN PRN Reason: Pain (moderate 4-6) Last Admin: 08/14/21 12:25 Dose: 1 tab Documented by: Hydrocodone Bitart/Acetaminophen (Acetaminophen/Hydrocodone 325-5 Mg Tab) 1 tab PO Q6H PRN PRN Reason: Pain Last Admin: 08/15/21 05:41 Dose: 1 tab Documented by: Aspirin (Aspirin 81 Mg Tab.Ec *Ptom) 81 mg PO DAILY REPLACED BY [facility] Last Admin: 08/15/21 08:38 Dose: 81 mg Documented by: Ceftriaxone Sodium (Ceftriaxone 1 Gm Vial) 1 gm IVPUSH Q24H REPLACED BY [facility] Last Admin: 08/16/21 18:25 Dose: 1 gm Documented by: Enoxaparin Sodium (Enoxaparin 120 Mg/0.8 Ml Syringe) 120 mg SUBCUT Q12H REPLACED BY [facility] Last Admin: 08/14/21 21:25 Dose: Not Given Documented by: Furosemide (Furosemide 40 Mg Tab *Ptom) 40 mg PO DAILY REPLACED BY [facility] Last Admin: 08/15/21 08:39 Dose: 40 mg Documented by: Furosemide (Furosemide 40 Mg/4 Ml Vial) 60 mg IVPUSH NOW ONE Stop: 08/14/21 18:54 Last Admin: 08/14/21 19:13 Dose: 60 mg Documented by: Furosemide (Furosemide 20 Mg/2 Ml Vial) 20 mg IVPUSH NOW ONE Stop: 08/16/21 20:11 Last Admin: 08/16/21 20:25 Dose: 20 mg Documented by: Furosemide (Furosemide 20 Mg/2 Ml Vial) 20 mg IVPUSH ONETIME ONE Stop: 08/16/21 22:04 Last Admin: 08/16/21 22:19 Dose: 20 mg Documented by: Sodium Chloride (Normal Saline) 250 mls @ 100 mls/hr IV ASDIRECTED REPLACED BY [facility] Sodium Chloride (Normal Saline) 250 mls @ 100 mls/hr IV ASDIRECTED REPLACED BY [facility] Last Admin: 08/16/21 15:00 Dose: 100 mls/hr Documented by: Ibuprofen (Ibuprofen 800 Mg Tab) 800 mg PO TID REPLACED BY [facility] Iopamidol (Iopamidol 755 Mg/Ml 150 Ml Bottle) 135 ml IV ONETIME ONE Stop: 08/14/21 16:14 Last Admin: 08/14/21 20:12 Dose: 135 ml Documented by: Lorazepam (Lorazepam 1 Mg Tab) 1 mg PO ONETIME ONE Stop: 08/16/21 08:31 Last Admin: 08/16/21 08:35 Dose: 1 mg Documented by: Lorazepam (Lorazepam 2 Mg/Ml Sdv) 0.5 mg IVPUSH ONETIME STA Stop: 08/16/21 09:25 Last Admin: 08/16/21 09:40 Dose: 0.5 mg Documented by: Multivitamins/Minerals/Vitamin C (Multivitamin Tab) 1 tab PO DAILY REPLACED BY [facility] Last Admin: 08/17/21 08:13 Dose: Not Given Documented by: (Enalapril [Vasotec] (20 Mg Tablet)*Ptom) 20 mg PO DAILY REPLACED BY [facility] Last Admin: 08/15/21 08:38 Dose: 20 mg Documented by: (Multivitamin [ Multivitamin] 1 Each Tablet) *Ptom 1 each PO DAILY REPLACED BY [facility] Last Admin: 08/15/21 08:40 Dose: 1 each Documented by: Tramadol HCl (Tramadol 50 Mg Tab) 50 mg PO BID PRN PRN Reason: PAIN Last Admin: 08/15/21 12:39 Dose: 50 mg Documented by: Warfarin Sodium (Warfarin Sliding Scale) 1 each PO ASDIRECTED REPLACED BY [facility] Warfarin Sodium (Warfarin 2.5 Mg Tab *Ptom) 2.5 mg PO ONETIME ONE Stop: 08/14/21 16:01 Last Admin: 08/14/21 19:15 Dose: Not Given Documented by: Warfarin Sodium (Warfarin 5 Mg Tab *Ptom) 5 mg PO [id number]@1600 REPLACED BY [facility] Warfarin Sodium (Warfarin 5 Mg Tab *Ptom) 2.5 mg PO ONETIME ONE Stop: 08/14/21 17:31 Last Admin: 08/14/21 19:15 Dose: Not Given Documented by: Warfarin Sodium (Warfarin 2.5 Mg Tab) 2.5 mg PO ONETIME ONE Stop: 08/14/21 19:57 Last Admin: 08/14/21 20:56 Dose: 2.5 mg Documented by: Warfarin Sodium (Warfarin 5 Mg Tab *Ptom) 2.5 mg PO ONETIME ONE Stop: 08/15/21 16:01 Last Admin: 08/15/21 15:20 Dose: 2.5 mg Documented by: Warfarin Sodium (Warfarin 5 Mg Tab) 5 mg PO ONETIME ONE Stop: 08/16/21 16:01 Last Admin: 08/16/21 17:50 Dose: 5 mg Documented by: - Exam Urinary Catheter Total Time: 2Days 6Hours General: Alert, Oriented, Cooperative Neck: Supple Lungs: Clear to Auscultation, Normal Respiratory Effort Cardiovascular: Regular Rate, No Murmurs, Irregular Rhythm Extremities: No Pedal Edema, Other (Arm strength is pretty good compared to the right. Not able to evaluate the left leg because when you move it he has some discomfort.) - Patient Data Lab Results Last 24 hrs: Laboratory Results - last 24 hr 08/15/21 08/16/21 08/17/21 Range/Units 06:00 09:15 06:10 WBC (3.2-10.1) x10-3/uL Corrected WBC (4.5-12.0) X10(3) RBC (3.90-5.90) x10(6)uL Hgb (12.9-17.7) g/dL Hct (38.3-50.1) % MCV (80.8-98.7) fL MCH (27.0-33.3) pg MCHC (28.7-35.3) g/dL RDW (12.4-15.0) % Plt Count (117-477) x10(3)uL MPV (6.7-11.0) fL Add Manual Diff Neutrophils % (Manual) (46-82) % Band Neutrophils % (0-6) % Lymphocytes % (Manual) (13-37) % Monocytes % (Manual) (4-12) % Metamyelocytes % (0-0) % Myelocytes % (0-0) % Promyelocytes % (0-0) % Blast Cells % (0-0) % Nucleated RBCs (0-0) /100WBC Polychromasia Poikilocytosis Anisocytosis Macrocytosis Target Cells Ovalocytes Acanthocytes (Spur) Smear Path Review See note PT 15.4 H (9.0-11.1) sec INR 1.47 H (1.00-1.24) Sodium (135-145) mmol/L Potassium (3.5-5.3) mmol/L Chloride (100-110) mmol/L Carbon Dioxide (21-32) mmol/L BUN (7-18) mg/dL Creatinine (0.70-1.30) mg/dL Est Cr Clr Drug Dosing mL/min Estimated GFR (MDRD) (>60) BUN/Creatinine Ratio (9-20) Glucose (80-116) mg/dL Calcium (8.6-10.2) mg/dL Total Bilirubin (0.1-1.3) mg/dL AST (5-25) IU/L ALT (12-36) U/L Alkaline Phosphatase (56-112) IU/L Total Protein (6.0-8.0) g/dL Albumin (3.2-4.6) g/dL Globulin g/dL Albumin/Globulin Ratio Blood Type B POSITIVE Gel Antibody Screen Negative Crossmatch See Detail 08/17/21 08/17/21 Range/Units 06:10 06:10 WBC 45.9 H* (3.2-10.1) x10-3/uL Corrected WBC 35.0 H* (4.5-12.0) X10(3) RBC 2.96 L (3.90-5.90) x10(6)uL Hgb 8.6 L (12.9-17.7) g/dL Hct 27.5 L (38.3-50.1) % MCV 93.0 (80.8-98.7) fL MCH 29.0 (27.0-33.3) pg MCHC 31.2 (28.7-35.3) g/dL RDW 23.6 H (12.4-15.0) % Plt Count 40 L (117-477) x10(3)uL MPV 7.9 (6.7-11.0) fL Add Manual Diff Yes Neutrophils % (Manual) 31 L (46-82) % Band Neutrophils % 2 (0-6) % Lymphocytes % (Manual) 20 (13-37) % Monocytes % (Manual) 14 H (4-12) % Metamyelocytes % 4 H (0-0) % Myelocytes % 15 H (0-0) % Promyelocytes % 10 H (0-0) % Blast Cells % 4 H (0-0) % Nucleated RBCs 28 H (0-0) /100WBC Polychromasia Few Poikilocytosis Moderate H Anisocytosis Moderate H Macrocytosis Moderate H Target Cells Few Ovalocytes Moderate H Acanthocytes (Spur) Few Smear Path Review PT (9.0-11.1) sec INR (1.00-1.24) Sodium 141 (135-145) mmol/L Potassium 3.7 (3.5-5.3) mmol/L Chloride 104 (100-110) mmol/L Carbon Dioxide 27 (21-32) mmol/L BUN 34 H (7-18) mg/dL Creatinine 1.6 H (0.70-1.30) mg/dL Est Cr Clr Drug Dosing 48.52 mL/min Estimated GFR (MDRD) 43 L (>60) BUN/Creatinine Ratio 21.3 H (9-20) Glucose 109 (80-116) mg/dL Calcium 7.8 L (8.6-10.2) mg/dL Total Bilirubin 2.0 H (0.1-1.3) mg/dL AST 44 H (5-25) IU/L ALT 28 (12-36) U/L Alkaline Phosphatase 57 (56-112) IU/L Total Protein 6.5 (6.0-8.0) g/dL Albumin 3.1 L (3.2-4.6) g/dL Globulin 3.4 g/dL Albumin/Globulin Ratio 0.9 Blood Type Gel Antibody Screen Crossmatch Result Diagrams: 08/17/21 06:10 08/17/21 06:10 Stevei Results Last 24 hrs: Microbiology 08/14/21 14:15 Aerobic Blood Culture - Preliminary Blood NO GROWTH AFTER 2 DAYS Anaerobic Blood Culture - Preliminary NO GROWTH AFTER 2 DAYS 08/14/21 14:05 Aerobic Blood Culture - Preliminary Blood NO GROWTH AFTER 2 DAYS Anaerobic Blood Culture - Preliminary NO GROWTH AFTER 2 DAYS Sepsis Event Note - Evaluation Sepsis Screening Result: Possible Sepsis Risk - Focused Exam Vital Signs: Vital Signs Temp Pulse Pulse Resp BP BP Pulse Ox 08/17/21 08:12 116/59 L 08/17/21 08:11 78 116/59 L 08/17/21 07:25 97.3 F 78 22 H 116/59 L 95 08/17/21 04:00 97.6 F 79 22 H 121/63 96 08/17/21 03:14 08/17/21 00:00 97.5 F 85 28 H 104/68 95 Pulse Ox 08/17/21 08:12 08/17/21 08:11 08/17/21 07:25 08/17/21 04:00 08/17/21 03:14 95 08/17/21 00:00 - Problem List & Annotations (1) Pain, joint, hip, right SNOMED Code(s): 90592716 Code(s): M25.551 - PAIN IN RIGHT HIP Status: Acute Current Visit: Yes (2) Knee pain, right SNOMED Code(s): 8403461022 Code(s): M25.561 - PAIN IN RIGHT KNEE Status: Acute Current Visit: Yes (3) Palliative care status SNOMED Code(s): 423124413 Code(s): Z51.5 - ENCOUNTER FOR PALLIATIVE CARE Status: Acute Current Visit: Yes (4) Leukocytosis SNOMED Code(s): 989477882, 812708772 Code(s): D72.829 - ELEVATED WHITE BLOOD CELL COUNT, UNSPECIFIED Status: Acute Current Visit: Yes (5) Acute exacerbation of congestive heart failure SNOMED Code(s): 501085711, 02659616138977 Code(s): I50.9 - HEART FAILURE, UNSPECIFIED Status: Acute Current Visit: No (6) MDS (myelodysplastic syndrome) SNOMED Code(s): 241085638 Code(s): D46.9 - MYELODYSPLASTIC SYNDROME, UNSPECIFIED Status: Acute Current Visit: No (7) Atrial fibrillation SNOMED Code(s): 01953865 Code(s): I48.91 - UNSPECIFIED ATRIAL FIBRILLATION Status: Chronic Current Visit: No (8) History of DVT (deep vein thrombosis) SNOMED Code(s): 011909266 Code(s): Z86.718 - PERSONAL HISTORY OF OTHER VENOUS THROMBOSIS AND EMBOLISM Status: Chronic Current Visit: No (9) History of cardiac arrest SNOMED Code(s): 634120538 Code(s): Z86.74 - PERSONAL HISTORY OF SUDDEN CARDIAC ARREST Status: Chronic Current Visit: No (10) Low back pain SNOMED Code(s): 271817518 Code(s): M54.5 - LOW BACK PAIN * DO NOT USE * Status: Chronic Current Visit: No (11) Obesity SNOMED Code(s): 132555004, 581414485 Code(s): E66.9 - OBESITY, UNSPECIFIED Status: Chronic Current Visit: No (12) Subdural hematoma SNOMED Code(s): 883939776 Code(s): S06.5X9A - TRAUM SUBDR HEM W LOC OF UNSP DURATION, INIT Status: Acute Current Visit: Yes - Problem List Review Problem List Initiated/Reviewed/Updated: Yes - My Orders Last 24 Hours: My Active Orders 08/16/21 08:58 Renew/Continue Urinary Catheter [OM.PC] Routine 08/16/21 09:00 Enalapril [Vasotec] 20 mg PO DAILY 08/16/21 09:01 Transfuse RBC [Transfuse Red Blood Cells] [COMM] Urgent 08/16/21 09:41 Lumbar Spine Comp wo Cont [MR] Routine 08/16/21 09:43 VL Duplex Lwr Ext Veins Ltd Rt [US] Routine 08/17/21 08:43 DC Langston Catheter [Urinary Catheter Removal] [RC] PER UNIT ROUTINE 08/17/21 08:44 Convert IV to Saline Lock [OM.PC] Routine 08/17/21 16:00 Warfarin [Coumadin] 5 mg PO ONETIME ONE 08/18/21 06:00 INR,PT,PROTHROMBIN TIME [COAG] DAILY 08/19/21 06:00 INR,PT,PROTHROMBIN TIME [COAG] DAILY 08/20/21 06:00 INR,PT,PROTHROMBIN TIME [COAG] DAILY - Plan Plan:: 1. Doppler called to me last night of the right leg and no clot 2. 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 3. Fluid overloaded after transfusion stable 4. DC Langston catheter 5. DC multivitamin per family request. 6. PT and OT to evaluate for skilled needs and possibly swing bed. 7. We will try to contact his oncologist. I talked to oncology last night and told him the peripheral smear with the blasts and he said is not emergency and is to follow-up with regular oncologist. 8. Not finding a source for infection so I will DC Zuhair.
--- NOTE | 2021-08-17 11:36 | CR ---
CHEST ONE VIEW INDICATION: Short of breath. FINDINGS: An AP upright portable view of the chest 08/16/21 was compared with 08/14/21 and 04/17/21. The heart appears prominent emphasized by the poor inspiration and AP positioning. The aorta is tortuous with calcification in the arch. Elevated right hemidiaphragm leaf is noted with suggestion of some atelectatic change or possibly minimal infiltrate at the right lung base. Otherwise, no definite active infiltrate or effusion was suggested. Pulmonary vasculature appears to remain slightly prominent in the upper lung miranda, suggesting mild congestion. No other change or new acute process was suggested. MTDD
[2021-08-17] MEDS ORDERED: Warfarin 5 MG Tab PO ONE (16:00)
--- NOTE | 2021-08-17 18:13 | PCM.SN.2 ---
- Free Text/Narrative Note: Janene of his conditions Atrial fib-stable on Coumadin. INR goal is 2.0 because of his recent subdural hematoma Subdural hematoma-according to neurosurgery probably a month old. Stop aspirin and keep INR 2.0. Had a follow-up CT and they recommend to see neurosurgery in a month. If he starts having more neurological fax to call back. [id number] did get Lasix when he came here and his breathing improved. He got 2 units of RBCs last night and was fluid overloaded was given Lasix and improved. Right hip and leg pain. Had a negative CT of the pelvis, right hip x-ray, ultrasound the right leg. 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 He had an MRI that showed L3-L4 neuroforaminal stenosis which may be causing some of the pain. Does have some weakness most likely coming from his hematoma. Very doubtful he the pain is coming from there. Myoplastic disorder. He is given 2 units of RBCs. White counts been 50,000. Had a peripheral smear show some blasts. This report was sent to his oncologist at [place]. She wanted to repeated at [place]. The lab is going to some blood and orders are in for CBC and peripheral smear and that will be sent by car to [place] tomorrow to be read by them and seen by the oncologist. 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 Because of his high white count he was treated with Rocephin up until today. I did not find any place where he could have an infection. I did not do a CT of the lungs but most likely CHF he also recently could not rule out basal infiltrate but there was no active infiltrate. Therefore I stopped. He had a little slight fever at the beginning but it went away. He is a full code. Discussed that again with him and his today. His states she talked him into being a full code and he did not want to. They are going to discuss it to see if he wants to continue to be a full code. Time Documentation
[2021-08-17] MEDS: Pramipexole 0.25 MG Tab PO SCH (20:01)
[2021-08-18] MEDS: Furosemide 40 MG Tab PO SCH ×2 (07:52→13:59)
[2021-08-18 08:04] VITALS: BP 116/55; PULSE 74
[2021-08-18] MEDS: atorvaSTATin 40 MG Tab PO SCH (08:16)
[2021-08-18] MEDS: Potassium Chloride 20 MEQ Tab.ER PO SCH (08:16)
[2021-08-18] MEDS: Isosorbide Mononitrate 30 MG Tab.ER PO SCH (08:24)
[2021-08-18] MEDS: Metoprolol Tartrate 100 MG Tab PO SCH (08:24)
[2021-08-18] MEDS: traMADol 50 MG Tab PO PRN (08:31)
--- NOTE | 2021-08-18 14:22 | PCM.DCSUM1 ---
Discharge Summary - Hospital Course HPI Initial Comments: This is a 71-year-old male patient came in to see Dr. Fernandez today for pain down his right groin into the thigh and hip. Sometimes into the knee. Says he can barely lift his leg. He's had a couple falls because of the pain and has bruising on his back. He has history of dysplastic syndrome. He is chronically anemic and is currently short of breath. He denies fevers, chills but is in a lot of pain. He's had a history of PE, CHF, MIs in the past. He denies chest pain at this time. No coughing. Diagnosis: Stroke: No - Discharge Data Discharge Date: 08/18/21 Discharge Disposition: DC/Tfer W/I Hosp To Swing 61 Condition: Good - Referral to Home Health Primary Care Physician: Kevin Youngblood MD - Patient Summary/Data Consults: Consultations 08/14/21 12:03 OT Evaluation and Treatment [CONS] Routine Please Evaluate and Treat. OT Reason for Consult: ADL's This query below is only for informational purposes and is not editable. Admission Diagnosis/Problem: Weakness PT Evaluation and Treatment [CONS] Routine Please Evaluate and Treat. PT Reason for Consult: Ambulation This query below is only for informational purposes and is not editable. Admission Diagnosis/Problem: Weakness 08/15/21 09:43 Consult to Occupational Therapy [OT Evaluation and Treatment] [CONS] Routine Please Evaluate and Treat. OT Reason for Consult: Strengthening This query below is only for informational purposes and is not editable. Admission Diagnosis/Problem: Weakness Consult to Physical Therapy [PT Evaluation and Treatment] [CONS] Routine Please Evaluate and Treat. PT Reason for Consult: Strengthening This query below is only for informational purposes and is not editable. Admission Diagnosis/Problem: Weakness Hospital Course: His corrected WBC on admission was 41.0 has trended down to 35.0. Hgb 8.2, then 7.5 and then 7.1, received 2 units of PRBCs and 1 unit of FFP, had Lasix 40 mg IV after transfusion for increased dyspnea. Peripheral smear done shows possible leukemia, oncology wanted CBC and peripheral smear repeated at their facility so blood drawn today and sent to his oncologist. His platelets have been 55, 53, 52, 40. He had pelvic XR/lumbar spine XR, pelvic CT and CXR done on admission: no fractures seen, osteoarthritic changes in hips/back, CHF on chest x-ray. Lasix given. BNP was 4225. Doppler of right leg was negative for DVT. Lumbar spine MRI showed moderate right neural foraminal stenosis at L3-L4. Had more trouble speaking on 08/15, had not had any recent narcotics so CT head was done and found large subacute subdural hematoma with 12 mm shift. Neurosurgery was consulted(see Dr Youngblood note for further details) aspirin discontinued and INR goal for his Atrial fibrillation changed to 2.0. Repeat CT head was performed next day 08/16 and showed stable hematoma. His INR was 2.36 on admission, 2.69, after FFP came down to 1.72, 1.47 and today 1.62. UA was negative. Covid was negative. Knee x-ray showed no fracture, official report pending. 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 PT/OT for right upper arm and leg weakness, he lives with his at home and she is unable to care for him in his present condition, he is medically stable so will be transferred to swing bed in this hospital for continued rehab and monitoring. - Patient Instructions Diet: Usual Diet as Tolerated Activity: As Tolerated Other/Special Instructions: transfer to swing bed for rehab - Discharge Plan *PRESCRIPTION DRUG MONITORING PROGRAM REVIEWED*: Not Applicable *COPY OF PRESCRIPTION DRUG MONITORING REPORT IN PATIENT IRVING: Not Applicable Home Medications: Home Meds Pramipexole [Mirapex] 0.75 mg PO BEDTIME 09/08/16 [History] Nitroglycerin 0.4 mg SL Q5M PRN 01/02/19 [History] Enalapril [Vasotec] 20 mg PO DAILY 02/13/20 [History] Isosorbide Mononitrate [Imdur] 30 mg PO DAILY 08/30/20 [History] Metoprolol Tartrate 100 mg PO BID 03/28/21 [History] Potassium Chloride [Klor-Con M20] 20 meq PO BID tab.er 04/19/21 [Rx] Albuterol Sulfate [Albuterol Sulfate Hfa] 2 puff INH Q6H PRN 07/11/21 [History] Docusate Sodium [Colace] 100 mg PO DAILY PRN 07/11/21 [History] Famotidine 20 mg PO BID PRN 07/11/21 [History] Multivitamin 1 each PO DAILY 07/11/21 [History] Warfarin [Coumadin] 2.5 mg PO MO 07/11/21 [History] atorvaSTATin [Lipitor] 40 mg PO DAILY 07/11/21 [History] Warfarin [Coumadin] 5 mg PO SUTUWETHFRSA 08/09/21 [History] Furosemide [Lasix] 40 mg PO BIDDIURETIC tablet 08/18/21 [Rx] Warfarin Sliding Scale [Coumadin Sliding Scale] 1 each PO ASDIRECTED tablet 08/18/21 [Rx] traMADol [Ultram] 50 mg PO Q6H PRN tablet 08/18/21 [Rx] Patient Handouts: Blood Transfusion, Adult, [id number], Anemia, Heart Failure, Self Care, [id number], Fall Prevention in Hospitals, Adult, Venous Thromboembolism Prevention - Discharge Summary/Plan Comment DC Time >30 min.: No Total # of Minutes for Discharge Time: 25 min - General Info Date of Service: 08/18/21 Subjective Update: His states his speech is improved but when more complex then he is slower. He is able to lift right upper arm and hoop maker machine but weaker than on left. Left leg weak, states pain is still present behind right knee. No cough, shortness of breath, chest pain. - Patient Data Vitals - Most Recent: Last Vital Signs Temp 97.5 F 08/18/21 08:00 Pulse 74 08/18/21 08:24 Resp 20 08/18/21 08:00 BP 116/55 L 08/18/21 08:25 Pulse Ox 95 08/18/21 08:00 Weight - Most Recent: 259 lb 8 oz I&O - Last 24 hours: Intake & Output 08/17/21 08/18/21 08/18/21 22:59 06:59 14:59 Output Total 150 Balance -150 Lab Results - Last 24 hrs: Laboratory Results - last 24 hr 08/18/21 Range/Units 06:05 PT 17.0 H (9.0-11.1) sec INR 1.62 H (1.00-1.24) [facility] Results - Last 24 hrs: Microbiology 08/14/21 14:15 Aerobic Blood Culture - Preliminary Blood NO GROWTH AFTER 3 DAYS Anaerobic Blood Culture - Preliminary NO GROWTH AFTER 3 DAYS 08/14/21 14:05 Aerobic Blood Culture - Preliminary Blood NO GROWTH AFTER 3 DAYS Anaerobic Blood Culture - Preliminary NO GROWTH AFTER 3 DAYS Med Orders - Current: Current Medications Albuterol (Albuterol 8 Gm Inhaler) 0 gm INH Q6H PRN PRN Reason: Shortness of Breath Atorvastatin Calcium (Atorvastatin 40 Mg Tab) 40 mg PO DAILY [facility] Last Admin: 08/18/21 08:16 Dose: 40 mg Documented by: Docusate Sodium (Docusate Sodium 100 Mg Cap) 100 mg PO DAILY PRN PRN Reason: Constipation Enalapril Maleate (Enalapril 10 Mg Tab) 20 mg PO DAILY [facility] Last Admin: 08/18/21 08:25 Dose: 20 mg Documented by: Furosemide (Furosemide 40 Mg Tab) 40 mg PO BIDDIURETIC [facility] Last Admin: 08/18/21 13:59 Dose: 40 mg Documented by: Sodium Chloride (Normal Saline) 1,000 mls @ 150 mls/hr IV ASDIRECTED [facility] Isosorbide Mononitrate (Isosorbide Mononitrate 30 Mg Tab.Er) 30 mg PO DAILY [facility] Last Admin: 08/18/21 08:24 Dose: 30 mg Documented by: Metoprolol Tartrate (Metoprolol Tartrate 100 Mg Tab) 100 mg PO BID [facility] Last Admin: 08/18/21 08:24 Dose: 100 mg Documented by: Nitroglycerin (Nitroglycerin 0.4 Mg Tab.Sl) 0.4 mg SL Q5M PRN PRN Reason: Chest Pain Potassium Chloride (Potassium Chloride 20 Meq Tab.Er) 20 meq PO BID [facility] Last Admin: 08/18/21 08:16 Dose: 20 meq Documented by: Pramipexole Dihydrochloride (Pramipexole 0.25 Mg Tab) 0.75 mg PO BEDTIME [facility] Last Admin: 08/17/21 20:01 Dose: 0.75 mg Documented by: Sodium Chloride (Sodium Chloride 0.9% 10 Ml Syringe) 10 ml FLUSH ASDIRECTED PRN PRN Reason: Keep Vein Open Last Admin: 08/16/21 22:19 Dose: 10 ml Documented by: Tramadol HCl (Tramadol 50 Mg Tab) 50 mg PO Q6H PRN PRN Reason: Pain Last Admin: 08/18/21 08:31 Dose: 50 mg Documented by: Warfarin Sodium (Warfarin Sliding Scale) 1 each PO ASDIRECTED [facility] Warfarin Sodium (Warfarin 5 Mg Tab) 5 mg PO ONETIME ONE Stop: 08/18/21 16:01 Discontinued Medications Hydrocodone Bitart/Acetaminophen (Acetaminophen/Hydrocodone 325-5 Mg Tab) 1 tab PO Q4H PRN PRN Reason: Pain (moderate 4-6) Last Admin: 08/14/21 12:25 Dose: 1 tab Documented by: Hydrocodone Bitart/Acetaminophen (Acetaminophen/Hydrocodone 325-5 Mg Tab) 1 tab PO Q6H PRN PRN Reason: Pain Last Admin: 08/15/21 05:41 Dose: 1 tab Documented by: Aspirin (Aspirin 81 Mg Tab.Ec *Ptom) 81 mg PO DAILY [facility] Last Admin: 08/15/21 08:38 Dose: 81 mg Documented by: Ceftriaxone Sodium (Ceftriaxone 1 Gm Vial) 1 gm IVPUSH Q24H [facility] Last Admin: 08/16/21 18:25 Dose: 1 gm Documented by: Enoxaparin Sodium (Enoxaparin 120 Mg/0.8 Ml Syringe) 120 mg SUBCUT Q12H [facility] Last Admin: 08/14/21 21:25 Dose: Not Given Documented by: Furosemide (Furosemide 40 Mg Tab *Ptom) 40 mg PO DAILY [facility] Last Admin: 08/15/21 08:39 Dose: 40 mg Documented by: Furosemide (Furosemide 40 Mg/4 Ml Vial) 60 mg IVPUSH NOW ONE Stop: 08/14/21 18:54 Last Admin: 08/14/21 19:13 Dose: 60 mg Documented by: Furosemide (Furosemide 20 Mg/2 Ml Vial) 20 mg IVPUSH NOW ONE Stop: 08/16/21 20:11 Last Admin: 08/16/21 20:25 Dose: 20 mg Documented by: Furosemide (Furosemide 20 Mg/2 Ml Vial) 20 mg IVPUSH ONETIME ONE Stop: 08/16/21 22:04 Last Admin: 08/16/21 22:19 Dose: 20 mg Documented by: Sodium Chloride (Normal Saline) 250 mls @ 100 mls/hr IV ASDIRECTED [facility] Sodium Chloride (Normal Saline) 250 mls @ 100 mls/hr IV ASDIRECTED [facility] Last Admin: 08/16/21 15:00 Dose: 100 mls/hr Documented by: Ibuprofen (Ibuprofen 800 Mg Tab) 800 mg PO TID [facility] Iopamidol (Iopamidol 755 Mg/Ml 150 Ml Bottle) 135 ml IV ONETIME ONE Stop: 08/14/21 16:14 Last Admin: 08/14/21 20:12 Dose: 135 ml Documented by: Lorazepam (Lorazepam 1 Mg Tab) 1 mg PO ONETIME ONE Stop: 08/16/21 08:31 Last Admin: 08/16/21 08:35 Dose: 1 mg Documented by: Lorazepam (Lorazepam 2 Mg/Ml Sdv) 0.5 mg IVPUSH ONETIME STA Stop: 08/16/21 09:25 Last Admin: 08/16/21 09:40 Dose: 0.5 mg Documented by: Multivitamins/Minerals/Vitamin C (Multivitamin Tab) 1 tab PO DAILY [facility] Last Admin: 08/17/21 08:13 Dose: Not Given Documented by: (Enalapril [Vasotec] (20 Mg Tablet)*Ptom) 20 mg PO DAILY [facility] Last Admin: 08/15/21 08:38 Dose: 20 mg Documented by: (Multivitamin [ Multivitamin] 1 Each Tablet) *Ptom 1 each PO DAILY [facility] Last Admin: 08/15/21 08:40 Dose: 1 each Documented by: Tramadol HCl (Tramadol 50 Mg Tab) 50 mg PO BID PRN PRN Reason: PAIN Last Admin: 08/15/21 12:39 Dose: 50 mg Documented by: Warfarin Sodium (Warfarin Sliding Scale) 1 each PO ASDIRECTED [facility] Warfarin Sodium (Warfarin 2.5 Mg Tab *Ptom) 2.5 mg PO ONETIME ONE Stop: 08/14/21 16:01 Last Admin: 08/14/21 19:15 Dose: Not Given Documented by: Warfarin Sodium (Warfarin 5 Mg Tab *Ptom) 5 mg PO [id number] [facility] Warfarin Sodium (Warfarin 5 Mg Tab *Ptom) 2.5 mg PO ONETIME ONE Stop: 08/14/21 17:31 Last Admin: 08/14/21 19:15 Dose: Not Given Documented by: Warfarin Sodium (Warfarin 2.5 Mg Tab) 2.5 mg PO ONETIME ONE Stop: 08/14/21 19:57 Last Admin: 08/14/21 20:56 Dose: 2.5 mg Documented by: Warfarin Sodium (Warfarin 5 Mg Tab *Ptom) 2.5 mg PO ONETIME ONE Stop: 08/15/21 16:01 Last Admin: 08/15/21 15:20 Dose: 2.5 mg Documented by: Warfarin Sodium (Warfarin 5 Mg Tab) 5 mg PO ONETIME ONE Stop: 08/16/21 16:01 Last Admin: 08/16/21 17:50 Dose: 5 mg Documented by: Warfarin Sodium (Warfarin 5 Mg Tab) 5 mg PO ONETIME ONE Stop: 08/17/21 16:01 Last Admin: 08/17/21 15:09 Dose: 5 mg Documented by: - Exam General: Reports: Alert, Oriented, Cooperative, No Acute Distress Lungs: Reports: Clear to Auscultation, Normal Respiratory Effort Cardiovascular: Reports: Regular Rate, Irregular Rhythm GI/Abdominal Exam: Normal Bowel Sounds, Soft, Non-Tender, No Distention Extremities: No Pedal Edema, Joint Swelling (posterior right knee). No: Increased Warmth, Redness Skin: Denies: Ecchymosis Neurological: Reports: No New Focal Deficit (RLE weakness 3/5, RUE 4+/5, right hoop maker machine 4+/5, dorsiflexion 3/5)
--- NOTE | 2021-08-18 15:21 | CR ---
INDICATION: Right posterior knee pain. No history of trauma. RIGHT KNEE [id number]: Three views of the right knee 08/18/21 - no comparison. Hypertrophic changes are noted at the intercondylar spines and notch as well as at the patellofemoral joint. The joint spaces of the knee appear to be fairly well maintained, although there may be some minimal narrowing of the medial femorotibial joint space. No acute bone or joint abnormality was seen. IMPRESSION: Mild osteoarthritis question slight loss of the medial femorotibial joint space. MTDD
--- NOTE | 2021-08-18 15:43 | PCM.HP.2 ---
H&P History of Present Illness - General Date of Service: 08/18/21 Admit Problem/Dx: Subdural hematoma - History of Present Illness Initial Comments - Free Text/Narative: ACUTE HPI: This is a 71-year-old male patient came in to see Dr. Fernandez today for pain down his right groin into the thigh and hip. Sometimes into the knee. Says he can barely lift his leg. He's had a couple falls because of the pain and has bruising on his back. He has history of dysplastic syndrome. He is chronically anemic and is currently short of breath. He denies fevers, chills but is in a lot of pain. He's had a history of PE, CHF, MIs in the past. He denies chest pain at this time. No coughing. ACUTE HOSPITAL COURSE: His corrected WBC on admission was 41.0 has trended down to 35.0. Hgb 8.2, then 7.5 and then 7.1, received 2 units of PRBCs and 1 unit of FFP, had Lasix 40 mg IV after transfusion for increased dyspnea. Peripheral smear done shows possible leukemia, oncology wanted CBC and peripheral smear repeated at their facility so blood drawn today and sent to his oncologist. His platelets have been 55, 53, 52, 40. He had pelvic XR/lumbar spine XR, pelvic CT and CXR done on admission: no fractures seen, osteoarthritic changes in hips/back, CHF on chest x-ray. Lasix given. BNP was 4225. Doppler of right leg was negative for DVT. Lumbar spine MRI showed moderate right neural foraminal stenosis at L3-L4. Had more trouble speaking on 08/15, had not had any recent narcotics so CT head was done and found large subacute subdural hematoma with 12 mm shift. Neurosurgery was consulted(see Dr Youngblood note for further details) aspirin discontinued and INR goal for his Atrial fibrillation changed to 2.0. Repeat CT head was performed next day 08/16 and showed stable hematoma. His INR was 2.36 on admission, 2.69, after FFP came down to 1.72, 1.47 and today 1.62. UA was negative. Covid was negative. Knee x-ray showed no fracture, official report pending. 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 PT/OT for right upper arm and leg weakness, he lives with his at home and she is unable to care for him in his present condition, he is medically stable so will be transferred to swing bed in this hospital for continued rehab and monitoring. Generalized Pain Score (Numeric/FACES): 6 Right Leg Pain Score (Numeric/FACES): 9 - Related Data Allergies/Adverse Reactions: Allergies Allergy/AdvReac Type Severity Reaction Status Date / Time Influenza Virus Vaccines Allergy Anaphylactic Verified 08/14/21 12:27 Shock levofloxacin [From Levaquin] Allergy Anaphylactic Verified 08/14/21 12:27 Shock morphine AdvReac Other Verified 08/14/21 12:27 metal- surgical Allergy Other Uncoded 08/14/21 12:27 Home Medications: Home Meds Pramipexole [Mirapex] 0.75 mg PO BEDTIME 09/08/16 [History] Nitroglycerin 0.4 mg SL Q5M PRN 01/02/19 [History] Enalapril [Vasotec] 20 mg PO DAILY 02/13/20 [History] Isosorbide Mononitrate [Imdur] 30 mg PO DAILY 08/30/20 [History] Metoprolol Tartrate 100 mg PO BID 03/28/21 [History] Potassium Chloride [Klor-Con M20] 20 meq PO BID tab.er 04/19/21 [Rx] Albuterol Sulfate [Albuterol Sulfate Hfa] 2 puff INH Q6H PRN 07/11/21 [History] Docusate Sodium [Colace] 100 mg PO DAILY PRN 07/11/21 [History] Famotidine 20 mg PO BID PRN 07/11/21 [History] Multivitamin 1 each PO DAILY 07/11/21 [History] Warfarin [Coumadin] 2.5 mg PO MO 07/11/21 [History] atorvaSTATin [Lipitor] 40 mg PO DAILY 07/11/21 [History] Warfarin [Coumadin] 5 mg PO SUTUWETHFRSA 08/09/21 [History] Furosemide [Lasix] 40 mg PO BIDDIURETIC tablet 08/18/21 [Rx] Warfarin Sliding Scale [Coumadin Sliding Scale] 1 each PO ASDIRECTED tablet 08/18/21 [Rx] traMADol [Ultram] 50 mg PO Q6H PRN tablet 08/18/21 [Rx] Past Medical History HEENT History: Reports: Hard of Hearing, Impaired Vision Other HEENT History: Wears glasses. Cardiovascular History: Reports: Afib, Blood Clots/VTE/DVT, CAD, Heart Failure, High Cholesterol, Hypertension, RI, Stents Other Cardiovascular History: PAROXYSMAL ATRIAL FIBRILLATION Respiratory History: Reports: PE, Pneumonia, Recurrent, Sleep Apnea, SOB Other Respiratory History: Unable to take Flu Shot due to allergy. Wears CPAP. HX OF PULMONARY EMBOLISM Gastrointestinal History: Reports: Colon Polyp, Hiatal Hernia Genitourinary History: Reports: Acute Renal Failure Musculoskeletal History: Reports: Arthritis, Back Pain, Chronic, Fracture Other Musculoskeletal History: Hx bilat wrist fractures, R ankle, L kneecap Experiences frequent falls due to leg weakness. 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 PLMD. RESTLESS LEGS SYNDROME. Psychiatric History: Reports: None Endocrine/Metabolic History: Reports: Obesity/BMI 30+, Other (See Below) Other Endocrine/Metabolic History: borderline DM Hematologic History: Reports: None Other Hematologic History: BLOOD INFECTION Immunologic History: Reports: None Oncologic (Cancer) History: Reports: None Other Oncologic History: MDS Dermatologic History: Reports: None - Infectious Disease History Infectious Disease History: Reports: Chicken Pox, Measles - Past Surgical History Head Surgeries/Procedures: Reports: None HEENT Surgical History: Reports: LASIK, Naso-Sinus Surgery, Other (See Below) Other HEENT Surgeries/Procedures: RHINOPLASTY, BILATERAL EYE SURGERY Cardiovascular Surgical History: Reports: Cardiac Ablation, Coronary Artery Stent Other Cardiovascular Surgeries/Procedures: CARDIAC CATHETERIZATION, CORONARY ANGIOPLASTY GI Surgical History: Reports: Cholecystectomy, Colonoscopy, Other (See Below) Other GI Surgeries/Procedures: laparoscopic jennifer Musculoskeletal Surgical History: Reports: Other (See Below) Other Musculoskeletal Surgeries/Procedures:: R ANKLE SURGERY. Other Oncologic Surgeries/Procedures: pre cancerious polyps Social & Family History - Family History Family Medical History: No Pertinent Family History - Tobacco Use Tobacco Use Status *Q: Never Tobacco User - Caffeine Use Caffeine Use: Reports: Soda Other Caffeine Use: Coke - Recreational Drug Use Recreational Drug Use: No - Living Situation & Occupation Living situation: Reports: Occupation: Retired H&P Review of Systems - Review of Systems: Review Of Systems: Comprehensive ROS is negative, except as noted in HPI. Exam - Exam Exam: See Below - Vital Signs Vital Signs: Last Vital Signs Temp 97.5 F 08/18/21 08:00 Pulse 74 08/18/21 08:24 Resp 20 08/18/21 08:00 BP 116/55 L 08/18/21 08:25 Pulse Ox 95 08/18/21 08:00 Weight: 259 lb 8 oz - Exam General: Alert, Oriented, Cooperative HEENT: PERRLA, EOMI, Hearing Intact Neck: Trachea Midline Lungs: Clear to Auscultation, Normal Respiratory Effort Cardiovascular: Regular Rate, Irregular Rhythm GI/Abdominal Exam: Normal Bowel Sounds, Soft, Non-Tender, No Distention (Male) Exam: Deferred Rectal (Males) Exam: Deferred Back Exam: Normal Inspection Extremities: No Pedal Edema, Joint Swelling (posterior right knee). No: Increased Warmth, Redness Peripheral Pulses: 2+: Radial (L), Radial (R), Posterior Tibial (L), Posterior Tibial (R), Dorsalis Pedis (L), Dorsalis Pedis (R) Neuro Extensive - Motor, Sensory, Reflexes: CN II-XII Intact, Motor/Sensory Deficits (RUE: 4+5, bread wrapping machine feeder: 4+/5, RLE: 3/5, dorsiflexion 3/5; LUE/LLE/bread wrapping machine feeder: 5/5), Abnormal Gait, Expressive Aphasia - Patient Data Lab Results Last 24 hrs: Laboratory Results - last 24 hr 08/18/21 Range/Units 06:05 PT 17.0 H (9.0-11.1) sec INR 1.62 H (1.00-1.24) Result Diagrams: 08/17/21 06:10 08/17/21 06:10 Stevie Results Last 24 hrs: Microbiology 08/14/21 14:05 Aerobic Blood Culture - Preliminary Blood NO GROWTH AFTER 4 DAYS Anaerobic Blood Culture - Preliminary NO GROWTH AFTER 4 DAYS 08/14/21 14:15 Aerobic Blood Culture - Preliminary Blood NO GROWTH AFTER 4 DAYS Anaerobic Blood Culture - Preliminary NO GROWTH AFTER 4 DAYS Sepsis Event Note - Evaluation Sepsis Screening Result: No Definite Risk - Focused Exam Vital Signs: Vital Signs Temp Pulse Pulse Resp BP BP Pulse Ox 08/18/21 08:25 116/55 L 08/18/21 08:24 74 116/55 L 08/18/21 08:00 97.5 F 74 20 116/55 L 95 *Q Meaningful Use (ADM) - VTE *Q VTE Mechanical Contraindications *Q: At Risk for Falls VTE Pharmacological Contraindications *Q: Cerebral Hemorrhag Infarc - VTE Risk Assess *Q Each Risk Factor Represents 1 Point: Obesity ( BMI > 25 kg/m2), Congestive heart failure (CHF) Total Score 1 Point Risk Factors: 2 Each Risk Factor Represents 2 Points: Age 60 - 74 Years, Malignancy (present or previous) Total Score 2 Point Risk Factors: 4 Each Risk Factor Represents 3 Points: History of DVT/PE Total Score 3 Point Risk Factors: 3 Each Risk Factor Represents 5 Points: None Total Score 5 Point Risk Factors: 0 Venous Thromboembolism Risk Factor Score *Q: 9 - Problem List (1) Leukocytosis SNOMED Code(s): 473495366, 334042288 ICD Code: D72.829 - ELEVATED WHITE BLOOD CELL COUNT, UNSPECIFIED Status: Acute (2) MDS (myelodysplastic syndrome) SNOMED Code(s): 637275865 ICD Code: D46.9 - MYELODYSPLASTIC SYNDROME, UNSPECIFIED Status: Chronic (3) Subdural hematoma SNOMED Code(s): 014890534 ICD Code: S06.5X9A - TRAUM SUBDR HEM W LOC OF UNSP DURATION, INIT Status: Acute Onset Date: ~08/15/21 (4) Right sided weakness SNOMED Code(s): 691551799 ICD Code: R53.1 - WEAKNESS Status: Acute (5) Neural foraminal stenosis of lumbosacral spine SNOMED Code(s): 602682024901 ICD Code: M48.07 - SPINAL STENOSIS, LUMBOSACRAL REGION Status: Acute (6) Atrial fibrillation SNOMED Code(s): 62231633 ICD Code: I48.91 - UNSPECIFIED ATRIAL FIBRILLATION Status: Chronic (7) Coronary arteriosclerosis SNOMED Code(s): 33823133 ICD Code: I25.10 - ATHSCL HEART DISEASE OF [place] CORONARY ARTERY W/O ANG PCTRS Status: Chronic (8) History of RI (myocardial infarction) SNOMED Code(s): 754940121 ICD Code: I25.2 - OLD MYOCARDIAL INFARCTION Status: Chronic (9) History of cardiac arrest SNOMED Code(s): 569526983 ICD Code: Z86.74 - PERSONAL HISTORY OF SUDDEN CARDIAC ARREST Status: Chronic (10) COPD (chronic obstructive pulmonary disease) SNOMED Code(s): 50717315 ICD Code: J44.9 - CHRONIC OBSTRUCTIVE PULMONARY DISEASE, UNSPECIFIED Status: Chronic Qualifiers: Emphysema type: unspecified (11) History of DVT (deep vein thrombosis) SNOMED Code(s): 075702242 ICD Code: Z86.718 - PERSONAL HISTORY OF OTHER VENOUS THROMBOSIS AND EMBOLISM Status: Chronic (12) Palliative care encounter SNOMED Code(s): 091436769, 609217640 ICD Code: Z51.5 - ENCOUNTER FOR PALLIATIVE CARE Status: Chronic Problem List Initiated/Reviewed/Updated: Yes Assessment/Plan Comment:: 1. Admit to swing bed for rehab services s/p subacute subdural hematoma with right sided weakness. 2. Right leg pain: MRI shows L3-L4 stenosis of the foramina. 3. Leukocytosis: peripheral smear on acute status showed likely leukemia. Dr Youngblood talked with oncology last night and told him the peripheral smear with the blasts and he said is not emergency and is to follow-up with regular oncologist. CBC & repeat peripheral smear collected today and sent to [place] lab per his regular oncologist request. 4. Atrial fibrillation: INR 1.62, goal 2.0 per neurosurgery given his history of afib. Coumadin sliding scale per pharmacy. 5. Diet: Regular. 6. Activity: up with assistance & up to chair. 7. CODE STATUS: Dr Youngblood had discussion with patient and his , they have not changed from FULL at this time. 8. Discharge planning: dependant on meeting therapy goals, Delroy and his would like him to go home but has to be able to ambulate on his own. Care conference next week. - Mortality Measure Prognosis:: Poor
[2021-08-18] MEDS ORDERED: Warfarin 5 MG Tab PO ONE (16:00)
== END 2021-08-18 14:07 | disposition swing bed (61) | DRG 840 ==
LOC: FB.MS 11:20 → OBSVTOIN 08-15 17:45
PROVIDERS: ADMIT Family Medicine; ATTEND Family Medicine
PROC: 30233K1 Transfusion of Nonautologous Frozen Plasma into Peripheral Vein, Percutaneous Approach (ICD-10-PCS; principal; 2021-08-15)
PROC: 30233N1 Transfusion of Nonautologous Red Blood Cells into Peripheral Vein, Percutaneous Approach (ICD-10-PCS; 2021-08-15)
DX: C95.90 Leukemia, unspecified not having achieved remission (principal); I62.00 Nontraumatic subdural hemorrhage, unspecified; M79.651 Pain in right thigh; I11.0 Hypertensive heart disease with heart failure; Z91.81 History of falling; R06.02 Shortness of breath; M25.551 Pain in right hip; M25.561 Pain in right knee; I25.10 Atherosclerotic heart disease of native coronary artery without angina pectoris; Z51.5 Encounter for palliative care; J44.9 Chronic obstructive pulmonary disease, unspecified; D72.89 Other specified disorders of white blood cells; I50.9 Heart failure, unspecified; D46.9 Myelodysplastic syndrome, unspecified; G89.29 Other chronic pain; M54.9 Dorsalgia, unspecified; M43.16 Spondylolisthesis, lumbar region; I48.0 Paroxysmal atrial fibrillation; Z86.718 Personal history of other venous thrombosis and embolism; M48.07 Spinal stenosis, lumbosacral region; Z86.74 Personal history of sudden cardiac arrest; M54.50 Low back pain, unspecified; E66.9 Obesity, unspecified; H54.7 Unspecified visual loss; H91.90 Unspecified hearing loss, unspecified ear; E78.00 Pure hypercholesterolemia, unspecified; I25.2 Old myocardial infarction; Z86.010 Personal history of colon polyps; Z98.890 Other specified postprocedural states; Z90.49 Acquired absence of other specified parts of digestive tract; Z95.5 Presence of coronary angioplasty implant and graft; Z86.711 Personal history of pulmonary embolism; Z87.01 Personal history of pneumonia (recurrent); G47.30 Sleep apnea, unspecified; Z88.5 Allergy status to narcotic agent; Z91.09 Other allergy status, other than to drugs and biological substances; Z68.33 Body mass index [BMI] 33.0-33.9, adult; K44.9 Diaphragmatic hernia without obstruction or gangrene; M19.90 Unspecified osteoarthritis, unspecified site; Z88.6 Allergy status to analgesic agent; Z88.1 Allergy status to other antibiotic agents; Z88.7 Allergy status to serum and vaccine; Z91.048 Other nonmedicinal substance allergy status; Z79.01 Long term (current) use of anticoagulants; Z79.899 Other long term (current) drug therapy; Z20.822 Contact with and (suspected) exposure to COVID-19
CPT/HCPCS: 36415; 36430; 51702; 70450; 71045; 71046; 72100; 72148; 72170; 72193; 73562-RT; 80053; 81001; 83605; 83880; 84484; 85025; 85379; 85610; 86140; 86850; 86900; 86901; 86920; 86922; 87040; 88104; 93005; 93971-RT; 96374; 96375; 96376; 97166-GO; 97530-GO; 97535-GO; A9270-GY; G0378; G0379; J0696; J1940; J2060; J7050; P9016; P9017; Q9967; U0002

== ENCOUNTER 2021-08-18 11:26 | Inpatient (IN) | payer MEDICARE, BC ==
[2021-08-18] MEDS ORDERED: Famotidine 20 MG Tab PO PRN (15:22)
[2021-08-18] MEDS ORDERED: Nitroglycerin 0.4 MG Tab.SL SL PRN (15:22)
[2021-08-18] MEDS ORDERED: traMADol 50 MG Tab PO PRN (15:22)
[2021-08-18] MEDS ORDERED: Docusate Sodium 100 MG Cap PO PRN (15:22)
[2021-08-18] MEDS ORDERED: Warfarin Sliding Scale PO SCH (15:30)
[2021-08-18] MEDS: Potassium Chloride 20 MEQ Tab.ER PO SCH (19:59)
[2021-08-18] MEDS: Metoprolol Tartrate 100 MG Tab PO SCH (19:59)
[2021-08-18] MEDS ORDERED: Pramipexole 0.25 MG Tab PO SCH (21:00)
[2021-08-19 06:40] VITALS: BP 145/84; PULSE 77
[2021-08-19] MEDS: Potassium Chloride 20 MEQ Tab.ER PO SCH (08:26)
[2021-08-19] MEDS: Furosemide 40 MG Tab PO SCH ×2 (08:26→14:48)
[2021-08-19] MEDS: Metoprolol Tartrate 100 MG Tab PO SCH (08:27)
[2021-08-19] MEDS ORDERED: Diazepam 5 MG Tab PO ONE (08:44)
[2021-08-19] MEDS ORDERED: atorvaSTATin 40 MG Tab PO SCH (09:00)
[2021-08-19] MEDS ORDERED: Multivitamin Tab PO SCH (09:00)
[2021-08-19] MEDS ORDERED: Isosorbide Mononitrate 30 MG Tab.ER PO SCH (09:00)
[2021-08-19] MEDS ORDERED: Cefdinir 300 MG Cap PO SCH (09:45)
--- NOTE | 2021-08-19 10:54 | PCM.PN ---
- General Info Date of Service: 08/19/21 Subjective Update: Delroy was more confused overnight, fell trying to crawl over the bed rails, no injury. He called his 2-3 times overnight, didn't know where he was at. More agitated and groggy this morning which is new from yesterday. His stated he normally took Tramadol at home but was more sporadic, was not taking it daily at home, has been using at least 2 doses/day here. Peripheral smear at [facility] still pending. No fevers. - Patient Data Vitals - Most Recent: Last Vital Signs Temp 97.4 F 08/19/21 06:39 Pulse 77 08/19/21 08:27 Resp 18 08/19/21 06:39 BP 145/84 H 08/19/21 08:27 Pulse Ox 94 L 08/19/21 06:39 Weight - Most Recent: 262 lb 8 oz Lab Results Last 24 Hours: Laboratory Results - last 24 hr 08/19/21 08/19/21 Range/Units 06:10 08:52 PT 19.7 H (9.0-11.1) sec INR 1.90 H (1.00-1.24) Urine Color Brown (YELLOW) Urine Appearance Slightly cloudy (CLEAR) Urine pH 5.0 (5.0-6.5) Ur Specific [place] 1.020 (1.010-1.025) Urine Protein 30 H (NEGATIVE) mg/dL Urine Glucose (UA) Normal (NORMAL) mg/dL Urine Ketones Negative (NEGATIVE) mg/dL Urine Occult Blood Large H (NEGATIVE) Urine Nitrite Negative (NEGATIVE) Urine Bilirubin Negative (NEGATIVE) Urine Urobilinogen 1 H (NEGATIVE) mg/dL Ur Leukocyte Esterase Small H (NEGATIVE) Urine RBC >100 H (0-5) Urine WBC 5-10 H (0-5) Ur Squamous Epith Cells Few H (NS,R,O) Urine Bacteria Moderate H (NS) Med Orders - Current: Current Medications Atorvastatin Calcium (Atorvastatin 40 Mg Tab) 40 mg PO DAILY [facility] Last Admin: 08/19/21 08:26 Dose: 40 mg Documented by: Cefdinir (Cefdinir 300 Mg Cap) 300 mg PO BID [facility] Last Admin: 08/19/21 10:30 Dose: 300 mg Documented by: Docusate Sodium (Docusate Sodium 100 Mg Cap) 100 mg PO DAILY PRN PRN Reason: Constipation Enalapril Maleate (Enalapril 10 Mg Tab) 20 mg PO DAILY [facility] Last Admin: 08/19/21 08:27 Dose: 20 mg Documented by: Famotidine (Famotidine 20 Mg Tab) 20 mg PO BID PRN PRN Reason: Heartburn Furosemide (Furosemide 40 Mg Tab) 40 mg PO BIDDIURETIC [facility] Last Admin: 08/19/21 08:26 Dose: 40 mg Documented by: Isosorbide Mononitrate (Isosorbide Mononitrate 30 Mg Tab.Er) 30 mg PO DAILY [facility] Last Admin: 08/19/21 08:26 Dose: 30 mg Documented by: Metoprolol Tartrate (Metoprolol Tartrate 100 Mg Tab) 100 mg PO BID [facility] Last Admin: 08/19/21 08:27 Dose: 100 mg Documented by: Multivitamins/Minerals/Vitamin C (Multivitamin Tab) 1 tab PO DAILY [facility] Last Admin: 08/19/21 08:27 Dose: 1 tab Documented by: Nitroglycerin (Nitroglycerin 0.4 Mg Tab.Sl) 0.4 mg SL Q5M PRN PRN Reason: Chest Pain Potassium Chloride (Potassium Chloride 20 Meq Tab.Er) 20 meq PO BID [facility] Last Admin: 08/19/21 08:26 Dose: 20 meq Documented by: Pramipexole Dihydrochloride (Pramipexole 0.25 Mg Tab) 0.75 mg PO BEDTIME [facility] Last Admin: 08/18/21 19:59 Dose: 0.75 mg Documented by: Tramadol HCl (Tramadol 50 Mg Tab) 50 mg PO Q6H PRN PRN Reason: Pain Last Admin: 08/19/21 04:55 Dose: 50 mg Documented by: Warfarin Sodium (Warfarin Sliding Scale) 1 each PO ASDIRECTED [facility] Warfarin Sodium (Warfarin 5 Mg Tab) 5 mg PO 1600 [facility] Stop: 08/19/21 16:01 Discontinued Medications Diazepam (Diazepam 5 Mg Tab) 5 mg PO ONETIME ONE Stop: 08/19/21 08:45 Last Admin: 08/19/21 09:35 Dose: 5 mg Documented by: - Exam Quality Assessment: Supplemental Oxygen General: Alert, Lethargic Lungs: Clear to Auscultation, Normal Respiratory Effort, Decreased Breath Sounds (bibasilar) Cardiovascular: Irregular Rhythm, Tachycardia (was just up to urinate and moved to chair) GI/Abdominal Exam: Normal Bowel Sounds, Soft, Non-Tender, No Distention Neurological: Other (More groggy, lethargic, confused this morning.) - Patient Data Lab Results Last 24 hrs: Laboratory Results - last 24 hr 08/19/21 08/19/21 Range/Units 06:10 08:52 PT 19.7 H (9.0-11.1) sec INR 1.90 H (1.00-1.24) Urine Color Brown (YELLOW) Urine Appearance Slightly cloudy (CLEAR) Urine pH 5.0 (5.0-6.5) Ur Specific [place] 1.020 (1.010-1.025) Urine Protein 30 H (NEGATIVE) mg/dL Urine Glucose (UA) Normal (NORMAL) mg/dL Urine Ketones Negative (NEGATIVE) mg/dL Urine Occult Blood Large H (NEGATIVE) Urine Nitrite Negative (NEGATIVE) Urine Bilirubin Negative (NEGATIVE) Urine Urobilinogen 1 H (NEGATIVE) mg/dL Ur Leukocyte Esterase Small H (NEGATIVE) Urine RBC >100 H (0-5) Urine WBC 5-10 H (0-5) Ur Squamous Epith Cells Few H (NS,R,O) Urine Bacteria Moderate H (NS) Sepsis Event Note - Evaluation Sepsis Screening Result: No Definite Risk - Focused Exam Vital Signs: Vital Signs Temp Pulse Pulse Resp BP BP Pulse Ox 08/19/21 08:27 77 145/84 H 08/19/21 08:26 145/84 H 08/19/21 06:39 97.4 F 77 18 145/84 H 94 L 08/19/21 05:15 97.1 F 74 18 136/71 95 - Problem List & Annotations (1) UTI (urinary tract infection) SNOMED Code(s): 91151603 Code(s): N39.0 - URINARY TRACT INFECTION, SITE NOT SPECIFIED Status: Acute Current Visit: Yes (2) Leukocytosis SNOMED Code(s): 222214610, 156014202 Code(s): D72.829 - ELEVATED WHITE BLOOD CELL COUNT, UNSPECIFIED Status: Acute Current Visit: No (3) Radicular pain of right lower extremity SNOMED Code(s): 07882204, 555630562 Code(s): M54.10 - RADICULOPATHY, SITE UNSPECIFIED Status: Acute Current Visit: No (4) Neural foraminal stenosis of lumbosacral spine SNOMED Code(s): 614410760999 Code(s): M48.07 - SPINAL STENOSIS, LUMBOSACRAL REGION Status: Chronic Current Visit: No (5) CHF (congestive heart failure) SNOMED Code(s): 65183367 Code(s): I50.9 - HEART FAILURE, UNSPECIFIED Status: Chronic Current Visit: No (6) Subdural hematoma SNOMED Code(s): 877781603 Code(s): S06.5X9A - TRAUM SUBDR HEM W LOC OF UNSP DURATION, INIT Status: Acute Current Visit: No Onset Date: ~08/15/21 (7) Right sided weakness SNOMED Code(s): 571796382 Code(s): R53.1 - WEAKNESS Status: Acute Current Visit: No (8) MDS (myelodysplastic syndrome) SNOMED Code(s): 088143567 Code(s): D46.9 - MYELODYSPLASTIC SYNDROME, UNSPECIFIED Status: Chronic Current Visit: No Onset Date: ~11/2020 (9) Atrial fibrillation SNOMED Code(s): 84671789 Code(s): I48.91 - UNSPECIFIED ATRIAL FIBRILLATION Status: Chronic Current Visit: No (10) Chronic renal failure SNOMED Code(s): 77356492 Code(s): N18.9 - CHRONIC KIDNEY DISEASE, UNSPECIFIED Status: Chronic Current Visit: No (11) COPD (chronic obstructive pulmonary disease) SNOMED Code(s): 99896752 Code(s): J44.9 - CHRONIC OBSTRUCTIVE PULMONARY DISEASE, UNSPECIFIED Status: Chronic Current Visit: No (12) History of DVT (deep vein thrombosis) SNOMED Code(s): 455977833 Code(s): Z86.718 - PERSONAL HISTORY OF OTHER VENOUS THROMBOSIS AND EMBOLISM Status: Chronic Current Visit: No (13) History of [place] (myocardial infarction) SNOMED Code(s): 698177063 Code(s): I25.2 - OLD MYOCARDIAL INFARCTION Status: Chronic Current Visit: No (14) History of cardiac arrest SNOMED Code(s): 196447543 Code(s): Z86.74 - PERSONAL HISTORY OF SUDDEN CARDIAC ARREST Status: Chronic Current Visit: No (15) Sleep apnea with use of continuous positive airway pressure (CPAP) SNOMED Code(s): 70417254, 420540607 Code(s): G47.30 - SLEEP APNEA, UNSPECIFIED Status: Chronic Current Visit: Yes (16) Palliative care status SNOMED Code(s): 307409098 Code(s): Z51.5 - ENCOUNTER FOR PALLIATIVE CARE Status: Chronic Current Visit: No - Problem List Review Problem List Initiated/Reviewed/Updated: Yes - My Orders Last 24 Hours: My Active Orders 08/18/21 15:19 Patient Status [ADT] Routine Height and Weight [RC] .FR06 Oxygen Therapy [RC] PRN Up With Assistance [RC] ASDIRECTED Up to Chair [RC] ASDIRECTED VTE/DVT Education [RC] Per Unit Routine Vital Signs [RC] DAILY OT Evaluation and Treatment [CONS] Routine PT Evaluation and Treatment [CONS] Routine VTE Pharmacological Contraindications [AST] Per Unit Routine Resuscitation Status Routine 08/18/21 15:22 Docusate Sodium [Colace] 100 mg PO DAILY PRN Famotidine [Pepcid] 20 mg PO BID PRN Nitroglycerin [Nitrostat] 0.4 mg SL Q5M PRN traMADol [Ultram] 50 mg PO Q6H PRN 08/18/21 15:30 Warfarin Sliding Scale [Coumadin Sliding Scale] 1 each PO ASDIRECTED 08/18/21 Dinner Regular Diet [DIET] 08/18/21 21:00 Metoprolol Tartrate [Lopressor] 100 mg PO BID Potassium Chloride [Klor-Con M20] 20 meq PO BID Pramipexole [Mirapex] 0.75 mg PO BEDTIME 08/19/21 08:00 Furosemide [Lasix] 40 mg PO BIDDIURETIC 08/19/21 08:45 Head wo Cont [CT] Routine 08/19/21 08:52 CULTURE URINE [RM] Routine 08/19/21 09:00 Enalapril [Vasotec] 20 mg PO DAILY Isosorbide Mononitrate [Imdur] 30 mg PO DAILY Multivitamins [Tab-A-Vikash] 1 tab PO DAILY atorvaSTATin [Lipitor] 40 mg PO DAILY 08/19/21 09:45 Cefdinir [Omnicef] 300 mg PO BID 08/19/21 16:00 Warfarin [Coumadin] 5 mg PO 1600 08/20/21 06:00 INR,PT,PROTHROMBIN TIME [COAG] DAILY 08/21/21 06:00 INR,PT,PROTHROMBIN TIME [COAG] DAILY 08/22/21 06:00 INR,PT,PROTHROMBIN TIME [COAG] DAILY 08/23/21 06:00 INR,PT,PROTHROMBIN TIME [COAG] DAILY - Plan Plan:: 1. UTI: given his acute confusion, UA was collected, reflexed to culture. UA on acute admission was negative. Cefdinir 300 mg bid started while culture pending. 2. Subdural hematoma: recheck CT head to make sure has not increased in size to account for acute confusion. Diazepam 5 mg po x 1 prior to procedure due to agitation. 3. COPD: will bring in his CPAP for tonight and he sleeps in recliner at home, will try having him in lift chair at least part of the night to improve his sleep. 4. Right side weakness 2/ #2: PT/OT.
--- NOTE | 2021-08-19 15:33 | PCM.DCSUM1 ---
Discharge Summary - Hospital Course HPI Initial Comments: ACUTE HPI: This is a 71-year-old male patient came in to see Dr. Fernandez today for pain down his right groin into the thigh and hip. Sometimes into the knee. Says he can barely lift his leg. He's had a couple falls because of the pain and has bruising on his back. He has history of dysplastic syndrome. He is chronically anemic and is currently short of breath. He denies fevers, chills but is in a lot of pain. He's had a history of PE, CHF, MIs in the past. He denies chest pain at this time. No coughing. ACUTE HOSPITAL COURSE: His corrected WBC on admission was 41.0 has trended down to 35.0. Hgb 8.2, then 7.5 and then 7.1, received 2 units of PRBCs and 1 unit of FFP, had Lasix 40 mg IV after transfusion for increased dyspnea. Peripheral smear done shows possible leukemia, oncology wanted CBC and peripheral smear repeated at their facility so blood drawn today(08/18) and sent to his oncologist Dr Clark. His platelets have been 55, 53, 52, 40, 42(08/18 done at [facility]). No platelets were transfused. He had pelvic XR/lumbar spine XR, pelvic CT and CXR done on admission: no fractures seen, osteoarthritic changes in hips/back, CHF on chest x-ray. Lasix given. BNP was 4225. Doppler of right leg was negative for DVT. Lumbar spine MRI showed moderate right neural foraminal stenosis at L3-L4. Had more trouble speaking on 08/15, had not had any recent narcotics so CT head was done and found large subacute subdural hematoma with 1.2 cm shift. Neurosurgery was consulted(see Dr Youngblood note for further details) aspirin discontinued and INR goal for his Atrial fibrillation changed to 2.0. Repeat CT head was performed next day 08/16 and showed stable hematoma. His INR was 2.36 on admission, 2.69, after FFP came down to 1.72, 1.47 and today 1.62. UA was negative. Covid was negative. Knee x-ray showed no fracture, official report pending. 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 PT/OT for right upper arm and leg weakness, he lives with his at home and she is unable to care for him in his present condition, he is medically stable so will be transferred to swing bed in this hospital for continued rehab and monitoring. Diagnosis: Stroke: No - Discharge Data Discharge Date: 08/19/21 Discharge Disposition: DC/Tfer to Acute Hospital 02 Condition: Good - Referral to Home Health Primary Care Physician: Kevin Youngblood MD - Discharge Diagnosis/Problem(s) (1) Subdural hematoma SNOMED Code(s): 351397183 ICD Code: S06.5X9A - TRAUM SUBDR HEM W LOC OF UNSP DURATION, INIT Status: Acute Current Visit: No Onset Date: ~08/15/21 (2) Leukocytosis SNOMED Code(s): 489121491, 482044668 ICD Code: D72.829 - ELEVATED WHITE BLOOD CELL COUNT, UNSPECIFIED Status: Acute Current Visit: No (3) Anemia SNOMED Code(s): 637666327 ICD Code: D64.9 - ANEMIA, UNSPECIFIED Status: Acute Current Visit: No (4) Thrombocythemia SNOMED Code(s): 0349499 ICD Code: D75.839 - THROMBOCYTOSIS, UNSPECIFIED Status: Acute Current Visit: Yes (5) UTI (urinary tract infection) SNOMED Code(s): 93329380 ICD Code: N39.0 - URINARY TRACT INFECTION, SITE NOT SPECIFIED Status: Acute Current Visit: Yes (6) Radicular pain of right lower extremity SNOMED Code(s): 68261062, 723690090 ICD Code: M54.10 - RADICULOPATHY, SITE UNSPECIFIED Status: Acute Current Visit: No (7) Neural foraminal stenosis of lumbosacral spine SNOMED Code(s): 230816890653 ICD Code: M48.07 - SPINAL STENOSIS, LUMBOSACRAL REGION Status: Chronic Current Visit: No (8) CHF (congestive heart failure) SNOMED Code(s): 01642587 ICD Code: I50.9 - HEART FAILURE, UNSPECIFIED Status: Chronic Current Visit: No (9) Right sided weakness SNOMED Code(s): 573857629 ICD Code: R53.1 - WEAKNESS Status: Acute Current Visit: No (10) MDS (myelodysplastic syndrome) SNOMED Code(s): 360383280 ICD Code: D46.9 - MYELODYSPLASTIC SYNDROME, UNSPECIFIED Status: Chronic Current Visit: No Onset Date: ~11/2020 (11) Atrial fibrillation SNOMED Code(s): 29984075 ICD Code: I48.91 - UNSPECIFIED ATRIAL FIBRILLATION Status: Chronic Current Visit: No (12) Chronic renal failure SNOMED Code(s): 28772217 ICD Code: N18.9 - CHRONIC KIDNEY DISEASE, UNSPECIFIED Status: Chronic Current Visit: No (13) COPD (chronic obstructive pulmonary disease) SNOMED Code(s): 50572745 ICD Code: J44.9 - CHRONIC OBSTRUCTIVE PULMONARY DISEASE, UNSPECIFIED Status: Chronic Current Visit: No (14) History of DVT (deep vein thrombosis) SNOMED Code(s): 842378310 ICD Code: Z86.718 - PERSONAL HISTORY OF OTHER VENOUS THROMBOSIS AND EMBOLISM Status: Chronic Current Visit: No (15) History of MT (myocardial infarction) SNOMED Code(s): 929716871 ICD Code: I25.2 - OLD MYOCARDIAL INFARCTION Status: Chronic Current Visit: No (16) History of cardiac arrest SNOMED Code(s): 215431284 ICD Code: Z86.74 - PERSONAL HISTORY OF SUDDEN CARDIAC ARREST Status: Chronic Current Visit: No (17) Sleep apnea with use of continuous positive airway pressure (CPAP) SNOMED Code(s): 21813669, 356063527 ICD Code: G47.30 - SLEEP APNEA, UNSPECIFIED Status: Chronic Current Visit: Yes (18) Palliative care status SNOMED Code(s): 195760702 ICD Code: Z51.5 - ENCOUNTER FOR PALLIATIVE CARE Status: Chronic Current Visit: No - Patient Summary/Data Consults: Consultations 08/18/21 15:19 OT Evaluation and Treatment [CONS] Routine Please Evaluate and Treat. OT Reason for Consult: ADL's This query below is only for informational purposes and is not editable. PT Evaluation and Treatment [CONS] Routine Please Evaluate and Treat. PT Reason for Consult: Strengthening This query below is only for informational purposes and is not editable. Hospital Course: Delroy was transferred to swing bed yesterday as he had stable subdural hematoma, peripheral smear with CBC drawn yesterday and sent to [facility] at request of Dr Clark: CBC at [facility] (08/18) showed WBC 47.4, Hgb 8.6, Plt 42, Abs Neutrophils 14408(up from 5508 on 08/08), Seg Neutrophils Absolute 15.2 Tear drop +1, peripheral smear pending. Delroy tried crawling out of bed last night and slid to the floor, no injuries. He was more confused overnight, called his multiple times stating he didn't know where he was at. Was more groggy/lethargic this morning, UA collected that reflexed to culture, started on Cefdinir 300 mg bid, also repeated CT head which showed interval increasing left holohemispheric mixed density subdural hematoma with increasing mass effect and midline shift, up to 1.3 cm. Left uncal shift with partial effacement of the left perimesencephalic cistern. Interval dilatation of the temporal horn of the right lateral ventricle, concerning for trapped temporal horn. No new hemorrhage identified. Spoke with Dr Drake with [facility], he viewed CT head from today and from 08/15, he advised patient be transferred, he requested Coumadin be held but advised against FFP or Vitamin K at this time. Spoke with Dr Bashir, Hospitalist, with his platelets at 42(secondary to his MDS) asked about platelet transfusion, advised that if bed placement would be delayed we could do platelet transfusion but we have to get by industry operations investigator from [place]. [facility] advised to hold off transfusion until they were certain about when they could secure a bed. Dr Bashir did accept patient in transfer. His Covid on 08/14 was negative. [facility] called back shortly after 1500 that they had bed available and his was notified & patient's bedside. He will go by ground ambulance to [place]. He is a FULL CODE. - Patient Instructions Diet: Usual Diet as Tolerated Activity: Bedrest Driving: Do Not Drive Other/Special Instructions: Transfer to [facility] for higher level of care, neurosurgery consult. Dr Bashir and Dr Drake accepting. - Discharge Plan *PRESCRIPTION DRUG MONITORING PROGRAM REVIEWED*: Not Applicable *COPY OF PRESCRIPTION DRUG MONITORING REPORT IN PATIENT IRVING: Not Applicable Home Medications: Home Meds Pramipexole [Mirapex] 0.75 mg PO BEDTIME 09/08/16 [History] Nitroglycerin 0.4 mg SL Q5M PRN 01/02/19 [History] Enalapril [Vasotec] 20 mg PO DAILY 02/13/20 [History] Isosorbide Mononitrate [Imdur] 30 mg PO DAILY 08/30/20 [History] Metoprolol Tartrate 100 mg PO BID 03/28/21 [History] Potassium Chloride [Klor-Con M20] 20 meq PO BID tab.er 04/19/21 [Rx] Albuterol Sulfate [Albuterol Sulfate Hfa] 2 puff INH Q6H PRN 07/11/21 [History] Docusate Sodium [Colace] 100 mg PO DAILY PRN 07/11/21 [History] Famotidine 20 mg PO BID PRN 07/11/21 [History] Multivitamin 1 each PO DAILY 07/11/21 [History] atorvaSTATin [Lipitor] 40 mg PO DAILY 07/11/21 [History] Furosemide [Lasix] 40 mg PO BIDDIURETIC tablet 08/18/21 [Rx] traMADol [Ultram] 50 mg PO Q6H PRN tablet 08/18/21 [Rx] Cefdinir [Omnicef] 300 mg PO BID cap 08/19/21 [Rx] Oxygen Therapy Mode: Room Air - Discharge Summary/Plan Comment DC Time >30 min.: No Total # of Minutes for Discharge Time: 15 min - General Info Date of Service: 08/19/21 Subjective Update: Delroy is more confused this morning, called his multiple times overnight, didn't know where he was at, which was drastic change from yesterday. Right sided weakness unchanged. More lethargic also today. Functional Status: Reports: New Symptoms - Patient Data Vitals - Most Recent: Last Vital Signs Temp 97.4 F 08/19/21 06:39 Pulse 77 08/19/21 08:27 Resp 18 08/19/21 06:39 BP 145/84 H 08/19/21 08:27 Pulse Ox 94 L 08/19/21 06:39 Weight - Most Recent: 262 lb 8 oz Lab Results - Last 24 hrs: Laboratory Results - last 24 hr 08/19/21 08/19/21 Range/Units 06:10 08:52 PT 19.7 H (9.0-11.1) sec INR 1.90 H (1.00-1.24) Urine Color Brown (YELLOW) Urine Appearance Slightly cloudy (CLEAR) Urine pH 5.0 (5.0-6.5) Ur Specific [place] 1.020 (1.010-1.025) Urine Protein 30 H (NEGATIVE) mg/dL Urine Glucose (UA) Normal (NORMAL) mg/dL Urine Ketones Negative (NEGATIVE) mg/dL Urine Occult Blood Large H (NEGATIVE) Urine Nitrite Negative (NEGATIVE) Urine Bilirubin Negative (NEGATIVE) Urine Urobilinogen 1 H (NEGATIVE) mg/dL Ur Leukocyte Esterase Small H (NEGATIVE) Urine RBC >100 H (0-5) Urine WBC 5-10 H (0-5) Ur Squamous Epith Cells Few H (NS,R,O) Urine Bacteria Moderate H (NS) Med Orders - Current: Current Medications Atorvastatin Calcium (Atorvastatin 40 Mg Tab) 40 mg PO DAILY [facility] Last Admin: 08/19/21 08:26 Dose: 40 mg Documented by: Cefdinir (Cefdinir 300 Mg Cap) 300 mg PO BID [facility] Last Admin: 08/19/21 10:30 Dose: 300 mg Documented by: Docusate Sodium (Docusate Sodium 100 Mg Cap) 100 mg PO DAILY PRN PRN Reason: Constipation Enalapril Maleate (Enalapril 10 Mg Tab) 20 mg PO DAILY [facility] Last Admin: 08/19/21 08:27 Dose: 20 mg Documented by: Famotidine (Famotidine 20 Mg Tab) 20 mg PO BID PRN PRN Reason: Heartburn Furosemide (Furosemide 40 Mg Tab) 40 mg PO BIDDIURETIC [facility] Last Admin: 08/19/21 14:48 Dose: 40 mg Documented by: Isosorbide Mononitrate (Isosorbide Mononitrate 30 Mg Tab.Er) 30 mg PO DAILY [facility] Last Admin: 08/19/21 08:26 Dose: 30 mg Documented by: Metoprolol Tartrate (Metoprolol Tartrate 100 Mg Tab) 100 mg PO BID [facility] Last Admin: 08/19/21 08:27 Dose: 100 mg Documented by: Multivitamins/Minerals/Vitamin C (Multivitamin Tab) 1 tab PO DAILY [facility] Last Admin: 08/19/21 08:27 Dose: 1 tab Documented by: Nitroglycerin (Nitroglycerin 0.4 Mg Tab.Sl) 0.4 mg SL Q5M PRN PRN Reason: Chest Pain Potassium Chloride (Potassium Chloride 20 Meq Tab.Er) 20 meq PO BID [facility] Last Admin: 08/19/21 08:26 Dose: 20 meq Documented by: Pramipexole Dihydrochloride (Pramipexole 0.25 Mg Tab) 0.75 mg PO BEDTIME [facility] Last Admin: 08/18/21 19:59 Dose: 0.75 mg Documented by: Tramadol HCl (Tramadol 50 Mg Tab) 50 mg PO Q6H PRN PRN Reason: Pain Last Admin: 08/19/21 04:55 Dose: 50 mg Documented by: Warfarin Sodium (Warfarin Sliding Scale) 1 each PO ASDIRECTED [facility] Discontinued Medications Diazepam (Diazepam 5 Mg Tab) 5 mg PO ONETIME ONE Stop: 08/19/21 08:45 Last Admin: 08/19/21 09:35 Dose: 5 mg Documented by: Warfarin Sodium (Warfarin 5 Mg Tab) 5 mg PO 1600 [facility] Stop: 08/19/21 16:01 - Exam Quality Assessment: Reports: Supplemental Oxygen General: Reports: Alert, Cooperative, Lethargic Neck: Reports: Trachea Midline Lungs: Reports: Clear to Auscultation, Normal Respiratory Effort, Decreased Breath Sounds (Bibasilar). Denies: Crackles, Wheezing Cardiovascular: Reports: Regular Rate, Irregular Rhythm GI/Abdominal Exam: Normal Bowel Sounds, Soft, Non-Tender, No Distention Neurological: Reports: Other (Right sided weakness RLE>RUE unchanged, more lethargic/groggy) *Q Meaningful Use (DIS) - VTE *Q VTE Pharmacological Contraindications *Q: Cerebral Hemorrhag Infarc
[2021-08-19] MEDS ORDERED: Warfarin 5 MG Tab PO SCH (16:00)
--- NOTE | 2021-08-21 14:40 | PCM.HP.2 ---
H&P History of Present Illness - General Date of Service: 08/18/21 Admit Problem/Dx: Subdural hematoma - History of Present Illness Initial Comments - Free Text/Narative: ACUTE HPI: This is a 71-year-old male patient came in to see Dr. Fernandez today for pain down his right groin into the thigh and hip. Sometimes into the knee. Says he can barely lift his leg. He's had a couple falls because of the pain and has bruising on his back. He has history of dysplastic syndrome. He is chronically anemic and is currently short of breath. He denies fevers, chills but is in a lot of pain. He's had a history of PE, CHF, MIs in the past. He denies chest pain at this time. No coughing. ACUTE HOSPITAL COURSE: His corrected WBC on admission was 41.0 has trended down to 35.0. Hgb 8.2, then 7.5 and then 7.1, received 2 units of PRBCs and 1 unit of FFP, had Lasix 40 mg IV after transfusion for increased dyspnea. Peripheral smear done shows possible leukemia, oncology wanted CBC and peripheral smear repeated at their facility so blood drawn today and sent to his oncologist. His platelets have been 55, 53, 52, 40. He had pelvic XR/lumbar spine XR, pelvic CT and CXR done on admission: no fractures seen, osteoarthritic changes in hips/back, CHF on chest x-ray. Lasix given. BNP was 4225. Doppler of right leg was negative for DVT. Lumbar spine MRI showed moderate right neural foraminal stenosis at L3-L4. Had more trouble speaking on 08/15, had not had any recent narcotics so CT head was done and found large subacute subdural hematoma with 12 mm shift. Neurosurgery was consulted(see Dr Youngblood note for further details) aspirin discontinued and INR goal for his Atrial fibrillation changed to 2.0. Repeat CT head was performed next day 08/16 and showed stable hematoma. His INR was 2.36 on admission, 2.69, after FFP came down to 1.72, 1.47 and today 1.62. UA was negative. Covid was negative. Knee x-ray showed no fracture, official report pending. 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 PT/OT for right upper arm and leg weakness, he lives with his at home and she is unable to care for him in his present condition, he is medically stable so will be transferred to swing bed in this hospital for continued rehab and monitoring. Generalized Pain Score (Numeric/FACES): 6 Right Leg Pain Score (Numeric/FACES): 9 - Related Data Allergies/Adverse Reactions: Allergies Allergy/AdvReac Type Severity Reaction Status Date / Time Influenza Virus Vaccines Allergy Anaphylactic Verified 08/14/21 12:27 Shock levofloxacin [From Levaquin] Allergy Anaphylactic Verified 08/14/21 12:27 Shock morphine AdvReac Other Verified 08/14/21 12:27 metal- surgical Allergy Other Uncoded 08/14/21 12:27 Home Medications: Home Meds Pramipexole [Mirapex] 0.75 mg PO BEDTIME 09/08/16 [History] Nitroglycerin 0.4 mg SL Q5M PRN 01/02/19 [History] Enalapril [Vasotec] 20 mg PO DAILY 02/13/20 [History] Isosorbide Mononitrate [Imdur] 30 mg PO DAILY 08/30/20 [History] Metoprolol Tartrate 100 mg PO BID 03/28/21 [History] Potassium Chloride [Klor-Con M20] 20 meq PO BID tab.er 04/19/21 [Rx] Albuterol Sulfate [Albuterol Sulfate Hfa] 2 puff INH Q6H PRN 07/11/21 [History] Docusate Sodium [Colace] 100 mg PO DAILY PRN 07/11/21 [History] Famotidine 20 mg PO BID PRN 07/11/21 [History] Multivitamin 1 each PO DAILY 07/11/21 [History] atorvaSTATin [Lipitor] 40 mg PO DAILY 07/11/21 [History] Furosemide [Lasix] 40 mg PO BIDDIURETIC tablet 08/18/21 [Rx] traMADol [Ultram] 50 mg PO Q6H PRN tablet 08/18/21 [Rx] Cefdinir [Omnicef] 300 mg PO BID cap 08/19/21 [Rx] Past Medical History HEENT History: Reports: Hard of Hearing, Impaired Vision Other HEENT History: Wears glasses. Cardiovascular History: Reports: Afib, Blood Clots/VTE/DVT, CAD, Heart Failure, High Cholesterol, Hypertension, NC, Stents Other Cardiovascular History: PAROXYSMAL ATRIAL FIBRILLATION Respiratory History: Reports: PE, Pneumonia, Recurrent, Sleep Apnea, SOB Other Respiratory History: Unable to take Flu Shot due to allergy. Wears CPAP. HX OF PULMONARY EMBOLISM Gastrointestinal History: Reports: Colon Polyp, Hiatal Hernia Genitourinary History: Reports: Acute Renal Failure Musculoskeletal History: Reports: Arthritis, Back Pain, Chronic, Fracture Other Musculoskeletal History: Hx bilat wrist fractures, R ankle, L kneecap Experiences frequent falls due to leg weakness. 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 PLMD. RESTLESS LEGS SYNDROME. Psychiatric History: Reports: None Endocrine/Metabolic History: Reports: Obesity/BMI 30+, Other (See Below) Other Endocrine/Metabolic History: borderline DM Hematologic History: Reports: None Other Hematologic History: BLOOD INFECTION Immunologic History: Reports: None Oncologic (Cancer) History: Reports: None Other Oncologic History: MDS Dermatologic History: Reports: None - Infectious Disease History Infectious Disease History: Reports: Chicken Pox, Measles - Past Surgical History Head Surgeries/Procedures: Reports: None HEENT Surgical History: Reports: LASIK, Naso-Sinus Surgery, Other (See Below) Other HEENT Surgeries/Procedures: RHINOPLASTY, BILATERAL EYE SURGERY Cardiovascular Surgical History: Reports: Cardiac Ablation, Coronary Artery Emigdio nt Other Cardiovascular Surgeries/Procedures: CARDIAC CATHETERIZATION, CORONARY ANGIOPLASTY GI Surgical History: Reports: Cholecystectomy, Colonoscopy, Other (See Below) Other GI Surgeries/Procedures: laparoscopic jennifer Musculoskeletal Surgical History: Reports: Other (See Below) Other Musculoskeletal Surgeries/Procedures:: R ANKLE SURGERY. Other Oncologic Surgeries/Procedures: pre cancerious polyps Social & Family History - Family History Family Medical History: No Pertinent Family History - Tobacco Use Tobacco Use Status *Q: Never Tobacco User - Caffeine Use Caffeine Use: Reports: Soda Other Caffeine Use: Coke - Recreational Drug Use Recreational Drug Use: No - Living Situation & Occupation Living situation: Reports: Occupation: Retired H&P Review of Systems - Review of Systems: Review Of Systems: Comprehensive ROS is negative, except as noted in HPI. Exam - Exam Exam: See Below - Vital Signs Vital Signs: Last Vital Signs Temp 97.5 F 08/18/21 08:00 Pulse 74 10/15/21 08:24 Resp 20 08/18/21 08:00 BP 116/55 L 08/18/21 08:25 Pulse Ox 95 08/18/21 08:00 Weight: 117.707 kg - Exam General: Alert, Oriented, Cooperative HEENT: PERRLA, EOMI, Hearing Intact Neck: Trachea Midline Lungs: Clear to Auscultation, Normal Respiratory Effort Cardiovascular: Regular Rate, Irregular Rhythm GI/Abdominal Exam: Normal Bowel Sounds, Soft, Non-Tender, No Distention (Male) Exam: Deferred Rectal (Males) Exam: Deferred Back Exam: Normal Inspection Extremities: No Pedal Edema, Joint Swelling (posterior right knee). No: Increased Warmth, Redness Peripheral Pulses: 2+: Radial (L), Radial (R), Posterior Tibial (L), Posterior Tibial (R), Dorsalis Pedis (L), Dorsalis Pedis (R) Neuro Extensive - Motor, Sensory, Reflexes: CN II-XII Intact, Motor/Sensory Deficits (RUE: 4+5, pulp tester: 4+/5, RLE: 3/5, dorsiflexion 3/5; LUE/LLE/pulp tester: 5/5), Abnormal Gait, Expressive Aphasia - Patient Data Lab Results Last 24 hrs: Laboratory Results - last 24 hr 08/18/21 Range/Units 06:05 PT 17.0 H (9.0-11.1) sec INR 1.62 H (1.00-1.24) Stevie Results Last 24 hrs: Microbiology 08/14/21 14:05 Aerobic Blood Culture - Preliminary Blood NO GROWTH AFTER 4 DAYS Anaerobic Blood Culture - Preliminary NO GROWTH AFTER 4 DAYS 08/14/21 14:15 Aerobic Blood Culture - Preliminary Blood NO GROWTH AFTER 4 DAYS Anaerobic Blood Culture - Preliminary NO GROWTH AFTER 4 DAYS Sepsis Event Note - Evaluation Sepsis Screening Result: No Definite Risk - Focused Exam Vital Signs: Vital Signs Temp Pulse Pulse Resp BP BP Pulse Ox 08/18/21 08:25 116/55 L 08/18/21 08:24 74 116/55 L 08/18/21 08:00 97.5 F 74 20 116/55 L 95 *Q Meaningful Use (ADM) - VTE *Q VTE Mechanical Contraindications *Q: At Risk for Falls VTE Pharmacological Contraindications *Q: Cerebral Hemorrhag Infarc - VTE Risk Assess *Q Each Risk Factor Represents 1 Point: Obesity ( BMI > 25 kg/m2), Congestive heart failure (CHF) Total Score 1 Point Risk Factors: 2 Each Risk Factor Represents 2 Points: Age 60 - 74 Years, Malignancy (present or previous) Total Score 2 Point Risk Factors: 4 Each Risk Factor Represents 3 Points: History of DVT/PE Total Score 3 Point Risk Factors: 3 Each Risk Factor Represents 5 Points: None Total Score 5 Point Risk Factors: 0 Venous Thromboembolism Risk Factor Score *Q: 9 - Problem List (1) History of DVT (deep vein thrombosis) SNOMED Code(s): 540859439 ICD Code: Z86.718 - PERSONAL HISTORY OF OTHER VENOUS THROMBOSIS AND EMBOLISM Status: Chronic (2) Coronary arteriosclerosis SNOMED Code(s): 81628590 ICD Code: I25.10 - ATHSCL HEART DISEASE OF [place] CORONARY ARTERY W/O ANG PCTRS Status: Chronic (3) History of NC (myocardial infarction) SNOMED Code(s): 336011234 ICD Code: I25.2 - OLD MYOCARDIAL INFARCTION Status: Chronic (4) History of cardiac arrest SNOMED Code(s): 870736254 ICD Code: Z86.74 - PERSONAL HISTORY OF SUDDEN CARDIAC ARREST Status: Chronic (5) COPD (chronic obstructive pulmonary disease) SNOMED Code(s): 77505183 ICD Code: J44.9 - CHRONIC OBSTRUCTIVE PULMONARY DISEASE, UNSPECIFIED Status: Chronic Qualifiers: Qualifiers: unspecified (6) Palliative care encounter SNOMED Code(s): 266206036, 048875201 ICD Code: Z51.5 - ENCOUNTER FOR PALLIATIVE CARE Status: Chronic (7) Atrial fibrillation SNOMED Code(s): 74893531 ICD Code: I48.91 - UNSPECIFIED ATRIAL FIBRILLATION Status: Chronic (8) MDS (myelodysplastic syndrome) SNOMED Code(s): 447676184 ICD Code: D46.9 - MYELODYSPLASTIC SYNDROME, UNSPECIFIED Status: Chronic Onset Date: ~11/2020 (9) Leukocytosis SNOMED Code(s): 851963874, 579149094 ICD Code: D72.829 - ELEVATED WHITE BLOOD CELL COUNT, UNSPECIFIED Status: Acute (10) Subdural hematoma SNOMED Code(s): 635519384 ICD Code: S06.5X9A - TRAUM SUBDR HEM W LOC OF UNSP DURATION, INIT Status: Acute Onset Date: ~08/15/21 (11) Neural foraminal stenosis of lumbosacral spine SNOMED Code(s): 428955979763 ICD Code: M48.07 - SPINAL STENOSIS, LUMBOSACRAL REGION Status: Chronic (12) Right sided weakness SNOMED Code(s): 164213710 ICD Code: R53.1 - WEAKNESS Status: Acute Problem List Initiated/Reviewed/Updated: Yes Assessment/Plan Comment:: 1. Admit to swing bed for rehab services s/p subacute subdural hematoma with right sided weakness. 2. Right leg pain: MRI shows L3-L4 stenosis of the foramina. 3. Leukocytosis: peripheral smear on acute status showed likely leukemia. Dr Youngblood talked with oncology last night and told him the peripheral smear with the blasts and he said is not emergency and is to follow-up with regular oncologist. CBC & repeat peripheral smear collected today and sent to [place] lab per his regular oncologist request. 4. Atrial fibrillation: INR 1.62, goal 2.0 per neurosurgery given his history of afib. Coumadin sliding scale per pharmacy. 5. Diet: Regular. 6. Activity: up with assistance & up to chair. 7. CODE STATUS: Dr Youngblood had discussion with patient and his , they have not changed from FULL at this time. 8. Discharge planning: dependant on meeting therapy goals, [place] and his would like him to go home but has to be able to ambulate on his own. Care conference next week. - Mortality Measure Prognosis:: Poor
== END 2021-08-19 15:50 | DRG 947 ==
LOC: FB.MS 15:14
PROVIDERS: ADMIT Family Medicine; ATTEND Family Medicine
DX: R53.1 Weakness (principal); S06.5X9A Traumatic subdural hemorrhage with loss of consciousness of unspecified duration, initial encounter; N39.0 Urinary tract infection, site not specified; I48.20 Chronic atrial fibrillation, unspecified; D64.9 Anemia, unspecified; D75.839 Thrombocytosis, unspecified; M54.10 Radiculopathy, site unspecified; M48.07 Spinal stenosis, lumbosacral region; I50.9 Heart failure, unspecified; D46.9 Myelodysplastic syndrome, unspecified; N18.9 Chronic kidney disease, unspecified; J44.9 Chronic obstructive pulmonary disease, unspecified; H91.90 Unspecified hearing loss, unspecified ear; H54.7 Unspecified visual loss; G47.30 Sleep apnea, unspecified; Z51.5 Encounter for palliative care; Z88.7 Allergy status to serum and vaccine; Z86.718 Personal history of other venous thrombosis and embolism; I25.2 Old myocardial infarction; Z86.74 Personal history of sudden cardiac arrest; Z88.1 Allergy status to other antibiotic agents; Z79.899 Other long term (current) drug therapy; I48.0 Paroxysmal atrial fibrillation; Z87.01 Personal history of pneumonia (recurrent); E78.00 Pure hypercholesterolemia, unspecified; Z79.01 Long term (current) use of anticoagulants; I25.10 Atherosclerotic heart disease of native coronary artery without angina pectoris; Z95.5 Presence of coronary angioplasty implant and graft; M54.9 Dorsalgia, unspecified; G89.29 Other chronic pain; M19.90 Unspecified osteoarthritis, unspecified site; Z90.49 Acquired absence of other specified parts of digestive tract; M48.061 Spinal stenosis, lumbar region without neurogenic claudication
CPT/HCPCS: 36415; 70450; 81001; 85610; 87086; A9270-GY

== ENCOUNTER 2021-08-25 12:49 | Inpatient (IN) | payer MEDICARE, BC ==
[2021-08-25] MEDS ORDERED: Albuterol 8 GM Inhaler INH PRN (16:16)
[2021-08-25] MEDS ORDERED: Nitroglycerin 0.4 MG Tab.SL SL PRN (16:16)
[2021-08-25] MEDS ORDERED: Ondansetron 4 MG Tab.DIS PO PRN (16:18)
[2021-08-25] MEDS ORDERED: Hyoscyamine 0.125 MG Tab.SL SL PRN (16:19)
[2021-08-25] MEDS ORDERED: Bisacodyl 5 MG Tab PO PRN (16:19)
[2021-08-25] MEDS ORDERED: Prochlorperazine 25 MG Supp RECTAL PRN (16:22)
[2021-08-25] MEDS ORDERED: LORazepam 2 MG/ML SDV IM PRN (16:23)
--- NOTE | 2021-08-25 17:45 | PCM.HP.2 ---
H&P History of Present Illness - General Date of Service: 08/25/21 Admit Problem/Dx: Admission Diagnosis/Problem Admission Diagnosis/Problem Subdural hematoma Source of Information: Patient, Old Records, Provider - History of Present Illness Initial Comments - Free Text/Narative: Alejandro is being admitted for swing bed for end of life cares. He was transferred to [facility] last SaturdayAug 19 for worsening subdural hematoma. He had nicole hole operation done on 08/22, with improvement of his cognition and right arm/leg weakness, he did have worsening of symptoms so they repeated CT head which showed reaccumulation of hematoma but no midline shift. 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 He elected to stop treatments and was awaiting NH placement for Hospice care. His is unable to care for at home with hospice. NH placement has been delayed due to bed openings so [place] and his requested coming here for comfort cares until NH bed comes open. He has had some large formed stools, urinating well. Able to eat, his right hand/leg is still weak but improved from when he was transferred. He states his will bring in CPAP as it does help him sleep. He has been sleeping in bed in [place] and stated hard chair feels better on his back than soft recliner. - Related Data Allergies/Adverse Reactions: Allergies Allergy/AdvReac Type Severity Reaction Status Date / Time Influenza Virus Vaccines Allergy Anaphylactic Verified 08/14/21 12:27 Shock levofloxacin [From Levaquin] Allergy Anaphylactic Verified 08/14/21 12:27 Shock morphine AdvReac Other Verified 08/14/21 12:27 metal- surgical Allergy Other Uncoded 08/14/21 12:27 Home Medications: Home Meds Pramipexole [Mirapex] 0.75 mg PO BEDTIME 09/08/16 [History] Nitroglycerin 0.4 mg SL Q5M PRN 01/02/19 [History] Enalapril [Vasotec] 20 mg PO DAILY 02/13/20 [History] Isosorbide Mononitrate [Imdur] 30 mg PO DAILY 08/30/20 [History] Metoprolol Tartrate 150 mg PO BID 03/28/21 [History] Albuterol Sulfate [Albuterol Sulfate Hfa] 2 puff INH Q6H PRN 07/11/21 [History] Docusate Sodium [Colace] 100 mg PO MOFR@0900 07/11/21 [History] Famotidine 20 mg PO BID 07/11/21 [History] Acetaminophen [Mapap] 650 mg PO Q4H PRN 08/25/21 [History] Furosemide [Lasix] 40 mg PO DAILY 08/25/21 [History] Ondansetron [Zofran] 4 mg IV Q4H PRN 08/25/21 [History] Sucralfate [Carafate] 1 gm PO QIDACANDBED 08/25/21 [History] levETIRAcetam in NaCl (iso-os) [Levetiracetam-NaCl 500 mg/100] 500 mg IV BID 08/25/21 [History] traMADol [Ultram] 50 mg PO BID 08/25/21 [History] Past Medical History HEENT History: Reports: Hard of Hearing, Impaired Vision Other HEENT History: Wears glasses. Cardiovascular History: Reports: Afib, Blood Clots/VTE/DVT, CAD, Heart Failure, High Cholesterol, Hypertension, FL, Stents Other Cardiovascular History: PAROXYSMAL ATRIAL FIBRILLATION Respiratory History: Reports: PE, Pneumonia, Recurrent, Sleep Apnea, SOB Other Respiratory History: Unable to take Flu Shot due to allergy. Wears CPAP. HX OF PULMONARY EMBOLISM Gastrointestinal History: Reports: Colon Polyp, Hiatal Hernia Genitourinary History: Reports: Acute Renal Failure Musculoskeletal History: Reports: Arthritis, Back Pain, Chronic, Fracture Other Musculoskeletal History: Hx bilat wrist fractures, R ankle, L kneecap Experiences frequent falls due to leg weakness. Restless legs syndrome, Fo raminal stenosis and spondylolisthesis of lumbar region Neurological History: Reports: Migraines Other Neuro History: SPONDYLOLISTHESIS OF LUMBAR REGION. PLMD. RESTLESS LEGS SYNDROME. Psychiatric History: Reports: None Endocrine/Metabolic History: Reports: Obesity/BMI 30+, Other (See Below) Other Endocrine/Metabolic History: borderline DM Hematologic History: Reports: Other (See Below) Other Hematologic History: MDS, Leukemia Immunologic History: Reports: None Oncologic (Cancer) History: Reports: None, Leukemia Other Oncologic History: MDS Dermatologic History: Reports: None - Infectious Disease History Infectious Disease History: Reports: Chicken Pox, Measles - Past Surgical History Head Surgeries/Procedures: Reports: None HEENT Surgical History: Reports: LASIK, Naso-Sinus Surgery, Other (See Below) Other HEENT Surgeries/Procedures: RHINOPLASTY, BILATERAL EYE SURGERY Cardiovascular Surgical History: Reports: Cardiac Ablation, Coronary Artery Stent Other Cardiovascular Surgeries/Procedures: CARDIAC CATHETERIZATION, CORONARY ANGIOPLASTY GI Surgical History: Reports: Cholecystectomy, Colonoscopy, Other (See Below) Other GI Surgeries/Procedures: laparoscopic jennifer Neurological Surgical History: Reports: Other (See Below) Other Neurological Surgeries/Procedures: Lucile hole drainage of Left Chronic Subdural Hematoma Musculoskeletal Surgical History: Reports: Other (See Below) Other Musculoskeletal Surgeries/Procedures:: R ANKLE SURGERY. Other Oncologic Surgeries/Procedures: pre cancerious polyps Social & Family History - Family History Family Medical History: No Pertinent Family History - Tobacco Use Second Hand Smoke Exposure: No - Caffeine Use Caffeine Use: Reports: Coffee, Soda, Tea Other Caffeine Use: Coke - Recreational Drug Use Recreational Drug Use: No - Living Situation & Occupation Living situation: Reports: Occupation: Retired H&P Review of Systems - Review of Systems: Review Of Systems: See Below General: Reports: Weakness. Denies: Fever, Chills HEENT: Reports: No Symptoms Pulmonary: Reports: No Symptoms Cardiovascular: Reports: No Symptoms Gastrointestinal: Reports: No Symptoms Genitourinary: Reports: No Symptoms Musculoskeletal: Reports: Back Pain Skin: Reports: No Symptoms Psychiatric: Reports: No Symptoms Neurological: Reports: Trouble Speaking, Difficulty Walking, Weakness Hematologic/Lymphatic: Reports: Anemia, Easy Bleeding, Easy Bruising Immunologic: Reports: No Symptoms Exam - Exam Exam: See Below - Vital Signs Vital Signs: Last Vital Signs Temp 98.5 F 08/25/21 15:30 Pulse 75 08/25/21 15:30 Resp 20 08/25/21 15:30 BP 112/63 08/25/21 15:30 Pulse Ox 97 08/25/21 16:13 Weight: 257 lb 6.4 oz - Exam General: Alert, Oriented, Cooperative HEENT: PERRLA, EOMI, Hearing Intact, Mucosa Moist & [place], Other (Dried blood to left frontal scalp) Neck: Trachea Midline Lungs: Clear to Auscultation Cardiovascular: Regular Rate, Irregular Rhythm GI/Abdominal Exam: Normal Bowel Sounds, Soft, Non-Tender, No Distention (Male) Exam: Deferred Rectal (Males) Exam: Deferred Extremities: No Pedal Edema, Normal Capillary Refill Peripheral Pulses: 2+: Radial (L), Radial (R), Posterior Tibial (L), Posterior Tibial (R), Dorsalis Pedis (L), Dorsalis Pedis (R) Skin: Warm, Dry, Incision Neurological: Sensation Intact Neuro Extensive - Motor, Sensory, Reflexes: Expressive Aphasia, Abnormal Sensation, Abnormal Motor (RUE 3/5, 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/5, RLE 2/5) Sepsis Event Note - Evaluation Sepsis Screening Result: No Definite Risk - Focused Exam Vital Signs: Vital Signs Temp Pulse Resp BP Pulse Ox Pulse Ox 08/25/21 16:13 97 08/25/21 15:30 98.5 F 75 20 112/63 97 *Q Meaningful Use (ADM) - VTE *Q VTE Mechanical Contraindications *Q: At Risk for Falls VTE Pharmacological Contraindications *Q: Risk of Bleeding - VTE Risk Assess *Q Each Risk Factor Represents 1 Point: Obesity ( BMI > 25 kg/m2) Total Score 1 Point Risk Factors: 1 Each Risk Factor Represents 2 Points: Age 60 - 74 Years, Malignancy (present or previous) Total Score 2 Point Risk Factors: 4 Each Risk Factor Represents 3 Points: None Total Score 3 Point Risk Factors: 0 Each Risk Factor Represents 5 Points: Stroke, Less than 1 Month Total Score 5 Point Risk Factors: 5 Venous Thromboembolism Risk Factor Score *Q: 10 - Problem List (1) Comfort measures only status SNOMED Code(s): 15144644592975 ICD Code: Z51.5 - ENCOUNTER FOR PALLIATIVE CARE Status: Acute Current Visit: Yes (2) Chronic myelocytic leukemia SNOMED Code(s): 86698772 ICD Code: C92.10 - CHRONIC MYELOID LEUK, BCR/ABL-POSITIVE, NOT ACHIEVE REMIS Status: Acute Current Visit: Yes (3) MDS (myelodysplastic syndrome) SNOMED Code(s): 108622244 ICD Code: D46.9 - MYELODYSPLASTIC SYNDROME, UNSPECIFIED Status: Chronic Current Visit: No Onset Date: ~11/2020 (4) Radicular pain of right lower extremity SNOMED Code(s): 56577336, 928433909 ICD Code: M54.10 - RADICULOPATHY, SITE UNSPECIFIED Status: Acute Current Visit: No (5) Subdural hematoma SNOMED Code(s): 889724082 ICD Code: S06.5X9A - TRAUM SUBDR HEM W LOC OF UNSP DURATION, INIT Status: Acute Current Visit: No Onset Date: ~08/15/21 (6) Atrial fibrillation SNOMED Code(s): 41813210 ICD Code: I48.91 - UNSPECIFIED ATRIAL FIBRILLATION Status: Chronic Current Visit: No (7) CHF (congestive heart failure) SNOMED Code(s): 12543305 ICD Code: I50.9 - HEART FAILURE, UNSPECIFIED Status: Chronic Current Visit: No (8) COPD (chronic obstructive pulmonary disease) SNOMED Code(s): 73353065 ICD Code: J44.9 - CHRONIC OBSTRUCTIVE PULMONARY DISEASE, UNSPECIFIED Status: Chronic Current Visit: No (9) Chronic renal failure SNOMED Code(s): 39777861 ICD Code: N18.9 - CHRONIC KIDNEY DISEASE, UNSPECIFIED Status: Chronic Current Visit: No (10) History of DVT (deep vein thrombosis) SNOMED Code(s): 675040860 ICD Code: Z86.718 - PERSONAL HISTORY OF OTHER VENOUS THROMBOSIS AND EMBOLISM Status: Chronic Current Visit: No (11) History of FL (myocardial infarction) SNOMED Code(s): 770269957 ICD Code: I25.2 - OLD MYOCARDIAL INFARCTION Status: Chronic Current Visit: No (12) History of cardiac arrest SNOMED Code(s): 968563673 ICD Code: Z86.74 - PERSONAL HISTORY OF SUDDEN CARDIAC ARREST Status: Chronic Current Visit: No (13) Neural foraminal stenosis of lumbosacral spine SNOMED Code(s): 384027516572 ICD Code: M48.07 - SPINAL STENOSIS, LUMBOSACRAL REGION Status: Chronic Current Visit: No (14) Obesity SNOMED Code(s): 760506375, 307356168 ICD Code: E66.9 - OBESITY, UNSPECIFIED Status: Chronic Current Visit: No (15) Palliative care status SNOMED Code(s): 571148531 ICD Code: Z51.5 - ENCOUNTER FOR PALLIATIVE CARE Status: Chronic Current Visit: No (16) Sleep apnea with use of continuous positive airway pressure (CPAP) SNOMED Code(s): 90466054, 249488461 ICD Code: G47.30 - SLEEP APNEA, UNSPECIFIED Status: Chronic Current Visit: No Problem List Initiated/Reviewed/Updated: Yes Orders Last 24hrs: Active Orders 24 hr Category Date Time Status Patient Status [ADT] Routine ADT 08/25/21 16:13 Active Height and Weight [RC] WEEKLY Care 08/25/21 16:13 Active Oxygen Therapy [RC] PRN Care 08/25/21 16:13 Active RT Post Treatment Assessment [RC] Click to Edit Care 08/25/21 16:17 Active Up With Assistance [RC] ASDIRECTED Care 08/25/21 16:13 Active Up to Chair [RC] ASDIRECTED Care 08/25/21 16:13 Active VTE/DVT Education [RC] Per Unit Routine Care 08/25/21 16:13 Active Vital Signs [RC] DAILY Care 08/25/21 16:13 Active Regular Diet [DIET] Diet 08/25/21 Dinner Active Acetaminophen [TylenoL] Med 08/25/21 16:16 Active 650 mg PO Q4H PRN Albuterol [Ventolin HFA] Med 08/25/21 16:16 Active 0 gm INH Q6H PRN Docusate Sodium [Colace] Med 08/28/21 09:00 Active 100 mg PO MOFR@0900 Enalapril [Vasotec] Med 08/26/21 09:00 Active 20 mg PO DAILY Famotidine [Pepcid] Med 08/25/21 21:00 Active 20 mg PO BID Furosemide [Lasix] Med 08/26/21 09:00 Active 40 mg PO DAILY Hyoscyamine [Hyomax-SL] Med 08/25/21 16:19 Active 0.125 mg SL Q6H PRN Isosorbide Mononitrate [Imdur] Med 08/26/21 09:00 Active 30 mg PO DAILY LORazepam [Ativan] Med 08/25/21 16:23 Active 2 mg IM Q5M PRN Metoprolol Tartrate [Lopressor] Med 08/25/21 21:00 Active 150 mg PO BID Nitroglycerin [Nitrostat] Med 08/25/21 16:16 Active 0.4 mg SL Q5M PRN Ondansetron [Zofran ODT] Med 08/25/21 16:18 Active 4 mg PO Q4H PRN Pramipexole [Mirapex] Med 08/25/21 21:00 Active 0.75 mg PO BEDTIME Prochlorperazine [Compro] Med 08/25/21 16:22 Active 25 mg RECTAL Q12H PRN Sucralfate [Carafate] Med 08/25/21 17:30 Active 1 gm PO QIDACANDBED bisacodyL [Dulcolax] Med 08/25/21 16:19 Active 5 mg PO DAILY PRN levETIRAcetam [Keppra] Med 08/25/21 21:00 Active 500 mg PO BID traMADol [Ultram] Med 08/25/21 21:00 Active 50 mg PO BID Comfort Measures [OM.PC] Routine Oth 08/25/21 16:16 Ordered Resuscitation Status Routine Resus Stat 08/25/21 16:13 Ordered Medication Orders Acetaminophen (Acetaminophen 325 Mg Tab) 650 mg PO Q4H PRN PRN Reason: Pain (moderate 4-6) Albuterol (Albuterol 8 Gm Inhaler) 0 gm INH Q6H PRN PRN Reason: Shortness of Breath Bisacodyl (Bisacodyl 5 Mg Tab) 5 mg PO DAILY PRN PRN Reason: Constipation Docusate Sodium (Docusate Sodium 100 Mg Cap) 100 mg PO MOFR@0900 JULIANNE Enalapril Maleate (Enalapril 10 Mg Tab) 20 mg PO DAILY JULIANNE Famotidine (Famotidine 20 Mg Tab) 20 mg PO BID JULIANNE Furosemide (Furosemide 40 Mg Tab) 40 mg PO DAILY JULIANNE Hyoscyamine (Hyoscyamine 0.125 Mg Tab.Sl) 0.125 mg SL Q6H PRN PRN Reason: secretions Isosorbide Mononitrate (Isosorbide Mononitrate 30 Mg Tab.Er) 30 mg PO DAILY JULIANNE Levetiracetam (Levetiracetam 500 Mg Tab) 500 mg PO BID JULIANNE Lorazepam (Lorazepam 2 Mg/Ml Sdv) 2 mg IM Q5M PRN PRN Reason: Seizures Metoprolol Tartrate (Metoprolol Tartrate 50 Mg Tab) 150 mg PO BID JULIANNE Nitroglycerin (Nitroglycerin 0.4 Mg Tab.Sl) 0.4 mg SL Q5M PRN PRN Reason: Chest Pain Ondansetron HCl (Ondansetron 4 Mg Tab.Dis) 4 mg PO Q4H PRN PRN Reason: Nausea/Vomiting Pramipexole Dihydrochloride (Pramipexole 0.25 Mg Tab) 0.75 mg PO BEDTIME [facility] Prochlorperazine Maleate (Prochlorperazine 25 Mg Supp) 25 mg RECTAL Q12H PRN PRN Reason: Nausea Sucralfate (Sucralfate 1 Gm Tab) 1 gm PO QIDACANDBED [facility] Tramadol HCl (Tramadol 50 Mg Tab) 50 mg PO BID [facility] Assessment/Plan Comment:: 1. Admit to swing bed for end of life cares for CML, Subdural hematoma with right side weakness. 2. Comfort measures: Hospice referral in anticipation of going to [place]. [facility] discontinue many medications including aspirin, Coumadin. Added Levsin 0.125 mg q4h as needed secretions. Zofran ODT or Compazine rectal as needed nausea, Ativan IM as needed seizures. He has allergy to morphine. Keppra 500 mg bid for subdural hematoma to prevent seizures. Adjust medications as needed. 3. Sleep apnea: home CPAP at night. 4. Diet: Regular. 5. Activity: up with assistance & to chair. 6. DVT prophylaxis: contraindicated due to recent bleed. Comfort measures. 7. CODE STATUS: COMFORT MEASURES. 8. Discharge planning: Comfort measures until [place] bed obtained, would be discharged on Hospice. Adjust treatments as necessary. - Mortality Measure Prognosis:: Poor
[2021-08-25] MEDS: Sucralfate 1 GM Tab PO SCH ×2 (18:04→20:40)
[2021-08-25] MEDS: levETIRAcetam 500 MG Tab PO SCH (20:40)
[2021-08-25] MEDS: Pramipexole 0.25 MG Tab PO SCH (20:42)
[2021-08-25] MEDS: Famotidine 20 MG Tab PO SCH (20:43)
[2021-08-25] MEDS: Metoprolol Tartrate 50 MG Tab PO SCH (20:48)
[2021-08-25] MEDS: traMADol 50 MG Tab PO SCH (20:59)
[2021-08-26] MEDS: Acetaminophen 325 MG Tab PO PRN ×3 (01:51→21:55)
[2021-08-26] MEDS: Sucralfate 1 GM Tab PO SCH ×4 (08:04→21:29)
[2021-08-26] MEDS: Metoprolol Tartrate 50 MG Tab PO SCH ×2 (08:04→21:37)
[2021-08-26] MEDS: Isosorbide Mononitrate 30 MG Tab.ER PO SCH (08:05)
[2021-08-26] MEDS: Furosemide 40 MG Tab PO SCH (08:07)
[2021-08-26] MEDS: levETIRAcetam 500 MG Tab PO SCH ×2 (08:08→21:31)
[2021-08-26] MEDS: Famotidine 20 MG Tab PO SCH ×2 (08:09→21:31)
[2021-08-26] MEDS: traMADol 50 MG Tab PO SCH (08:13)
[2021-08-26] MEDS ORDERED: oxyCODONE 5 MG Tab PO PRN (14:54)
[2021-08-26] MEDS: Dexamethasone 4 MG Tab PO SCH (15:33)
[2021-08-26] MEDS ORDERED: Morphine Oral Concentrate 20 MG/ML 30 ML Bottle SL PRN (17:17)
[2021-08-26] MEDS: Morphine 10 MG/0.5 ML Oral Syringe PO PRN ×2 (17:50→21:56)
[2021-08-26] MEDS: Pramipexole 0.25 MG Tab PO SCH (21:32)
[2021-08-27] MEDS: Morphine 10 MG/0.5 ML Oral Syringe PO PRN ×3 (04:17→20:57)
[2021-08-27] MEDS: Acetaminophen 325 MG Tab PO PRN ×2 (04:17→13:23)
[2021-08-27] MEDS: Sucralfate 1 GM Tab PO SCH ×4 (06:35→21:02)
[2021-08-27] MEDS: Dexamethasone 4 MG Tab PO SCH (09:32)
[2021-08-27] MEDS: Furosemide 40 MG Tab PO SCH (09:33)
[2021-08-27] MEDS: levETIRAcetam 500 MG Tab PO SCH ×2 (09:33→21:03)
[2021-08-27] MEDS: Famotidine 20 MG Tab PO SCH ×2 (09:34→21:03)
[2021-08-27] MEDS: Metoprolol Tartrate 50 MG Tab PO SCH ×2 (09:34→21:00)
[2021-08-27] MEDS: Isosorbide Mononitrate 30 MG Tab.ER PO SCH (09:36)
[2021-08-27] MEDS: Docusate Sodium 100 MG Cap PO SCH (16:28)
[2021-08-27] MEDS: Pramipexole 0.25 MG Tab PO SCH (21:02)
[2021-08-28] MEDS: Morphine 10 MG/0.5 ML Oral Syringe PO PRN (03:29)
[2021-08-28] MEDS: Acetaminophen 325 MG Tab PO PRN ×3 (03:37→21:44)
[2021-08-28] MEDS: Sucralfate 1 GM Tab PO SCH (07:56)
[2021-08-28] MEDS: Furosemide 40 MG Tab PO SCH (08:30)
[2021-08-28] MEDS: levETIRAcetam 500 MG Tab PO SCH ×2 (08:30→21:32)
[2021-08-28] MEDS: Metoprolol Tartrate 50 MG Tab PO SCH ×2 (08:31→11:43)
[2021-08-28] MEDS: Isosorbide Mononitrate 30 MG Tab.ER PO SCH (08:31)
[2021-08-28] MEDS: Famotidine 20 MG Tab PO SCH ×2 (08:32→21:32)
[2021-08-28] MEDS ORDERED: Docusate Sodium 100 MG Cap PO SCH (09:00)
[2021-08-28] MEDS: Docusate Sodium 100 MG Cap PO SCH (10:15)
[2021-08-28] MEDS ORDERED: Metoprolol Tartrate 50 MG Tab PO ONE (10:15)
[2021-08-28] MEDS: Dexamethasone 4 MG Tab PO SCH (10:19)
[2021-08-28] MEDS: Pramipexole 0.25 MG Tab PO SCH (21:33)
[2021-08-28] MEDS: Metoprolol Tartrate 100 MG Tab PO SCH (21:33)
[2021-08-29] MEDS: Morphine 10 MG/0.5 ML Oral Syringe PO PRN (03:02)
[2021-08-29] MEDS: Dexamethasone 4 MG Tab PO SCH (09:49)
[2021-08-29] MEDS: Isosorbide Mononitrate 30 MG Tab.ER PO SCH (09:49)
[2021-08-29] MEDS: Metoprolol Tartrate 100 MG Tab PO SCH ×2 (09:50→21:16)
[2021-08-29] MEDS: Furosemide 40 MG Tab PO SCH (09:50)
[2021-08-29] MEDS: Famotidine 20 MG Tab PO SCH ×2 (09:50→21:16)
[2021-08-29] MEDS: levETIRAcetam 500 MG Tab PO SCH ×2 (09:50→21:16)
[2021-08-29] MEDS ORDERED: oxyCODONE 5 MG Tab PO PRN (16:55)
[2021-08-29] MEDS: Pramipexole 0.25 MG Tab PO SCH (21:16)
[2021-08-29] MEDS: Acetaminophen 325 MG Tab PO PRN (21:17)
[2021-08-30] MEDS: Dexamethasone 4 MG Tab PO SCH (08:06)
[2021-08-30] MEDS: levETIRAcetam 500 MG Tab PO SCH ×2 (08:06→21:32)
[2021-08-30] MEDS: Furosemide 40 MG Tab PO SCH (08:07)
[2021-08-30] MEDS: Isosorbide Mononitrate 30 MG Tab.ER PO SCH (08:10)
[2021-08-30] MEDS: Metoprolol Tartrate 100 MG Tab PO SCH (08:10)
[2021-08-30] MEDS: Famotidine 20 MG Tab PO SCH ×2 (08:10→21:33)
[2021-08-30] MEDS ORDERED: Haloperidol Lactate 2 MG/ML Oral Soln 15 ML Bottle PO PRN (11:46)
[2021-08-30] MEDS ORDERED: Haloperidol Lactate Oral Concetrate 2 MG/ML ML 120 ML Bottle PO SCH (12:00)
--- NOTE | 2021-08-30 13:58 | PCM.PN ---
- General Info Date of Service: 08/30/21 Subjective Update: Alejandro has had a rough couple of nights, agitated, morphine and Vistaril have not helped. Hospice referral today. He has been more confused which is to be expected with subdural hematoma, he had morphine over the weekend which helped with his pain, was not confused with it. He was more confused Saturday night so staff had not given morphine feeling it was med related, he has not had since 3 am Tues am but confusion has fluctuated on and off, so more likely due to his medical condition. He states he doesn't have pain currently. He was resting comfortably in bed when meeting with myself, Tasha Gill(his ) and Ann-Marie from Hospice today. He states he is not tired either. He was up all night, his mind has been racing. Possibly he is having terminal agitation. Having regular BM. Using CPAP at night. - Patient Data Vitals - Most Recent: Last Vital Signs Temp 98 F 08/30/21 08:00 Pulse 65 08/30/21 08:00 Resp 20 08/30/21 08:00 BP 106/45 L 08/30/21 08:00 Pulse Ox 92 L 08/30/21 08:00 Weight - Most Recent: 257 lb 6.4 oz Med Orders - Current: Current Medications Acetaminophen (Acetaminophen 325 Mg Tab) 650 mg PO Q4H PRN PRN Reason: Pain (moderate 4-6) Last Admin: 08/29/21 21:17 Dose: 650 mg Documented by: Bisacodyl (Bisacodyl 5 Mg Tab) 5 mg PO DAILY PRN PRN Reason: Constipation Dexamethasone (Dexamethasone 4 Mg Tab) 4 mg PO DAILY [facility] Last Admin: 08/30/21 08:06 Dose: 4 mg Documented by: Famotidine (Famotidine 20 Mg Tab) 20 mg PO BID [facility] Last Admin: 08/30/21 08:10 Dose: 20 mg Documented by: Haloperidol Lactate (Haloperidol Lactate 2 Mg/Ml Oral Soln 15 Ml Bottle) 0.5 mg PO 0800,1200,1600,2000 [facility] Haloperidol Lactate (Haloperidol Lactate 2 Mg/Ml Oral Soln 15 Ml Bottle) 0.5 mg PO Q2H PRN PRN Reason: Agitation Hyoscyamine (Hyoscyamine 0.125 Mg Tab.Sl) 0.125 mg SL Q6H PRN PRN Reason: secretions Levetiracetam (Levetiracetam 500 Mg Tab) 500 mg PO BID [facility] Last Admin: 08/30/21 08:06 Dose: 500 mg Documented by: Lorazepam (Lorazepam 2 Mg/Ml Sdv) 2 mg IM Q5M PRN PRN Reason: Seizures Metoprolol Tartrate (Metoprolol Tartrate 50 Mg Tab) 50 mg PO BID [facility] Morphine Sulfate (Morphine 10 Mg/0.5 Ml Oral Syringe) 5 mg PO Q2H PRN PRN Reason: Pain (severe 7-10) Last Admin: 08/29/21 03:02 Dose: 5 mg Documented by: Nitroglycerin (Nitroglycerin 0.4 Mg Tab.Sl) 0.4 mg SL Q5M PRN PRN Reason: Chest Pain Ondansetron HCl (Ondansetron 4 Mg Tab.Dis) 4 mg PO Q4H PRN PRN Reason: Nausea/Vomiting Oxycodone HCl (Oxycodone 5 Mg Tab) 5 mg PO Q6H PRN PRN Reason: Pain (moderate 4-6) Last Admin: 08/29/21 21:18 Dose: 5 mg Documented by: Pramipexole Dihydrochloride (Pramipexole 0.25 Mg Tab) 0.75 mg PO BEDTIME [facility] Last Admin: 08/29/21 21:16 Dose: 0.75 mg Documented by: Prochlorperazine Maleate (Prochlorperazine 25 Mg Supp) 25 mg RECTAL Q12H PRN PRN Reason: Nausea Risperidone (Risperidone 0.25 Mg Tab) 0.25 mg PO BEDTIME [facility] Senna/Docusate Sodium (Docusate Sodium/Sennosides 50-8.6 Mg Tab) 1 tab PO DAILY [facility] Last Admin: 08/30/21 08:10 Dose: 1 tab Documented by: Discontinued Medications Albuterol (Albuterol 8 Gm Inhaler) 0 gm INH Q6H PRN PRN Reason: Shortness of Breath Docusate Sodium (Docusate Sodium 100 Mg Cap) 100 mg PO MOFR@0900 [facility] Docusate Sodium (Docusate Sodium 100 Mg Cap) 100 mg PO DAILY [facility] Last Admin: 08/28/21 10:15 Dose: Not Given Documented by: Enalapril Maleate (Enalapril 10 Mg Tab) 20 mg PO DAILY [facility] Last Admin: 08/28/21 10:15 Dose: Not Given Documented by: Furosemide (Furosemide 40 Mg Tab) 40 mg PO DAILY [facility] Last Admin: 08/30/21 08:07 Dose: 40 mg Documented by: Haloperidol Lactate (Haloperidol Lactate Oral Concetrate 2 Mg/Ml Ml 120 Ml Bottle) 0.5 mg PO 0800,1200,1600,2000 [facility] Haloperidol Lactate (Haloperidol Lactate 2 Mg/Ml Oral Soln 15 Ml Bottle) 0.5 mg PO Q2H PRN PRN Reason: Agitation Hydroxyzine Pamoate (Hydroxyzine Pamoate 50 Mg Cap) 50 mg PO BEDTIME PRN PRN Reason: Anxiety Last Admin: 08/29/21 23:24 Dose: 50 mg Documented by: Isosorbide Mononitrate (Isosorbide Mononitrate 30 Mg Tab.Er) 30 mg PO DAILY [facility] Last Admin: 08/30/21 08:10 Dose: Not Given Documented by: Metoprolol Tartrate (Metoprolol Tartrate 50 Mg Tab) 150 mg PO BID [facility] Last Admin: 08/28/21 11:43 Dose: Not Given Documented by: Metoprolol Tartrate (Metoprolol Tartrate 100 Mg Tab) 100 mg PO BID [facility] Last Admin: 08/30/21 08:10 Dose: Not Given Documented by: Metoprolol Tartrate (Metoprolol Tartrate 50 Mg Tab) 100 mg PO ONETIME ONE Stop: 08/28/21 10:16 Last Admin: 08/28/21 10:15 Dose: 100 mg Documented by: Morphine Sulfate (Morphine Oral Concentrate 20 Mg/Ml 30 Ml Bottle) 5 mg SL Q2H PRN PRN Reason: Pain Oxycodone HCl (Oxycodone 5 Mg Tab) 5 mg PO Q6H PRN PRN Reason: Pain (severe 7-10) Last Admin: 08/26/21 15:33 Dose: 5 mg Documented by: Sucralfate (Sucralfate 1 Gm Tab) 1 gm PO QIDACANDBED [facility] Last Admin: 08/28/21 07:56 Dose: 1 gm Documented by: Tramadol HCl (Tramadol 50 Mg Tab) 50 mg PO BID [facility] Last Admin: 08/26/21 08:13 Dose: 50 mg Documented by: - Exam General: Alert, Cooperative, Other (Expressive aphasia, resting comfortably, having some slurred speech) Lungs: Clear to Auscultation, Normal Respiratory Effort Cardiovascular: Regular Rate, Irregular Rhythm GI/Abdominal Exam: Normal Bowel Sounds, Soft, Non-Tender, No Distention Skin: Ecchymosis Wound/Incisions: Healing Well, No Drainage Sepsis Event Note - Evaluation Sepsis Screening Result: No Definite Risk - Focused Exam Vital Signs: Vital Signs Temp Pulse Resp BP Pulse Ox Pulse Ox 08/30/21 08:00 98 F 65 20 106/45 L 92 L 92 L - Problem List & Annotations (1) Comfort measures only status SNOMED Code(s): 57088161298992 Code(s): Z51.5 - ENCOUNTER FOR PALLIATIVE CARE Status: Acute Current Visit: Yes (2) Chronic myelocytic leukemia SNOMED Code(s): 43945445 Code(s): C92.10 - CHRONIC MYELOID LEUK, BCR/ABL-POSITIVE, NOT ACHIEVE REMIS Status: Acute Current Visit: Yes (3) MDS (myelodysplastic syndrome) SNOMED Code(s): 118194174 Code(s): D46.9 - MYELODYSPLASTIC SYNDROME, UNSPECIFIED Status: Chronic Current Visit: No Onset Date: ~11/2020 (4) Radicular pain of right lower extremity SNOMED Code(s): 09557780, 490417704 Code(s): M54.10 - RADICULOPATHY, SITE UNSPECIFIED Status: Acute Current Visit: No (5) Subdural hematoma SNOMED Code(s): 033265553 Code(s): S06.5X9A - TRAUM SUBDR HEM W LOC OF UNSP DURATION, INIT Status: Acute Current Visit: No Onset Date: ~08/15/21 Annotation/Comment:: Shonda holes done on 08/22 (6) Atrial fibrillation SNOMED Code(s): 84291629 Code(s): I48.91 - UNSPECIFIED ATRIAL FIBRILLATION Status: Chronic Current Visit: No (7) CHF (congestive heart failure) SNOMED Code(s): 29420451 Code(s): I50.9 - HEART FAILURE, UNSPECIFIED Status: Chronic Current Visit: No (8) COPD (chronic obstructive pulmonary disease) SNOMED Code(s): 81446462 Code(s): J44.9 - CHRONIC OBSTRUCTIVE PULMONARY DISEASE, UNSPECIFIED Status: Chronic Current Visit: No (9) Chronic renal failure SNOMED Code(s): 62442000 Code(s): N18.9 - CHRONIC KIDNEY DISEASE, UNSPECIFIED Status: Chronic Current Visit: No (10) History of DVT (deep vein thrombosis) SNOMED Code(s): 690165501 Code(s): Z86.718 - PERSONAL HISTORY OF OTHER VENOUS THROMBOSIS AND EMBOLISM Status: Chronic Current Visit: No (11) History of IA (myocardial infarction) SNOMED Code(s): 257817519 Code(s): I25.2 - OLD MYOCARDIAL INFARCTION Status: Chronic Current Visit: No (12) History of cardiac arrest SNOMED Code(s): 439295277 Code(s): Z86.74 - PERSONAL HISTORY OF SUDDEN CARDIAC ARREST Status: Chronic Current Visit: No (13) Neural foraminal stenosis of lumbosacral spine SNOMED Code(s): 137600617148 Code(s): M48.07 - SPINAL STENOSIS, LUMBOSACRAL REGION Status: Chronic Current Visit: No (14) Obesity SNOMED Code(s): 817743561, 731167559 Code(s): E66.9 - OBESITY, UNSPECIFIED Status: Chronic Current Visit: No (15) Palliative care status SNOMED Code(s): 547625659 Code(s): Z51.5 - ENCOUNTER FOR PALLIATIVE CARE Status: Chronic Current Visit: No (16) Sleep apnea with use of continuous positive airway pressure (CPAP) SNOMED Code(s): 70232996, 308271003 Code(s): G47.30 - SLEEP APNEA, UNSPECIFIED Status: Chronic Current Visit: No - Problem List Review Problem List Initiated/Reviewed/Updated: Yes - My Orders Last 24 Hours: My Active Orders 08/29/21 16:55 oxyCODONE 5 mg PO Q6H PRN 08/30/21 08:14 Consult to Hospice [CONS] Routine 08/30/21 12:15 Haloperidol Lactate [Haldol 2 MG/ML Soln] 0.5 mg PO 0800,1200,1600,2000 08/30/21 13:00 Haloperidol Lactate [Haldol 2 MG/ML Soln] 0.5 mg PO Q2H PRN 08/30/21 21:00 Metoprolol Tartrate [Lopressor] 50 mg PO BID risperiDONE [RisperiDAL] 0.25 mg PO BEDTIME - Plan Plan:: 1. Comfort measures: Hospice referral: Ann-Marie from Hospice recommended Haldol 0.5 mg po qid, and q2h prn agitation. Risperidone 0.25 mg at bedtime. Continue pain medications as ordered. Discontinue Lisinopril, Imdur, & Lasix. Wean off Metoprolol, held this morning due to hypotension, decrease dose to 50 mg bid starting tonight. Adjust medications as needed. 2. Sleep apnea: home CPAP at night. 3. Discharge planning: Comfort measures until [place] bed obtained, would be discharged on Hospice. Adjust treatments as necessary.
[2021-08-30] MEDS: Haloperidol Lactate 2 MG/ML Oral Soln 15 ML Bottle PO SCH ×3 (14:19→21:30)
[2021-08-30] MEDS ORDERED: Metoprolol Tartrate 50 MG Tab PO SCH (21:00)
[2021-08-30] MEDS: Pramipexole 0.25 MG Tab PO SCH (21:32)
[2021-08-30] MEDS: risperiDONE 0.25 MG Tab PO SCH (21:33)
[2021-08-31] MEDS: Morphine 10 MG/0.5 ML Oral Syringe PO PRN ×3 (00:21→23:02)
[2021-08-31] MEDS: Dexamethasone 4 MG Tab PO SCH (10:04)
[2021-08-31] MEDS: Famotidine 20 MG Tab PO SCH ×2 (10:05→20:55)
[2021-08-31] MEDS: levETIRAcetam 500 MG Tab PO SCH ×2 (10:05→20:56)
[2021-08-31] MEDS: Haloperidol Lactate 2 MG/ML Oral Soln 15 ML Bottle PO SCH ×4 (13:16→20:52)
[2021-08-31] MEDS: Pramipexole 0.25 MG Tab PO SCH (20:55)
[2021-08-31] MEDS: risperiDONE 0.25 MG Tab PO SCH (20:55)
[2021-09-01] MEDS: Acetaminophen 325 MG Tab PO PRN (04:15)
[2021-09-01] MEDS: Morphine 10 MG/0.5 ML Oral Syringe PO PRN ×4 (04:17→20:12)
[2021-09-01] MEDS: Haloperidol Lactate 2 MG/ML Oral Soln 15 ML Bottle PO PRN ×2 (05:07→08:22)
[2021-09-01] MEDS: Haloperidol Lactate 2 MG/ML Oral Soln 15 ML Bottle PO SCH ×4 (08:28→20:04)
[2021-09-01] MEDS: Dexamethasone 4 MG Tab PO SCH (08:29)
[2021-09-01] MEDS: levETIRAcetam 500 MG Tab PO SCH ×2 (08:29→20:05)
[2021-09-01] MEDS: Famotidine 20 MG Tab PO SCH ×2 (08:29→20:05)
[2021-09-01] MEDS: risperiDONE 0.25 MG Tab PO SCH (20:05)
[2021-09-01] MEDS: Pramipexole 0.25 MG Tab PO SCH (20:05)
[2021-09-02] MEDS: Morphine 10 MG/0.5 ML Oral Syringe PO PRN ×2 (03:53→20:21)
[2021-09-02] MEDS: Haloperidol Lactate 2 MG/ML Oral Soln 15 ML Bottle PO SCH ×5 (09:48→20:21)
[2021-09-02] MEDS: Famotidine 20 MG Tab PO SCH ×2 (09:49→20:06)
[2021-09-02] MEDS: Dexamethasone 4 MG Tab PO SCH (09:49)
[2021-09-02] MEDS: levETIRAcetam 500 MG Tab PO SCH ×2 (10:07→20:06)
[2021-09-02] MEDS: Pramipexole 0.25 MG Tab PO SCH (20:06)
[2021-09-02] MEDS: risperiDONE 0.25 MG Tab PO SCH (20:06)
[2021-09-03] MEDS: Haloperidol Lactate 2 MG/ML Oral Soln 15 ML Bottle PO SCH ×5 (08:15→20:12)
[2021-09-03] MEDS: Haloperidol Lactate 2 MG/ML Oral Soln 15 ML Bottle PO PRN ×3 (09:35→19:26)
[2021-09-03] MEDS: Famotidine 20 MG Tab PO SCH ×2 (09:43→20:13)
[2021-09-03] MEDS: Dexamethasone 4 MG Tab PO SCH (09:44)
[2021-09-03] MEDS: levETIRAcetam 500 MG Tab PO SCH ×2 (09:44→20:14)
[2021-09-03] MEDS: Morphine 10 MG/0.5 ML Oral Syringe PO PRN ×2 (13:14→19:24)
[2021-09-03] MEDS: Pramipexole 0.25 MG Tab PO SCH (20:13)
[2021-09-03] MEDS: risperiDONE 0.25 MG Tab PO SCH (20:14)
[2021-09-04] MEDS: Morphine 10 MG/0.5 ML Oral Syringe PO PRN ×5 (01:37→22:23)
[2021-09-04] MEDS: Acetaminophen 325 MG Tab PO PRN (01:37)
[2021-09-04] MEDS: Famotidine 20 MG Tab PO SCH ×2 (08:58→20:13)
[2021-09-04] MEDS: Dexamethasone 4 MG Tab PO SCH (08:58)
[2021-09-04] MEDS: levETIRAcetam 500 MG Tab PO SCH ×2 (08:58→20:12)
[2021-09-04] MEDS: Haloperidol Lactate 2 MG/ML Oral Soln 15 ML Bottle PO SCH ×4 (08:58→20:11)
[2021-09-04] MEDS ORDERED: guaiFENesin/Dextromethorphan 100-10 MG/5 ML Soln 5 ML Cup PO PRN (09:26)
[2021-09-04] MEDS ORDERED: Furosemide 20 MG Tab PO SCH (09:30)
[2021-09-04 13:36] VITALS: BP 147/71; PULSE 120
[2021-09-04] MEDS: Haloperidol Lactate 2 MG/ML Oral Soln 15 ML Bottle PO PRN (18:23)
[2021-09-04] MEDS: Pramipexole 0.25 MG Tab PO SCH (20:11)
[2021-09-04] MEDS: risperiDONE 0.25 MG Tab PO SCH (20:12)
[2021-09-05] MEDS: Morphine 10 MG/0.5 ML Oral Syringe PO PRN (01:15)
--- NOTE | 2021-09-06 01:54 | DISCH ---
DISCHARGE DATE: 09/05/2021 DATE OF : 09/05/2021. REASONS FOR ADMISSION: 1. Comfort measures. 2. Chronic myelocytic leukemia. 3. History of subdural hematoma. 4. Atrial fibrillation. 5. CHF. 6. COPD. 7. Chronic renal failure. 8. Palliative care status. BRIEF HISTORY: This is a 71-year-old male, who was admitted from [facility] after he underwent bur hole placement for subdural hematoma. He was put on comfort measures and on 09/05/2021. /[id number] DIANA/MAYL
== END 2021-09-05 02:55 | disposition expired | DRG 951 ==
LOC: FB.MS 15:29
PROVIDERS: ADMIT Family Medicine; ATTEND Family Medicine
DX: Z51.5 Encounter for palliative care (principal); C92.10 Chronic myeloid leukemia, BCR/ABL-positive, not having achieved remission; I13.0 Hypertensive heart and chronic kidney disease with heart failure and stage 1 through stage 4 chronic kidney disease, or unspecified chronic kidney disease; I50.9 Heart failure, unspecified; J44.9 Chronic obstructive pulmonary disease, unspecified; N18.9 Chronic kidney disease, unspecified; H91.90 Unspecified hearing loss, unspecified ear; H54.7 Unspecified visual loss; E78.00 Pure hypercholesterolemia, unspecified; I48.0 Paroxysmal atrial fibrillation; G47.30 Sleep apnea, unspecified; M19.90 Unspecified osteoarthritis, unspecified site; G89.29 Other chronic pain; G25.81 Restless legs syndrome; K44.9 Diaphragmatic hernia without obstruction or gangrene; G43.909 Migraine, unspecified, not intractable, without status migrainosus; M43.16 Spondylolisthesis, lumbar region; I25.10 Atherosclerotic heart disease of native coronary artery without angina pectoris; E66.9 Obesity, unspecified; R73.03 Prediabetes; D46.9 Myelodysplastic syndrome, unspecified; M54.10 Radiculopathy, site unspecified; M48.07 Spinal stenosis, lumbosacral region; R29.898 Other symptoms and signs involving the musculoskeletal system; R45.1 Restlessness and agitation; Z88.7 Allergy status to serum and vaccine; Z88.1 Allergy status to other antibiotic agents; Z88.5 Allergy status to narcotic agent; Z88.8 Allergy status to other drugs, medicaments and biological substances; Z79.899 Other long term (current) drug therapy; S06.5X9D Traumatic subdural hemorrhage with loss of consciousness of unspecified duration, subsequent encounter; Z86.718 Personal history of other venous thrombosis and embolism; Z79.01 Long term (current) use of anticoagulants; Z86.711 Personal history of pulmonary embolism; I25.2 Old myocardial infarction; Z95.5 Presence of coronary angioplasty implant and graft; Z87.01 Personal history of pneumonia (recurrent); Z98.890 Other specified postprocedural states; Z90.49 Acquired absence of other specified parts of digestive tract; Z79.51 Long term (current) use of inhaled steroids; Z99.81 Dependence on supplemental oxygen; Z86.010 Personal history of colon polyps; Z87.81 Personal history of (healed) traumatic fracture; Z86.74 Personal history of sudden cardiac arrest; Z68.32 Body mass index [BMI] 32.0-32.9, adult
CPT/HCPCS: A9270-GY; J2060; J8540